=== PATIENT | male | born 1975 | race Caucasian/White ===

== ENCOUNTER 2021-01-12 05:06 | Observation (INO) | payer OTHER, SELFPAY ==
--- NOTE | ~2021-01-12 | US_ITS ---
EXAMINATION: US VENOUS ULTRASOUND WITH DOPPLER LOWER EXTREMITY, BILATERAL CLINICAL INFORMATION: Bilateral leg swelling. Positive d-dimer. Skin changes with thickened patchy purple/red skin and weeping open wound in the anterior right lower leg. COMPARISON: None TECHNIQUE: Ultrasound of the deep veins is performed from the hip to the calf with compression sonography and color and pulse Doppler assessment. Spectral analysis with color-flow imaging is performed. FINDINGS: RIGHT: There is normal venous compression and respiratory variation and augmented flow. The visualized common femoral vein, femoral vein, profunda femoral vein, popliteal vein, and the trifurcation region shows no evidence of deep venous thrombosis. There is no significant popliteal fossa cyst. The posterior tibial veins are patent. The peroneal veins are not visualized. LEFT: There is normal venous compression and respiratory variation and augmented flow. The visualized common femoral vein, femoral vein, profunda femoral vein, popliteal vein, and the trifurcation region shows no evidence of deep venous thrombosis. There is no significant popliteal fossa cyst. The posterior tibial and peroneal veins are only partially visualized with visualized segments appearing patent. US/US venous duplex LE BI IMPRESSION: No DVT demonstrated in the bilateral lower extremity down to the popliteal trifurcation. Calf veins were only incompletely seen. If the patient's symptoms persist, followup ultrasound in 5 days 7 days might be of value to exclude proximal propagation from a non-visualized calf vein.
--- NOTE | ~2021-01-12 | US_ITS ---
EXAMINATION: US VENOUS ULTRASOUND WITH DOPPLER LOWER EXTREMITY, RIGHT CLINICAL INFORMATION: Right leg swelling COMPARISON: None TECHNIQUE: Ultrasound of the deep veins is performed from the hip to the calf with compression sonography and color and pulse Doppler assessment. Spectral analysis with color-flow imaging is performed. FINDINGS: There is normal venous compression and respiratory variation and augmented flow. The visualized common femoral vein, superficial femoral vein, profunda femoral vein, and popliteal vein are patent. The right calf veins are not well visualized due to overlying dressing. There is no popliteal fossa cyst. US/US venous duplex LE RT IMPRESSION: No DVT demonstrated in the right lower extremity. Calf veins not well visualized.
[2021-01-12 05:11] VITALS: BP 154/92; PULSE 85; RESP 16; TEMP 36.1; O2SAT 94; BMI 37.6
[2021-01-12 05:38] LABS: MANUAL DIFF FLAG NO
[2021-01-12 05:39] LABS: Basophils Percent Auto 0.6 % (0-2); Eosinophils Absolute Auto 0.3 X10*3/uL (0.0-0.4); Eosinophils Percent Auto 4.8 % (0-4); Hematocrit 45.8 % (42.0-52.0); Hemoglobin 15.4 g/dl (14.0-18.0); Imm Gran Abs Auto 0.01 X10*3/uL (0.00-0.03); Imm Gran Pct Auto 0.2 % (0.0-0.4); Lymphocytes Absolute Auto 1.1 X10*3/uL (1.2-4.9); Lymphocytes Percent Auto 18.2 % (20-40); Mean Corpuscular HGB Conc 33.6 g/dl (31.0-36.0); Mean Corpuscular Hemoglobin 31.2 pg (27.0-33.0); Mean Corpuscular Volume 92.9 fL (80.0-98.0); Mean Platelet Volume 9.6 fL (9.4-12.4); Monocytes Absolute Auto 0.6 X10*3/uL (0.1-1.2); Monocytes Percent Auto 9.4 % (2-11); Neutrophils Absolute Auto 4.2 x10*3/uL (2.0-8.3); Neutrophils Percent Auto 66.8 % (45-73); Platelet Count 222 X10*3/uL (160-400); Red Blood Count 4.93 X10*6/uL (4.60-5.80); Red Cell Distribution Width 12.4 % (11.0-16.0); White Blood Count 6.3 X10*3/uL (4.8-10.8)
[2021-01-12 05:46] LABS: D Dimer High Sensitivity 401 NG/ML
[2021-01-12 06:19] LABS: Alanine Aminotransferase 16 U/L (0-40); Albumin Level 3.7 g/dL (3.5-5.0); Alkaline Phosphatase 51 U/L (39-117); Anion Gap 13 (12-20); Aspartate Amino Transferase 16 U/L (5-37); Bilirubin Total 0.7 mg/dL (0.0-1.0); Blood Urea Nitrogen 16 mg/dL (9-16); Calcium 9.3 mg/dL (8.4-10.2); Carbon Dioxide 32 mmol/L (22-29); Chloride 99 mmol/L (96-108); Creatinine Clr Calc Pharmacy 123.4; Estimated Glomerular Filt Rate > 60; Glucose Random 159 mg/dL (60-115); Potassium 3.2 mmol/L (3.3-5.1); Sodium 141 mmol/L (135-145); Total Protein 6.8 g/dL (6.5-8.0)
--- NOTE | 2021-01-12 07:30 | ED_ITS ---
HPI - General Adult General Chief complaint: Extremity Injury, Lower Stated complaint: leg pain Time Seen by Provider: 01/12/21 07:22 Source: patient History of Present Illness HPI narrative: This is a 45 years old the male with history of alcohol abuse presented to ED with a chief complaint of right lower extremity redness /discoloration. Denies any fever chills Onset (ago): day(s) Location: right and lower extremity Radiation: non-radiation Severity: moderate Quality: burning Pain Consistency: constant Relieving factors: none Exacerbating factors: none Related Data Home Medications Medication Instructions Recorded Confirmed acetaminophen 325 mg tablet 650 mg PO Q6H PRN 01/12/21 01/12/21 amlodipine 5 mg tablet 1 tab PO DAILY 01/12/21 01/12/21 budesonide-formoterol HFA 160 2 puff INHALATION BID 01/12/21 01/12/21 mcg-4.5 mcg/actuation aerosol inhaler (Symbicort) chlorthalidone 25 mg tablet 1 tab PO DAILY 01/12/21 01/12/21 clindamycin 1 %-benzoyl peroxide 5 1 appl TOPICAL DAILY 01/12/21 01/12/21 % topical gel clobetasol 0.05 % topical cream 1 appl TOPICAL DAILY 01/12/21 01/12/21 clotrimazole-betamethasone 1 1 appl TOPICAL DAILY 01/12/21 01/12/21 %-0.05 % topical cream lisinopril 40 mg tablet 1 tab PO DAILY 01/12/21 01/12/21 Allergies Allergy/AdvReac Type Severity Reaction Status Date / Time Penicillins [PENICILLINS] Allergy Unknown HIVES Verified 01/12/21 05:07 Review of Systems Constitutional: Constitutional: Reports no additional constitutional complaints ENT: Denies dizziness and Denies dry mouth Cardiovascular: Cardiovascular: Denies chest pain and Denies chest pain at rest Respiratory: Respiratory: Reports no additional respiratory complaints Neurologic: Denies dizziness PMFSH Past Medical History Medical History Asthma Hypertension Social History Social History Alcohol intake: never Smoked in Last 30 Days: No Use of substances other than those prescribed or required for medical reasons: No Advance Directives: No Advance Directives Information Provided: Yes Physical Exam Vital Signs: Vital Signs: Last Vital Signs Temp 97.0 F 01/12/21 05:11 Pulse 85 01/12/21 05:11 Resp 16 01/12/21 05:11 BP 154/92 H 01/12/21 05:11 Pulse Ox 94 01/12/21 05:11 BMI result Body Mass Index 37.6 Const: General: cooperative Nutritional Appearance: average body habitus Orientation/consciousness: patient oriented x3 HENMT: Head: Yes normal to inspection and Yes No palpable skull fracture present Mouth: Normal oral and palatal mucosa present Neck: Neck: Yes normal visual inspection and Yes full ROM Chest: Chest palpation & inspection: normal inspection of the chest Resp: Effort & Inspection: normal respiratory effort Auscultation: clear to auscultation bilaterally Cardio: Jugular venous distension: no JVD Rate: regular rate Rhythm: regular rhythm GI: Inspection: Yes normal to inspection Palpation (GI): Soft to palpation, not firm, nontender and no guarding Percussion: Yes normal to percussion Skin: General skin exam: no rashes or lesions noted, elasticity normal and turgor normal Neuro: General: patient oriented x3 Extrem: Other: examination of the right lower extremity shows redness discoloration erythema in the anterior aspect of the right leg Medical Decision Making MDM Narrative Medical decision making narrative: patient presented cellulitis draining in the right lower extremity we get the blood work blood culture IV antibiotic will do ultrasound of the right lower extremity Lab Data Result diagrams: 01/12/21 05:33 01/12/21 05:33 Labs: Lab Results 01/12/21 01/12/21 01/12/21 Range/Units 05:33 05:33 05:33 WBC 6.3 (4.8-10.8) X10*3/uL RBC 4.93 (4.60-5.80) X10*6/uL Hgb 15.4 (14.0-18.0) g/dl Hct 45.8 (42.0-52.0) % MCV 92.9 (80.0-98.0) fL MCH 31.2 (27.0-33.0) pg MCHC 33.6 (31.0-36.0) g/dl RDW 12.4 (11.0-16.0) % Plt Count 222 (160-400) X10*3/uL MPV 9.6 (9.4-12.4) fL Immature Gran % (Auto) 0.2 (0.0-0.4) % Neut % (Auto) 66.8 (45-73) % Lymph % (Auto) 18.2 L (20-40) % [place] % (Auto) 9.4 (2-11) % Eos % (Auto) 4.8 H (0-4) % Baso % (Auto) 0.6 (0-2) % Lymph # (Auto) 1.1 L (1.2-4.9) X10*3/uL [place] # (Auto) 0.6 (0.1-1.2) X10*3/uL Eos # (Auto) 0.3 (0.0-0.4) X10*3/uL Baso # (Auto) 0.0 (0.0-0.2) X10*3/uL Abs Immat Gran (auto) 0.01 (0.00-0.03) X10*3/uL Absolute Neuts (auto) 4.2 (2.0-8.3) x10*3/uL Absolute Nucleated RBC 0.000 (0.0-0.012) X10*3/uL Nucleated RBC % (auto) 0.0 (0.0-0.2) /100WBC ESR (0-15) MM/HR D-Dimer High Sensitivty 401 NG/ML Sodium 141 (135-145) mmol/L Potassium 3.2 L (3.3-5.1) mmol/L Chloride 99 (96-108) mmol/L Carbon Dioxide 32 H (22-29) mmol/L Anion Gap 13 (12-20) BUN 16 (9-16) mg/dL Creatinine 0.89 (0.5-1.4) mg/dL Estim Creat Clear Calc 123.4 Estimated GFR > 60 Random Glucose 159 H (60-115) mg/dL Lactic Acid (0.5-2.0) mmol/L Calcium 9.3 (8.4-10.2) mg/dL Total Bilirubin 0.7 (0.0-1.0) mg/dL AST 16 (5-37) U/L ALT 16 (0-40) U/L Alkaline Phosphatase 51 (39-117) U/L C-Reactive Protein 2.68 H (< or = 0.50) mg/dL Total Protein 6.8 (6.5-8.0) g/dL Albumin 3.7 (3.5-5.0) g/dL 01/12/21 01/12/21 Range/Units 05:33 08:07 WBC (4.8-10.8) X10*3/uL RBC (4.60-5.80) X10*6/uL Hgb (14.0-18.0) g/dl Hct (42.0-52.0) % MCV (80.0-98.0) fL MCH (27.0-33.0) pg MCHC (31.0-36.0) g/dl RDW (11.0-16.0) % Plt Count (160-400) X10*3/uL MPV (9.4-12.4) fL Immature Gran % (Auto) (0.0-0.4) % Neut % (Auto) (45-73) % Lymph % (Auto) (20-40) % [place] % (Auto) (2-11) % Eos % (Auto) (0-4) % Baso % (Auto) (0-2) % Lymph # (Auto) (1.2-4.9) X10*3/uL [place] # (Auto) (0.1-1.2) X10*3/uL Eos # (Auto) (0.0-0.4) X10*3/uL Baso # (Auto) (0.0-0.2) X10*3/uL Abs Immat Gran (auto) (0.00-0.03) X10*3/uL Absolute Neuts (auto) (2.0-8.3) x10*3/uL Absolute Nucleated RBC (0.0-0.012) X10*3/uL Nucleated RBC % (auto) (0.0-0.2) /100WBC ESR 30 H (0-15) MM/HR D-Dimer High Sensitivty NG/ML Sodium (135-145) mmol/L Potassium (3.3-5.1) mmol/L Chloride (96-108) mmol/L Carbon Dioxide (22-29) mmol/L Anion Gap (12-20) BUN (9-16) mg/dL Creatinine (0.5-1.4) mg/dL Estim Creat Clear Calc Estimated GFR Random Glucose (60-115) mg/dL Lactic Acid 0.7 (0.5-2.0) mmol/L Calcium (8.4-10.2) mg/dL Total Bilirubin (0.0-1.0) mg/dL AST (5-37) U/L ALT (0-40) U/L Alkaline Phosphatase (39-117) U/L C-Reactive Protein (< or = 0.50) mg/dL Total Protein (6.5-8.0) g/dL Albumin (3.5-5.0) g/dL Imaging Data us leg: Radiologist's impression: There is normal venous compression and respiratory variation and augmented flow. The visualized common femoral vein, femoral vein, profunda femoral vein, popliteal vein, and the trifurcation region shows no evidence of deep venous thrombosis. ? There is no significant popliteal fossa cyst. The posterior tibial veins are patent. The peroneal veins are not visualized. LEFT: There is normal venous compression and respiratory variation and augmented flow. The visualized common femoral vein, femoral vein, profunda femoral vein, popliteal vein, and the trifurcation region shows no evidence of deep venous thrombosis. ? There is no significant popliteal fossa cyst. The posterior tibial and peroneal veins are only partially visualized with visualized segments appearing patent. US/US venous duplex LE BI IMPRESSION: No DVT demonstrated in the bilateral lower extremity down to the popliteal trifurcation. Calf veins were only incompletely seen. ? If the patient's symptoms persist, followup ultrasound in 5 days 7 days might be of value to exclude proximal propagation from a non-visualized calf vein. Discharge Plan Discharge Clinical Impression: Cellulitis of leg, right Patient Disposition: Admitted As Inpatient
[2021-01-12] MEDS: vancomycin HCL 1,500 MG in 0.9 % Sodium Chloride 500 ML 333.33 MG IV (08:09)
--- NOTE | 2021-01-12 08:14 | PC.NURSE ---
pt asked this rn to contact mother. no answer x2
[2021-01-12 08:23] LABS: Lactic Acid 0.7 mmol/L (0.5-2.0)
[2021-01-12] MEDS: Potassium Chloride Packet 20 MEQ PACKET PO (11:06)
--- NOTE | 2021-01-12 11:09 | P.HPHOSP_ITS ---
History of Present Illness Date of Service: 01/12/21 Chief Complaint: right leg cellulitis 45-year-old male with past medical history of asthma, acne, hypertension, also allergic to cats and penicillin: patient came to the hospital because he has on and on/off leg cellulitis from : patient was being initially managed by PCP out patiently and then was told to go to [facility] in November where he had antibiotic therapy and was told to come back to podiatry clinic as per the patient his appointment got canceled, his leg becoming more painful and has superficial skin sloughing and mild clear drainage as per the patient. subsequently decided to come to the hospital. he denies any recent injury to the leg. He has chronic left venous stasis type changes on the other leg area. Denies any new complaint of chest pain or shortness of breath or abdominal pain or fever or chills or nausea or vomiting Denies any cough Denies any weakness or numbness. social history: Lives with his mother, unfortunately have cat in the house but he is allergic to it. He does binge drinking 8-10 beers 3 times a week says he does for pain in the lack . no smoking accept uses marijuana occasionally denies any recreational drug use ADL independent Review of Systems Review of Systems: as above. Yes all other systems are reviewed and are negative [facility] Medical History Asthma Hypertension Social History Alcohol intake: never Patient Tobacco Use Status: Tobacco use Unknown Tobacco use type: Cigarette Smoked in Last 30 Days: No Use of substances other than those prescribed or required for medical reasons: No Advance Directives: No Advance Directives Information Provided: Yes Meds Allergies Allergy/AdvReac Type Severity Reaction Status Date / Time Penicillins [PENICILLINS] Allergy Unknown HIVES Verified 01/12/21 05:07 Active Medications: Current Medications Vancomycin HCl 1,250 mg/ (Sodium Chloride) 250 mls @ 166.667 mls/hr IV Q12H [facility] Pharmacy Consult (Consult Rx Vancomycin Dosing) 1 each MISCELLANE DAILY PRN PRN Reason: Consult order Pharmacy Consult (Consult Rx Perform Med Rec) 1 each MISCELLANE ONCE PRN PRN Reason: Consult order Home Medications Medication Instructions Recorded Confirmed Last Taken Type acetaminophen 325 mg tablet 650 mg PO Q6H PRN 01/12/21 01/12/21 Unknown History amlodipine 5 mg tablet 1 tab PO DAILY 01/12/21 01/12/21 Unknown History budesonide-formoterol HFA 160 2 puff INHALATION BID 01/12/21 01/12/21 Unknown History mcg-4.5 mcg/actuation aerosol inhaler (Symbicort) chlorthalidone 25 mg tablet 1 tab PO DAILY 01/12/21 01/12/21 Unknown History clindamycin 1 %-benzoyl peroxide 5 1 appl TOPICAL DAILY 01/12/21 01/12/21 Unknown History % topical gel clobetasol 0.05 % topical cream 1 appl TOPICAL DAILY 01/12/21 01/12/21 Unknown History clotrimazole-betamethasone 1 1 appl TOPICAL DAILY 01/12/21 01/12/21 Unknown History %-0.05 % topical cream lisinopril 40 mg tablet 1 tab PO DAILY 01/12/21 01/12/21 Unknown History Physical Exam Vital Signs and Narrative: Vital Signs: Last Vital Signs Temp 97.0 F 01/12/21 05:11 Pulse 85 01/12/21 05:11 Resp 16 01/12/21 05:11 BP 154/92 H 01/12/21 05:11 Pulse Ox 94 01/12/21 05:11 BMI result Body Mass Index 37.6 Physical exam: Appearance: Alert.? Oriented X3.? not in distress.? Eyes: Pupils equal, round and reactive to light.? Sclera nonicteric.? has facial acne. ENT: Pharynx normal.? Moist mucous membranes. cvs: rrr, [id number] , no murmur res: clear to auscultation ,no rhonchii or wheezing abd: no rebound or guarding ,nt, bs present. ext : Right leg has chronic venostasis changes more than the left leg right leg specially in the lateral side has multiple skin ulcerations mild clear discharge, no flocculation, but warm area neuro: axo3 , nonfocal. Results Labs CBC and Chem 7: 01/12/21 05:33 01/13/21 04:43 Labs: Laboratory Results - last 24 hr 01/12/21 01/12/21 01/12/21 05:33 05:33 05:33 MCV 92.9 MCH 31.2 MCHC 33.6 RDW 12.4 Plt Count 222 MPV 9.6 Immature Gran % (Auto) 0.2 Neut % (Auto) 66.8 Lymph % (Auto) 18.2 L [place] % (Auto) 9.4 Eos % (Auto) 4.8 H Baso % (Auto) 0.6 Lymph # (Auto) 1.1 L [place] # (Auto) 0.6 Eos # (Auto) 0.3 Baso # (Auto) 0.0 Abs Immat Gran (auto) 0.01 Absolute Neuts (auto) 4.2 Absolute Nucleated RBC 0.000 Nucleated RBC % (auto) 0.0 D-Dimer High Sensitivty 401 Anion Gap 13 Estim Creat Clear Calc 123.4 Estimated GFR > 60 Random Glucose 159 H Lactic Acid Calcium 9.3 Total Bilirubin 0.7 AST 16 ALT 16 Alkaline Phosphatase 51 Total Protein 6.8 Albumin 3.7 01/12/21 08:07 MCV MCH MCHC RDW Plt Count MPV Immature Gran % (Auto) Neut % (Auto) Lymph % (Auto) [place] % (Auto) Eos % (Auto) Baso % (Auto) Lymph # (Auto) [place] # (Auto) Eos # (Auto) Baso # (Auto) Abs Immat Gran (auto) Absolute Neuts (auto) Absolute Nucleated RBC Nucleated RBC % (auto) D-Dimer High Sensitivty Anion Gap Estim Creat Clear Calc Estimated GFR Random Glucose Lactic Acid 0.7 Calcium Total Bilirubin AST ALT Alkaline Phosphatase Total Protein Albumin Imaging Radiologist's Impressions: Impressions Venous Duplex 01/12/21 09:00 IMPRESSION: No DVT demonstrated in the bilateral lower extremity down to the popliteal trifurcation. Calf veins were only incompletely seen. If the patient's symptoms persist, followup ultrasound in 5 days 7 days might be of value to exclude proximal propagation from a non-visualized calf vein. Assessment and Plan (1) Cellulitis of leg, right: Status: Acute 1. 45-year-old male with possible right leg cellulitis: Admit to observation labs and imaging reviewed personally and interpreted. CBC BMP seems fine, dvt study neg slightly limited -may repeat in 1 week if still symptomatic. ESR and CRP added, blood cultures sent patient was started on IV vancomycin, IV Dilaudid for pain management Vanco trough as per pharmacy. Id and wound care 2. Hypertension burk will continue home amlodipine and lisinopril. 3. Asthma: Stable- continue Symbicort, albuterol p.r.n. 4. alcohol abuse: CIWA scale, folic acid thiamine. last drink was 3-4 days back. 5. acne: He is aware to bring his home medication. 6. DVT prophylaxis: With subQ Lovenox above management discussed with the patient in detail length including use of antibiotics and side effects, code status: Patient understand above and in agreement with the above plan, time spent in assessment and plan could admission is 70 minute. Quality Stroke Does the patient have a stroke diagnosis?: No VTE Prior VTE?: No VTE Risk Level:: Medical - moderate - high VTE Device Contraindication: N/A - Device Ordered VTE Drug Contraindication: N/A - Med Ordered
[2021-01-12] MEDS: Lactated Ringers 1,000 ML 80 ML IVCONT (11:19)
[2021-01-12 12:13] LABS: C Reactive Protein 2.68 mg/dL (< or = 0.50)
[2021-01-12 12:46] LABS: Erythrocyte Sedimentation Rate 30 MM/HR (0-15)
[2021-01-12 14:50] LABS: COVID-19 Test Negative (Negative)
[2021-01-12 15:11] VITALS: BP 150/95; PULSE 75; RESP 18; TEMP 36.5; O2SAT 94
[2021-01-12] MEDS: 0.9 % Sodium Chloride Flush 3 ML SYRINGE IVFLUSH (15:18)
[2021-01-12] MEDS: HYDROmorphone HCl 0.5 MG/0.5 ML SYRINGE IVPUSH ×2 (15:20→19:39)
[2021-01-12 16:00] VITALS: BP 136/83; PULSE 71; RESP 16; TEMP 36.4; O2SAT 95
[2021-01-12] MEDS: vancomycin HCL 1,250 MG in 0.9 % Sodium Chloride 250 ML 166.67 MG IV (19:39)
--- NOTE | 2021-01-12 19:46 | PC.NURSE ---
pt a&o, no sob or chest pain, medicated per Mar. Will continue to monitor. no sign of distress at this time.
--- NOTE | 2021-01-12 21:35 | PC.NURSE ---
postive CMS and pedal pulses.
[2021-01-13] VITALS: BP 139/92; PULSE 68; RESP 16; TEMP 36.1; O2SAT 95
[2021-01-13] MEDS: HYDROmorphone HCl 0.5 MG/0.5 ML SYRINGE IVPUSH ×3 (00:03→18:40)
[2021-01-13] MEDS: Lactated Ringers 1,000 ML 80 ML IVCONT ×2 (03:22→18:15)
[2021-01-13 03:34] VITALS: BP 143/94; PULSE 81; RESP 16; TEMP 36.1; O2SAT 92
[2021-01-13 05:34] LABS: Anion Gap 9 (12-20); Blood Urea Nitrogen 14 mg/dL (9-16); Calcium 9.1 mg/dL (8.4-10.2); Carbon Dioxide 36 mmol/L (22-29); Chloride 99 mmol/L (96-108); Creatinine Clr Calc Pharmacy 127.7; Estimated Glomerular Filt Rate > 60; Glucose Random 98 mg/dL (60-115); Potassium 3.4 mmol/L (3.3-5.1); Sodium 141 mmol/L (135-145)
[2021-01-13 07:12] VITALS: BP 148/97; PULSE 81; RESP 18; TEMP 38.2; O2SAT 94
--- NOTE | 2021-01-13 07:32 | P.PNIM_ITS ---
Subjective Subjective Date of Service: 01/13/21 Interval History: leg cellulitis Review of Systems Still has leg pain improving, cellulitis area is also slowly improving Denies any new complaint of chest pain or shortness of breath or abdominal pain or fever or chills or nausea or vomiting Denies cough or weakness or numbness. Physical Exam Vital Signs: Vital Signs: Last Vital Signs Temp 100.7 F H 01/13/21 07:12 Pulse 81 01/13/21 07:12 Resp 18 01/13/21 07:12 BP 148/97 H 01/13/21 07:12 Pulse Ox 92 01/13/21 03:34 BMI result Body Mass Index 37.6 ?Appearance: Alert.? Oriented X3.? not in distress.? Eyes: Pupils equal, round and reactive to light.? Sclera nonicteric.? ?has facial acne. ENT: Pharynx normal.? Moist mucous membranes. cvs: rrr, [id number] , no murmur res: clear to auscultation ,no rhonchii or wheezing abd: no rebound or guarding ,nt, bs present. ext : ? Right leg has chronic? venostasis changes more than the left leg ?right leg specially in the lateral side has multiple skin ulcerations, less erythema ?mild clear discharge,? no flocculation,? but warm area neuro: axo3 , nonfocal. Objective Data Active Medications Albuterol Sulfate (Albuterol Sulfate 90 Mcg 8 Gm Inhaler) 1 puff INHALE RQ4H PRN PRN Reason: sob Amlodipine Besylate (Amlodipine Besylate 5 Mg Tablet) 5 mg PO DAILY [facility]; Protocol Betamethasone Dipropion Augmented (Betamethasone Dip Aug 0.05% Cr 15 Gm Tube) 1 appl TOPICAL DAILY [facility] Docusate Sodium (Docusate Sodium 100 Mg Capsule) 100 mg PO DAILY PRN PRN Reason: constipation Enoxaparin Sodium (Enoxaparin Sodium 40 Mg/0.4 Ml Syringe) 40 mg SUBCUT DAILY [facility] Fluticasone/Vilanterol (Fluticasone/Vilanterol 200/25 Blst.W.Dev) 1 puff INHALE RDAILY [facility] Folic Acid (Folic Acid 1 Mg Tablet) 1 mg PO DAILY [facility] Hydromorphone HCl (Hydromorphone Hcl 0.5 Mg/0.5 Ml Syringe) 0.5 mg IVPUSH Q4H PRN; Protocol PRN Reason: Pain, Mild (Pain Scale 1-3) Last Admin: 01/13/21 00:03 Dose: 0.5 mg Documented by: STEPHON Vancomycin HCl 1,250 mg/ (Sodium Chloride) 250 mls @ 166.667 mls/hr IV Q12H [facility] Last Infusion: 01/12/21 22:20 Dose: 166.67 mls/hr Documented by: STEPHON Lactated Ringer's (Lr) 1,000 mls @ 80 mls/hr IVCONT .[id number] [facility] Last Admin: 01/13/21 03:22 Dose: 80 mls/hr Documented by: STEPHON Lisinopril (Lisinopril 40 Mg Tablet) 40 mg PO DAILY [facility]; Protocol Nystatin/Triamcinolone Acetonide (Nystatin/Triamcinolone Cream 15 Gm Tube) 1 appl TOPICAL DAILY [facility] Pharmacy Consult (Consult Rx Vancomycin Dosing) 1 each MISCELLANE DAILY PRN PRN Reason: Consult order Pharmacy Consult (Consult Rx Perform Med Rec) 1 each MISCELLANE ONCE PRN PRN Reason: Consult order Sodium Chloride (0.9 % Sodium Chloride Flush 3 Ml Syringe) 3 ml IVFLUSH QSHIFT [facility] Last Admin: 01/13/21 00:08 Dose: Not Given Documented by: STEPHON Non-Admin Reason: IV Running Thiamine HCl (Thiamine Hcl 100 Mg Tablet) 100 mg PO DAILY [facility] Labs CBC & Chem 7: 01/12/21 05:33 01/13/21 04:43 Labs: Laboratory Results - last 24 hr 01/12/21 01/12/21 01/12/21 05:33 05:33 08:07 ESR 30 H Anion Gap Estim Creat Clear Calc Estimated GFR Random Glucose Lactic Acid 0.7 Calcium C-Reactive Protein 2.68 H COVID-19 ([facility]) COVID-19 Clin Com 01/12/21 01/13/21 14:21 04:43 ESR Anion Gap 9 L Estim Creat Clear Calc 127.7 Estimated GFR > 60 Random Glucose 98 D Lactic Acid Calcium 9.1 C-Reactive Protein COVID-19 (JESS) Negative COVID-19 Clin Com See Note Assessment and Plan (1) Cellulitis of leg, right: Status: Acute Assessment and Plan: ?1.? 45-year-old male with possible right leg cellulitis: ddimer 401, intial dvt study neg slightly limited?-please repeat venous dupplex before discharge. ?ESR 30 and CRP 2.68, blood cultures @24 hrs cellulitis area -little improvement ?patient was started on IV vancomycin, IV Dilaudid for pain management ?Vanco trough as per pharmacy. seen by ID and surgery-continue iv antibiotics , wound care. 2. ? Hypertension burk will continue home amlodipine and lisinopril. 3. ? Asthma:? Stable- continue Symbicort, albuterol p.r.n. 4. alcohol abuse:? CIWA scale, folic acid thiamine. ?last drink was 3-4 days back. 5.? acne:? He is aware to bring his home medication. 6. DVT prophylaxis:? With subQ? Lovenox Quality Stroke Does the patient have a stroke diagnosis?: No VTE Prior VTE?: No VTE Risk Level:: Medical - moderate - high VTE Device Contraindication: N/A - Device Ordered VTE Drug Contraindication: N/A - Med Ordered
[2021-01-13] MEDS: 0.9 % Sodium Chloride Flush 3 ML SYRINGE IVFLUSH (08:55)
[2021-01-13] MEDS: vancomycin HCL 1,250 MG in 0.9 % Sodium Chloride 250 ML 166.67 MG IV ×2 (08:55→19:54)
[2021-01-13] MEDS: Enoxaparin Sodium 40 MG/0.4 ML SYRINGE SUBCUT (08:56)
[2021-01-13] MEDS: Folic Acid 1 MG TABLET PO (08:56)
[2021-01-13] MEDS: Thiamine HCL 100 MG TABLET PO (08:56)
[2021-01-13] MEDS: amLODIPine Besylate 5 MG TABLET PO (08:56)
[2021-01-13] MEDS: lisinopriL 40 MG TABLET PO (08:56)
--- NOTE | 2021-01-13 09:27 | PC.NURSE ---
Skin/wound assessment completed. Patient has venous stasis ulcers on right lower extremity. Cleaned with wound cleanser, EPC cream applied on edges of wound then silver alginate applied to wound beds, covered with non-woven gauze and roll gauze. Cream applied to lower legs. Betamethasone applied to rash under right arm. No other skin issues noted at this time.
[2021-01-13] MEDS: Betamethasone Dip Aug 0.05% Cr 15 GM TUBE 1 APPL TOPICAL (10:32)
--- NOTE | 2021-01-13 10:32 | PM.CNGS ---
History of Present Illness Consult details Consult date: 01/13/21 Reason for consult: wound care ( and cellulitis right lower leg) Requesting physician: Matthew Chino Narrative: this is a 45-year-old male who gives a several month history of worsening right lower extremity swelling and pain. He developed ulcerations of the right lower leg probably sometime in the last couple of months though this is a little bit unclear. He was seen at [facility]. He does not know the name of the provider he saw and does not know the specialty but reports that he had an ultrasound of the right leg done. He was told that there were no blood clots. He does not know whether there was any other information included on the ultrasound study. He reports that he was supposed to have the left lower extremity evaluated by ultrasound as well. Treatment included the use of compression stockings. He reports that he had a lot of drainage from the wounds and that he felt like he was tearing his skin off when he removed the stockings. Because of worsening pain and swelling, he elected to come to the emergency department yesterday for further evaluation. He gives a history of a rash and says that it has been worse recently. He is unsure whether this may be related to increased sweating. He uses a steroid cream for the rash and had been applying it to the ulcers of the right lower leg as well though he does not feel that it has provided any significant benefit. He does not report fever, chills or bleeding. Review of Systems Constitutional: Constitutional: Reports no additional constitutional complaints and Denies headache(s) Eyes: Eyes: Reports no additional eye complaints ENT: Denies headache(s) and Denies hearing loss Cardiovascular: Cardiovascular: Denies chest pain, Denies irregular heart rhythm, Denies palpitations and Denies dyspnea on exertion Respiratory: Respiratory: Denies cough, Denies dyspnea on exertion and Denies wheezing Gastrointestinal: Gastrointestinal: Reports no additional gastrointestinal complaints Genitourinary: Genitourinary: Reports no additional male genitourinary complaints Musculoskeletal: Musculoskeletal: Reports no additional musculoskeletal complaints Integumentary/Breasts: Skin/Breast: Reports pruritus and Reports rash Neurologic: Denies headache(s), Denies memory loss and Reports convulsions Psychiatric: Psychiatric: Denies memory loss Endocrine: Endocrine: Denies palpitations Hematologic/Lymphatic: Hematologic/Lymphatic: Denies easy bleeding and Reports other ( No history of blood clots) Allergic/Immunologic: Allergic/Immunologic: Denies wheezing [facility] Past Medical History Medical History (Updated 01/13/21 @ 10:47 by Caryl Cai MD) Asthma Cerebral palsy Hypertension Surgical History Surgical History (Updated 01/13/21 @ 10:38 by Caryl Cai MD) H/O umbilical hernia repair Social History Social History (Updated 01/13/21 @ 10:39 by Caryl Cai MD) Alcohol intake: current Alcohol intake frequency: a few times a week Patient Tobacco Use Status: Tobacco use Unknown Tobacco use type: Cigarette Smoked in Last 30 Days: No Use of substances other than those prescribed or required for medical reasons: No Advance Directives: No Advance Directives Information Provided: Yes Meds Allergies Allergy/AdvReac Type Severity Reaction Status Date / Time Penicillins [PENICILLINS] Allergy Unknown HIVES Verified 01/12/21 05:07 Active Medications: Current Medications Albuterol Sulfate (Albuterol Sulfate 90 Mcg 8 Gm Inhaler) 1 puff INHALE RQ4H PRN PRN Reason: sob Amlodipine Besylate (Amlodipine Besylate 5 Mg Tablet) 5 mg PO DAILY [facility]; Protocol Last Admin: 01/13/21 08:56 Dose: 5 mg Documented by: Betamethasone Dipropion Augmented (Betamethasone Dip Aug 0.05% Cr 15 Gm Tube) 1 appl TOPICAL DAILY [facility] Docusate Sodium (Docusate Sodium 100 Mg Capsule) 100 mg PO DAILY PRN PRN Reason: constipation Enoxaparin Sodium (Enoxaparin Sodium 40 Mg/0.4 Ml Syringe) 40 mg SUBCUT DAILY [facility] Last Admin: 01/13/21 08:56 Dose: 40 mg Documented by: Fluticasone/Vilanterol (Fluticasone/Vilanterol 200/25 Blst.W.Dev) 1 puff INHALE RDAILY [facility] Last Admin: 01/13/21 09:31 Dose: Not Given Documented by: Folic Acid (Folic Acid 1 Mg Tablet) 1 mg PO DAILY [facility] Last Admin: 01/13/21 08:56 Dose: 1 mg Documented by: Hydromorphone HCl (Hydromorphone Hcl 0.5 Mg/0.5 Ml Syringe) 0.5 mg IVPUSH Q4H PRN; Protocol PRN Reason: Pain, Mild (Pain Scale 1-3) Last Admin: 01/13/21 09:14 Dose: 0.5 mg Documented by: Vancomycin HCl 1,250 mg/ (Sodium Chloride) 250 mls @ 166.667 mls/hr IV Q12H [facility] Last Admin: 01/13/21 08:55 Dose: 166.67 mls/hr Documented by: Lactated Ringer's (Lr) 1,000 mls @ 80 mls/hr IVCONT .[id number] [facility] Last Admin: 01/13/21 03:22 Dose: 80 mls/hr Documented by: Lisinopril (Lisinopril 40 Mg Tablet) 40 mg PO DAILY [facility]; Protocol Last Admin: 01/13/21 08:56 Dose: 40 mg Documented by: Nystatin/Triamcinolone Acetonide (Nystatin/Triamcinolone Cream 15 Gm Tube) 1 appl TOPICAL DAILY [facility] Pharmacy Consult (Consult Rx Vancomycin Dosing) 1 each MISCELLANE DAILY PRN PRN Reason: Consult order Pharmacy Consult (Consult Rx Perform Med Rec) 1 each MISCELLANE ONCE PRN PRN Reason: Consult order Sodium Chloride (0.9 % Sodium Chloride Flush 3 Ml Syringe) 3 ml IVFLUSH QSHIFT [facility] Last Admin: 01/13/21 08:55 Dose: 3 ml Documented by: Thiamine HCl (Thiamine Hcl 100 Mg Tablet) 100 mg PO DAILY [facility] Last Admin: 01/13/21 08:56 Dose: 100 mg Documented by: Home Medications Medication Instructions Recorded Confirmed Last Taken Type acetaminophen 325 mg tablet 650 mg PO Q6H PRN 01/12/21 01/12/21 Unknown History amlodipine 5 mg tablet 1 tab PO DAILY 01/12/21 01/12/21 Unknown History budesonide-formoterol HFA 160 2 puff INHALATION BID 01/12/21 01/12/21 Unknown History mcg-4.5 mcg/actuation aerosol inhaler (Symbicort) chlorthalidone 25 mg tablet 1 tab PO DAILY 01/12/21 01/12/21 Unknown History clindamycin 1 %-benzoyl peroxide 5 1 appl TOPICAL DAILY 01/12/21 01/12/21 Unknown History % topical gel clobetasol 0.05 % topical cream 1 appl TOPICAL DAILY 01/12/21 01/12/21 Unknown History clotrimazole-betamethasone 1 1 appl TOPICAL DAILY 01/12/21 01/12/21 Unknown History %-0.05 % topical cream lisinopril 40 mg tablet 1 tab PO DAILY 01/12/21 01/12/21 Unknown History Physical Exam Vital Signs: Vital Signs: Last Vital Signs Temp 100.7 F H 01/13/21 07:12 Pulse 81 01/13/21 07:12 Resp 18 01/13/21 07:12 BP 148/97 H 01/13/21 07:12 Pulse Ox 94 01/13/21 07:12 BMI result Body Mass Index 37.6 Const: General: cooperative, no acute distress and alert HENMT: Head: Yes atraumatic and Yes abrasion Eyes: General: appearance normal, both eyes and all related structures Neck: Neck: Yes trachea midline and Yes supple Resp: Effort & Inspection: normal respiratory effort Auscultation: clear to auscultation bilaterally Cardio: Rate: regular rate Rhythm: regular rhythm Peripheral pulses: posterior tibial pulses present on the left ( right not palpable possibly secondary to edema) 2+ and dorsalis pedis present bilateral 2+ GI: Other: round, soft, nontender, no palpable masses, no obvious organomegaly, well-healed umbilical scar Rectal Exam - Male: Yes deferred Skin: Other: warm, moist Extrem: Other: mild brawny edema right lower leg, hemosiderin deposition anterior aspect right lower leg and mild erythema consistent with celluliti, multiple small superficial areas of ulceration lateral, anterior and anteromedial right lower leg no significant edema left lower leg, very mild pigmentary change noted anterior aspect left lower leg consistent with hemosiderin deposition Results Labs Result diagrams: 01/12/21 05:33 01/13/21 04:43 Labs: Abnormal lab results 01/12/21 01/12/21 01/13/21 Range/Units 05:33 05:33 04:43 ESR 30 H (0-15) MM/HR Carbon Dioxide 36 H (22-29) mmol/L Anion Gap 9 L (12-20) C-Reactive Protein 2.68 H (< or = 0.50) mg/dL BMP 01/13/21 04:43 Sodium 141 Potassium 3.4 Chloride 99 Carbon Dioxide 36 H BUN 14 Creatinine 0.86 Calcium 9.1 All other labs normal. Imaging Additional studies: bilateral lower extremity venous Dopplers done yesterday show no evidence of DVT Assessment and Plan (1) Cellulitis of leg, right: Status: Acute chronic venous hypertension and ulceration right lower extremity with associated cellulitis. Continue vancomycin. (2) Chronic venous hypertension with ulcer: Status: Acute Chronic venous stasis right lower extremity with ulceration. Agree with recommendations for local cleansing, protection of mulugeta-ulcer skin with extra thick protective cream and application of silver alginate dressings. Recommend follow-up in [facility] Care [facility]. Procedures Date of Service Date of Service: 01/13/21
[2021-01-13 11:26] VITALS: BP 140/90; PULSE 78; RESP 18; TEMP 37.7; O2SAT 95
--- NOTE | 2021-01-13 13:40 | MHC.CM.PN ---
NURSE MANAGER MEDICAL DEVICE NOTE ELECTRONIC MEDICAL RECORD REVIEWED ALONG WITH CASE DISCUSSED ON MULTIPLE DISCIPLAINRY ROUNDS, Patient was admitted on observation status, case discussed further with hospitalist, patient was evaluated by surgical, and wound nurse, continues on i more day of iv bx and iv pain medication discharge plan-home with no services transportation family pcp follow up for post hospitla discharge observation paperwork given to him and blank health care proxy for him to review and start discussing , at thsi time he does not know whom he would have as his agent. met with patient lives ith his mother he moved to be with her f=after the of his father, he is employed lock technician he is active independent in all his adls and mobility with out any devices. he has no services in the home he recived his [employer] vacination june, and will going for his booster soon patient has had leg pain and oozing skin tears , he has been seen by physician and also in octobe was seen at [facility] and given topical cream s to apply and compression stockings, he reported that it started to srain and his socks ansd sweat panys woild be wet , seen by the wound nurse , patient also reported drinking (binges at time many beers durning this time about 3x weekly, patient is on ciwa scale monitoring , referr for care [facility] for community supports discharge plan anticipate home no services follow up with pcp f/u withcare team recomendations and resources
--- NOTE | 2021-01-13 15:08 | MHC.CLN ---
NUTRITION CONSULT CONSULT FOR IMPAIRED SKIN. PATIENT WITH RIGHT LOWER LEG VENOUS/STASIS ULCER. NOT PRESSURE RELATED. NO ADDITIONAL NUTRITION INTERVENTIONS.
--- NOTE | 2021-01-13 15:52 | MHC.RECOVRN ---
45 year old male presented to [facility] ED on 01/12 due to LEG PAIN, SWELLING DISCOLORATION ON AND OFF. PAIN WITH AMBULATING, FEELS TIGHT AND A BURNING SENSATION ON LOWER HALF OF LEG per fire extinguisher installer. Pt subsequently admitted for management of cellulitis. During admission, pt reported drinking alcohol 3x weekly which prompted a CARE Team consult. T/w met with pt in 369 to discuss alcohol use. Pt reports binge drinking on the weekends, approx 1/2 case beer, and drinking a few times during the week, approx 5-6 hard seltzers. Pt denies other substances. Pt reports drinking increased in 2011 after father's . Pt states It was bad for awhile and then I just stopped. Pt denies ATS admissions, denies hx withdrawal symptoms. Pt has utilized AA in the past and would like to reengage. Pt reports alcohol use fluctuates but at this time would like to decrease use. Pt educated regarding recovery supports and services, would like to be connected to the [facility] to discuss initiation of naltrexone. Pt has positive supports including mother and best friend who is active with AA. Pt is employed. Pt provided with resources, t/w will f/u tomorrow to address any questions. Pt has appt at the [facility] on 01/16 at 1:30PM for intake. Discussed with Jazmyn Souza APRN.
[2021-01-13 16:00] VITALS: BP 145/80; PULSE 74; RESP 18; TEMP 36.8; O2SAT 93
[2021-01-13 18:34] LABS: Vancomycin Trough 14.5 mcg/mL (10.0-20.0)
[2021-01-13 19:06] VITALS: BP 140/74; PULSE 80; RESP 18; TEMP 36.8; O2SAT 94
--- NOTE | 2021-01-13 21:32 | W.PM.IDCN ---
History of Present Illness Data of Consult Service Date: 01/13/21 Requesting physician: Matthew Chino Primary Care Provider: Unknown Physician HPI Reason for consult: right leg rash He presents with redness pain and swelling right leg He has new heat to area He has had [place] [facility] He has chronic venous stasis changes Review of Systems Review of Systems: Yes all other systems are reviewed and are negative PMFSH Past Medical History Medical History Asthma Cerebral palsy Hypertension Family History Family history: reviewed and not pertinent Surgical History Surgical History H/O umbilical hernia repair Social History Social History Alcohol intake: current Alcohol intake frequency: a few times a week Patient Tobacco Use Status: Tobacco use Unknown Tobacco use type: Cigarette service: No Current occupational status: employed Meds Allergies Allergy/AdvReac Type Severity Reaction Status Date / Time Penicillins [PENICILLINS] Allergy Unknown HIVES Verified 01/12/21 05:07 Active Medications: Current Medications Albuterol Sulfate (Albuterol Sulfate 90 Mcg 8 Gm Inhaler) 1 puff INHALE RQ4H PRN PRN Reason: sob Amlodipine Besylate (Amlodipine Besylate 5 Mg Tablet) 5 mg PO DAILY [facility]; Protocol Last Admin: 01/13/21 08:56 Dose: 5 mg Documented by: Betamethasone Dipropion Augmented (Betamethasone Dip Aug 0.05% Cr 15 Gm Tube) 1 appl TOPICAL DAILY [facility] Last Admin: 01/13/21 10:32 Dose: 1 appl Documented by: Docusate Sodium (Docusate Sodium 100 Mg Capsule) 100 mg PO DAILY PRN PRN Reason: constipation Enoxaparin Sodium (Enoxaparin Sodium 40 Mg/0.4 Ml Syringe) 40 mg SUBCUT DAILY [facility] Last Admin: 01/13/21 08:56 Dose: 40 mg Documented by: Fluticasone/Vilanterol (Fluticasone/Vilanterol 200/25 Blst.W.Dev) 1 puff INHALE RDAILY [facility] Last Admin: 01/13/21 09:31 Dose: Not Given Documented by: Folic Acid (Folic Acid 1 Mg Tablet) 1 mg PO DAILY [facility] Last Admin: 01/13/21 08:56 Dose: 1 mg Documented by: Hydromorphone HCl (Hydromorphone Hcl 0.5 Mg/0.5 Ml Syringe) 0.5 mg IVPUSH Q4H PRN; Protocol PRN Reason: Pain, Mild (Pain Scale 1-3) Last Admin: 01/13/21 18:40 Dose: 0.5 mg Documented by: Vancomycin HCl 1,250 mg/ (Sodium Chloride) 250 mls @ 166.667 mls/hr IV Q12H [facility] Last Admin: 01/13/21 19:54 Dose: 166.67 mls/hr Documented by: Lactated Ringer's (Lr) 1,000 mls @ 80 mls/hr IVCONT .[id number] [facility] Last Admin: 01/13/21 18:15 Dose: 80 mls/hr Documented by: Lisinopril (Lisinopril 40 Mg Tablet) 40 mg PO DAILY [facility]; Protocol Last Admin: 01/13/21 08:56 Dose: 40 mg Documented by: Nystatin/Triamcinolone Acetonide (Nystatin/Triamcinolone Cream 15 Gm Tube) 1 appl TOPICAL DAILY [facility] Last Admin: 01/13/21 14:27 Dose: Not Given Documented by: Pharmacy Consult (Consult Rx Vancomycin Dosing) 1 each MISCELLANE DAILY PRN PRN Reason: Consult order Pharmacy Consult (Consult Rx Perform Med Rec) 1 each MISCELLANE ONCE PRN PRN Reason: Consult order Sodium Chloride (0.9 % Sodium Chloride Flush 3 Ml Syringe) 3 ml IVFLUSH QSHIFT [facility] Last Admin: 01/13/21 16:45 Dose: Not Given Documented by: Thiamine HCl (Thiamine Hcl 100 Mg Tablet) 100 mg PO DAILY [facility] Last Admin: 01/13/21 08:56 Dose: 100 mg Documented by: Home Medications Medication Instructions Recorded Confirmed Last Taken Type acetaminophen 325 mg tablet 650 mg PO Q6H PRN 01/12/21 01/12/21 Unknown History amlodipine 5 mg tablet 1 tab PO DAILY 01/12/21 01/12/21 Unknown History budesonide-formoterol HFA 160 2 puff INHALATION BID 01/12/21 01/12/21 Unknown History mcg-4.5 mcg/actuation aerosol inhaler (Symbicort) chlorthalidone 25 mg tablet 1 tab PO DAILY 01/12/21 01/12/21 Unknown History clindamycin 1 %-benzoyl peroxide 5 1 appl TOPICAL DAILY 01/12/21 01/12/21 Unknown History % topical gel clobetasol 0.05 % topical cream 1 appl TOPICAL DAILY 01/12/21 01/12/21 Unknown History clotrimazole-betamethasone 1 1 appl TOPICAL DAILY 01/12/21 01/12/21 Unknown History %-0.05 % topical cream lisinopril 40 mg tablet 1 tab PO DAILY 01/12/21 01/12/21 Unknown History Physical Exam Vital Signs: Vital Signs: Last Vital Signs Temp 98.3 F 01/13/21 19:06 Pulse 80 01/13/21 19:06 Resp 18 01/13/21 19:06 BP 140/74 H 01/13/21 19:06 Pulse Ox 94 01/13/21 19:06 BMI result Body Mass Index 37.6 Const: General: cooperative Eyes: General: appearance normal, both eyes and all related structures Resp: Effort & Inspection: normal respiratory effort Cardio: Rate: regular rate Rhythm: regular rhythm GI: Palpation (GI): Soft to palpation and nontender : General: Yes no CVA tenderness Back/Spine/Pelvis: Back: no CVA tenderness Skin: Other: reddened right leg from knee down tinea pedis Results Labs CBC & Chem 7: 01/12/21 05:33 01/13/21 04:43 Labs: BMP 01/13/21 04:43 Sodium 141 Potassium 3.4 Chloride 99 Carbon Dioxide 36 H BUN 14 Creatinine 0.86 Calcium 9.1 Microbiology Microbiology Results: Microbiology 01/12/21 08:07 Blood - Venous Blood Culture - Preliminary No growth after 24 hours. 01/12/21 08:03 Blood - Venous Blood Culture - Preliminary No growth after 24 hours. Assessment and Plan (1) Cellulitis of leg, right: Status: Acute Cellulitis There is concern over staph or strep Tinea pedis likely cause Venous stasis changes May continue Vancomycin Change to po Doxycycline for a week and lamisil to feet
[2021-01-14] VITALS: BP 146/97; PULSE 73; RESP 18; TEMP 36.8; O2SAT 91
[2021-01-14 03:24] VITALS: BP 151/79; PULSE 75; RESP 18; TEMP 37; O2SAT 92
[2021-01-14 05:42] LABS: Hematocrit 42.9 % (42.0-52.0); Hemoglobin 14.2 g/dl (14.0-18.0); Mean Corpuscular HGB Conc 33.1 g/dl (31.0-36.0); Mean Corpuscular Hemoglobin 31.3 pg (27.0-33.0); Mean Corpuscular Volume 94.7 fL (80.0-98.0); Mean Platelet Volume 9.8 fL (9.4-12.4); Platelet Count 205 X10*3/uL (160-400); Red Blood Count 4.53 X10*6/uL (4.60-5.80); Red Cell Distribution Width 12.3 % (11.0-16.0); White Blood Count 5.9 X10*3/uL (4.8-10.8)
[2021-01-14 06:03] LABS: Anion Gap 12 (12-20); Blood Urea Nitrogen 12 mg/dL (9-16); Carbon Dioxide 33 mmol/L (22-29); Chloride 101 mmol/L (96-108); Creatinine Clr Calc Pharmacy 135.5; Estimated Glomerular Filt Rate > 60; Glucose Random 95 mg/dL (60-115); Potassium 3.7 mmol/L (3.3-5.1); Sodium 142 mmol/L (135-145)
[2021-01-14] MEDS: HYDROmorphone HCl 0.5 MG/0.5 ML SYRINGE IVPUSH ×2 (06:29→10:46)
[2021-01-14] MEDS: Lactated Ringers 1,000 ML 80 ML IVCONT (06:34)
[2021-01-14 07:41] VITALS: BP 173/87; PULSE 72; RESP 18; TEMP 38; O2SAT 95
--- NOTE | 2021-01-14 07:43 | P.PNGS_ITS ---
Subjective Subjective Date of Service: 01/14/21 Interval history: Reports less pain in the right lower extremity; no new complaints Physical Exam Vital Signs: Vital Signs: Last Vital Signs Temp 100.4 F 01/14/21 07:41 Pulse 72 01/14/21 07:41 Resp 18 01/14/21 07:41 BP 173/87 H 01/14/21 07:41 Pulse Ox 95 01/14/21 07:41 BMI result Body Mass Index 37.6 Const: General: comfortable and no acute distress Nutritional Appearance: well nourished Orientation/consciousness: patient oriented x3 Limitations: no limitations HENMT: Other: facial rash with scratch lea bilaterally Resp: Effort & Inspection: normal respiratory effort GI: Inspection: Yes normal to inspection Skin: Other: see ext below; warm, dry Neuro: General: patient oriented x3 Extrem: Other: Right leg dressing changed; chronic venous stasis changes in the lower right leg with multiple areas of skin ulceration. Some granulation tissue noted at the wound base. Some muco-purulent discharge noted on dressings. Largest ulceration is in the lateral posterior calf. Wounds were dressed with silver alginate, fluff gauze, Kerlix, and Alin bandage for co mpression. Patient tolerated the dressing change well. Objective Data Active Medications Albuterol Sulfate (Albuterol Sulfate 90 Mcg 8 Gm Inhaler) 1 puff INHALE RQ4H PRN PRN Reason: sob Amlodipine Besylate (Amlodipine Besylate 5 Mg Tablet) 5 mg PO DAILY [facility]; Protocol Last Admin: 01/13/21 08:56 Dose: 5 mg Documented by: MARISEL Betamethasone Dipropion Augmented (Betamethasone Dip Aug 0.05% Cr 15 Gm Tube) 1 appl TOPICAL DAILY [facility] Last Admin: 01/13/21 10:32 Dose: 1 appl Documented by: MARISEL Docusate Sodium (Docusate Sodium 100 Mg Capsule) 100 mg PO DAILY PRN PRN Reason: constipation Enoxaparin Sodium (Enoxaparin Sodium 40 Mg/0.4 Ml Syringe) 40 mg SUBCUT DAILY [facility] Last Admin: 01/13/21 08:56 Dose: 40 mg Documented by: MARISEL Fluticasone/Vilanterol (Fluticasone/Vilanterol 200/25 Blst.W.Dev) 1 puff INHALE RDAILY [facility] Last Admin: 01/13/21 09:31 Dose: Not Given Documented by: DANIEL Non-Admin Reason: Med Not Available Folic Acid (Folic Acid 1 Mg Tablet) 1 mg PO DAILY [facility] Last Admin: 01/13/21 08:56 Dose: 1 mg Documented by: MARISEL Hydromorphone HCl (Hydromorphone Hcl 0.5 Mg/0.5 Ml Syringe) 0.5 mg IVPUSH Q4H PRN; Protocol PRN Reason: Pain, Mild (Pain Scale 1-3) Last Admin: 01/14/21 06:29 Dose: 0.5 mg Documented by: STEPHON Vancomycin HCl 1,250 mg/ (Sodium Chloride) 250 mls @ 166.667 mls/hr IV Q12H [facility] Last Infusion: 01/13/21 22:41 Dose: 166.67 mls/hr Documented by: STEPHON Lactated Ringer's (Lr) 1,000 mls @ 80 mls/hr IVCONT .[id number] [facility] Last Admin: 01/14/21 06:34 Dose: 80 mls/hr Documented by: STEPHON Lisinopril (Lisinopril 40 Mg Tablet) 40 mg PO DAILY [facility]; Protocol Last Admin: 01/13/21 08:56 Dose: 40 mg Documented by: MARISEL Nystatin/Triamcinolone Acetonide (Nystatin/Triamcinolone Cream 15 Gm Tube) 1 appl TOPICAL DAILY [facility] Last Admin: 01/13/21 14:27 Dose: Not Given Documented by: MARISEL Non-Admin Reason: wound nurse provided treatment/wound change Pharmacy Consult (Consult Rx Vancomycin Dosing) 1 each MISCELLANE DAILY PRN PRN Reason: Consult order Pharmacy Consult (Consult Rx Perform Med Rec) 1 each MISCELLANE ONCE PRN PRN Reason: Consult order Sodium Chloride (0.9 % Sodium Chloride Flush 3 Ml Syringe) 3 ml IVFLUSH QSHIFT [facility] Last Admin: 01/14/21 01:02 Dose: Not Given Documented by: STEPHON Non-Admin Reason: IV Running Thiamine HCl (Thiamine Hcl 100 Mg Tablet) 100 mg PO DAILY [facility] Last Admin: 01/13/21 08:56 Dose: 100 mg Documented by: MARISEL Labs CBC & Chem 7: 01/14/21 05:19 01/14/21 05:19 Labs: Laboratory Results - last 24 hr 01/13/21 01/14/21 01/14/21 17:49 05:19 05:19 MCV 94.7 MCH 31.3 MCHC 33.1 RDW 12.3 Plt Count 205 MPV 9.8 Absolute Nucleated RBC 0.000 Nucleated RBC % (auto) 0.0 Anion Gap 12 Estim Creat Clear Calc 135.5 Estimated GFR > 60 Random Glucose 95 Calcium 9.0 Vancomycin Trough 14.5 Microbiology Microbiology Results: Microbiology 01/12/21 08:07 Blood Culture - Preliminary Blood - Venous No growth after 24 hours. 01/12/21 08:03 Blood Culture - Preliminary Blood - Venous No growth after 24 hours. Procedures Date of Service Date of Service: 01/14/21 Progress Note: A&P Assessment and plan (1) Chronic venous hypertension with ulcer: Status: Acute (2) Cellulitis of leg, right: Status: Acute Assessment and Plan: Patient presents with right lower extremity chronic venous stasis with ulcer ation. Findings are suggestive of venous insufficiency. Wounds were redressed with silver alginate followed by compressive dressings. Suggest continuing silver alginate dressings and compressive dressings with Alin bandage on a daily basis. Further workup would be required including venous Dopplers to include the superficial veins to examine for venous reflux. If previous reflux is identified patient should follow-up with vascular surgery for venous ablation. Patient should also follow-up with wound care clinic upon discharge. Fall Risk Details Current Medications: Current Medications Albuterol Sulfate (Albuterol Sulfate 90 Mcg 8 Gm Inhaler) 1 puff INHALE RQ4H PRN PRN Reason: sob Amlodipine Besylate (Amlodipine Besylate 5 Mg Tablet) 5 mg PO DAILY [facility]; Protocol Last Admin: 01/13/21 08:56 Dose: 5 mg Documented by: Betamethasone Dipropion Augmented (Betamethasone Dip Aug 0.05% Cr 15 Gm Tube) 1 appl TOPICAL DAILY [facility] Last Admin: 01/13/21 10:32 Dose: 1 appl Documented by: Docusate Sodium (Docusate Sodium 100 Mg Capsule) 100 mg PO DAILY PRN PRN Reason: constipation Enoxaparin Sodium (Enoxaparin Sodium 40 Mg/0.4 Ml Syringe) 40 mg SUBCUT DAILY [facility] Last Admin: 01/13/21 08:56 Dose: 40 mg Documented by: Fluticasone/Vilanterol (Fluticasone/Vilanterol 200/25 Blst.W.Dev) 1 puff INHALE RDAILY [facility] Last Admin: 01/13/21 09:31 Dose: Not Given Documented by: Folic Acid (Folic Acid 1 Mg Tablet) 1 mg PO DAILY [facility] Last Admin: 01/13/21 08:56 Dose: 1 mg Documented by: Hydromorphone HCl (Hydromorphone Hcl 0.5 Mg/0.5 Ml Syringe) 0.5 mg IVPUSH Q4H PRN; Protocol PRN Reason: Pain, Mild (Pain Scale 1-3) Last Admin: 01/14/21 06:29 Dose: 0.5 mg Documented by: Vancomycin HCl 1,250 mg/ (Sodium Chloride) 250 mls @ 166.667 mls/hr IV Q12H [facility] Last Infusion: 01/13/21 22:41 Dose: Infused Documented by: Lactated Ringer's (Lr) 1,000 mls @ 80 mls/hr IVCONT .[id number] [facility] Last Admin: 01/14/21 06:34 Dose: 80 mls/hr Documented by: Lisinopril (Lisinopril 40 Mg Tablet) 40 mg PO DAILY [facility]; Protocol Last Admin: 01/13/21 08:56 Dose: 40 mg Documented by: Nystatin/Triamcinolone Acetonide (Nystatin/Triamcinolone Cream 15 Gm Tube) 1 appl TOPICAL DAILY [facility] Last Admin: 01/13/21 14:27 Dose: Not Given Documented by: Pharmacy Consult (Consult Rx Vancomycin Dosing) 1 each MISCELLANE DAILY PRN PRN Reason: Consult order Pharmacy Consult (Consult Rx Perform Med Rec) 1 each MISCELLANE ONCE PRN PRN Reason: Consult order Sodium Chloride (0.9 % Sodium Chloride Flush 3 Ml Syringe) 3 ml IVFLUSH QSHIFT [facility] Last Admin: 01/14/21 01:02 Dose: Not Given Documented by: Thiamine HCl (Thiamine Hcl 100 Mg Tablet) 100 mg PO DAILY [facility] Last Admin: 01/13/21 08:56 Dose: 100 mg Documented by: Time Spent With Patient Time: Total time spent is greater than 50% in coordination of care (as documented) at patient's floor/unit and/or counseling patient: Time with patient: 15 - 24 minutes Quality Stroke Does the patient have a stroke diagnosis?: No VTE Prior VTE?: No VTE Risk Level:: Medical - moderate - high VTE Device Contraindication: N/A - Device Ordered VTE Drug Contraindication: N/A - Med Ordered
[2021-01-14] MEDS: Fluticasone/Vilanterol 200/25 BLST.W.DEV 1 PUFF INHALE (08:42)
[2021-01-14 08:44] VITALS: PULSE 77; O2SAT 96
--- NOTE | 2021-01-14 09:00 | P.DS_ITS ---
DS: Providers Provider Date of Service: 01/14/21 Date of admission: 01/12/21 11:13 Primary care physician: Unknown Physician Consults: 01/12/21 11:08 Consult to Infectious Diseases Routine Consulting Provider: Tania Rodriguez Reason for consultation: right leg cellulitis Has provider been notified: No 01/13/21 08:00 Consult to General Surgery Routine Consulting Provider: Caryl Cai Reason for consultation: leg wounds /cellulitis Has provider been notified: No 01/13/21 13:56 Consult to Care Team Routine Comment: Reason for consultation: on admission reported binge drinking many beers 3x week, DS: Diagnosis Discharge Diagnosis (1) Chronic venous hypertension with ulcer: (2) Cellulitis of leg, right: Status: Acute DS: Summary Hospital Course Hospital Course: Chief Complaint: right leg cellulitis ? 45-year-old male with past medical history of asthma,? acne, hypertension,? also allergic to cats and? penicillin: ?patient came to the hospital because he has on and on/off leg cellulitis from :? patient? was being initially managed by PCP out patiently and then was told to go to [facility] in November where he had antibiotic therapy and was told to come back to podiatry clinic as per the patient his appointment got canceled, his leg? becoming more painful and has superficial skin sloughing and mild clear drainage as per the patient.? subsequently decided to come to the hospital. ? he denies any recent injury? to the leg. ? He has chronic? left venous stasis type changes on the other leg area. ? Denies any new complaint of chest pain or shortness of breath or abdominal pain or fever or chills or nausea or vomiting Denies any cough Denies any weakness or numbness. ?Hospital course: Patient presented with erythema of right leg superimposed on chronic venous stasis, had doppler that was non-diagnostic today, was treated with IV Vancomycin, cultures are negative, was seen by ID with recommendation for 7 days of Doxycyline. Was seen by surgery with recommendation to continuing silver alginate dressings and compressive dressings with Alin bandage on a daily basis.? Further workup would be required including venous Dopplers to include the superficial veins to examine for venous reflux.? If previous reflux is identified patient should follow-up with vascular surgery for venous ablation.? Patient should also follow-up with wound care clinic upon discharge. He will follow up with Vascular surgery on outpatient basis and wound care clinic. 2. ? Hypertension--continue prior 3. ? Asthma:? Stable- continue Symbicort, albuterol p.r.n. 4. alcohol abuse:? Was on CIWA without any obvious withdrawing, Cessation discussed 5.? ACNE:? continue prior meds Suggest Time Spent with Patient Time attestation: Total time spent providing and/or coordinating discharge services: Discharge coordination time: Greater than 30 minutes Quality: Stroke Does the patient have a stroke diagnosis?: No Physical Exam Verdana 4l Vital Signs: Verdana 4d Verdana 4d Vital Signs: Verdana 4d Verdana 4Bd Last Vital Signs Verdana 4d [employer] General Manager New 4d [employer] General Manager New 4d Temp 100.4 F 01/14/21 07:41 Funeral Home General Manager New 4d Pulse 72 01/14/21 07:41 Funeral Home General Manager New 4d Resp 18 01/14/21 07:41 BP 173/87 H 01/14/21 07:41 Pulse Ox 95 01/14/21 07:41 BMI result Body Mass Index 37.6 DS: Data Data Completed and Pending Labs on day of discharge: Laboratory Results - last 24 hr 01/13/21 01/14/21 01/14/21 17:49 05:19 05:19 WBC 5.9 RBC 4.53 L Hgb 14.2 Hct 42.9 MCV 94.7 MCH 31.3 MCHC 33.1 RDW 12.3 Plt Count 205 MPV 9.8 Absolute Nucleated RBC 0.000 Nucleated RBC % (auto) 0.0 Sodium 142 Potassium 3.7 Chloride 101 Carbon Dioxide 33 H Anion Gap 12 BUN 12 Creatinine 0.81 Estim Creat Clear Calc 135.5 Estimated GFR > 60 Random Glucose 95 Calcium 9.0 Vancomycin Trough 14.5 Preliminary micro results at discharge 01/12/21 08:07 Blood Culture - Preliminary Blood - Venous No growth after 24 hours. 01/12/21 08:03 Blood Culture - Preliminary Blood - Venous No growth after 24 hours. Discharge Plan Discharge Anticipated Discharge Date/Time: 01/14/21 08:57 Patient Disposition: Home, Self-Care Discharge Diagnosis: Cellulitis of the leg Referrals: [facility] [Other] - 3-5 Days (WOUND CLINIC TO CALL YOU WITH APPOINTMENT AND WILL ALSO CHECK BASE WITH DR SÁNCHEZ) DR PASCUAL TAYLOR [Other] - 1 Week (PLEASE CQLL FOR POST HOSPITAL DISCHARGE) Tania Rodriguez MD [Physician] - 3-5 Days (YOU HAVE MET WITH THE RECOVERY NURSE AND YOU HAVE A APPOINTMENT HERE AT THE [facility] FOR DR CONRAD THIS WEDNESDAY AT AT 1;30PM ADDRESS HERE AT THE [place] [id number], THEY WILL PRESCRIBE YOU MEDICATION) Kuldip Sánchez MD [Physician] - 3-5 Days (PLEASE CALL FOR APPOINEMENT DR SÁNCHEZ [phone]) Physician,Unknown J [Primary Care Provider] - 1 Week Discharge Medications: New doxycycline hyclate 100 mg tablet 100 mg PO BID 7 Days Qty: 14 0RF Continued acetaminophen 325 mg Tablet 650 mg PO Q6H PRN (Reason: Pain) 0RF clobetasol 0.05 % cream 1 appl topical DAILY 0RF Rx Instructions: apply to the arm chlorthalidone 25 mg tablet 1 tab PO DAILY 0RF amlodipine 5 mg tablet 1 tab PO DAILY 0RF clindamycin-benzoyl peroxide 1-5 % gel 1 appl topical DAILY 0RF Rx Instructions: apply to the face clotrimazole-betamethasone 1-0.05 % cream 1 appl topical DAILY 0RF Rx Instructions: apply to right leg lisinopril 40 mg tablet 1 tab PO DAILY 0RF budesonide-formoterol [Symbicort] 160-4.5 mcg/actuation HFA aerosol inhaler 2 puff inhalation BID 0RF No Action albuterol sulfate 90 mcg/actuation HFA aerosol inhaler 0 mcg inhalation 0RF Discharge Orders: Discharge Order (Routine); Ordered 01/14/21 Ordered By: David Cramer Diet: advance to usual diet Activity on Discharge: As tolerated Stand Alone Forms: Patient Portal Discharge page Activity Restrictions/Additional Instructions: Cleanse right leg venous ulcers with wound cleanser or normal saline, apply barrier cream on edges of ulcers then cut pieces of silver alginate and apply to wound beds cover with non woven gauze and roll gauze. Change daily. Care Plan Goals: healing of leg wound Health Concerns: chronic venous stasis and ulcers Plan of Treatment: Take Doxycyline as recommended, follow up with dr. Sánchez and Wound clinic Assessment: As above Discharge Date/Time: 01/14/21 16:36
[2021-01-14] MEDS: Thiamine HCL 100 MG TABLET PO (09:37)
[2021-01-14] MEDS: lisinopriL 40 MG TABLET PO (09:37)
[2021-01-14] MEDS: amLODIPine Besylate 5 MG TABLET PO (09:37)
[2021-01-14] MEDS: Folic Acid 1 MG TABLET PO (09:37)
[2021-01-14] MEDS: Enoxaparin Sodium 40 MG/0.4 ML SYRINGE SUBCUT (09:39)
[2021-01-14] MEDS: vancomycin HCL 1,250 MG in 0.9 % Sodium Chloride 250 ML 166.67 MG IV (09:39)
[2021-01-14] MEDS: Docusate Sodium 100 MG CAPSULE PO (10:48)
[2021-01-14] MEDS: Nystatin/Triamcinolone Cream 15 GM TUBE 1 APPL TOPICAL (10:48)
[2021-01-14] MEDS: Betamethasone Dip Aug 0.05% Cr 15 GM TUBE 1 APPL TOPICAL (10:48)
--- NOTE | 2021-01-14 10:55 | MHC.RECOVRN ---
Met with pt to f/u regarding resources provided yesterday. Pt denies questions at this time. Pt and CM aware of appt at the [facility] on 01/16 at 1:30PM.
[2021-01-14 11:19] VITALS: BP 153/99; PULSE 75; RESP 18; TEMP 38; O2SAT 94
--- NOTE | 2021-01-14 14:17 | W.MHC.F2F ---
Service Date Service Date: 01/14/21 Reasons for Services Reason for halfway: wound care and teach disease management Homebound: Leaving the home is medically contraindicated at this time without the asist of a device and/or another person due th the listed conditions above and below. Homebound supporting statement: Homebound due pain in the legs, cellulitis, limiting ambulation and therefore needs the assistance of another person Certification: Based on the above findings, I certify that this patient is confined to the home and needs intermittent halfway care, physical therapy and/or speech therapy, or continues to need occupational therapy. The patient is under my care, and I have initiated the establishment of the plan of care. The patient will be followed by a physician who will periodically review the plan of care.
--- NOTE | 2021-01-14 15:07 | MHC.CM.PN ---
NURSE AIRPLANE CHARTER CLERK NOTE
--- NOTE | 2021-01-14 15:36 | MHC.CM.PN ---
NURSE FORMING MACHINE TENDER NOTE ELECTRONIC MEDICAL RECORD REVIEWED ALONG WITH CASE DISCUSSED ON MULTIPLE DISCIPLINARY ROUNDS, INITIALLY DISCHARGE ORDERS FOR [facility] FOR NRUSING FOR 1-2 VISIT S FOR WOUND CARE ASSESSMENT AND DRESSING CHANGES TO PATIENT AND MOTHER. UNABLE TO SECURE VNA BARRIER PCP DR PASCUAL NASCIMENTOCY NOT ACCEPTING [facility] PER ASHLEY RAMIREZA , [facility] HAVE NO AVAILABILITY UNTIL NEXT WEEK [facility] DID NOT RESPOND MADE A FEW OTHER CALLS AND NO NSG AVAILABILITY. SPOKE WITH STAFF NURSE , WOUND CARE NURSE AND PATIENT , HE REPORTEDLY FEEL MORE RECEPTIVE TO LEARNING HIS DRESSING CARE AND WOUND ASSESSMENT . HIS MOTHER IS COMING INTO THE HOSITLA TO TRANSPORT HIM HOME, RINA DASH WOUND NURSE WILL MEET WITH THEM AND PROVIDE EDUCATION ON WOUND ASSESSMENT AND DRESISING CHANGES AND GIVE HIM SOME EXTRA SUPPLIE. UNTIL HE CAN GET SOME, DISCHARGE PLAN PATIENT AND MOTHER TO MEET WITH RINA HUERTA WOUND NURSE TO LEAR WOUND ASSESSMENT AND DRESSING CHANGES BEFORE HE LEAVES [address] PASCUAL TAYLOR PATIENT INSTRECTED TO CALL FOR APPOINTMENT TO BE SEEN FOR POST HOSP[facility] DFOLLOW UP 3, [facility] FOR THIS WEDNESDAY AT 1;30 FOR MEDICATION FOR [facility] FOLLOW UP REFERRAL CALLED TO THEM THEY WILL CALL PATIENT WITH APPOINTMENT DR SÁNCHEZ VASCULAR PATIENT INSTRUCTED TO [facility] FOR APPOINTMENT TRANSPORTATION FAMILY
== END 2021-01-14 16:36 | disposition home or self-care (01) ==
LOC: HO.ED 11:01 → HO.EDOVER 11:14 → HO.S3 20:14
PROVIDERS: Admitting Provider Internal Medicine; Emergency Provider Emergency Medicine; Visit Provider Internal Medicine
DX: L03.115 Cellulitis of right lower limb (principal); I87.311 Chronic venous hypertension (idiopathic) with ulcer of right lower extremity; L97.909 Non-pressure chronic ulcer of unspecified part of unspecified lower leg with unspecified severity; G80.9 Cerebral palsy, unspecified; I10 Essential (primary) hypertension; J45.909 Unspecified asthma, uncomplicated; R56.9 Unspecified convulsions; F10.20 Alcohol dependence, uncomplicated; Z20.822 Contact with and (suspected) exposure to COVID-19; Z88.0 Allergy status to penicillin; Z79.899 Other long term (current) drug therapy
CPT/HCPCS: 36415; 80048; 80053; 80202; 83605; 85025; 85027; 85379; 85652; 86140; 87040; 87635; 93970; 93971; 96365; 96366; 99218; 99285; J1170; J1650; J3370

== ENCOUNTER 2021-01-17 13:51 | Outpatient (RCR) | payer OTHER, SELFPAY | END 2021-03-24 15:34 | disposition home or self-care (01) | LOC: HO.WCC 13:51 | PROVIDERS: PCP Internal Medicine; Visit Provider Physician Assistant | DX: Z09 Encounter for follow-up examination after completed treatment for conditions other than malignant neoplasm (principal); I87.2 Venous insufficiency (chronic) (peripheral); G80.9 Cerebral palsy, unspecified; J45.909 Unspecified asthma, uncomplicated; F17.200 Nicotine dependence, unspecified, uncomplicated; Z87.2 Personal history of diseases of the skin and subcutaneous tissue | CPT/HCPCS: 11042; 29581; 97597; 99212 ==

== ENCOUNTER → 2021-01-28 11:10 | Outpatient (BNVA) | payer OTHER, SELFPAY | PROVIDERS: PCP Internal Medicine; Visit Provider Surgery Vascular Surgery ==

== ENCOUNTER 2021-02-19 12:56 | Outpatient (REF) | payer OTHER, SELFPAY ==
--- NOTE | ~2021-02-19 | US_ITS ---
EXAMINATION: US LOWER EXTREMITY VENOUS (REFLUX EXAM), BILATERAL CLINICAL INDICATION: Bilateral lower extremity varicose veins. COMPARISON: Venous Doppler ultrasound on 01/14/2021. TECHNIQUE: Color flow triplex imaging and compression Doppler was performed to evaluate both the deep and the superficial systems bilaterally. To evaluate the superficial system, the examination was performed in the upright position. Color-flow Doppler ultrasound and compression ultrasound were utilized. In addition, maneuvers were utilized to demonstrate reflux. FINDINGS: SUPERFICIAL ULTRASOUND WITH DOPPLER OF RIGHT LOWER EXTREMITY: GREAT SAPHENOUS VEIN: Saphenofemoral junction: 1.0 cm Max diameter: 1.0 cm Min diameter: 0.3 cm Reflux: There is reflux within the right great saphenous vein at the proximal thigh up to 1.2 seconds. There is also reflux above the knee and at the knee measuring greater than 3.4 seconds. DUPLICATED MEDIAL GREAT SAPHENOUS VEIN: Max Diameter: None Imaged Reflux: NA DUPLICATED LATERAL GREAT SAPHENOUS VEIN: Diameter: None Imaged Reflux: NA SMALL SAPHENOUS VEIN: Proximal Calf: 0.2 cm Distal Calf: 0.3 cm Reflux: No evidence of reflux. VEIN OF GIACOMINI: None Imaged. PERFORATORS: Location: None Imaged Reflux: NA VARICOSITIES: Location: Proximal thigh, mid thigh, proximal calf, measuring between 4 and 7 mm. Reflux: All imaged varicosities demonstrate reflux greater than 0.7 seconds. Reflux within the mid thighs up to 3.4 seconds. DEEP VENOUS ULTRASOUND OF THE RIGHT LOWER EXTREMITY: Common Femoral Vein: Compressible, normal respiratory variation and augmented flow. Femoral Vein: Compressible, normal color flow and augmentation. Popliteal Vein: Compressible, normal augmentation. Deep Reflux: There is no evidence of reflux in the deep system in either the common femoral vein or the popliteal vein. Traylor's Cyst: There is no evidence of a Traylor's cyst. SUPERFICIAL ULTRASOUND WITH DOPPLER OF LEFT LOWER EXTREMITY: GREAT SAPHENOUS VEIN: Saphenofemoral junction: 1.4 cm Max diameter: 1.4 cm Min diameter: 0.1 cm Reflux: There is segmental reflux up to 0.5 seconds at the mid calf. DUPLICATED MEDIAL GREAT SAPHENOUS VEIN: Max Diameter: None Imaged Reflux: NA DUPLICATED LATERAL GREAT SAPHENOUS VEIN: Diameter: 0.5 cm at the junction Reflux: None SMALL SAPHENOUS VEIN: Proximal Calf: 0.4 cm Distal Calf: 0.3 cm Reflux: No evidence of reflux. VEIN OF GIACOMINI: None Imaged. PERFORATORS: Location: Proximal calf and mid calf measuring 1 and 2 mm. Reflux: None VARICOSITIES: Location: Proximal thigh and mid thigh each measuring 3 mm. Reflux: There is greater than 2.8 seconds of reflux involving the mid thigh varicosity. DEEP VENOUS ULTRASOUND OF THE LEFT LOWER EXTREMITY: Common Femoral Vein: Compressible, normal respiratory variation and augmented flow. Femoral Vein: Compressible, normal color flow and augmentation. Popliteal Vein: Compressible, normal augmentation. Deep Reflux: There is no evidence of reflux in the deep system in either the common femoral vein or the popliteal vein. Traylor's Cyst: There is no evidence of a Traylor's cyst. ADDITIONAL: Prominent bilateral inguinal lymph nodes are identified. US/US venous duplex LE BI IMPRESSION: 1. Right great saphenous venous insufficiency at the proximal thigh and at the knee. 2. Segmental left great saphenous venous insufficiency at the proximal calf. 3. No evidence of small saphenous venous insufficiency involving either leg. 4. Bilateral refluxing varicosities. 5. No evidence of DVT or deep venous insufficiency.
== END 2021-02-19 12:57 | disposition home or self-care (01) ==
LOC: HO.US 12:56
PROVIDERS: PCP Internal Medicine; Visit Provider Surgery Vascular Surgery
DX: I83.11 Varicose veins of right lower extremity with inflammation (principal)
CPT/HCPCS: 93970

== ENCOUNTER → 2021-02-27 14:39 | Outpatient (BNVA) | payer OTHER, SELFPAY | PROVIDERS: PCP Internal Medicine; Visit Provider Surgery Vascular Surgery ==

== ENCOUNTER → 2021-03-14 08:20 | Outpatient (BNVA) | payer OTHER, SELFPAY | PROVIDERS: PCP Internal Medicine; Visit Provider Surgery Vascular Surgery | DX: I83.11 Varicose veins of right lower extremity with inflammation (principal) | CPT/HCPCS: 36482 ==

== ENCOUNTER → 2021-03-27 14:49 | Outpatient (BNVA) | payer OTHER, SELFPAY | PROVIDERS: PCP Internal Medicine; Visit Provider Surgery Vascular Surgery ==

== ENCOUNTER 2021-07-20 16:09 | Emergency (ER) | payer OTHER, SELFPAY ==
--- NOTE | ~2021-07-20 | US_ITS ---
EXAMINATION: US VENOUS ULTRASOUND WITH DOPPLER LOWER EXTREMITY, RIGHT CLINICAL INFORMATION: Blood clot COMPARISON: Prior study January 2021 TECHNIQUE: Ultrasound of the deep veins is performed from the hip to the calf with compression sonography and color and pulse Doppler assessment. Spectral analysis with color-flow imaging is performed. FINDINGS: Exam is limited due to patient's significant leg edema. There is normal venous compression and respiratory variation and augmented flow. The visualized common femoral vein, superficial femoral vein, profunda femoral vein, popliteal vein, and the trifurcation region shows no evidence of deep venous thrombosis. There is no significant popliteal fossa cyst. If the patient's symptoms persist, followup ultrasound in 5 days 7 days might be of value to exclude proximal propagation from a non-visualized calf vein. US/US venous duplex LE RT IMPRESSION: Exam limited by leg edema. No DVT demonstrated in the right lower extremity.
[2021-07-20 16:26] VITALS: BP 123/79; PULSE 77; RESP 18; TEMP 37.4; O2SAT 93; BMI 39.6
--- NOTE | 2021-07-20 18:17 | ED.EXTPRO ---
HPI - Extremity Problem General Chief complaint: Extremity Injury, Lower Stated complaint: ? R Leg Blood Clot Time Seen by Provider: 07/20/21 17:38 Source: patient and family Mode of arrival: ambulatory Limitations: no limitations History of Present Illness HPI Narrative: recent R leg hematoma s/p fall s/p debridement at [facility] on fall was Wednesday completed zpak and on cefpodoxime for pneumonia sent by [facility] for red leg has hx of same in past related to venous stasis dermatitis that resolves with compression, wound itself looks good, no fevers or chills, sent for DVT US MD Complaint: other (red leg) Onset (ago): day(s) (1) Pain Consistency: intermittent Location: right and lower extremity Quality: dull Radiation: none Relieving factors: nothing Exacerbating factors: nothing Associated symptoms: denies other symptoms Context: other (see above recent trauma) Related Data Home Medications Medication Instructions Recorded Confirmed acetaminophen 325 mg tablet 650 mg PO Q6H PRN Pain 01/12/21 01/12/21 amlodipine 5 mg tablet 1 tab PO DAILY 01/12/21 01/12/21 budesonide-formoterol HFA 160 2 puff inhalation BID 01/12/21 01/12/21 mcg-4.5 mcg/actuation aerosol inhaler (Symbicort) chlorthalidone 25 mg tablet 1 tab PO DAILY 01/12/21 01/12/21 clindamycin 1 %-benzoyl peroxide 5 1 appl topical DAILY 01/12/21 01/12/21 % topical gel clobetasol 0.05 % topical cream 1 appl topical DAILY 01/12/21 01/12/21 clotrimazole-betamethasone 1 1 appl topical DAILY 01/12/21 01/12/21 %-0.05 % topical cream lisinopril 40 mg tablet 1 tab PO DAILY 01/12/21 01/12/21 albuterol sulfate 90 mcg/actuation 0 mcg inhalation 01/28/21 aerosol inhaler Previous Rx's Medication Instructions Recorded doxycycline hyclate 100 mg tablet 100 mg PO BID 7 days #14 tabs 01/14/21 doxycycline hyclate 100 mg capsule 100 mg PO BID 7 days #14 caps 07/20/21 Allergies Allergy/AdvReac Type Severity Reaction Status Date / Time Penicillins [PENICILLINS] Allergy Unknown HIVES Verified 03/27/21 15:12 Review of Systems Review of Systems: Constitutional : No Fever, No Chills ENT/Mouth : No sore throat, No Rhinorrhea Eyes: No Eye Pain, No Swelling, No Redness Cardiovascular : No Chest Pain, No SOB Respiratory : No Cough, No Sputum Gastrointestinal : No Nausea, No Vomiting, No Diarrhea, No abdominal Pain Genitourinary : No Dysuria, No Hematuria Musculoskeletal : No joint pain, No Myalgias, No Joint Swelling Skin : No Skin Lesions, positive skin rash Neuro : No Weakness, No Numbness, No Headache Psych : No Anxiety, No Depression Heme/Lymph: No Bruising, No Bleeding,No Lymphadenopathy Endocrine : No Polyuria, No Polydipsia All other systems reviewed and are negative [facility] Past Medical History Attestation statement: The following information was validated with the patient. Medical History Asthma Cerebral palsy Chronic venous hypertension with ulcer Hypertension Surgical History H/O umbilical hernia repair Social History Social History Alcohol intake: current Alcohol intake frequency: a few times a week Patient Tobacco Use Status: Tobacco use Unknown Tobacco use type: Cigarette Advance Directives: No Advance Directives Information Provided: No service: No Current occupational status: employed Physical Exam Vital Signs: Vital Signs: Last Vital Signs Temp 99.3 F 07/20/21 16:26 Pulse 77 07/20/21 16:26 Resp 18 07/20/21 16:26 BP 123/79 07/20/21 16:26 Pulse Ox 93 07/20/21 16:26 O2 Del Method 07/20/21 16:26 BMI result Body Mass Index 39.6 Appearance: Alert. Oriented X3. No acute distress. Eyes: Pupils equal, round and reactive to light. ENT: Pharynx normal. Neck: Normal inspection. Neck supple. CVS: Normal heart rate and rhythm. Pulses normal. Respiratory: No respiratory distress. Breath sounds normal. Abdomen: Soft and nontender. Skin: Skin warm and dry. Normal skin color. Normal skin turgor. Extremities: R leg bruised - R knee mild swelling incision on medial side is c/d/i no purulence no surrounding erythema, distal R leg shiny erythematous skin no pitting edema bounding distal pulses, compartments are soft and compressible no sig warmth very minimal Neuro: Oriented X 3. No motor deficit. No sensory deficit. Course Course Course Narrative: US negative suspect more venous stasis but given wound will add on doxy already on cefpodoxime MDM - Extremity (Nontraumatic) MDM Narrative Medical decision making narrative: 46 yo male hx of venous stasis dermatitis, ETOH, cellulitis fell Wednesday resulting R knee soft tissue injury and hematoma needing evacaution at [facility] [place] wound itself looks great he is on cefpodoxime for pneumonia - he has no fevers or chills, right sanchez area is mildly red and shiny hx of same in past with venous stasis dermatitis - will get US to r/o DVT Discharge Plan Discharge Clinical Impression: Cellulitis of leg, right, Acute venous stasis dermatitis Patient Disposition: Home, Self-Care Instructions: Cellulitis (ED), Venous Insufficiency (DC) Additional Instructions: return to ED for any worsening symptoms or concerns wound check in 24 hours with your doctor keep soccer sock on leg for compression, do your exercises, continue all medications TECHNIQUE: Ultrasound of the deep veins is performed from the hip to the calf with compression sonography and color and pulse Doppler assessment. Spectral analysis with color-flow imaging is performed. FINDINGS: Exam is limited due to patient's significant leg edema. There is normal venous compression and respiratory variation and augmented flow. The visualized common femoral vein, superficial femoral vein, profunda femoral vein, popliteal vein, and the trifurcation region shows no evidence of deep venous thrombosis. ? There is no significant popliteal fossa cyst. If the patient's symptoms persist, followup ultrasound in 5 days 7 days might be of value to exclude proximal propagation from a non-visualized calf vein. US/US venous duplex LE RT IMPRESSION: Exam limited by leg edema. No DVT demonstrated in the right lower extremity. Prescriptions: New doxycycline hyclate 100 mg capsule 100 mg PO BID 7 Days Qty: 14 0RF No Action acetaminophen 325 mg Tablet 650 mg PO Q6H PRN (Reason: Pain) clobetasol 0.05 % cream 1 appl topical DAILY Rx Instructions: apply to the arm chlorthalidone 25 mg tablet 1 tab PO DAILY amlodipine 5 mg tablet 1 tab PO DAILY clindamycin-benzoyl peroxide 1-5 % gel 1 appl topical DAILY Rx Instructions: apply to the face clotrimazole-betamethasone 1-0.05 % cream 1 appl topical DAILY Rx Instructions: apply to right leg lisinopril 40 mg tablet 1 tab PO DAILY budesonide-formoterol [Symbicort] 160-4.5 mcg/actuation HFA aerosol inhaler 2 puff inhalation BID doxycycline hyclate 100 mg tablet 100 mg PO BID 7 Days Qty: 14 0RF albuterol sulfate 90 mcg/actuation HFA aerosol inhaler 0 mcg inhalation
== END 2021-07-20 19:04 | disposition home or self-care (01) ==
PROVIDERS: Emergency Provider Emergency Medicine; PCP Internal Medicine
DX: L03.115 Cellulitis of right lower limb (principal); I87.2 Venous insufficiency (chronic) (peripheral); M79.604 Pain in right leg
CPT/HCPCS: 93971; 99283; 99284

== ENCOUNTER 2022-03-10 16:27 | Inpatient (IN) | payer OTHER, SELFPAY ==
[2022-03-10] VITALS (9 sets, daily range): BP systolic 192–195; BP diastolic 105–129; PULSE 84–92; RESP 19–28; TEMP 36.6; O2SAT 78–99; BMI 43.0
--- NOTE | ~2022-03-10 | XR_ITS ---
EXAMINATION: XR CHEST CLINICAL INFORMATION: Shortness of breath COMPARISON: 03/26/2018 TECHNIQUE: Frontal view of the chest was obtained. FINDINGS: The heart is enlarged, larger than in 2019. There is upper zone redistribution, new when compared to prior. There is mild interstitial prominence. No significant pleural effusions are seen. No consolidations or lung masses. XR/XR chest 1V IMPRESSION: Cardiomegaly with upper zone redistribution with mild CHF.
--- NOTE | ~2022-03-10 | XR_ITS ---
EXAMINATION: XR CHEST CLINICAL INFORMATION: Reason for Exam hypoxia COMPARISON: Chest radiograph 03/10/2022 TECHNIQUE: One view of the chest FINDINGS: New bandlike left basilar opacity. No pneumothorax or pleural effusion. Normal cardiomediastinal silhouette. XR/XR chest 1V IMPRESSION: * New bandlike left basilar airspace opacity morphologically favoring atelectasis, although developing infection or aspiration would be difficult to exclude.
--- NOTE | 2022-03-10 16:43 | ED_ITS ---
HPI - General Adult General Chief complaint: Dyspnea Stated complaint: Asthma difficulty breathing Time Seen by Provider: 03/10/22 16:55 Related Data Home Medications Medication Instructions Recorded Confirmed amlodipine 5 mg tablet 1 tab PO BEDTIME 01/12/21 03/10/22 budesonide-formoterol HFA 160 2 puff inhalation BID 01/12/21 03/10/22 mcg-4.5 mcg/actuation aerosol inhaler (Symbicort) lisinopril 40 mg tablet 1 tab PO BEDTIME 01/12/21 03/10/22 albuterol sulfate 90 mcg/actuation 2 inh inhalation Q4H PRN Shortness 01/28/21 03/10/22 aerosol inhaler Of Breath ferrous sulfate 325 mg (65 mg 1 tab PO DAILY 03/10/22 03/10/22 iron) tablet (FeroSul) Previous Rx's Medication Instructions Recorded furosemide 40 mg tablet 40 mg PO DAILY #30 tabs 03/16/22 prednisone 20 mg tablet 40 mg PO DAILY #10 tabs 03/16/22 Allergies Allergy/AdvReac Type Severity Reaction Status Date / Time Penicillins [PENICILLINS] Allergy Unknown HIVES Verified 03/27/21 15:12 [facility] Past Medical History Medical History Asthma Cerebral palsy Chronic venous hypertension with ulcer Hypertension Surgical History H/O umbilical hernia repair Social History Social History Household Members: Family Housing: House Do you presently have visiting nurse or other home services: No Alcohol intake: never Patient Tobacco Use Status: Former Tobacco user Tobacco use type: Cigarette service: No Current occupational status: employed Physical Exam ED Vital Signs: Vital Signs - 24 hr 03/10/22 16:36 03/10/22 16:40 Temperature 98 F Pulse Rate 84 Respiratory Rate 28 H Blood Pressure 192/129 H Pulse Oximetry 78 L 93 Oxygen Delivery Method Room Air Nasal Cannula Oxygen Flow Rate 4 BMI result Body Mass Index 43.0 Course Course Course Narrative: RME: 47 yold male presents to the ED for SOB and cough for couple of days. patient has pmh of asthma and HTN. room air 78 %. lower extremities postiive for chronic venous stasis legs that are swollen with pitting edema. Lungs thight. Charge nurse Siri made aware. patient brought to [facility] ED immediatley. patient placed on oxygen. Medications Administered Discontinued Medications Generic Name Dose Route Start Last Admin Trade Name Freq PRN Reason Stop Dose Admin Albuterol Sulfate 7.5 mg 03/10/22 17:20 03/10/22 17:34 Albuterol Sulfate (0.083%) 2.5 Mg/3 Ml Vial.Neb INHALE 03/10/22 17:21 7.5 mg ONCE ONE Administration Albuterol/Ipratropium 3 ml 03/10/22 16:52 03/10/22 17:23 Albuterol/Iprat 2.5/0.5mg 3 Ml Ampul.Neb INHALE 03/10/22 16:53 3 ml ONCE ONE Administration Albuterol/Ipratropium 3 ml 03/10/22 17:20 03/10/22 17:34 Albuterol/Iprat 2.5/0.5mg 3 Ml Ampul.Neb INHALE 03/10/22 17:21 3 ml ONCE ONE Administration Albuterol/Ipratropium 3 ml 03/11/22 08:00 03/16/22 11:28 Albuterol/Iprat 2.5/0.5mg 3 Ml Ampul.Neb INHALE 3 ml RQ4H WHILE AWAKE [facility] Administration Amlodipine Besylate 5 mg 03/10/22 22:00 03/10/22 22:49 Amlodipine Besylate 5 Mg Tablet PO 03/10/22 22:01 5 mg ONCE ONE Administration Protocol Amlodipine Besylate 5 mg 03/11/22 21:00 03/15/22 20:03 Amlodipine Besylate 5 Mg Tablet PO 5 mg BEDTIME [facility] Administration Protocol Doxycycline Monohydrate 100 mg 03/11/22 18:00 03/16/22 04:14 Doxycycline Monohydrate 100 Mg Capsule PO 100 mg Q12H [facility] Administration Enoxaparin Sodium 40 mg 03/10/22 22:00 03/15/22 20:03 Enoxaparin Sodium 40 Mg/0.4 Ml Syringe SUBCUT 40 mg Q24H [facility] Administration Furosemide 40 mg 03/10/22 18:15 03/10/22 18:20 Furosemide 40 Mg/4 Ml Vial IVPUSH 03/10/22 18:16 40 mg ONCE ONE Administration Protocol Furosemide 40 mg 03/11/22 09:00 03/11/22 08:32 Furosemide 40 Mg/4 Ml Vial IVPUSH 40 mg DAILY [facility] Administration Protocol Furosemide 40 mg 03/11/22 18:00 03/11/22 17:26 Furosemide 40 Mg/4 Ml Vial IVPUSH 40 mg BID@0900,1800 [facility] Administration Protocol Furosemide 40 mg 03/13/22 09:00 03/16/22 08:17 Furosemide 40 Mg Tablet PO 40 mg DAILY [facility] Administration Protocol Magnesium Sulfate 2 gm in 50 mls @ 150 mls/hr 03/10/22 17:20 03/10/22 19:45 Magnesium Sulfate/H2o IV 03/10/22 17:39 Infused ONCE ONE Infusion Lisinopril 40 mg 03/10/22 22:00 03/10/22 22:50 Lisinopril 40 Mg Tablet PO 03/10/22 22:01 40 mg ONCE ONE Administration Protocol Lisinopril 40 mg 03/11/22 21:00 03/15/22 20:03 Lisinopril 40 Mg Tablet PO 40 mg BEDTIME [facility] Administration Protocol Melatonin 6 mg 03/10/22 21:06 03/11/22 19:28 Melatonin 3 Mg Tablet PO 6 mg BEDTIME PRN Administration Insomnia Methylprednisolone Sodium Succinate 125 mg 03/10/22 17:20 03/10/22 17:58 Methylprednisolone Sod Succ 125 Mg/2 Ml Vial IVPUSH 03/10/22 17:21 125 mg ONCE ONE Administration Nitroglycerin 1 inch 03/10/22 18:15 03/10/22 18:28 Nitroglycerin 2 % Oint 1 Gm Packet TRANSDERMA 03/10/22 18:16 1 inch ONCE ONE Administration Prednisone 40 mg 03/11/22 11:25 03/16/22 08:17 Prednisone 20 Mg Tablet PO 40 mg DAILY [facility] Administration Sodium Chloride 3 ml 03/11/22 00:00 03/16/22 08:17 0.9 % Sodium Chloride Flush 3 Ml Syringe IVFLUSH 3 ml QSHIFT [facility] Administration Medical Decision Making Lab Data 03/15/22 06:59 03/15/22 06:59 Labs: Lab Results 03/10/22 03/10/22 03/10/22 Range/Units 19:05 19:05 19:05 WBC 6.7 (4.8-10.8) X10*3/uL RBC 5.41 (4.60-5.80) X10*6/uL Hgb 16.0 (14.0-18.0) g/dl Hct 52.2 H D (42.0-52.0) % MCV 96.5 (80.0-98.0) fL MCH 29.6 (27.0-33.0) pg MCHC 30.7 L (31.0-36.0) g/dl RDW 14.3 (11.0-16.0) % Plt Count 156 L (160-400) X10*3/uL MPV 9.9 (9.4-12.4) fL Immature Gran % (Auto) 0.7 H (0.0-0.4) % Neut % (Auto) 92.1 H (45-73) % Lymph % (Auto) 5.5 L (20-40) % [place] % (Auto) 1.3 L (2-11) % Eos % (Auto) 0.1 (0-4) % Baso % (Auto) 0.3 (0-2) % Lymph # (Auto) 0.4 L (1.2-4.9) X10*3/uL [place] # (Auto) 0.1 (0.1-1.2) X10*3/uL Eos # (Auto) 0.0 (0.0-0.4) X10*3/uL Baso # (Auto) 0.0 (0.0-0.2) X10*3/uL Abs Immat Gran (auto) 0.05 H (0.00-0.03) X10*3/uL Absolute Neuts (auto) 6.2 (2.0-8.3) x10*3/uL Absolute Nucleated RBC 0.000 (0.0-0.012) X10*3/uL Nucleated RBC % (auto) 0.0 (0.0-0.2) /100WBC Smear Tech's Comments VERIFIED PT 11.7 (10.0-13.1) SEC INR 1.0 (0.9-1.1) APTT 36.1 (26.0-36.4) SEC Sodium 144 (135-145) mmol/L Potassium 4.2 (3.3-5.1) mmol/L Chloride 94 L (96-108) mmol/L Carbon Dioxide 39 H (22-29) mmol/L Anion Gap 15 (12-20) BUN 14 (9-16) mg/dL Creatinine 0.99 (0.5-1.4) mg/dL Estim Creat Clear Calc 116.8 Estimated GFR > 60 Random Glucose 134 H (60-115) mg/dL Calcium 9.0 (8.4-10.2) mg/dL Total Bilirubin 1.2 H (0.0-1.0) mg/dL AST 38 H (5-37) U/L ALT 57 H (0-40) U/L Alkaline Phosphatase 72 (39-117) U/L Troponin I High Sens (<3.5-35.0) ng/L B-Natriuretic Peptide (<100) pg/mL Total Protein 6.9 (6.5-8.0) g/dL Albumin 3.9 (3.5-5.0) g/dL Influenza Type A (PCR) (Negative) Influenza Type B (PCR) (Negative) RSV RNA Qual (PCR) (Negative) SARS-CoV-2 RNA (RT-PCR) (Negative) 03/10/22 03/10/22 03/10/22 Range/Units 19:05 19:05 19:05 WBC (4.8-10.8) X10*3/uL RBC (4.60-5.80) X10*6/uL Hgb (14.0-18.0) g/dl Hct (42.0-52.0) % MCV (80.0-98.0) fL MCH (27.0-33.0) pg MCHC (31.0-36.0) g/dl RDW (11.0-16.0) % Plt Count (160-400) X10*3/uL MPV (9.4-12.4) fL Immature Gran % (Auto) (0.0-0.4) % Neut % (Auto) (45-73) % Lymph % (Auto) (20-40) % [place] % (Auto) (2-11) % Eos % (Auto) (0-4) % Baso % (Auto) (0-2) % Lymph # (Auto) (1.2-4.9) X10*3/uL [place] # (Auto) (0.1-1.2) X10*3/uL Eos # (Auto) (0.0-0.4) X10*3/uL Baso # (Auto) (0.0-0.2) X10*3/uL Abs Immat Gran (auto) (0.00-0.03) X10*3/uL Absolute Neuts (auto) (2.0-8.3) x10*3/uL Absolute Nucleated RBC (0.0-0.012) X10*3/uL Nucleated RBC % (auto) (0.0-0.2) /100WBC Smear Tech's Comments PT (10.0-13.1) SEC INR (0.9-1.1) APTT (26.0-36.4) SEC Sodium (135-145) mmol/L Potassium (3.3-5.1) mmol/L Chloride (96-108) mmol/L Carbon Dioxide (22-29) mmol/L Anion Gap (12-20) BUN (9-16) mg/dL Creatinine (0.5-1.4) mg/dL Estim Creat Clear Calc Estimated GFR Random Glucose (60-115) mg/dL Calcium (8.4-10.2) mg/dL Total Bilirubin (0.0-1.0) mg/dL AST (5-37) U/L ALT (0-40) U/L Alkaline Phosphatase (39-117) U/L Troponin I High Sens 35.0 (<3.5-35.0) ng/L B-Natriuretic Peptide 340 H (<100) pg/mL Total Protein (6.5-8.0) g/dL Albumin (3.5-5.0) g/dL Influenza Type A (PCR) NEGATIVE (Negative) Influenza Type B (PCR) NEGATIVE (Negative) RSV RNA Qual (PCR) NEGATIVE (Negative) SARS-CoV-2 RNA (RT-PCR) NEGATIVE (Negative) Discharge Plan Discharge Clinical Impression: CHF (congestive heart failure) Patient Disposition: Admitted As Inpatient Interventions: Admission Worksheet (ED) Last Done: 03/11/22 01:06 Discharge Date/Time: 03/11/22 00:30
--- NOTE | 2022-03-10 17:08 | PC.NURSE ---
O2Sat at 84% on 5L, increased to 90% on 7L; Dr Dobbins aware
--- OUTSIDE RECORDS SUMMARY | 2022-03-10 17:15 | XMS_ITS | Continuity of Care Document ---
:1975 Author Organization [employer] Address [address] [place] [address] Drive [address] [place] [id number]- Care Team Providers Name Role Phone Volodymyr CASAS MD, Justin Bishop Primary Care Physician [place]counter [facility] [place] Date(s[place] 09/24/21 - 10/01/[address] [place] [id number] Attending Physician: Adrián MARTINEZ, Chicho Mustafa Allergies, Adverse Reactions, Alerts Substance Reaction Severity Status penicillin Mild Active Immunizations Given and Recorded Vaccine Date Status Refusal Reason SARS-CoV-2 (COVID-19) Ad26 vaccine 06/14/20 Given Medications acetaminophen 325 mg oral tablet 650 mg, By Mouth, Every 4 hours, PRN, Refills 0, Maintenance, Pain , Mild, 07/16/21 11:11:00 EDT, Partial fill upon patient request if the prescription is for a schedule II opioid drug. Start Date: 07/16/21 Status: OrderedAlbuterol (Eqv-ProAir HFA) 90 mcg/inh inhalation aerosol INHALE 2 PUFFS BY MOUTH EVERY 4 HOURS NEEDED FOR COUGH OR WHEEZING Start Date: 07/16/21 Status: OrderedamLODIPine 5 mg oral tablet 1 tablet = 5 mg, By Mouth, Daily, # 30 tablet, 0 Refills, Maintenance, 07/15/21 1:42:00 EDT, Tablet,Partial fill upon patient request if the prescription is for a schedule II opioid drug. Start Date: 07/15/21 Status: Ordereddocusate sodium 100 mg oral capsule 100 mg, 1, capsule, By Mouth, 2 times a day, # 60 capsule, Refills 0, Tot. Refills 0, Maintenance, 07/16/21 11:10:00 EDT, Route to Pharmacy Electronically, [facility], Partial fill upon patient request if the prescription is for a schedu... Start Date: 07/16/21 Status: Orderedlisinopril 40 mg oral tablet 1 tablet = 40 mg, By Mouth, Daily, # 90 tablet, 0 Refills, Maintenance, 07/15/21 1:42:00 EDT, Tablet, Partial fill upon patient request if the prescription is for a schedule II opioid drug. Start Date: 07/15/21 Status: Orderedsenna 187 mg oral tablet 1 tablet = 8.6 mg, By Mouth, Daily, 0 Refills, Maintenance, 07/16/21 11:13:00 EDT, Tablet, Partial fill upon patient request if the prescription is for a schedule II opioid drug. Start Date: 07/16/21 Status: OrderedSymbicort 160mcg/4.5mcg Inhaler 2, puffs, Inhalation, 2 times a day, Refills 0, Maintenance, 07/15/21 1:42:00 EDT, Aerosol Start Date: 07/15/21 Status: OrderedV-C Forte Multiple Vitamins with Minerals oral capsule 1 capsule, By Mouth, Daily, # 90 capsule, 0 Refills, Maintenance, 09/03/21 15:47:00 EDT, Capsule, [id number], Partial fill upon patient request if the prescription is for a schedule IIopioid drug., 1 capsule By Mouth Daily, 170, cm,... Start Date: 09/03/21 Status: Ordered Problem List Condition Effective Dates Status Health Status Informant EtOH dependence(Confirmed) Active Nocturnal hypoxia(Confirmed) Active Open leg wound(Confirmed) Active Severe obesity(Confirmed) Active Vital Signs Most recent to oldest [Reference Range]: 1 Height 170 cm (09/24/21 1:06 PM) Pulse Rate [55-90 bpm] 83 bpm (09/24/21 1:06 PM) Blood Pressure [90-138/55-84 mm Hg] 141/87 mm Hg *H* (09/24/21 1:06 PM) Temperature [96.8-100.4 DegF] 98.2 DegF (09/24/21 1:06 PM) Blood pressure sites Arm, right (09/24/21 1:06 PM) Temperature Route Temporal (09/24/21 1:06 PM)
--- OUTSIDE RECORDS SUMMARY | 2022-03-10 17:15 | XMS_ITS | Continuity of Care Document ---
:1975 Author Organization [address] [place] [address]- Care Team Providers Name Role Phone Justin Helm III, MD Primary Care Physician Encounter [facility] [place] [facility] [place] [id number] Date(s): 11/27/21 - 12/27/[address] [place] [address]- Attending Physician: Risa Cabello Admitting Physician: Risa Cabello Referring Physician: AdmtrRisa Allergies, Adverse Reactions, Alerts Substance Reaction Severity [...] 07/16/21 11:10:00 EDT, Route to Pharmacy Electronically, [facility], Partial fill upon patient request [...] 0 Refills, Maintenance, 09/03/21 15:47:00 EDT, Capsule, [id number], Partial fill upon patient request if the prescription is for a schedule IIopioid drug., 1 capsule By Mouth Daily, 170, cm,... Start Date: 09/03/21 Status: Ordered Problem List Condition Confirmation Course Effective Dates Status Health Stat Informant EtOH dependence Confirmed Active Nocturnal hypoxia Confirmed Active Open leg wound Confirmed Active Severe obesity Confirmed Active Patient Care team information Care Team PersonnelName: Kymberly Fu RN Position: S RN Member Role: Primary Care Nurse Name: Justin Helm III, MD Position: S Ambulatory (view) Member Role: PCP Address: Address: [address] [place] [id number] Name: Yanick Yang RN Position: S RN Member Role: Primary Care Nurse Name: Alice Hanna RN Position: S RN Member Role: Primary Care Nurse Name: Roberta Rodarte RN Position: S RN Member Role: Primary Care Nurse Care Team Related PersonsName: MEGAN MONTENEGRO Address: [address] [address]
--- OUTSIDE RECORDS SUMMARY | 2022-03-10 17:15 | XMS_ITS | Continuity of Care Document ---
:1975 Author Organization [facility] Address [address] [place] [address]- Care Team Providers Name Role Phone Not on Staff, PCP Primary Care Physician Unavailable Encounter [facility] Date(s): 07/14/21 - 07/17/[address] [address]- Discharge Disposition: A-D/C Home Attending Physician: Chicho Sampson MD Admitting Physician: Chicho Sampson MD Referring Physician: Not on Staff, Referring MD Allergies, Adverse Reactions, Alerts Substance Reaction Severity [...] II opioid drug. Start Date: 07/15/21 Status: OrderedamLODIPine 5 mg oral tablet 5 mg, Tablet, By Mouth, 07/17/21 9:00:00 EDT Start Date: 07/17/21 Stop Date: 07/17/21 Status: CompletedAzithromycin 3 Day Dose Pack 500 mg oral tablet 1 tablet = 500 mg, By Mouth, Daily, # 3 tablet, 0 Refills, Acute 07/20/21 13:58:00 EDT, 07/17/21 13:57:00 EDT, Tablet, [facility], Partial fill upon patient request if the prescription isfor a schedule II opioid drug., 170, cm, 07/15/21... Start Date: 07/17/21 Stop Date: 07/20/21 Status: Orderedcefpodoxime 200 mg oral tablet 1 tablet = 200 mg, By Mouth, Every 12 hours, for 5 days, # 10 tablet, 0 Refills, Acute 07/22/21 13:58:00 EDT, 07/17/21 13:58:00 EDT, Tablet, [facility], Partial fill upon patient request if the prescription is for a schedule II opioid dr... Start Date: 07/17/21 Stop Date: 07/22/21 Status: Ordereddocusate sodium 100 mg oral capsule 100 mg, 1, capsule, By Mouth, 2 times a day, # 60 capsule, Refills 0, Tot. Refills 0, Maintenance, 07/16/21 11:10:00 EDT, Route to Pharmacy Electronically, [facility], Partial fill upon patient request if the prescription is for a schedu... Start Date: 07/16/21 Status: Orderedlisinopril 40 mg oral tablet 1 tablet = 40 mg, By Mouth, Daily, # 90 tablet, 0 Refills, Maintenance, 07/15/21 1:42:00 EDT, Tablet, Partial fill upon patient request if the prescription is for a schedule II opioid drug. Start Date: 07/15/21 Status: OrderedoxyCODONE 5 mg oral tablet 5 mg, 1, tablet, By Mouth, Every 6 hours, PRN, Pain unrelieved by tylenol, # 10 tablet, Refills 0, Tot. Refills 0, Acute 07/19/21 11:12:00 EDT, Pain , Severe, 07/16/21 11:10:00 EDT, Route to Pharmacy Electronically, [facility], Partial f... Start Date: 07/16/21 Stop Date: 07/19/21 Status: OrderedoxyCODONE 5 mg oral tablet 5 mg, Tablet, By Mouth, Every 6 hours, PRN for Pain , Severe, Routine, 07/15/21 2:55:00 EDT Start Date: 07/15/21 Stop Date: 07/18/21 Status: Discontinuedsenna 187 mg oral tablet 1 tablet = 8.6 mg, By Mouth, Daily, 0 Refills, Maintenance, 07/16/21 11:13:00 EDT, Tablet, Partial fill upon patient request if the prescription is for a schedule II opioid drug. Start Date: 07/16/21 Status: OrderedSymbicort 160mcg/4.5mcg Inhaler 2, puffs, Inhalation, 2 times a day, Refills 0, Maintenance, 07/15/21 1:42:00 EDT, Aerosol Start Date: 07/15/21 Status: Ordered Problem List Condition Effective Dates Status Health Status Informant EtOH dependence(Confirmed) Active Nocturnal hypoxia(Confirmed) Active Severe obesity(Confirmed) Active Results Radiology Reports Exam Date Time Procedure Performing Provider Status 07/16/21 2:07 PM Chest Portable Josiane Vivas; Auth (Verified ) Notes:(Chest Portable) Reason For Exam: Shortness of BreathRESULT: Chest Portable Chest Portable Reason: Shortness of Breath; Clinical Question(s): Pneumonia COMPARISON: 07/14/2021. FINDINGS: LINES AND TUBES: None. LUNGS AND PLEURA: Worsening diffuse airspace opacity throughout the majority of the mid to lower left lung field. No pleural effusion. No pneumothorax. HEART, MEDIASTINUM AND MARU: Heart is normal in size. Normal upper mediastinal and hilar contour. BONES AND SOFT TISSUES: No acute abnormality. IMPRESSION: Worsening multifocal left-sided airspace opacities. An Melvin message has been communicated via the Ancestry system on 07/16/2021 3:30 PM, Message ID [id number]. WSN: [id number] Ordering Physician: Dilcia Rosa Dictated By: Mack Drew MD Dictated Date/Time: 07/16/21 3:30 pm Reviewed By: Mack Drew MD Signed By: Mack Drew MD Signed Date/Time: 07/16/21 3:30 pm Transcribed By: YASH Transcribed Date/Time: 07/16/21 3:28 pm Exam Date Time Procedure Performing Provider Status 07/14/21 5:43 PM Chest Portable Georgina Britt (Vermushtaq d) Notes:(Chest Portable) Reason For Exam: Shortness of BreathRESULT: Chest Portable AP upright portable chest dated July 14, 2021 at 1734 hours. No prior studies are available. HISTORY: Shortness of breath. FINDINGS: The cardiac silhouette is within normal limits for size. Hilar and mediastinal structures are unremarkable. No airspace infiltrate or pleural effusion is identified. There is a convex right thoracic scoliosis. IMPRESSION: No evidence of acute pulmonary disease. Examination 98966. Thank you for allowing me to participate in the care of this patient. WSN: [id number] Ordering Physician: Dilcia Rosa Dictated By: Dedrick Avalos MD Dictated Date/Time: 07/14/21 6:25 pm Reviewed By: Dedrick Avalos MD Signed By: Dedrick Avalos MD Signed Date/Time: 07/14/21 6:25 pm Transcribed By: YASH Transcribed Date/Time: 07/14/21 6:25 pm Exam Date Time Procedure Performing Provider Status 07/14/21 1:55 PM Shoulder Min 2 Views Left Gus Fernando (Verified) Notes:(Shoulder Min 2 Views Left) Reason For Exam: with Pain;TraumaRESULT: Shoulder Min 2 Views Left Shoulder Left, 3 views Reason: Trauma; with Pain; Clinical Question(s): Fracture COMPARISON: None. FINDINGS: No fracture or dislocation. No arthritic change of the glenohumeral joint. Normal AC joint and portions of the clavicle included on the exam. No calcification of the rotator cuff. IMPRESSION: No acute abnormality. I have personally reviewed the images and I agree with this report. WSN: [id number] Ordering Physician: Júnior Valdez Dictated By: Jonas Mcclellan DO Dictated Date/Time: 07/14/21 2:39 pm Reviewed By: aBkari Anderson MD Signed By: Bakari Anderson MD Signed Date/Time: 07/14/21 2:44 pm Transcribed By: YASH Transcribed Date/Time: 07/14/21 2:20 pm Vital Signs Most recent to oldest 1 2 3 [Reference Range]: Height 170 cm (07/15/21 1:25 AM) Weight 119.5 kg (07/15/21 1:25 AM) Oxygen Saturation [94-100 %] 99 % 93 % 100 % (07/17/21 3:00 PM) *L* (07/17/21 6:17 AM ) (07/17/21 11:00 AM) Pulse Rate [55-90 bpm] 83 bpm 90 bpm 76 bpm (07/17/21 3:00 PM) (07/17/21 11:00 AM) (07/17/21 6:17 AM) Body Mass Index [18.5-24.99] 41.35 *>HHI* (07/15/21 1:25 AM) Blood Pressure [90-138/55-84 131/83 mm Hg 130/77 mm Hg 134 /81 mm Hg mm Hg] (07/17/21 3:00 PM) (07/17/21 11:00 AM) (07/17/21 9:07 AM) Respiratory Rate [16-30 21 br/min 26 br/min 20 br/mi n br/min] (07/17/21 3:00 PM) (07/17/21 2:42 PM) (07/17/21 11:00 AM) Temperature [96.8-100.4 98.7 DegF 98.9 DegF 99.6 Deg F DegF] (07/17/21 3:00 PM) (07/17/21 11:00 AM) (07/17/21 6:17 AM) Liters per Minute 1.5 L/min 1.5 L/min 2 L/min (07/17/21 3:00 PM) (07/17/21 11:00 AM) (07/16/21 10:31 PM) Mode of Delivery (Oxygen) Other: herrera Other: herrera BiPAP (07/17/21 3:00 PM) (07/17/21 11:00 AM) (07/17/21 6:17 AM) Blood pressure sites Arm, left Arm, left Arm, left (07/17/21 3:00 PM) (07/17/21 11:00 AM) (07/17/21 6:17 AM) Temperature Route Oral Oral Axillary (07/17/21 3:00 PM) (07/17/21 11:00 AM) (07/17/21 6:17 AM) Dry Weight 119.5 kg 119.5 kg (07/15/21 1:25 AM) (07/14/21 1:30 PM) Weight Obtained Via Bed scale (07/15/21 1:25 AM) Dry Weight Obtained Via Bed scale Patient/family stated (07/15/21 1:25 AM) (07/14/21 1:30 PM)
--- OUTSIDE RECORDS SUMMARY | 2022-03-10 17:15 | XMS_ITS | Continuity of Care Document ---
:1975 Author Organization [facility] Address [address] [place] [id number]- Care Team Providers Name Role Phone Justin Helm III, MD Primary Care Physician [place] [facility] [place] - 08/16/[address] [address]- Attending Physician: Not on Staff, Attending MD Admitting Physician: Not on Staff, Admitting MD Referring Physician: Not on Staff, Referring [...] 07/16/21 11:10:00 EDT, Route to Pharmacy Electronically, [facility], Partial fill upon patient request [...]
--- OUTSIDE RECORDS SUMMARY | 2022-03-10 17:15 | XMS_ITS | Continuity of Care Document ---
:1975 Author Organization [facility] Address Unavailable , Care Team Providers Name Role Phone Justin Helm III, MD Primary Care Physician [place] [facility] [place] 09[place]/21 [facility] Attending Physician: Renetta Rogers MD Referring Physician: Not on Staff, Referring [...] 07/16/21 11:10:00 EDT, Route to Pharmacy Electronically, [facility], Partial fill upon patient [...] 0 Refills, Maintenance, 09/03/21 15:47:00 EDT, Capsule, [id number], Partial fill upon patient request if the prescription is for a schedule IIopioid drug., 1 capsule By Mouth Daily, 170, cm,... Start Date: 09/03/21 Status: Ordered Problem List Condition Effective Dates Status Health Status Informant EtOH dependence(Confirmed) Active Nocturnal hypoxia(Confirmed) Active Open leg wound(Confirmed) Active Severe obesity(Confirmed) Active Vital Signs Most recent to oldest [Reference Range]: 1 Height 170 cm (09/03/21 3:24 PM) Pulse Rate [55-90 bpm] 78 bpm (09/03/21 3:24 PM) Blood Pressure [90-138/55-84 mm Hg] 161/99 mm Hg *H* (09/03/21 3:24 PM) Temperature [96.8-100.4 DegF] 97.6 DegF (09/03/21 3:24 PM) Blood pressure sites Arm, left (09/03/21 3:24 PM) Temperature Route Temporal (09/03/21 3:24 PM)
--- OUTSIDE RECORDS SUMMARY | 2022-03-10 17:16 | XMS_ITS | Continuity of Care Document ---
:1975 Author Organization [facility] Address [address] [place] [phone]- Care Team Providers Name Role Phone Volodymyr CASAS MD, Justin Bishop Primary Care Physician En[place] [facility] [place]s): 08/08/21 - 09/13/[address] [address] Attending Physician: Jurgen Davila MD Admitting Physician: Jurgen Davila MD Referring Physician: Shahbaz Hawk Allergies, Adverse Reactions, Alerts Substance Reaction Severity [...] 07/16/21 11:10:00 EDT, Route to Pharmacy Electronically, [facility], Partial fill upon patient [...] 0 Refills, Maintenance, 09/03/21 15:47:00 EDT, Capsule, [id number], Partial fill upon patient request if the prescription is for a schedule IIopioid drug., 1 capsule By Mouth Daily, 170, cm,... Start Date: 09/03/21 Status: Ordered Problem List Condition Effective Dates Status Health Status Informant EtOH dependence(Confirmed) Active Nocturnal hypoxia(Confirmed) Active Open leg wound(Confirmed) Active Severe obesity(Confirmed) Active
--- OUTSIDE RECORDS SUMMARY | 2022-03-10 17:16 | XMS_ITS | Continuity of Care Document ---
:1975 Author Organization [facility] Address [address] [place] [address] Drive [address] [place] [address]- Care Team Providers Name Role Phone Volodymyr CASAS MD, Justin Bishop Primary Care Physician En[place] [facility] [place] Date(s): 10/23/21 - 10/30/[address] [place] [id number] Attending Physician: Chicho Sampson MD Referring Physician: Justin Helm III, MD Allergies, Adverse Reactions, Alerts Substance Reaction [...] 07/16/21 11:10:00 EDT, Route to Pharmacy Electronically, [facility], Partial fill upon patient [...] 0 Refills, Maintenance, 09/03/21 15:47:00 EDT, Capsule, [id number], Partial fill upon patient request if the prescription is for a schedule IIopioid drug., 1 capsule By Mouth Daily, 170, cm,... Start Date: 09/03/21 Status: Ordered Problem List Condition Effective Dates Status Health Status Informant EtOH dependence(Confirmed) Active Nocturnal hypoxia(Confirmed) Active Open leg wound(Confirmed) Active Severe obesity(Confirmed) Active Vital Signs Most recent to oldest [Reference Range]: 1 Height 170 cm (10/23/21 11:07 AM) Pulse Rate [55-90 bpm] 90 bpm (10/23/21 11:07 AM) Blood Pressure [90-138/55-84 mm Hg] 159/94 mm Hg *H* (10/23/21 11:07 AM) Respiratory Rate [16-30 br/min] 18 br/min (10/23/21 11:07 AM) Temperature [96.8-100.4 DegF] 98.4 DegF (10/23/21 11:07 AM) Blood pressure sites Arm, left (10/23/21 11:07 AM) Temperature Route Temporal (10/23/21 11:07 AM) Care Team PersonnelName: Volodymyr CASAS MD, Justin Bishop Address: [address] [place] [address] [place] [id number]
--- OUTSIDE RECORDS SUMMARY | 2022-03-10 17:16 | XMS_ITS | Continuity of Care Document ---
:1975 Author Organization [facility] Address Unavailable , Care Team Providers Name Role Phone Justin Helm III, MD Primary Care Physician [place] [facility] [place]13[place]21 - 08/20/21 [facility] Attending Physician: Arash Sepulveda MD Allergies, Adverse Reactions, Alerts Substance Reaction [...] 07/16/21 11:10:00 EDT, Route to Pharmacy Electronically, [facility], Partial fill upon patient request [...] oldest [Reference Range]: 1 Height 170 cm (08/13/21 1:10 PM) Pulse Rate [55-90 bpm] 83 bpm (08/13/21 1:10 PM) Blood Pressure [90-138/55-84 mm Hg] 152/98 mm Hg *H* (08/13/21 1:10 PM) Temperature [96.8-100.4 DegF] 96.9 DegF (08/13/21 1:10 PM) Blood pressure sites Arm, right (08/13/21 1:10 PM) Temperature Route Temporal (08/13/21 1:10 PM)
--- OUTSIDE RECORDS SUMMARY | 2022-03-10 17:16 | XMS_ITS | Continuity of Care Document ---
:1975 Author Organization [facility] Address [address] [place] [address] Drive [address] [place] [phone]- Care Team Providers Name Role Phone Volodymyr CASAS MD, Justin Bishop Primary Care Physician Encounter [facility] [place] 09/05/21 - 10/05/[address] [place] [id number] Allergies, Adverse Reactions, Alerts Substance Reaction Severity [...] 07/16/21 11:10:00 EDT, Route to Pharmacy Electronically, [facility], Partial fill upon patient [...] 0 Refills, Maintenance, 09/03/21 15:47:00 EDT, Capsule, [id number], Partial fill upon patient request if the prescription is for a schedule IIopioid drug., 1 capsule By Mouth Daily, 170, cm,... Start Date: 09/03/21 Status: Ordered Problem List Condition Effective Dates Status Health Status Informant EtOH dependence(Confirmed) Active Nocturnal hypoxia(Confirmed) Active Open leg wound(Confirmed) Active Severe obesity(Confirmed) Active Care Team PersonnelName: Volodymyr CASAS MD, Justin Bishop Address: [address] [place] [address]
--- OUTSIDE RECORDS SUMMARY | 2022-03-10 17:16 | XMS_ITS | Continuity of Care Document ---
:1975 Author Organization [facility] Address [address] [place] [address] Drive [address] [place] [address]- Care Team Providers Name Role Phone Justin Helm III, MD Primary Care Physician [place] [facility] [place] 11/27/21 - 12/04/[address] [place] [address]- Attending Physician: Renetta Rogers MD Allergies, Adverse Reactions, Alerts Substance Reaction [...] 07/16/21 11:10:00 EDT, Route to Pharmacy Electronically, [facility], Partial fill upon patient request if [...] 0 Refills, Maintenance, 09/03/21 15:47:00 EDT, Capsule, [id number], Partial fill upon patient request if the prescription is for a schedule IIopioid drug., 1 capsule By Mouth Daily, 170, cm,... Start Date: 09/03/21 Status: Ordered Problem List Condition Confirmation Course Effective Dates Status Health Stat us Informant EtOH dependence Confirmed Active Nocturnal hypoxia Confirmed Active Open leg wound Confirmed Active Severe obesity Confirmed Active Vital Signs Most recent to oldest [Reference Range]: 1 Height 170 cm (11/27/21 2:34 PM) Pulse Rate [55-90 bpm] 96 bpm *H* (11/27/21 2:34 PM) Blood Pressure [90-138/55-84 mm Hg] 165/73 mm Hg *H* (11/27/21 2:34 PM) Temperature [96.8-100.4 DegF] 97.9 DegF (11/27/21 2:34 PM) Blood pressure sites Arm, left (11/27/21 2:34 PM) Temperature Route Temporal (11/27/21 2:34 PM) Patient Care team information PersonnelName: Volodymyr CASAS MD, Justin Bishop Address: Address: [address] [place] [id number]
--- OUTSIDE RECORDS SUMMARY | 2022-03-10 17:16 | XMS_ITS | Continuity of Care Document ---
:1975 Author Organization [facility] Address [address] [place] [phone]- Care Team Providers Name Role Phone Justin Helm III, MD Primary Care Physician Encounter 07/18/21 - 09/01/21 [facility] [address] [place] [phone]- Discharge Disposition: [facility] Allergies, Adverse Reactions, Alerts Substance Reaction Severity [...] 07/16/21 11:10:00 EDT, Route to Pharmacy Electronically, [facility], Partial fill upon patient [...]
--- NOTE | 2022-03-10 17:21 | ED_ITS ---
HPI - SOB/Dyspnea General Chief Complaint: Dyspnea Stated Complaint: Asthma difficulty breathing Time Seen by Provider: 03/10/22 16:55 History of Present Illness HPI Narrative: Patient is a 47-year-old male with a history of asthma. Never been intubated in the past. Never had to be hospitalized. Presents today with having 1 week history of coughing congestion upper respiratory symptoms wheezing. Patient was seen at urgent care. Given steroid with moderate relief. When the steroid ran out the symptoms seems to have worsened. Patient denies any history of congestive heart failure. Positive history of hypertension. No chest pain. Patient is vaccinated for COVID x1. He had COVID infection last year. Patient have not had the flu vaccine. Positive long history of smoking quit about a year ago. No chest pain no diaphoresis. Positive leg swelling but that is chronic. Related Data Home Medications Medication Instructions Recorded Confirmed acetaminophen 325 mg tablet 650 mg PO Q6H PRN Pain 01/12/21 01/12/21 amlodipine 5 mg tablet 1 tab PO DAILY 01/12/21 01/12/21 budesonide-formoterol HFA 160 2 puff inhalation BID 01/12/21 01/12/21 mcg-4.5 mcg/actuation aerosol inhaler (Symbicort) chlorthalidone 25 mg tablet 1 tab PO DAILY 01/12/21 01/12/21 clindamycin 1 %-benzoyl peroxide 5 1 appl topical DAILY 01/12/21 01/12/21 % topical gel clobetasol 0.05 % topical cream 1 appl topical DAILY 01/12/21 01/12/21 clotrimazole-betamethasone 1 1 appl topical DAILY 01/12/21 01/12/21 %-0.05 % topical cream lisinopril 40 mg tablet 1 tab PO DAILY 01/12/21 01/12/21 albuterol sulfate 90 mcg/actuation 0 mcg inhalation 01/28/21 aerosol inhaler Previous Rx's Medication Instructions Recorded doxycycline hyclate 100 mg tablet 100 mg PO BID 7 days #14 tabs 01/14/21 doxycycline hyclate 100 mg capsule 100 mg PO BID 7 days #14 caps 07/20/21 Allergies Allergy/AdvReac Type Severity Reaction Status Date / Time Penicillins [PENICILLINS] Allergy Unknown HIVES Verified 03/27/21 15:12 Review of Systems Review of Systems: Positive coughing congestion upper respiratory symptoms positive generalized malaise Yes all other systems are reviewed and are negative [facility] Past Medical History Attestation statement: The following information was validated with the patient. Medical History Asthma Cerebral palsy Chronic venous hypertension with ulcer Hypertension Surgical History H/O umbilical hernia repair Social History Social History Alcohol intake: current Alcohol intake frequency: a few times a week Patient Tobacco Use Status: Tobacco use Unknown Tobacco use type: Cigarette Advance Directives: No Advance Directives Information Provided: Yes service: No Current occupational status: employed Physical Exam Vital Signs: Vital Signs: Last Vital Signs Temp 98 F 03/10/22 16:36 Pulse 91 03/10/22 17:36 Resp 20 03/10/22 17:36 BP 195/105 H 03/10/22 18:26 Pulse Ox 99 03/10/22 18:26 O2 Del Method 03/10/22 18:26 O2 Flow Rate 5 03/10/22 18:26 BMI result Body Mass Index 43.0 Appearance: Alert. Oriented X3. No acute distress. Eyes: Pupils equal, round and reactive to light. ENT: Pharynx normal. Neck: Normal inspection. Neck supple. No lymph nodes noted. No crepitus CVS: Normal heart rate and rhythm. Pulses normal. Normal S1 and S2 Respiratory: Diminished breath sounds bilaterally minimal expiratory wheezing noted. Abdomen: Soft and nontender. No rigidity. No distention. good BS x4 Skin: Skin warm and dry. Normal skin color. Normal skin turgor. Extremities: 2+ pitting edema. Neurovascular intact to all extremities. No Lacerations. No Rash Neuro: Oriented X 3. No motor deficit. No sensory deficit. Moving all extermities. No slurred speech Medications Administered Generic Name Dose Route Start Last Admin Trade Name Freq PRN Reason Stop Dose Admin Enoxaparin Sodium 40 mg 03/10/22 22:00 03/10/22 21:25 Enoxaparin Sodium 40 Mg/0.4 Ml Syringe SUBCUT 40 mg Q24H SHITAL Administration Discontinued Medications Generic Name Dose Route Start Last Admin Trade Name Freq PRN Reason Stop Dose Admin Albuterol Sulfate 7.5 mg 03/10/22 17:20 03/10/22 17:34 Albuterol Sulfate (0.083%) 2.5 Mg/3 Ml Vial.Neb INHALE 03/10/22 17:21 7.5 mg ONCE ONE Administration Albuterol/Ipratropium 3 ml 03/10/22 16:52 03/10/22 17:23 Albuterol/Iprat 2.5/0.5mg 3 Ml Ampul.Neb INHALE 03/10/22 16:53 3 ml ONCE ONE Administration Albuterol/Ipratropium 3 ml 03/10/22 17:20 03/10/22 17:34 Albuterol/Iprat 2.5/0.5mg 3 Ml Ampul.Neb INHALE 03/10/22 17:21 3 ml ONCE ONE Administration Furosemide 40 mg 03/10/22 18:15 03/10/22 18:20 Furosemide 40 Mg/4 Ml Vial IVPUSH 03/10/22 18:16 40 mg ONCE ONE Administration Protocol Magnesium Sulfate 2 gm in 50 mls @ 150 mls/hr 03/10/22 17:20 03/10/22 19:45 Magnesium Sulfate/H2o IV 03/10/22 17:39 Infused ONCE ONE Infusion Methylprednisolone Sodium Succinate 125 mg 03/10/22 17:20 03/10/22 17:58 Methylprednisolone Sod Succ 125 Mg/2 Ml Vial IVPUSH 03/10/22 17:21 125 mg ONCE ONE Administration Nitroglycerin 1 inch 03/10/22 18:15 03/10/22 18:28 Nitroglycerin 2 % Oint 1 Gm Packet TRANSDERMA 03/10/22 18:16 1 inch ONCE ONE Administration Medical Decision Making Medical Decision Making [facility] Narrative: Patient presented with increasing shortness of breath wheezing decreased O2 saturation bilateral leg swelling. Patient has chest x-ray was ordered. It showed mild CHF. Likely causing the hypoxia and the shortness of breath. Patient's blood pressure extremely elevated at 180/110. Started on nitro. Started on Lasix. Symptoms seems to have improved. Initially patient was given some steroids for possible asthma as well. Patient's hemoglobin is 16 there is no evidence for anemia. Patient's COVID RSV influenza test was negative. My interpretation of patient's EKG showed a sinus pattern heart rate is 90 [place] QRS QT within normal limits there is no acute ST segment elevation. Patient's BNP was elevated at approximately 400. Chest x-ray consistent with CHF. Likely the cause of patient's symptoms. Along with the extremely elevated blood pressure. Patient symptom improved with time. Discussed with hospitalist team Differential Diagnosis Differential Diagnoses: The differential diagnosis associated with the presentation includes Congestive heart failure, pneumonia, infection,asthma Admission/Observation Consideration of admission/observation: Escalation of care including admission/observation considered Consult Healthcare Provider Management of the patient was discussed with: Hospitalist Lab Data MDM Lab Attestation statement: I reviewed the patient's lab results. 03/10/22 19:05 03/10/22 19:05 Labs: Lab Results 03/10/22 03/10/22 03/10/22 Range/Units 19:05 19:05 19:05 WBC 6.7 (4.8-10.8) X10*3/uL RBC 5.41 (4.60-5.80) X10*6/uL Hgb 16.0 (14.0-18.0) g/dl Hct 52.2 H D (42.0-52.0) % MCV 96.5 (80.0-98.0) fL MCH 29.6 (27.0-33.0) pg MCHC 30.7 L (31.0-36.0) g/dl RDW 14.3 (11.0-16.0) % Plt Count 156 L (160-400) X10*3/uL MPV 9.9 (9.4-12.4) fL Immature Gran % (Auto) 0.7 H (0.0-0.4) % Neut % (Auto) 92.1 H (45-73) % Lymph % (Auto) 5.5 L (20-40) % [place] % (Auto) 1.3 L (2-11) % Eos % (Auto) 0.1 (0-4) % Baso % (Auto) 0.3 (0-2) % Lymph # (Auto) 0.4 L (1.2-4.9) X10*3/uL [place] # (Auto) 0.1 (0.1-1.2) X10*3/uL Eos # (Auto) 0.0 (0.0-0.4) X10*3/uL Baso # (Auto) 0.0 (0.0-0.2) X10*3/uL Abs Immat Gran (auto) 0.05 H (0.00-0.03) X10*3/uL Absolute Neuts (auto) 6.2 (2.0-8.3) x10*3/uL Absolute Nucleated RBC 0.000 (0.0-0.012) X10*3/uL Nucleated RBC % (auto) 0.0 (0.0-0.2) /100WBC Smear Tech's Comments VERIFIED PT 11.7 (10.0-13.1) SEC INR 1.0 (0.9-1.1) APTT 36.1 (26.0-36.4) SEC Sodium 144 (135-145) mmol/L Potassium 4.2 (3.3-5.1) mmol/L Chloride 94 L (96-108) mmol/L Carbon Dioxide 39 H (22-29) mmol/L Anion Gap 15 (12-20) BUN 14 (9-16) mg/dL Creatinine 0.99 (0.5-1.4) mg/dL Estim Creat Clear Calc 116.8 Estimated GFR > 60 Random Glucose 134 H (60-115) mg/dL Calcium 9.0 (8.4-10.2) mg/dL Total Bilirubin 1.2 H (0.0-1.0) mg/dL AST 38 H (5-37) U/L ALT 57 H (0-40) U/L Alkaline Phosphatase 72 (39-117) U/L Troponin I High Sens (<3.5-35.0) ng/L B-Natriuretic Peptide (<100) pg/mL Total Protein 6.9 (6.5-8.0) g/dL Albumin 3.9 (3.5-5.0) g/dL Influenza Type A (PCR) (Negative) Influenza Type B (PCR) (Negative) RSV RNA Qual (PCR) (Negative) SARS-CoV-2 RNA (RT-PCR) (Negative) 03/10/22 03/10/22 03/10/22 Range/Units 19:05 19:05 19:05 WBC (4.8-10.8) X10*3/uL RBC (4.60-5.80) X10*6/uL Hgb (14.0-18.0) g/dl Hct (42.0-52.0) % MCV (80.0-98.0) fL MCH (27.0-33.0) pg MCHC (31.0-36.0) g/dl RDW (11.0-16.0) % Plt Count (160-400) X10*3/uL MPV (9.4-12.4) fL Immature Gran % (Auto) (0.0-0.4) % Neut % (Auto) (45-73) % Lymph % (Auto) (20-40) % [place] % (Auto) (2-11) % Eos % (Auto) (0-4) % Baso % (Auto) (0-2) % Lymph # (Auto) (1.2-4.9) X10*3/uL [place] # (Auto) (0.1-1.2) X10*3/uL Eos # (Auto) (0.0-0.4) X10*3/uL Baso # (Auto) (0.0-0.2) X10*3/uL Abs Immat Gran (auto) (0.00-0.03) X10*3/uL Absolute Neuts (auto) (2.0-8.3) x10*3/uL Absolute Nucleated RBC (0.0-0.012) X10*3/uL Nucleated RBC % (auto) (0.0-0.2) /100WBC Smear Tech's Comments PT (10.0-13.1) SEC INR (0.9-1.1) APTT (26.0-36.4) SEC Sodium (135-145) mmol/L Potassium (3.3-5.1) mmol/L Chloride (96-108) mmol/L Carbon Dioxide (22-29) mmol/L Anion Gap (12-20) BUN (9-16) mg/dL Creatinine (0.5-1.4) mg/dL Estim Creat Clear Calc Estimated GFR Random Glucose (60-115) mg/dL Calcium (8.4-10.2) mg/dL Total Bilirubin (0.0-1.0) mg/dL AST (5-37) U/L ALT (0-40) U/L Alkaline Phosphatase (39-117) U/L Troponin I High Sens 35.0 (<3.5-35.0) ng/L B-Natriuretic Peptide 340 H (<100) pg/mL Total Protein (6.5-8.0) g/dL Albumin (3.5-5.0) g/dL Influenza Type A (PCR) NEGATIVE (Negative) Influenza Type B (PCR) NEGATIVE (Negative) RSV RNA Qual (PCR) NEGATIVE (Negative) SARS-CoV-2 RNA (RT-PCR) NEGATIVE (Negative) Independent Interpretation I performed an independent interpretation of an: EKG and Plain X-Ray Radiology Impression Discussion of test interpretation with radiology: I have reviewed the radiologist's reading. Independent Historian family External Record Review External record reviewed: Inpatient record Chronic Conditions Patient?s care impacted by: Hypertension Critical Care Time Critical Care Time Critical Care Time: Yes Total Critical Care Time: 40 Attestation: I have personally provided 40 minutes of critical care time exclusive of time spent on separately billable procedures. Time includes review of lab data, radiology results, discussion with consultants, and monitoring for potential de compensation. Interventions were performed as documented above Discharge Plan Discharge Clinical Impression: CHF (congestive heart failure) Patient Disposition: Admitted As Inpatient
[2022-03-10] MEDS: Albuterol/Iprat 2.5/0.5MG 3 ML AMPUL.NEB INHALE ×2 (17:23→17:34)
[2022-03-10] MEDS: Albuterol Sulfate (0.083%) 2.5 MG/3 ML VIAL.NEB 7.5 MG INHALE (17:34)
[2022-03-10] MEDS: methylPREDNISolone Sod Succ 125 MG/2 ML VIAL IVPUSH (17:58)
[2022-03-10] MEDS: Furosemide 40 MG/4 ML VIAL IVPUSH (18:20)
[2022-03-10] MEDS: Nitroglycerin 2 % Oint 1 GM Packet 1 INCH TRANSDERMA (18:28)
[2022-03-10] MEDS: Magnesium Sulfate/H2O 2 GM/50 ML PIGGYBACK IV (19:00)
[2022-03-10 19:18] LABS: Basophils Percent Auto 0.3 % (0-2); Eosinophils Percent Auto 0.1 % (0-4); Hematocrit 52.2 % (42.0-52.0); Imm Gran Abs Auto 0.05 X10*3/uL (0.00-0.03); Imm Gran Pct Auto 0.7 % (0.0-0.4); Lymphocytes Absolute Auto 0.4 X10*3/uL (1.2-4.9); Lymphocytes Percent Auto 5.5 % (20-40); MANUAL DIFF FLAG SCAN; Mean Corpuscular HGB Conc 30.7 g/dl (31.0-36.0); Mean Corpuscular Hemoglobin 29.6 pg (27.0-33.0); Mean Corpuscular Volume 96.5 fL (80.0-98.0); Mean Platelet Volume 9.9 fL (9.4-12.4); Monocytes Absolute Auto 0.1 X10*3/uL (0.1-1.2); Monocytes Percent Auto 1.3 % (2-11); Neutrophils Absolute Auto 6.2 x10*3/uL (2.0-8.3); Neutrophils Percent Auto 92.1 % (45-73); Platelet Count 156 X10*3/uL (160-400); Red Blood Count 5.41 X10*6/uL (4.60-5.80); Red Cell Distribution Width 14.3 % (11.0-16.0); SCAN SMEAR FLAG 1; White Blood Count 6.7 X10*3/uL (4.8-10.8)
[2022-03-10 19:24] LABS: Prothrombin Time 11.7 SEC (10.0-13.1)
[2022-03-10 19:27] LABS: Partial Thromboplastin Time 36.1 SEC (26.0-36.4)
[2022-03-10 19:36] LABS: SLIDE REVIEW VERIFIED
[2022-03-10 19:45] LABS: Alanine Aminotransferase 57 U/L (0-40); Albumin Level 3.9 g/dL (3.5-5.0); Alkaline Phosphatase 72 U/L (39-117); Anion Gap 15 (12-20); Aspartate Amino Transferase 38 U/L (5-37); Bilirubin Total 1.2 mg/dL (0.0-1.0); Blood Urea Nitrogen 14 mg/dL (9-16); Carbon Dioxide 39 mmol/L (22-29); Chloride 94 mmol/L (96-108); Creatinine Clr Calc Pharmacy 116.8; Estimated Glomerular Filt Rate > 60; Glucose Random 134 mg/dL (60-115); Potassium 4.2 mmol/L (3.3-5.1); Sodium 144 mmol/L (135-145); Total Protein 6.9 g/dL (6.5-8.0)
[2022-03-10 19:49] LABS: B Type Natriuretic Peptide 340 pg/mL (<100)
[2022-03-10 19:55] LABS: Influenza A PCR NEGATIVE (Negative); Influenza B PCR NEGATIVE (Negative); Resp Syncy Virus RNA Qual PCR NEGATIVE (Negative); SARS COV2 PCR INHOUSE NEGATIVE (Negative)
--- NOTE | 2022-03-10 20:57 | ECG_ITS ---
Test Reason : CP Blood Pressure : / mmHG Vent. Rate : 091 BPM Atrial Rate : 091 BPM P-R Int : 170 ms QRS Dur : 096 ms QT Int : 362 ms P-R-T Axes : 066 024 063 degrees QTc Int : 445 ms Normal sinus rhythm Normal ECG When compared with ECG of 26-MAR-2018 21:32, Borderline criteria for Inferior infarct are no longer Present Referred By: Steven Ziegler Electronically Signed By:Kishan Aguilera
--- NOTE | 2022-03-10 21:08 | P.HPHOSP_ITS ---
History of Present Illness Date of Service: 03/10/22 Chief Complaint: Dyspnea This is a 47-year-old male with pertinent history of essential hypertension, asthma, chronic venous stasis, cerebral palsy who presents to the emergency department for evaluation of dyspnea. Patient states he has had trouble but bleeding for the past 5-7 days, worse with exertion. Endorses orthopnea and PND. Patient complaints of chronic lower extremity swelling bilaterally. Has had associated cough and wheezing. No history of heart failure and states he is compliant with his medications for essential hypertension. Patient denies fever, chills, chest discomfort, palpitations, abdominal pain, changes in urinary or bowel habits. In the emergency department, patient was found to be hypoxemic requiring 5 L supplemental oxygen. Chest x-ray consistent with venous congestion and pulmonary edema. Review of Systems Constitutional: Constitutional: Reports no additional constitutional complaints Cardiovascular: Cardiovascular: Reports dyspnea on exertion, Reports orthopnea and Reports paroxysmal nocturnal dyspnea Respiratory: Respiratory: Reports cough and Reports dyspnea on exertion Genitourinary: Genitourinary: Reports no additional male genitourinary co mplaints [facility] Medical History Asthma Cerebral palsy Chronic venous hypertension with ulcer Hypertension Surgical History H/O umbilical hernia repair Social History Alcohol intake: current Alcohol intake frequency: a few times a week Patient Tobacco Use Status: Tobacco use Unknown Tobacco use type: Cigarette Advance Directives: No Advance Directives Information Provided: Yes service: No Current occupational status: employed Meds Allergies Allergy/AdvReac Type Severity Reaction Status Date / Time Penicillins [PENICILLINS] Allergy Unknown HIVES Verified 03/27/21 15:12 Active Medications: Current Medications Acetaminophen (Acetaminophen 325 Mg Tablet) 650 mg PO Q6H PRN PRN Reason: Pain, Mild (Pain Scale 1-3) Albuterol/Ipratropium (Albuterol/Iprat 2.5/0.5mg 3 Ml Ampul.Neb) 3 ml INHALE RQ4H WHILE AWAKE SHITAL Enoxaparin Sodium (Enoxaparin Sodium 40 Mg/0.4 Ml Syringe) 40 mg SUBCUT Q24H SHITAL Furosemide (Furosemide 40 Mg/4 Ml Vial) 40 mg IVPUSH DAILY SHITAL; Protocol Melatonin (Melatonin 3 Mg Tablet) 6 mg PO BEDTIME PRN PRN Reason: Insomnia Ondansetron HCl (Ondansetron Hcl 4 Mg/2 Ml Vial) 4 mg IVPUSH Q8H PRN PRN Reason: Nausea and Vomiting Pharmacy Consult (Consult Rx Perform Med Rec) 1 each MISCELLANE ONCE PRN PRN Reason: Consult order Sodium Chloride (0.9 % Sodium Chloride Flush 3 Ml Syringe) 3 ml IVFLUSH QSHIFT REPLACED BY [facility] Home Medications Medication Instructions Recorded Confirmed Last Taken Type acetaminophen 325 mg tablet 650 mg PO Q6H PRN Pain 01/12/21 01/12/21 Unknown History amlodipine 5 mg tablet 1 tab PO DAILY 01/12/21 01/12/21 Unknown History budesonide-formoterol HFA 160 2 puff inhalation BID 01/12/21 01/12/21 Unknown History mcg-4.5 mcg/actuation aerosol inhaler (Symbicort) chlorthalidone 25 mg tablet 1 tab PO DAILY 01/12/21 01/12/21 Unknown History clindamycin 1 %-benzoyl peroxide 5 1 appl topical DAILY 01/12/21 01/12/21 Unknown History % topical gel clobetasol 0.05 % topical cream 1 appl topical DAILY 01/12/21 01/12/21 Unknown History clotrimazole-betamethasone 1 1 appl topical DAILY 01/12/21 01/12/21 Unknown History %-0.05 % topical cream lisinopril 40 mg tablet 1 tab PO DAILY 01/12/21 01/12/21 Unknown History albuterol sulfate 90 mcg/actuation 0 mcg inhalation 01/28/21 Unknown History aerosol inhaler Physical Exam Vital Signs and Narrative: Vital Signs: Last Vital Signs Temp 98 F 03/10/22 16:36 Pulse 91 03/10/22 17:36 Resp 20 03/10/22 17:36 BP 195/105 H 03/10/22 18:26 Pulse Ox 99 03/10/22 18:26 O2 Del Method 03/10/22 18:26 O2 Flow Rate 5 03/10/22 18:26 BMI result Body Mass Index 43.0 Middle-aged male lying in bed on 5 L supplemental oxygen Neck supple Regular rate and rhythm, S1-S2 heard Bilateral upper lobe crackles with expiratory wheeze Abdomen soft nontender, no guarding, no rigidity Patient is awake, alert and oriented to self, place, time and person ; no focal motor deficit Psych: Normal mood Bilateral lower extremity venous stasis with +2 pedal edema Results Labs 03/10/22 19:05 03/10/22 19:05 Labs: Laboratory Results - last 24 hr 03/10/22 03/10/22 03/10/22 19:05 19:05 19:05 MCV 96.5 MCH 29.6 MCHC 30.7 L RDW 14.3 Plt Count 156 L MPV 9.9 Immature Gran % (Auto) 0.7 H Neut % (Auto) 92.1 H Lymph % (Auto) 5.5 L [place] % (Auto) 1.3 L Eos % (Auto) 0.1 Baso % (Auto) 0.3 Lymph # (Auto) 0.4 L [place] # (Auto) 0.1 Eos # (Auto) 0.0 Baso # (Auto) 0.0 Abs Immat Gran (auto) 0.05 H Absolute Neuts (auto) 6.2 Absolute Nucleated RBC 0.000 Nucleated RBC % (auto) 0.0 Smear Tech's Comments VERIFIED PT 11.7 INR 1.0 APTT 36.1 Anion Gap 15 Estim Creat Clear Calc 116.8 Estimated GFR > 60 Random Glucose 134 H Calcium 9.0 Total Bilirubin 1.2 H AST 38 H ALT 57 H Alkaline Phosphatase 72 Troponin I High Sens B-Natriuretic Peptide Total Protein 6.9 Albumin 3.9 Influenza Type A (PCR) Influenza Type B (PCR) RSV RNA Qual (PCR) SARS-CoV-2 RNA (RT-PCR) 03/10/22 03/10/22 03/10/22 19:05 19:05 19:05 MCV MCH MCHC RDW Plt Count MPV Immature Gran % (Auto) Neut % (Auto) Lymph % (Auto) [place] % (Auto) Eos % (Auto) Baso % (Auto) Lymph # (Auto) [place] # (Auto) Eos # (Auto) Baso # (Auto) Abs Immat Gran (auto) Absolute Neuts (auto) Absolute Nucleated RBC Nucleated RBC % (auto) Smear Tech's Comments PT INR APTT Anion Gap Estim Creat Clear Calc Estimated GFR Random Glucose Calcium Total Bilirubin AST ALT Alkaline Phosphatase Troponin I High Sens 35.0 B-Natriuretic Peptide 340 H Total Protein Albumin Influenza Type A (PCR) NEGATIVE Influenza Type B (PCR) NEGATIVE RSV RNA Qual (PCR) NEGATIVE SARS-CoV-2 RNA (RT-PCR) NEGATIVE Imaging Radiologist's Impressions: Impressions Chest X-Ray 03/10/22 17:35 IMPRESSION: Cardiomegaly with upper zone redistribution with mild CHF. Assessment and Plan (1) CHF (congestive heart failure): Status: Acute Plan This is a 47-year-old male with pertinent history of essential hypertension, asthma, chronic venous stasis, cerebral palsy who presents to the emergency department for evaluation of dyspnea. #. Acute hypoxemic respiratory failure secondary to: #. Acute congestive heart failure, unspecified ejection fraction -will admit patient and initiate IV Lasix. Strict I's and O's. Low-salt diet. Obtaining transthoracic echocardiogram. Consulted Cardiology, appreciate assistance -monitor oxygen saturation and wean as tolerated. Maintain oxygen saturation greater than 88-90% #. Hypertensive emergency: Nitro patch administered in the ER. Resume home p.o. antihypertensives #. Bilateral lower extremity chronic wounds with venous stasis: Consulting Wound Care #. Obesity: Will benefit from outpatient sleep study for possible MAGDALENA. Counseled regarding diet and exercise. #. Asthma: Continue home inhaler Med rec pending DVT prophylaxis: Lovenox 40 mg daily Low-salt diet Full code Admit as inpatient and will require two night minimum hospital stay for supplemental oxygen and optimization of volume status Time Spent With Patient Time: Total time managing care of this patient today ____ minutes. Quality Stroke Does the patient have a stroke diagnosis?: No VTE Prior VTE?: No VTE Risk Level:: Medical - moderate - high VTE Device Contraindication: Treatment Not Indicated VTE Drug Contraindication: N/A - Med Ordered
[2022-03-10] MEDS: Enoxaparin Sodium 40 MG/0.4 ML SYRINGE SUBCUT (21:25)
--- NOTE | 2022-03-10 21:43 | MHC.CM.PN ---
CM met with admitted patient with bed assignment pending. Pt trying to rest with CPAP on. Pt nods to CM okay to speak with mother, Katerine José ([phone]). Pt lives with mother. No DME/services. No HCP proxy. Will review when patient is able to talk. Only received 1 Covid vaccination. HX Asthma and C.P. Employed [employer]. Independent. D/C plan: Home without services. Mother to transport home. CM will follow for any discharge needs.
--- NOTE | 2022-03-10 22:11 | PHA.MEDREC ---
Pharmacy Consult ? Medication Reconciliation Pharmacy has completed the medication reconciliation. Spoke with patient in the ED.
--- NOTE | 2022-03-10 22:33 | PC.NURSE ---
pt desat to 88% on 4L CPAP; increased to 5L increased to 91%; called respiratory respiratory to see pt
[2022-03-10] MEDS: amLODIPine Besylate 5 MG TABLET PO (22:49)
[2022-03-10] MEDS: lisinopriL 40 MG TABLET PO (22:50)
--- NOTE | 2022-03-10 23:20 | PC.NURSE ---
Called to give report at [facility]; JAVIER Feliciano to call back.
[2022-03-10 23:29] LABS: ABG HCO3 45 mmol/L (22-26); ABG pCO2 79 mmHg (32-45); ABG pH 7.36 (7.35-7.45); ABG pO2 82 mmHg (83-108)
--- NOTE | 2022-03-10 23:35 | PC.NURSE ---
Dr Martinez notified of critical results for ABG: PCO2 79 and Bicarb 45, and PH 7.35.
[2022-03-11] VITALS (13 sets, daily range): BP systolic 119–160; BP diastolic 66–92; PULSE 68–102; RESP 12–20; TEMP 36.7–37.2; O2SAT 92–95; BMI 43.0
--- NOTE | 2022-03-11 | ECG_ITS ---
Test Reason : chf Blood Pressure : / mmHG Vent. Rate : 091 BPM Atrial Rate : 091 BPM P-R Int : 158 ms QRS Dur : 098 ms QT Int : 368 ms P-R-T Axes : 062 040 062 degrees QTc Int : 452 ms Normal sinus rhythm Normal ECG When compared with ECG of 10-MAR-2022 20:57, No significant change was found Referred By: Steven Ziegler Electronically Signed By:Kishan Aguilera
--- NOTE | 2022-03-11 00:12 | HO.WOUNDCONS ---
History of Present Illness Data of Consult Service Date: 03/12/22 Requesting physician: David Cramer Primary Care Provider: Justin Helm III, MD [facility] Reason for consult: right lower extremitywounds the patient is a 47-year-old male who is known to us in the Wound Care Service and was a patient at the [facility]. He has known venous hypertension with ulcerations in the past. He is status post venous ablation. He comes into the hospital with some CHF and is doing better from treatment however at the time it was noted that he had leaking in wounds on the right lower extremity. He says he is not sure how long left been present. He does not wear compression consistently he does work as a [employer] worker Review of Systems Review of Systems: Yes all other systems are reviewed and are negative [facility] Medical History Asthma Cerebral palsy Chronic venous hypertension with ulcer Hypertension Surgical History H/O umbilical hernia repair Social History Household Members: Family Housing: House Do you presently have visiting nurse or other home services: No Alcohol intake: never Patient Tobacco Use Status: Former Tobacco user Tobacco use type: Cigarette service: No Current occupational status: employed Meds Allergies Allergy/AdvReac Type Severity Reaction Status Date / Time Penicillins [PENICILLINS] Allergy Unknown HIVES Verified 03/27/21 15:12 Active Medications: Current Medications Acetaminophen (Acetaminophen 325 Mg Tablet) 650 mg PO Q6H PRN PRN Reason: Pain, Mild (Pain Scale 1-3) Albuterol/Ipratropium (Albuterol/Iprat 2.5/0.5mg 3 Ml Ampul.Neb) 3 ml INHALE RQ4H WHILE AWAKE [facility] Last Admin: 03/11/22 19:59 Dose: 3 ml Amlodipine Besylate (Amlodipine Besylate 5 Mg Tablet) 5 mg PO BEDTIME [facility]; Protocol Last Admin: 03/11/22 19:28 Dose: 5 mg Doxycycline Monohydrate (Doxycycline Monohydrate 100 Mg Capsule) 100 mg PO Q12H [facility] Last Admin: 03/11/22 17:26 Dose: 100 mg Enoxaparin Sodium (Enoxaparin Sodium 40 Mg/0.4 Ml Syringe) 40 mg SUBCUT Q24H [facility] Last Admin: 03/11/22 22:04 Dose: Not Given Lisinopril (Lisinopril 40 Mg Tablet) 40 mg PO BEDTIME [facility]; Protocol Last Admin: 03/11/22 19:27 Dose: 40 mg Melatonin (Melatonin 3 Mg Tablet) 6 mg PO BEDTIME PRN PRN Reason: Insomnia Last Admin: 03/11/22 19:28 Dose: 6 mg Ondansetron HCl (Ondansetron Hcl 4 Mg/2 Ml Vial) 4 mg IVPUSH Q8H PRN PRN Reason: Nausea and Vomiting Pharmacy Consult (Consult Rx Perform Med Rec) 1 each MISCELLANE ONCE PRN PRN Reason: Consult order Prednisone (Prednisone 20 Mg Tablet) 40 mg PO DAILY [facility] Last Admin: 03/11/22 12:24 Dose: 40 mg Sodium Chloride (0.9 % Sodium Chloride Flush 3 Ml Syringe) 3 ml IVFLUSH QSHIFT [facility] Last Admin: 03/11/22 17:26 Dose: 3 ml Home Medications Medication Instructions Recorded Confirmed Last Taken Type amlodipine 5 mg tablet 1 tab PO BEDTIME 01/12/21 03/10/22 03/09/22 History budesonide-formoterol HFA 160 2 puff inhalation BID 01/12/21 03/10/22 03/10/22 History mcg-4.5 mcg/actuation aerosol inhaler (Symbicort) lisinopril 40 mg tablet 1 tab PO BEDTIME 01/12/21 03/10/22 03/09/22 History albuterol sulfate 90 mcg/actuation 2 inh inhalation Q4H PRN Shortness 01/28/21 03/10/22 Unknown History aerosol inhaler Of Breath chlorthalidone 25 mg tablet 1 tab PO DAILY 03/10/22 03/10/22 03/10/22 History ferrous sulfate 325 mg (65 mg 1 tab PO DAILY 03/10/22 03/10/22 03/10/22 History iron) tablet (FeroSul) Physical Exam Vital Signs and Narrative: Vital Signs: Last Vital Signs Temp 98.9 F 03/11/22 23:20 Pulse 68 03/11/22 23:20 Resp 20 03/11/22 23:20 BP 145/84 H 03/11/22 23:20 Pulse Ox 94 02/01/23 23:20 O2 Del Method 03/11/22 23:20 O2 Flow Rate 30 03/11/22 23:20 BMI result Body Mass Index 43.0 Skin: Other: right as well as left lower legs are edematous and swollen with changes consistent of chronic venous stasis disease. The right leg on the lateral aspect has lobes of some skin breakdown and there is lobe of the losing the fluid present here as well as staining on his bed. There is no evidence of any cellulitis. He has a strong palpable dorsalis pedis pulse on right. Is no Results Labs 03/11/22 06:43 03/11/22 06:43 Labs: Laboratory Results - last 24 hr 03/11/22 03/11/22 03/11/22 06:43 06:43 09:53 MCV 97.7 MCH 29.5 MCHC 30.2 L RDW 14.1 Plt Count 186 MPV 10.1 Immature Gran % (Auto) 0.4 Neut % (Auto) 83.4 H Lymph % (Auto) 8.1 L [place] % (Auto) 7.9 Eos % (Auto) 0.0 Baso % (Auto) 0.2 Lymph # (Auto) 0.5 L [place] # (Auto) 0.5 Eos # (Auto) 0.0 Baso # (Auto) 0.0 Abs Immat Gran (auto) 0.02 Absolute Neuts (auto) 4.8 Absolute Nucleated RBC 0.000 Nucleated RBC % (auto) 0.0 VBG pH 7.50 H VBG pCO2 58 VBG pO2 74 VBG HCO3 45 H VBG O2 Saturation 94.0 VBG Base Excess 18.7 Anion Gap 14 Estim Creat Clear Calc 125.7 Estimated GFR > 60 Random Glucose 181 H Calcium 9.1 Assessment and Plan (1) Varicose veins of right lower extremity with inflammation: Status: Acute Plan The patient is a 47-year-old male with known venous hypertension status post ablation with now open wound on the right lower extremity. Plan is to carry out dressing changes with alginate and Alin wrapping. When he is discharged he can be referred to the [facility] Care [facility] and we can see him there and carry out Ria boot dressings if his wounds are still open. He should be wearing baseline compression most likely bilaterally on a daily basis Time Spent With Patient Time: Total time managing care of this patient today ____ minutes.
[2022-03-11 01:52] LABS: ABG Refer to POC result
--- NOTE | 2022-03-11 07:00 | CA_ITS ---
Transthoracic Echocardiogram Patient (Last, First, Middle): Arnaud José T Gender: Male Date of : 1975 Age: 47 Procedure Date: 03/11/2022 Procedure Type: Transthoracic Echocardiogram Location: [facility] Height: 170.18 cm Weight: 124.29 kg BSA: 2.31 m2 Heart Rate: bpm BP: 160 / 78 mmHg Cigar Head Perforator: Referring MD: Sergio Martinez MD Symptoms: CHF Study Quality: Good ECG Rhythm: Sinus Conclusions: - Normal left ventricular cavity size. The left ventricular systolic function is hyperdynamic. The visually estimated ejection fraction is >70%. - Left ventricular wall thickness is moderately to severely increased. - Normal right ventricular cavity size and systolic function. - The left atrium is mildly dilated. - There is mild dilatation of the sinuses of Valsalva measuring 3.90 cm. Ascending aorta is mild to moderately dilated at 4.3 cm. Findings Left Ventricle Normal left ventricular cavity size. The left ventricular systolic function is hyperdynamic. The visually estimated ejection fraction is >70%. There is no evidence of regional wall motion abnormalities. There is dynamic mid left ventricular obstruction. Abnormal diastolic function is noted. Elevated filling pressures. Left ventricular wall thickness is moderately to severely increased. Right Ventricle Normal right ventricular cavity size and systolic function. Atria The left atrium is mildly dilated. The right atrium was not well visualized. Aortic Valve The aortic valve structure and function is likely normal. There is no aortic valve regurgitation. Elevated gradient across the aortic valve due to hyperdynamic function. Mitral Valve The mitral valve appears normal. There is no mitral valve regurgitation. There is no mitral valve stenosis. Pulmonic Valve The pulmonic valve is likely normal. Tricuspid Valve Normal tricuspid valve structure. There is no tricuspid valve regurgitation. Normal right atrial pressure. There is no evidence of pulmonary hypertension. Great Vessels The pulmonary artery was not well visualized. There is mild dilatation of the sinuses of Valsalva measuring 3.90 cm. Ascending aorta is mild to moderately dilated at 4.3 cm. Venous The inferior vena cava is normal in size and collapses greater than 50% with inspiration. Pericardium/Pleural There is no evidence of pericardial effusion. Measurements 2D Linear Measurements IVSd: 1.60 0.6-0.9/0.6-1.0 cm LVIDd: 4.53 3.9-5.3/4.2-5.9 cm LVIDd Index: 1.96 2.4-3.2/2.2-3.1 cm/m2 LVIDs: 2.79 2.0-3.6 cm LVPWd: 1.53 0.7-1.1 cm Ao Root: 3.90 2.1-3.5 cm LA Diam: 3.80 2.7-3.8/3.0-4.0 cm LAIDs Index: 1.65 1.5-2.3 cm/m2 LV Mass: 370.76 67-162/88-224 g LV Mass Index: 160.50 43-95/49-115 g/m2 LVOT Diam: 2.40 3.0+(-)1.3 cm Mitral Valve MV Pk E: 0.98 MV PK A: 1.36 MV Decel Time: 136.00 E/A: 0.70 E'Lateral: 11.70 E'Medial: 6.96 E/E' Med: 14.10 E/E' Lat: 8.40 PHT: 40.00 MVA PHT: 5.50 Decel [place]: 7.18 Aortic Valve AoV Pk Abad: 2.23 AoV Mn Abad: 1.57 AoV VTI: 0.42 AoV Pk Grad: 20.00 Aov Mn Grad: 11.00 BETTY Cont.VTI: 3.32 LVOT LVOT Pk Abad: 1.60 LVOT Mn Abad: 1.17 LVOT VTI: 0.31 LVOT Pk Grad: 10.00 LVOT Mn Grad: 6.00 LVOT Diam: 2.40 LVOT Area: 4.52 Diastolic Function MV Pk E: 0.98 MV Pk A: 1.36 E/A: 0.70 E'Medial: 6.96 E/E' Med: 14.10 E' Laterial: 11.70 E/E' Lat: 8.40 Right Ventricle TAPSE (mm): 30.00 TVS' Abad: 15.00 Tricuspid Valve TR Pk Abad: 1.80 TR Pk Grad: 13.00 RA Press: 3.00 RVSP: 16.00 Great Vessels Aorta Ao Root-2D: 3.90 2.0-3.7 cm Sinus of Valsalva: 3.90 2.0-3.5 cm Ao Asc: 4.30 2.1-3.4 cm Pulmonary Valve PV Pk Abad: 1.62 Peak PV Grad: 10.00 Updated in Other Vendor System with Status of Final Kishan Aguilera MD electronically signed on 03/11/2022 4:31:54 PM with status of Final
[2022-03-11 07:06] LABS: MANUAL DIFF FLAG NO
[2022-03-11 07:21] LABS: Basophils Percent Auto 0.2 % (0-2); Hemoglobin 15.1 g/dl (14.0-18.0); Imm Gran Abs Auto 0.02 X10*3/uL (0.00-0.03); Imm Gran Pct Auto 0.4 % (0.0-0.4); Lymphocytes Absolute Auto 0.5 X10*3/uL (1.2-4.9); Lymphocytes Percent Auto 8.1 % (20-40); Mean Corpuscular HGB Conc 30.2 g/dl (31.0-36.0); Mean Corpuscular Hemoglobin 29.5 pg (27.0-33.0); Mean Corpuscular Volume 97.7 fL (80.0-98.0); Mean Platelet Volume 10.1 fL (9.4-12.4); Monocytes Absolute Auto 0.5 X10*3/uL (0.1-1.2); Monocytes Percent Auto 7.9 % (2-11); Neutrophils Absolute Auto 4.8 x10*3/uL (2.0-8.3); Neutrophils Percent Auto 83.4 % (45-73); Platelet Count 186 X10*3/uL (160-400); Red Blood Count 5.12 X10*6/uL (4.60-5.80); Red Cell Distribution Width 14.1 % (11.0-16.0); White Blood Count 5.7 X10*3/uL (4.8-10.8)
[2022-03-11 07:57] LABS: Anion Gap 14 (12-20); Blood Urea Nitrogen 17 mg/dL (9-16); Calcium 9.1 mg/dL (8.4-10.2); Carbon Dioxide 37 mmol/L (22-29); Chloride 96 mmol/L (96-108); Creatinine Clr Calc Pharmacy 125.7; Estimated Glomerular Filt Rate > 60; Glucose Random 181 mg/dL (60-115); Potassium 4.2 mmol/L (3.3-5.1); Sodium 143 mmol/L (135-145)
[2022-03-11] MEDS: Furosemide 40 MG/4 ML VIAL IVPUSH ×2 (08:32→17:26)
[2022-03-11] MEDS: 0.9 % Sodium Chloride Flush 3 ML SYRINGE IVFLUSH ×2 (08:33→17:26)
[2022-03-11] MEDS: Albuterol/Iprat 2.5/0.5MG 3 ML AMPUL.NEB INHALE ×4 (09:00→19:59)
[2022-03-11 10:09] LABS: VBG Base Excess 18.7 mmol/L; VBG HCO3 45 mmol/L (22-26); VBG pCO2 58 mmHg; VBG pO2 74 mmHg
[2022-03-11 10:09] LABS: Venous Blood Gas Refer to POC result
[2022-03-11] MEDS: predniSONE 20 MG TABLET 40 MG PO (12:24)
--- NOTE | 2022-03-11 13:57 | HO.PM.IMPN ---
Subjective Subjective Date of Service: 03/11/22 Interval History: cc: sob interval history:improving Physical Exam Vital Signs: Vital Signs: Last Vital Signs Temp 98.1 F 03/11/22 11:08 Pulse 93 03/11/22 13:20 Resp 18 03/11/22 13:20 BP 146/66 H 03/11/22 11:08 Pulse Ox 93 03/11/22 11:08 O2 Del Method 03/11/22 11:08 O2 Flow Rate 4 03/11/22 11:08 BMI result Body Mass Index 43.0 General: AO X 3, no acute distress Resp: wheezes bilateral, no accessory muscles used CVS: S1,S2,RRR GI: soft, non tender, non distended Neuro: motor grossly intact, alert Psych: appropriate affect, appropriate insight Objective Data Active Medications Acetaminophen (Acetaminophen 325 Mg Tablet) 650 mg PO Q6H PRN PRN Reason: Pain, Mild (Pain Scale 1-3) Albuterol/Ipratropium (Albuterol/Iprat 2.5/0.5mg 3 Ml Ampul.Neb) 3 ml INHALE RQ4H WHILE AWAKE [facility] Last Admin: 03/11/22 13:19 Dose: 3 ml Documented By: ARTIE Amlodipine Besylate (Amlodipine Besylate 5 Mg Tablet) 5 mg PO BEDTIME [facility]; Protocol Doxycycline Monohydrate (Doxycycline Monohydrate 100 Mg Capsule) 100 mg PO Q12H [facility] Enoxaparin Sodium (Enoxaparin Sodium 40 Mg/0.4 Ml Syringe) 40 mg SUBCUT Q24H [facility] Last Admin: 03/10/22 21:25 Dose: 40 mg Documented By: TONY Furosemide (Furosemide 40 Mg/4 Ml Vial) 40 mg IVPUSH BID@0900,1800 [facility]; Protocol Lisinopril (Lisinopril 40 Mg Tablet) 40 mg PO BEDTIME [facility]; Protocol Melatonin (Melatonin 3 Mg Tablet) 6 mg PO BEDTIME PRN PRN Reason: Insomnia Ondansetron HCl (Ondansetron Hcl 4 Mg/2 Ml Vial) 4 mg IVPUSH Q8H PRN PRN Reason: Nausea and Vomiting Pharmacy Consult (Consult Rx Perform Med Rec) 1 each MISCELLANE ONCE PRN PRN Reason: Consult order Prednisone (Prednisone 20 Mg Tablet) 40 mg PO DAILY [facility] Last Admin: 03/11/22 12:24 Dose: 40 mg Documented By: TESSY Sodium Chloride (0.9 % Sodium Chloride Flush 3 Ml Syringe) 3 ml IVFLUSH QSKSFT [facility] Last Admin: 03/11/22 08:33 Dose: 3 ml Documented By: TESSY Labs 03/11/22 06:43 03/11/22 06:43 Labs: Laboratory Results - last 24 hr 03/10/22 03/10/22 03/10/22 19:05 19:05 19:05 MCV 96.5 MCH 29.6 MCHC 30.7 L RDW 14.3 Plt Count 156 L MPV 9.9 Immature Gran % (Auto) 0.7 H Neut % (Auto) 92.1 H Lymph % (Auto) 5.5 L [place] % (Auto) 1.3 L Eos % (Auto) 0.1 Baso % (Auto) 0.3 Lymph # (Auto) 0.4 L [place] # (Auto) 0.1 Eos # (Auto) 0.0 Baso # (Auto) 0.0 Abs Immat Gran (auto) 0.05 H Absolute Neuts (auto) 6.2 Absolute Nucleated RBC 0.000 Nucleated RBC % (auto) 0.0 Smear Tech's Comments VERIFIED PT 11.7 INR 1.0 APTT 36.1 O2 Saturation ABG pH at Pt Temp ABG pCO2 at Pt Temp ABG pO2 at Pt Temp ABG HCO3 ABG Base Excess (Actual) VBG pH VBG pCO2 VBG pO2 VBG HCO3 VBG O2 Saturation VBG Base Excess Anion Gap 15 Estim Creat Clear Calc 116.8 Estimated GFR > 60 Random Glucose 134 H Calcium 9.0 Total Bilirubin 1.2 H AST 38 H ALT 57 H Alkaline Phosphatase 72 Troponin I High Sens B-Natriuretic Peptide Total Protein 6.9 Albumin 3.9 Influenza Type A (PCR) Influenza Type B (PCR) RSV RNA Qual (PCR) SARS-CoV-2 RNA (RT-PCR) 03/10/22 03/10/22 03/10/22 19:05 19:05 19:05 MCV MCH MCHC RDW Plt Count MPV Immature Gran % (Auto) Neut % (Auto) Lymph % (Auto) [place] % (Auto) Eos % (Auto) Baso % (Auto) Lymph # (Auto) [place] # (Auto) Eos # (Auto) Baso # (Auto) Abs Immat Gran (auto) Absolute Neuts (auto) Absolute Nucleated RBC Nucleated RBC % (auto) Smear Tech's Comments PT INR APTT O2 Saturation ABG pH at Pt Temp ABG pCO2 at Pt Temp ABG pO2 at Pt Temp ABG HCO3 ABG Base Excess (Actual) VBG pH VBG pCO2 VBG pO2 VBG HCO3 VBG O2 Saturation VBG Base Excess Anion Gap Estim Creat Clear Calc Estimated GFR Random Glucose Calcium Total Bilirubin AST ALT Alkaline Phosphatase Troponin I High Sens 35.0 B-Natriuretic Peptide 340 H Total Protein Albumin Influenza Type A (PCR) NEGATIVE Influenza Type B (PCR) NEGATIVE RSV RNA Qual (PCR) NEGATIVE SARS-CoV-2 RNA (RT-PCR) NEGATIVE 03/10/22 03/11/22 03/11/22 23:19 06:43 06:43 MCV 97.7 MCH 29.5 MCHC 30.2 L RDW 14.1 Plt Count 186 MPV 10.1 Immature Gran % (Auto) 0.4 Neut % (Auto) 83.4 H Lymph % (Auto) 8.1 L [place] % (Auto) 7.9 Eos % (Auto) 0.0 Baso % (Auto) 0.2 Lymph # (Auto) 0.5 L [place] # (Auto) 0.5 Eos # (Auto) 0.0 Baso # (Auto) 0.0 Abs Immat Gran (auto) 0.02 Absolute Neuts (auto) 4.8 Absolute Nucleated RBC 0.000 Nucleated RBC % (auto) 0.0 Smear Tech's Comments PT INR APTT O2 Saturation 96.0 ABG pH at Pt Temp 7.36 ABG pCO2 at Pt Temp 79 H* ABG pO2 at Pt Temp 82 L ABG HCO3 45 H ABG Base Excess (Actual) 15.0 VBG pH VBG pCO2 VBG pO2 VBG HCO3 VBG O2 Saturation VBG Base Excess Anion Gap 14 Estim Creat Clear Calc 125.7 Estimated GFR > 60 Random Glucose 181 H Calcium 9.1 Total Bilirubin AST ALT Alkaline Phosphatase Troponin I High Sens B-Natriuretic Peptide Total Protein Albumin Influenza Type A (PCR) Influenza Type B (PCR) RSV RNA Qual (PCR) SARS-CoV-2 RNA (RT-PCR) 03/11/22 09:53 MCV MCH MCHC RDW Plt Count MPV Immature Gran % (Auto) Neut % (Auto) Lymph % (Auto) [place] % (Auto) Eos % (Auto) Baso % (Auto) Lymph # (Auto) [place] # (Auto) Eos # (Auto) Baso # (Auto) Abs Immat Gran (auto) Absolute Neuts (auto) Absolute Nucleated RBC Nucleated RBC % (auto) Smear Tech's Comments PT INR APTT O2 Saturation ABG pH at Pt Temp ABG pCO2 at Pt Temp ABG pO2 at Pt Temp ABG HCO3 ABG Base Excess (Actual) VBG pH 7.50 H VBG pCO2 58 VBG pO2 74 VBG HCO3 45 H VBG O2 Saturation 94.0 VBG Base Excess 18.7 Anion Gap Estim Creat Clear Calc Estimated GFR Random Glucose Calcium Total Bilirubin AST ALT Alkaline Phosphatase Troponin I High Sens B-Natriuretic Peptide Total Protein Albumin Influenza Type A (PCR) Influenza Type B (PCR) RSV RNA Qual (PCR) SARS-CoV-2 RNA (RT-PCR) Assessment and Plan (1) CHF (congestive heart failure): Status: Acute Plan 47-year-old male with pertinent history of essential hypertension, asthma, chronic venous stasis, cerebral palsy who presented to the emergency department for evaluation of dyspnea. Acute hypoxemic respiratory failure secondary to Acute congestive heart failure, unspecified ejection fraction and copd/moderate persistent asthma with acute decompensation iv lasix, echo, steroids, nebs HTN amlodipine, lisinopril morbid obesity with lymphedema weight loss, wound care DVT prophylaxis:? Lovenox 40 mg daily Full code reason for continued hospitalization:iv lasix Time Spent With Patient Time: Total time managing care of this patient today ____ minutes. Quality Stroke Does the patient have a stroke diagnosis?: No VTE Prior VTE?: No VTE Risk Level:: Medical - moderate - high VTE Device Contraindication: Treatment Not Indicated VTE Drug Contraindication: N/A - Med Ordered
--- NOTE | 2022-03-11 14:18 | P.CONCA_ITS ---
History of Present Illness History of Present Illness Date of Service: 03/11/22 Requesting physician: Steven Ziegler Chief complaint: CHF, HTN Narrative: 47-year-old gentleman who has background history of hypertension and asthma. He was previously taking lisinopril, amlodipine and chlorthalidone. He has not seen his primary care physician for the last 6 months and has not had any blood pressure checked. Recently while removing her feet E used a chemical and developed severe dyspnea after that and almost passed out. He is saying this happened the last week or so. He is presenting to us with significant shortness of breath which he thought was due to asthma exacerbation. He was noticed to have significantly elevated blood pressures on admission and evidence of congestive heart failure on the chest x-ray. He has been started on his home medications and has been on IV Lasix. He is saying he is feeling better. He does not smoke cigarettes but drinks alcohol. He is saying on the weekends he drinks beer and vodka up to 3 drinks. No recreational drug abuse otherwise. Overall feeling better with diuretics and asthma treatment. [facility] Past Medical History Medical History Asthma Cerebral palsy Chronic venous hypertension with ulcer Hypertension Surgical History Surgical History H/O umbilical hernia repair Social History Social History Household Members: Family Housing: House Do you presently have visiting nurse or other home services: No Alcohol intake: never Patient Tobacco Use Status: Former Tobacco user Tobacco use type: Cigarette service: No Current occupational status: employed Meds Allergies Allergy/AdvReac Type Severity Reaction Status Date / Time Penicillins [PENICILLINS] Allergy Unknown HIVES Verified 03/27/21 15:12 Active Medications: Current Medications Acetaminophen (Acetaminophen 325 Mg Tablet) 650 mg PO Q6H PRN PRN Reason: Pain, Mild (Pain Scale 1-3) Albuterol/Ipratropium (Albuterol/Iprat 2.5/0.5mg 3 Ml Ampul.Neb) 3 ml INHALE RQ4H WHILE AWAKE [facility] Last Admin: 03/11/22 13:19 Dose: 3 ml Amlodipine Besylate (Amlodipine Besylate 5 Mg Tablet) 5 mg PO BEDTIME [facility]; Protocol Doxycycline Monohydrate (Doxycycline Monohydrate 100 Mg Capsule) 100 mg PO Q12H [facility] Enoxaparin Sodium (Enoxaparin Sodium 40 Mg/0.4 Ml Syringe) 40 mg SUBCUT Q24H [facility] Last Admin: 03/10/22 21:25 Dose: 40 mg Furosemide (Furosemide 40 Mg/4 Ml Vial) 40 mg IVPUSH BID@0900,1800 [facility]; Protocol Lisinopril (Lisinopril 40 Mg Tablet) 40 mg PO BEDTIME [facility]; Protocol Melatonin (Melatonin 3 Mg Tablet) 6 mg PO BEDTIME PRN PRN Reason: Insomnia Ondansetron HCl (Ondansetron Hcl 4 Mg/2 Ml Vial) 4 mg IVPUSH Q8H PRN PRN Reason: Nausea and Vomiting Pharmacy Consult (Consult Rx Perform Med Rec) 1 each MISCELLANE ONCE PRN PRN Reason: Consult order Prednisone (Prednisone 20 Mg Tablet) 40 mg PO DAILY [facility] Last Admin: 03/11/22 12:24 Dose: 40 mg Sodium Chloride (0.9 % Sodium Chloride Flush 3 Ml Syringe) 3 ml IVFLUSH QSHIFT [facility] Last Admin: 03/11/22 08:33 Dose: 3 ml Home Medications Medication Instructions Recorded Confirmed Last Taken Type amlodipine 5 mg tablet 1 tab PO BEDTIME 01/12/21 03/10/22 03/09/22 History budesonide-formoterol HFA 160 2 puff inhalation BID 01/12/21 03/10/22 03/10/22 History mcg-4.5 mcg/actuation aerosol inhaler (Symbicort) lisinopril 40 mg tablet 1 tab PO BEDTIME 01/12/21 03/10/22 03/09/22 History albuterol sulfate 90 mcg/actuation 2 inh inhalation Q4H PRN Shortness 01/28/21 03/10/22 Unknown History aerosol inhaler Of Breath chlorthalidone 25 mg tablet 1 tab PO DAILY 03/10/22 03/10/22 03/10/22 History ferrous sulfate 325 mg (65 mg 1 tab PO DAILY 03/10/22 03/10/22 03/10/22 History iron) tablet (FeroSul) Physical Exam Vital Signs: Vital Signs: Last Vital Signs Temp 98.1 F 03/11/22 11:08 Pulse 93 03/11/22 13:20 Resp 18 03/11/22 13:20 BP 146/66 H 03/11/22 11:08 Pulse Ox 93 03/11/22 11:08 O2 Del Method 03/11/22 11:08 O2 Flow Rate 4 03/11/22 11:08 BMI result Body Mass Index 43.0 GENERAL APPEARANCE: in no acute distress, pleasant. NECK: no carotid bruit, positive jugular venous distention. SKIN: Patches of psoriasis. HEART: no murmurs, regular rate and rhythm. LUNGS: Mild next during wheezes bilaterally. ABDOMEN: soft, nontender. EXTREMITIES: Mild edema. PERIPHERAL PULSES: equal. NEUROLOGIC: No gross deficits, AAO X 3 Objective Labs and Meds 03/11/22 06:43 03/11/22 06:43 Lab results: Laboratory Results - last 24 hr 03/10/22 03/10/22 03/10/22 19:05 19:05 19:05 WBC 6.7 RBC 5.41 Hgb 16.0 Hct 52.2 H D MCV 96.5 MCH 29.6 MCHC 30.7 L RDW 14.3 Plt Count 156 L MPV 9.9 Immature Gran % (Auto) 0.7 H Neut % (Auto) 92.1 H Lymph % (Auto) 5.5 L Jefferson % (Auto) 1.3 L Eos % (Auto) 0.1 Baso % (Auto) 0.3 Lymph # (Auto) 0.4 L Jefferson # (Auto) 0.1 Eos # (Auto) 0.0 Baso # (Auto) 0.0 Abs Immat Gran (auto) 0.05 H Absolute Neuts (auto) 6.2 Absolute Nucleated RBC 0.000 Nucleated RBC % (auto) 0.0 Smear Tech's Comments VERIFIED PT 11.7 INR 1.0 APTT 36.1 O2 Saturation ABG pH at Pt Temp ABG pCO2 at Pt Temp ABG pO2 at Pt Temp ABG HCO3 ABG Base Excess (Actual) VBG pH VBG pCO2 VBG pO2 VBG HCO3 VBG O2 Saturation VBG Base Excess Sodium 144 Potassium 4.2 Chloride 94 L Carbon Dioxide 39 H Anion Gap 15 BUN 14 Creatinine 0.99 Estim Creat Clear Calc 116.8 Estimated GFR > 60 Random Glucose 134 H Calcium 9.0 Total Bilirubin 1.2 H AST 38 H ALT 57 H Alkaline Phosphatase 72 Troponin I High Sens B-Natriuretic Peptide Total Protein 6.9 Albumin 3.9 Influenza Type A (PCR) Influenza Type B (PCR) RSV RNA Qual (PCR) SARS-CoV-2 RNA (RT-PCR) 03/10/22 03/10/22 03/10/22 19:05 19:05 19:05 WBC RBC Hgb Hct MCV MCH MCHC RDW Plt Count MPV Immature Gran % (Auto) Neut % (Auto) Lymph % (Auto) Jefferson % (Auto) Eos % (Auto) Baso % (Auto) Lymph # (Auto) Jefferson # (Auto) Eos # (Auto) Baso # (Auto) Abs Immat Gran (auto) Absolute Neuts (auto) Absolute Nucleated RBC Nucleated RBC % (auto) Smear Tech's Comments PT INR APTT O2 Saturation ABG pH at Pt Temp ABG pCO2 at Pt Temp ABG pO2 at Pt Temp ABG HCO3 ABG Base Excess (Actual) VBG pH VBG pCO2 VBG pO2 VBG HCO3 VBG O2 Saturation VBG Base Excess Sodium Potassium Chloride Carbon Dioxide Anion Gap BUN Creatinine Estim Creat Clear Calc Estimated GFR Random Glucose Calcium Total Bilirubin AST ALT Alkaline Phosphatase Troponin I High Sens 35.0 B-Natriuretic Peptide 340 H Total Protein Albumin Influenza Type A (PCR) NEGATIVE Influenza Type B (PCR) NEGATIVE RSV RNA Qual (PCR) NEGATIVE SARS-CoV-2 RNA (RT-PCR) NEGATIVE 03/10/22 03/11/22 03/11/22 23:19 06:43 06:43 WBC 5.7 RBC 5.12 Hgb 15.1 Hct 50.0 MCV 97.7 MCH 29.5 MCHC 30.2 L RDW 14.1 Plt Count 186 MPV 10.1 Immature Gran % (Auto) 0.4 Neut % (Auto) 83.4 H Lymph % (Auto) 8.1 L Jefferson % (Auto) 7.9 Eos % (Auto) 0.0 Baso % (Auto) 0.2 Lymph # (Auto) 0.5 L Jefferson # (Auto) 0.5 Eos # (Auto) 0.0 Baso # (Auto) 0.0 Abs Immat Gran (auto) 0.02 Absolute Neuts (auto) 4.8 Absolute Nucleated RBC 0.000 Nucleated RBC % (auto) 0.0 Smear Tech's Comments PT INR APTT O2 Saturation 96.0 ABG pH at Pt Temp 7.36 ABG pCO2 at Pt Temp 79 H* ABG pO2 at Pt Temp 82 L ABG HCO3 45 H ABG Base Excess (Actual) 15.0 VBG pH VBG pCO2 VBG pO2 VBG HCO3 VBG O2 Saturation VBG Base Excess Sodium 143 Potassium 4.2 Chloride 96 Carbon Dioxide 37 H Anion Gap 14 BUN 17 H Creatinine 0.92 Estim Creat Clear Calc 125.7 Estimated GFR > 60 Random Glucose 181 H Calcium 9.1 Total Bilirubin AST ALT Alkaline Phosphatase Troponin I High Sens B-Natriuretic Peptide Total Protein Albumin Influenza Type A (PCR) Influenza Type B (PCR) RSV RNA Qual (PCR) SARS-CoV-2 RNA (RT-PCR) 03/11/22 09:53 WBC RBC Hgb Hct MCV MCH MCHC RDW Plt Count MPV Immature Gran % (Auto) Neut % (Auto) Lymph % (Auto) Jefferson % (Auto) Eos % (Auto) Baso % (Auto) Lymph # (Auto) Jefferson # (Auto) Eos # (Auto) Baso # (Auto) Abs Immat Gran (auto) Absolute Neuts (auto) Absolute Nucleated RBC Nucleated RBC % (auto) Smear Tech's Comments PT INR APTT O2 Saturation ABG pH at Pt Temp ABG pCO2 at Pt Temp ABG pO2 at Pt Temp ABG HCO3 ABG Base Excess (Actual) VBG pH 7.50 H VBG pCO2 58 VBG pO2 74 VBG HCO3 45 H VBG O2 Saturation 94.0 VBG Base Excess 18.7 Sodium Potassium Chloride Carbon Dioxide Anion Gap BUN Creatinine Estim Creat Clear Calc Estimated GFR Random Glucose Calcium Total Bilirubin AST ALT Alkaline Phosphatase Troponin I High Sens B-Natriuretic Peptide Total Protein Albumin Influenza Type A (PCR) Influenza Type B (PCR) RSV RNA Qual (PCR) SARS-CoV-2 RNA (RT-PCR) Imaging Radiologist's impression: Impressions Chest X-Ray 03/10/22 17:35 IMPRESSION: Cardiomegaly with upper zone redistribution with mild CHF. Assessment and Plan (1) CHF (congestive heart failure): Status: Acute (2) Essential hypertension: Status: Acute Plan [age] gentleman presenting with shortness of breath and wheezing in the setting of elevated blood pressure. He has known history of asthma and there was some concern for asthma exacerbation. He has been on steroids and improving. He also was started on IV diuretics because he had evidence of congestive heart failure on the chest x-ray. Clinically he is improving. He has mild wheezes and has JVD on examination. Agree with IV diuretics currently. He is on lisinopril, amlodipine and previously was on chlorthalidone. As he is getting furosemide I would hold chlorthalidone as it may cause electrolyte imbalance. Titrate amlodipine to 10 mg tomorrow if blood pressure is still elevated. Agree with 40 mg IV b.i.d. Lasix. Lisinopril 40 mg daily which is okay right now. I think he developed congestive heart failure due to elevated blood pressures. I have advised him to stop drinking alcohol. We will review the echocardiogram and give further recommendations if there is any obvious concerns. Thank you for allowing me to participate in the care of your patient. Please feel free to contact me if you have any questions. Time Spent With Patient Time: Total time managing care of this patient today ____ minutes. Procedures Date of Service Date of Service: 03/11/22
[2022-03-11] MEDS: Doxycycline Monohydrate 100 MG CAPSULE PO (17:26)
[2022-03-11] MEDS: lisinopriL 40 MG TABLET PO (19:27)
[2022-03-11] MEDS: amLODIPine Besylate 5 MG TABLET PO (19:28)
[2022-03-11] MEDS: Melatonin 3 MG TABLET 6 MG PO (19:28)
[2022-03-12] VITALS (10 sets, daily range): BP systolic 130–166; BP diastolic 65–91; PULSE 59–95; RESP 16–20; TEMP 36.1–36.7; O2SAT 90–96
[2022-03-12] MEDS: 0.9 % Sodium Chloride Flush 3 ML SYRINGE IVFLUSH ×3 (01:08→17:12)
[2022-03-12] MEDS: Doxycycline Monohydrate 100 MG CAPSULE PO ×2 (05:44→17:12)
[2022-03-12] MEDS: Albuterol/Iprat 2.5/0.5MG 3 ML AMPUL.NEB INHALE ×4 (07:40→18:53)
[2022-03-12 07:42] LABS: Hematocrit 49.4 % (42.0-52.0); Mean Corpuscular HGB Conc 30.4 g/dl (31.0-36.0); Mean Corpuscular Hemoglobin 29.2 pg (27.0-33.0); Mean Corpuscular Volume 96.3 fL (80.0-98.0); Mean Platelet Volume 9.7 fL (9.4-12.4); Platelet Count 195 X10*3/uL (160-400); Red Blood Count 5.13 X10*6/uL (4.60-5.80); Red Cell Distribution Width 14.6 % (11.0-16.0)
[2022-03-12 08:06] LABS: Anion Gap 13 (12-20); Blood Urea Nitrogen 25 mg/dL (9-16); Calcium 8.9 mg/dL (8.4-10.2); Carbon Dioxide 38 mmol/L (22-29); Chloride 95 mmol/L (96-108); Creatinine Clr Calc Pharmacy 109.1; Estimated Glomerular Filt Rate > 60; Glucose Fasting 119 mg/dL (60-99); Potassium 3.7 mmol/L (3.3-5.1); Sodium 142 mmol/L (135-145)
[2022-03-12] MEDS: predniSONE 20 MG TABLET 40 MG PO (09:39)
--- NOTE | 2022-03-12 10:43 | P.PNIM_ITS ---
Subjective Subjective Date of Service: 03/12/22 Interval History: cc: sob interval history:improving Physical Exam Vital Signs: Vital Signs: Last Vital Signs Temp 97.8 F 03/12/22 07:32 Pulse 59 03/12/22 07:41 Resp 18 03/12/22 07:41 BP 165/91 H 03/12/22 07:32 Pulse Ox 95 03/12/22 07:32 O2 Del Method 03/12/22 07:32 O2 Flow Rate 30 03/12/22 04:00 BMI result Body Mass Index 43.0 GENERAL APPEARANCE: in no acute distress, pleasant. NECK: no carotid bruit, positive jugular venous distention. SKIN: Patches of psoriasis. HEART: no murmurs, regular rate and rhythm. LUNGS: Mild next during wheezes bilaterally. ABDOMEN: soft, nontender. EXTREMITIES: Mild edema. PERIPHERAL PULSES: equal. NEUROLOGIC: No gross deficits, AAO X 3 Objective Data Active Medications Acetaminophen (Acetaminophen 325 Mg Tablet) 650 mg PO Q6H PRN PRN Reason: Pain, Mild (Pain Scale 1-3) Albuterol/Ipratropium (Albuterol/Iprat 2.5/0.5mg 3 Ml Ampul.Neb) 3 ml INHALE RQ4H WHILE AWAKE [facility] Last Admin: 03/12/22 07:40 Dose: 3 ml Documented By: DARIO Amlodipine Besylate (Amlodipine Besylate 5 Mg Tablet) 5 mg PO BEDTIME [facility]; Protocol Last Admin: 03/11/22 19:28 Dose: 5 mg Documented By: ROSALBA Doxycycline Monohydrate (Doxycycline Monohydrate 100 Mg Capsule) 100 mg PO Q12H [facility] Last Admin: 03/12/22 05:44 Dose: 100 mg Documented By: ELISE Enoxaparin Sodium (Enoxaparin Sodium 40 Mg/0.4 Ml Syringe) 40 mg SUBCUT Q24H [facility] Last Admin: 03/11/22 22:04 Dose: Not Given Documented By: ROSALBA Non-Admin Reason: Patient Asleep Lisinopril (Lisinopril 40 Mg Tablet) 40 mg PO BEDTIME [facility]; Protocol Last Admin: 03/11/22 19:27 Dose: 40 mg Documented By: ROSALBA Melatonin (Melatonin 3 Mg Tablet) 6 mg PO BEDTIME PRN PRN Reason: Insomnia Last Admin: 03/11/22 19:28 Dose: 6 mg Documented By: ROSALBA Ondansetron HCl (Ondansetron Hcl 4 Mg/2 Ml Vial) 4 mg IVPUSH Q8H PRN PRN Reason: Nausea and Vomiting Pharmacy Consult (Consult Rx Perform Med Rec) 1 each MISCELLANE ONCE PRN PRN Reason: Consult order Prednisone (Prednisone 20 Mg Tablet) 40 mg PO DAILY [facility] Last Admin: 03/12/22 09:39 Dose: 40 mg Documented By: TRINY Sodium Chloride (0.9 % Sodium Chloride Flush 3 Ml Syringe) 3 ml IVFLUSH QSHIFT [facility] Last Admin: 03/12/22 09:39 Dose: 3 ml Documented By: TRINY Labs 03/12/22 07:10 03/12/22 07:10 Labs: Laboratory Results - last 24 hr 03/12/22 03/12/22 07:10 07:10 MCV 96.3 MCH 29.2 MCHC 30.4 L RDW 14.6 Plt Count 195 MPV 9.7 Absolute Nucleated RBC 0.000 Nucleated RBC % (auto) 0.0 Anion Gap 13 Estim Creat Clear Calc 109.1 Estimated GFR > 60 Fasting Glucose 119 H Calcium 8.9 Magnesium 2.0 Assessment and Plan (1) CHF (congestive heart failure): Status: Acute Plan 47-year-old male with pertinent history of essential hypertension, asthma, chronic venous stasis, cerebral palsy who presented to the emergency department for evaluation of dyspnea. Acute hypoxemic respiratory failure secondary to Acute congestive heart failure, unspecified ejection fraction and copd/moderate persistent asthma with acute decompensation echo hyperdynamic with ivc collapse will hold lasix continue steroids, nebs wean o2 as tolerated HTN amlodipine, lisinopril morbid obesity with lymphedema weight loss, wound care DVT prophylaxis:? Lovenox 40 mg daily Full code reason for continued hospitalization:hypoxia Time Spent With Patient Time: Total time managing care of this patient today ____ minutes. Quality Stroke Does the patient have a stroke diagnosis?: No VTE Prior VTE?: No VTE Risk Level:: Medical - moderate - high VTE Device Contraindication: Treatment Not Indicated VTE Drug Contraindication: N/A - Med Ordered
--- NOTE | 2022-03-12 13:52 | P.CDIC_ITS ---
CDI Concurrent Query Documentation Clarification: PHYSICIAN'S DOCUMENTATION REQUEST Date of Query: 03/12/22 1354 Patient Name: Arnaud José Admit Date: 03/10/22 Dear Doctor, A review of the medical record indicates additional documentation may be needed. Please review below and update the documentation accordingly. Clinical Indicators: A diagnosis of CHF was documented in provider progress notes but lacks specificity. Is there further clarification/specificity that correlates with the findings below: Risk Factors/Clinical Indicators/Treatments Per echo on 03/11: The visually estimated ejection fraction is >70%. Per provider progress note on 03/12: Acute hypoxemic respiratory failure secondary to Acute congestive heart failure, unspecified ejection fraction. Labs: BNP on 03/10 - 341 Per provider H&P: Bilateral lower extremity venous stasis with +2 pedal edema and lungs with bilateral upper lobe crackles with expiratory wheeze Please provide further specificity regarding the most likely type and acuity of CHF you are evaluating, treating, or monitoring. Examples include: Type: * Systolic * Diastolic * Combined Systolic/Diastolic * Other ? please specify * Unable to determine Acuity: * Acute * Chronic * Acute on chronic * Unable to determine Use of terms such as suspected, likely, concern for, or probable (associated with a specific diagnosis that is being evaluated, monitored, or treated as if it exists) are acceptable and can be coded in the inpatient setting, when documented at the time of discharge. Thank you, Sharonda Castle MS, RN, CCRN Extension: [phone] Please use your independent medical judgment in providing your response. THIS QUERY IS PART OF THE PERMANENT MEDICAL RECORD Provider Response: Acute-Chronic Diastolic CHF
--- NOTE | 2022-03-12 13:52 | PM.PNCARD ---
Subjective Subjective Date of Service: 03/12/22 Interval history: Seen and examined at bedside. He is feeling better. He is still on supplemental oxygen though. Physical Exam Vital Signs: Last Vital Signs Temp 97.0 F 03/12/22 11:06 Pulse 76 03/12/22 11:09 Resp 18 03/12/22 11:09 BP 130/65 03/12/22 11:06 Pulse Ox 91 L 03/12/22 11:06 O2 Del Method 03/12/22 11:06 O2 Flow Rate 4 03/12/22 11:06 BMI result Body Mass Index 43.0 GENERAL APPEARANCE: in no acute distress, pleasant. NECK: no carotid bruit, no significant JVD. SKIN: Patches of psoriasis. HEART: no murmurs, regular rate and rhythm. LUNGS: Mild next during wheezes bilaterally. ABDOMEN: soft, nontender. EXTREMITIES: Mild edema. PERIPHERAL PULSES: equal. NEUROLOGIC: No gross deficits, AAO X 3 Objective Labs and Meds 03/12/22 07:10 03/12/22 07:10 Lab results: Laboratory Results - last 24 hr 03/12/22 03/12/22 07:10 07:10 WBC 8.0 RBC 5.13 Hgb 15.0 Hct 49.4 MCV 96.3 MCH 29.2 MCHC 30.4 L RDW 14.6 Plt Count 195 MPV 9.7 Absolute Nucleated RBC 0.000 Nucleated RBC % (auto) 0.0 Sodium 142 Potassium 3.7 Chloride 95 L Carbon Dioxide 38 H Anion Gap 13 BUN 25 H Creatinine 1.06 Estim Creat Clear Calc 109.1 Estimated GFR > 60 Fasting Glucose 119 H Calcium 8.9 Magnesium 2.0 Progress Note: A&P Assessment and plan (1) Essential hypertension: Status: Acute (2) CHF (congestive heart failure): Status: Acute Plan 47-year-old gentleman presenting the acute congestive heart failure and elevated blood pressures. He also has underlying lung disease and drinks alcohol/vodka on weekends. Echocardiography has shown severely increased left ventricle wall thickness which I believe is due to uncontrolled blood pressure in the past. Clinically he does not look significantly volume overloaded anymore. He can be changed to 40 mg of Lasix daily. I will not resume chlorthalidone because of risk of electrolyte imbalance specially with his background of alcohol use. He is on amlodipine 5 mg daily and lisinopril 40 mg daily currently. His blood pressure is improving. I think we introduce carvedilol 3.125 mg twice a day as a next medication. He does not look significantly volume overloaded and his lung exam is fairly normal but he still is oxygen dependent. Is not explained by congestive heart failure currently. I think we should repeat imaging to understand this better. Thank you for allowing me to participate in the care of your patient. Please feel free to contact me if you have any questions. Time Spent With Patient Time: Total time managing care of this patient today ____ minutes. Progress Note: Quality Stroke Does the patient have a stroke diagnosis?: No Procedures Date of Service Date of Service: 03/12/22
--- NOTE | 2022-03-12 14:25 | P.CDIC_ITS ---
CDI Concurrent Query Documentation Clarification: PHYSICIAN'S DOCUMENTATION REQUEST Date of Query: 03/12/22 1426 Patient Name: Arnaud José Admit Date: 03/10/22 Dear Doctor, A review of the medical record indicates additional documentation may be needed. Please review below and update the documentation accordingly. Clinical Indicators: A diagnosis of acute hypoxic respiratory failure was documented in provider progress notes but is there an additional diagnosis that correlates with the findings below: Risk Factors/Clinical Indicators/Treatments Per provider progress notes: Acute hypoxemic respiratory failure secondary to Acute congestive heart failure, unspecified ejection fraction and copd/moderate persistent asthma with acute decompensation iv lasix, echo, steroids, nebs Labs: Blood gas on 03/10 pH - 7.36 pCO2 - 79 pO2 - 82 HCO3 - 45 Patient requiring alternating CPAP & BIPAP Clarify which of the following accurately represents the patient's respiratory status: * Acute hypoxic and hypercapnic respiratory failure * Other (please specify) * Unable to determine Use of terms such as suspected, likely, concern for, or probable (associated with a specific diagnosis that is being evaluated, monitored, or treated as if it exists) are acceptable and can be coded in the inpatient setting, when documented at the time of discharge. Thank you, Sharonda Castle MS, RN, CCRN Extension: [phone] Please use your independent medical judgment in providing your response. THIS QUERY IS PART OF THE PERMANENT MEDICAL RECORD Provider Response: Other Other Diagnosis: acute hypoxic and hypercapneic respiratory failure
[2022-03-12] MEDS: Enoxaparin Sodium 40 MG/0.4 ML SYRINGE SUBCUT (20:14)
[2022-03-12] MEDS: amLODIPine Besylate 5 MG TABLET PO (20:15)
[2022-03-12] MEDS: lisinopriL 40 MG TABLET PO (20:15)
[2022-03-13] VITALS (12 sets, daily range): BP systolic 136–171; BP diastolic 75–92; PULSE 68–99; RESP 16–20; TEMP 36.1–36.7; O2SAT 92–97
[2022-03-13] MEDS: 0.9 % Sodium Chloride Flush 3 ML SYRINGE IVFLUSH ×4 (00:44→20:48)
[2022-03-13] MEDS: Doxycycline Monohydrate 100 MG CAPSULE PO ×2 (05:32→17:14)
[2022-03-13 07:31] LABS: Hematocrit 50.4 % (42.0-52.0); Hemoglobin 15.3 g/dl (14.0-18.0); Mean Corpuscular HGB Conc 30.4 g/dl (31.0-36.0); Mean Corpuscular Hemoglobin 29.1 pg (27.0-33.0); Mean Corpuscular Volume 95.8 fL (80.0-98.0); Mean Platelet Volume 9.8 fL (9.4-12.4); Platelet Count 195 X10*3/uL (160-400); Red Blood Count 5.26 X10*6/uL (4.60-5.80); Red Cell Distribution Width 14.4 % (11.0-16.0); White Blood Count 8.2 X10*3/uL (4.8-10.8)
[2022-03-13] MEDS: Albuterol/Iprat 2.5/0.5MG 3 ML AMPUL.NEB INHALE ×4 (07:41→19:06)
[2022-03-13 07:44] LABS: D Dimer High Sensitivity 229 NG/ML
[2022-03-13 07:50] LABS: Anion Gap 13 (12-20); Blood Urea Nitrogen 29 mg/dL (9-16); Calcium 9.1 mg/dL (8.4-10.2); Carbon Dioxide 35 mmol/L (22-29); Chloride 99 mmol/L (96-108); Creatinine Clr Calc Pharmacy 116.8; Estimated Glomerular Filt Rate > 60; Glucose Fasting 94 mg/dL (60-99); Potassium 3.9 mmol/L (3.3-5.1); Sodium 143 mmol/L (135-145)
[2022-03-13] MEDS: predniSONE 20 MG TABLET 40 MG PO (08:07)
[2022-03-13] MEDS: Furosemide 40 MG TABLET PO (08:08)
--- NOTE | 2022-03-13 10:40 | PM.PNCARD ---
Subjective Subjective Date of Service: 03/13/22 Interval history: Seen examined at bedside. Feeling good. Physical Exam Vital Signs: Last Vital Signs Temp 97.5 F 03/13/22 07:37 Pulse 86 03/13/22 07:42 Resp 18 03/13/22 07:42 BP 137/79 03/13/22 07:37 Pulse Ox 95 03/13/22 07:37 O2 Del Method 03/13/22 07:37 O2 Flow Rate 4 03/13/22 07:37 BMI result Body Mass Index 43.0 GENERAL APPEARANCE: in no acute distress, pleasant. NECK: no carotid bruit, no significant JVD. SKIN: Patches of psoriasis. HEART: no murmurs, regular rate and rhythm. LUNGS: Mild next during wheezes bilaterally. ABDOMEN: soft, nontender. EXTREMITIES: Mild edema. PERIPHERAL PULSES: equal. NEUROLOGIC: No gross deficits, AAO X 3 Objective Labs and Meds 03/13/22 07:03 03/13/22 07:03 Lab results: Laboratory Results - last 24 hr 03/13/22 03/13/22 03/13/22 07:03 07:03 07:03 WBC 8.2 RBC 5.26 Hgb 15.3 Hct 50.4 MCV 95.8 MCH 29.1 MCHC 30.4 L RDW 14.4 Plt Count 195 MPV 9.8 Absolute Nucleated RBC 0.000 Nucleated RBC % (auto) 0.0 D-Dimer High Sensitivty 229 Sodium 143 Potassium 3.9 Chloride 99 Carbon Dioxide 35 H Anion Gap 13 BUN 29 H Creatinine 0.99 Estim Creat Clear Calc 116.8 Estimated GFR > 60 Fasting Glucose 94 Calcium 9.1 Imaging Radiologist's impression: Impressions Chest X-Ray 03/12/22 14:11 IMPRESSION: * New bandlike left basilar airspace opacity morphologically favoring atelectasis, although developing infection or aspiration would be difficult to exclude. Progress Note: A&P Assessment and plan (1) Essential hypertension: Status: Acute (2) CHF (congestive heart failure): Status: Acute Plan 47-year-old gentleman presenting the acute congestive heart failure and elevated blood pressures. He also has underlying lung disease and drinks alcohol/vodka on weekends. Echocardiography has shown severely increased left ventricle wall thickness which I believe is due to uncontrolled blood pressure in the past. Clinically he does not look significantly volume overloaded anymore. He has been changed to 40 mg of Lasix daily. I will not resume chlorthalidone because of risk of electrolyte imbalance specially with his background of alcohol use. Blood pressure control is good. Continue same medications for now with exception of chlorthalidone. Wean off oxygen to see if he still requires oxygen. His x-ray has shown some atelectasis but nothing obvious is seen otherwise to explain hypoxia. Incentive spirometry while he is awake. We are signing off for now. He can follow up with us in the office. Thank you for allowing me to participate in the care of your patient. Please feel free to contact me if you have any questions. Time Spent With Patient Time: Total time managing care of this patient today ____ minutes. Progress Note: Quality Stroke Does the patient have a stroke diagnosis?: No Procedures Date of Service Date of Service: 03/13/22
--- NOTE | 2022-03-13 10:46 | MHC.CM.PN ---
Per ROUNDS discussion, Patient is satting at 82% on 4L O2 and is not yet medically cleared for dc; home with new O2 is the goal and CM will continue to follow.
--- NOTE | 2022-03-13 12:22 | HO.PM.IMPN ---
Subjective Subjective Date of Service: 03/13/22 Interval History: cc: sob interval history:improving Physical Exam Vital Signs: Vital Signs: Last Vital Signs Temp 97.6 F 03/13/22 11:27 Pulse 71 03/13/22 11:27 Resp 20 03/13/22 11:27 BP 140/83 H 03/13/22 11:27 Pulse Ox 95 03/13/22 11:27 O2 Del Method 03/13/22 11:27 O2 Flow Rate 4 03/13/22 11:27 BMI result Body Mass Index 43.0 GENERAL APPEARANCE: in no acute distress, pleasant. NECK: no carotid bruit, no significant JVD. SKIN: Patches of psoriasis. HEART: no murmurs, regular rate and rhythm. LUNGS: Mild next during wheezes bilaterally. ABDOMEN: soft, nontender. EXTREMITIES: Mild edema. PERIPHERAL PULSES: equal. NEUROLOGIC: No gross deficits, AAO X 3 Objective Data Active Medications Acetaminophen (Acetaminophen 325 Mg Tablet) 650 mg PO Q6H PRN PRN Reason: Pain, Mild (Pain Scale 1-3) Albuterol/Ipratropium (Albuterol/Iprat 2.5/0.5mg 3 Ml Ampul.Neb) 3 ml INHALE RQ4H WHILE AWAKE [facility] Last Admin: 03/13/22 11:23 Dose: 3 ml Documented By: MILKA Amlodipine Besylate (Amlodipine Besylate 5 Mg Tablet) 5 mg PO BEDTIME [facility]; Protocol Last Admin: 03/12/22 20:15 Dose: 5 mg Documented By: SAMEERA Doxycycline Monohydrate (Doxycycline Monohydrate 100 Mg Capsule) 100 mg PO Q12H [facility] Last Admin: 03/13/22 05:32 Dose: 100 mg Documented By: SAMEERA Enoxaparin Sodium (Enoxaparin Sodium 40 Mg/0.4 Ml Syringe) 40 mg SUBCUT Q24H [facility] Last Admin: 03/12/22 20:14 Dose: 40 mg Documented By: SAMEERA Furosemide (Furosemide 40 Mg Tablet) 40 mg PO DAILY [facility]; Protocol Last Admin: 03/13/22 08:08 Dose: 40 mg Documented By: NEDA Lisinopril (Lisinopril 40 Mg Tablet) 40 mg PO BEDTIME [facility]; Protocol Last Admin: 03/12/22 20:15 Dose: 40 mg Documented By: HO.DOBROB Melatonin (Melatonin 3 Mg Tablet) 6 mg PO BEDTIME PRN PRN Reason: Insomnia Last Admin: 03/11/22 19:28 Dose: 6 mg Documented By: ROSALBA Ondansetron HCl (Ondansetron Hcl 4 Mg/2 Ml Vial) 4 mg IVPUSH Q8H PRN PRN Reason: Nausea and Vomiting Pharmacy Consult (Consult Rx Perform Med Rec) 1 each MISCELLANE ONCE PRN PRN Reason: Consult order Prednisone (Prednisone 20 Mg Tablet) 40 mg PO DAILY [facility] Last Admin: 03/13/22 08:07 Dose: 40 mg Documented By: NEDA Sodium Chloride (0.9 % Sodium Chloride Flush 3 Ml Syringe) 3 ml IVFLUSH QSHIFT [facility] Last Admin: 03/13/22 08:08 Dose: 3 ml Documented By: NEDA Labs 03/13/22 07:03 03/13/22 07:03 Labs: Laboratory Results - last 24 hr 03/13/22 03/13/22 03/13/22 07:03 07:03 07:03 MCV 95.8 MCH 29.1 MCHC 30.4 L RDW 14.4 Plt Count 195 MPV 9.8 Absolute Nucleated RBC 0.000 Nucleated RBC % (auto) 0.0 D-Dimer High Sensitivty 229 Anion Gap 13 Estim Creat Clear Calc 116.8 Estimated GFR > 60 Fasting Glucose 94 Calcium 9.1 Assessment and Plan (1) CHF (congestive heart failure): Status: Acute Plan 47-year-old male with pertinent history of essential hypertension, asthma, chronic venous stasis, cerebral palsy who presented to the emergency department for evaluation of dyspnea. Acute hypoxemic and hypercapneic respiratory failure secondary to Acute congestive heart failure, unspecified ejection fraction and copd/moderate persistent asthma with acute decompensation echo hyperdynamic with ivc collapse back on po lasix continue steroids, nebs wean o2 as tolerated overnight pulse ox HTN amlodipine, lisinopril morbid obesity with lymphedema weight loss, wound care DVT prophylaxis:? Lovenox 40 mg daily Full code reason for continued hospitalization:hypoxia Time Spent With Patient Time: Total time managing care of this patient today ____ minutes. Quality Stroke Does the patient have a stroke diagnosis?: No VTE Prior VTE?: No VTE Risk Level:: Medical - moderate - high VTE Device Contraindication: Treatment Not Indicated VTE Drug Contraindication: N/A - Med Ordered
[2022-03-13] MEDS: Enoxaparin Sodium 40 MG/0.4 ML SYRINGE SUBCUT (20:48)
[2022-03-13] MEDS: lisinopriL 40 MG TABLET PO (20:48)
[2022-03-13] MEDS: amLODIPine Besylate 5 MG TABLET PO (20:48)
[2022-03-14] VITALS (12 sets, daily range): BP systolic 135–166; BP diastolic 70–86; PULSE 62–95; RESP 14–20; TEMP 36.3–36.9; O2SAT 91–98
[2022-03-14 04:38] LABS: ABG Base Excess 9.7 mmol/L; ABG HCO3 38 mmol/L (22-26); ABG pCO2 67 mmHg (32-45); ABG pH 7.36 (7.35-7.45); ABG pO2 75 mmHg (83-108)
[2022-03-14 04:40] LABS: ABG Refer to POC result
[2022-03-14] MEDS: Doxycycline Monohydrate 100 MG CAPSULE PO ×2 (06:45→18:02)
[2022-03-14 07:19] LABS: Hematocrit 51.4 % (42.0-52.0); Hemoglobin 15.5 g/dl (14.0-18.0); Mean Corpuscular HGB Conc 30.2 g/dl (31.0-36.0); Mean Corpuscular Hemoglobin 29.2 pg (27.0-33.0); Mean Corpuscular Volume 96.8 fL (80.0-98.0); Platelet Count 165 X10*3/uL (160-400); Red Blood Count 5.31 X10*6/uL (4.60-5.80); Red Cell Distribution Width 14.2 % (11.0-16.0); White Blood Count 7.4 X10*3/uL (4.8-10.8)
[2022-03-14] MEDS: Albuterol/Iprat 2.5/0.5MG 3 ML AMPUL.NEB INHALE ×4 (07:43→19:10)
[2022-03-14 07:51] LABS: Anion Gap 15 (12-20); Blood Urea Nitrogen 28 mg/dL (9-16); Calcium 8.9 mg/dL (8.4-10.2); Carbon Dioxide 33 mmol/L (22-29); Chloride 101 mmol/L (96-108); Estimated Glomerular Filt Rate > 60; Glucose Fasting 79 mg/dL (60-99); Sodium 145 mmol/L (135-145)
[2022-03-14] MEDS: 0.9 % Sodium Chloride Flush 3 ML SYRINGE IVFLUSH ×2 (08:13→18:02)
[2022-03-14] MEDS: predniSONE 20 MG TABLET 40 MG PO (08:13)
[2022-03-14] MEDS: Furosemide 40 MG TABLET PO (08:13)
--- NOTE | 2022-03-14 10:46 | P.PNIM_ITS ---
Subjective Subjective Date of Service: 03/14/22 Interval History: cc: sob interval history:improving Physical Exam Vital Signs: Vital Signs: Last Vital Signs Temp 97.3 F 03/14/22 07:21 Pulse 62 03/14/22 07:48 Resp 18 03/14/22 07:48 BP 142/81 H 03/14/22 07:21 Pulse Ox 93 03/14/22 07:21 O2 Del Method 03/14/22 07:21 O2 Flow Rate 2 03/14/22 07:21 BMI result Body Mass Index 43.0 GENERAL APPEARANCE: in no acute distress, pleasant. NECK: no carotid bruit, no significant JVD. SKIN: Patches of psoriasis. HEART: no murmurs, regular rate and rhythm. LUNGS: Mild next during wheezes bilaterally. ABDOMEN: soft, nontender. EXTREMITIES: Mild edema. PERIPHERAL PULSES: equal. NEUROLOGIC: No gross deficits, AAO X 3 Objective Data Active Medications Acetaminophen (Acetaminophen 325 Mg Tablet) 650 mg PO Q6H PRN PRN Reason: Pain, Mild (Pain Scale 1-3) Albuterol/Ipratropium (Albuterol/Iprat 2.5/0.5mg 3 Ml Ampul.Neb) 3 ml INHALE RQ4H WHILE AWAKE [facility] Last Admin: 03/14/22 07:43 Dose: 3 ml Documented By: DANIEL Amlodipine Besylate (Amlodipine Besylate 5 Mg Tablet) 5 mg PO BEDTIME [facility]; Protocol Last Admin: 03/13/22 20:48 Dose: 5 mg Documented By: BOZENA Doxycycline Monohydrate (Doxycycline Monohydrate 100 Mg Capsule) 100 mg PO Q12H [facility] Last Admin: 03/14/22 06:45 Dose: 100 mg Documented By: BOZENA Enoxaparin Sodium (Enoxaparin Sodium 40 Mg/0.4 Ml Syringe) 40 mg SUBCUT Q24H [facility] Last Admin: 03/13/22 20:48 Dose: 40 mg Documented By: BOZENA Furosemide (Furosemide 40 Mg Tablet) 40 mg PO DAILY [facility]; Protocol Last Admin: 03/14/22 08:13 Dose: 40 mg Documented By: TRINY Lisinopril (Lisinopril 40 Mg Tablet) 40 mg PO BEDTIME [facility]; Protocol Last Admin: 03/13/22 20:48 Dose: 40 mg Documented By: BOZENA Melatonin (Melatonin 3 Mg Tablet) 6 mg PO BEDTIME PRN PRN Reason: Insomnia Last Admin: 03/11/22 19:28 Dose: 6 mg Documented By: ROSALBA Ondansetron HCl (Ondansetron Hcl 4 Mg/2 Ml Vial) 4 mg IVPUSH Q8H PRN PRN Reason: Nausea and Vomiting Pharmacy Consult (Consult Rx Perform Med Rec) 1 each MISCELLANE ONCE PRN PRN Reason: Consult order Prednisone (Prednisone 20 Mg Tablet) 40 mg PO DAILY [facility] Last Admin: 03/14/22 08:13 Dose: 40 mg Documented By: TRINY Sodium Chloride (0.9 % Sodium Chloride Flush 3 Ml Syringe) 3 ml IVFLUSH QSHIFT [facility] Last Admin: 03/14/22 08:13 Dose: 3 ml Documented By: TRINY Labs 03/14/22 06:35 03/14/22 06:35 Labs: Laboratory Results - last 24 hr 03/14/22 03/14/22 03/14/22 04:30 06:35 06:35 MCV 96.8 MCH 29.2 MCHC 30.2 L RDW 14.2 Plt Count 165 MPV 10.0 Absolute Nucleated RBC 0.000 Nucleated RBC % (auto) 0.0 O2 Saturation 92.0 ABG pH at Pt Temp 7.36 ABG pCO2 at Pt Temp 67 H* ABG pO2 at Pt Temp 75 L ABG HCO3 38 H ABG Base Excess (Actual) 9.7 Anion Gap 15 Estim Creat Clear Calc 127.0 Estimated GFR > 60 Fasting Glucose 79 Calcium 8.9 Assessment and Plan (1) CHF (congestive heart failure): Status: Acute Plan 47-year-old male with pertinent history of essential hypertension, asthma, chronic venous stasis, cerebral palsy who presented to the emergency department for evaluation of dyspnea. Acute hypoxemic and hypercapneic respiratory failure secondary to Acute congestive heart failure, unspecified ejection fraction and copd/moderate persistent asthma with acute decompensation echo hyperdynamic with ivc collapse back on po lasix continue steroids, nebs wean o2 as tolerated - improving overnight pulse ox 03/13-05/31 completed HTN amlodipine, lisinopril morbid obesity with lymphedema weight loss, wound care DVT prophylaxis:? Lovenox 40 mg daily Full code reason for continued hospitalization:hypoxia Time Spent With Patient Time: Total time managing care of this patient today ____ minutes. Quality Stroke Does the patient have a stroke diagnosis?: No VTE Prior VTE?: No VTE Risk Level:: Medical - moderate - high VTE Device Contraindication: Treatment Not Indicated VTE Drug Contraindication: N/A - Med Ordered
[2022-03-14] MEDS: amLODIPine Besylate 5 MG TABLET PO (20:19)
[2022-03-14] MEDS: Enoxaparin Sodium 40 MG/0.4 ML SYRINGE SUBCUT (20:19)
[2022-03-14] MEDS: lisinopriL 40 MG TABLET PO (20:19)
[2022-03-15] VITALS (11 sets, daily range): BP systolic 137–172; BP diastolic 76–88; PULSE 64–83; RESP 14–20; TEMP 36.1–36.8; O2SAT 93–98
[2022-03-15] MEDS: 0.9 % Sodium Chloride Flush 3 ML SYRINGE IVFLUSH ×4 (00:54→20:04)
[2022-03-15] MEDS: Doxycycline Monohydrate 100 MG CAPSULE PO ×2 (05:40→17:40)
[2022-03-15] MEDS: Albuterol/Iprat 2.5/0.5MG 3 ML AMPUL.NEB INHALE ×4 (07:34→19:47)
[2022-03-15 07:43] LABS: Hematocrit 52.9 % (42.0-52.0); Hemoglobin 16.1 g/dl (14.0-18.0); Mean Corpuscular HGB Conc 30.4 g/dl (31.0-36.0); Mean Corpuscular Hemoglobin 29.3 pg (27.0-33.0); Mean Corpuscular Volume 96.4 fL (80.0-98.0); Platelet Count 186 X10*3/uL (160-400); Red Blood Count 5.49 X10*6/uL (4.60-5.80); Red Cell Distribution Width 14.2 % (11.0-16.0); White Blood Count 8.2 X10*3/uL (4.8-10.8)
[2022-03-15] MEDS: predniSONE 20 MG TABLET 40 MG PO (08:04)
[2022-03-15] MEDS: Furosemide 40 MG TABLET PO (08:04)
[2022-03-15 08:37] LABS: Anion Gap 14 (12-20); Blood Urea Nitrogen 25 mg/dL (9-16); Calcium 9.3 mg/dL (8.4-10.2); Carbon Dioxide 34 mmol/L (22-29); Chloride 100 mmol/L (96-108); Estimated Glomerular Filt Rate > 60; Glucose Fasting 90 mg/dL (60-99); Potassium 3.9 mmol/L (3.3-5.1); Sodium 144 mmol/L (135-145)
--- NOTE | 2022-03-15 10:05 | HO.PM.IMPN ---
Subjective Subjective Date of Service: 03/15/22 Interval History: cc: sob interval history:improving Physical Exam Vital Signs: Vital Signs: Last Vital Signs Temp 98.2 F 03/15/22 07:52 Pulse 75 03/15/22 07:52 Resp 17 03/15/22 07:52 BP 145/76 H 03/15/22 07:52 Pulse Ox 95 03/15/22 07:52 O2 Del Method 03/15/22 07:52 O2 Flow Rate 30 03/15/22 02:53 BMI result Body Mass Index 43.0 GENERAL APPEARANCE: in no acute distress, pleasant. NECK: no carotid bruit, no significant JVD. SKIN: Patches of psoriasis. HEART: no murmurs, regular rate and rhythm. LUNGS: Mild next during wheezes bilaterally. ABDOMEN: soft, nontender. EXTREMITIES: Mild edema. PERIPHERAL PULSES: equal. NEUROLOGIC: No gross deficits, AAO X 3 Objective Data Active Medications Acetaminophen (Acetaminophen 325 Mg Tablet) 650 mg PO Q6H PRN PRN Reason: Pain, Mild (Pain Scale 1-3) Albuterol/Ipratropium (Albuterol/Iprat 2.5/0.5mg 3 Ml Ampul.Neb) 3 ml INHALE RQ4H WHILE AWAKE [facility] Last Admin: 03/15/22 07:34 Dose: 3 ml Documented By: DANIEL Amlodipine Besylate (Amlodipine Besylate 5 Mg Tablet) 5 mg PO BEDTIME [facility]; Protocol Last Admin: 03/14/22 20:19 Dose: 5 mg Documented By: LU Doxycycline Monohydrate (Doxycycline Monohydrate 100 Mg Capsule) 100 mg PO Q12H [facility] Last Admin: 03/15/22 05:40 Dose: 100 mg Documented By: LU Enoxaparin Sodium (Enoxaparin Sodium 40 Mg/0.4 Ml Syringe) 40 mg SUBCUT Q24H [facility] Last Admin: 03/14/22 20:19 Dose: 40 mg Documented By: LU Furosemide (Furosemide 40 Mg Tablet) 40 mg PO DAILY [facility]; Protocol Last Admin: 03/15/22 08:04 Dose: 40 mg Documented By: RICHIE Lisinopril (Lisinopril 40 Mg Tablet) 40 mg PO BEDTIME [facility]; Protocol Last Admin: 03/14/22 20:19 Dose: 40 mg Documented By: LU Melatonin (Melatonin 3 Mg Tablet) 6 mg PO BEDTIME PRN PRN Reason: Insomnia Last Admin: 03/11/22 19:28 Dose: 6 mg Documented By: ROSALBA Ondansetron HCl (Ondansetron Hcl 4 Mg/2 Ml Vial) 4 mg IVPUSH Q8H PRN PRN Reason: Nausea and Vomiting Pharmacy Consult (Consult Rx Perform Med Rec) 1 each MISCELLANE ONCE PRN PRN Reason: Consult order Prednisone (Prednisone 20 Mg Tablet) 40 mg PO DAILY [facility] Last Admin: 03/15/22 08:04 Dose: 40 mg Documented By: RICHIE Sodium Chloride (0.9 % Sodium Chloride Flush 3 Ml Syringe) 3 ml IVFLUSH QSHIFT [facility] Last Admin: 03/15/22 08:04 Dose: 3 ml Documented By: RICHIE Labs 03/15/22 06:59 03/15/22 06:59 Labs: Laboratory Results - last 24 hr 03/15/22 03/15/22 06:59 06:59 MCV 96.4 MCH 29.3 MCHC 30.4 L RDW 14.2 Plt Count 186 MPV 10.0 Absolute Nucleated RBC 0.000 Nucleated RBC % (auto) 0.0 Anion Gap 14 Estim Creat Clear Calc 118.0 Estimated GFR > 60 Fasting Glucose 90 Calcium 9.3 Assessment and Plan (1) CHF (congestive heart failure): Status: Acute Plan 47-year-old male with pertinent history of essential hypertension, asthma, chronic venous stasis, cerebral palsy who presented to the emergency department for evaluation of dyspnea. Acute hypoxemic and hypercapneic respiratory failure secondary to Acute congestive heart failure, unspecified ejection fraction and copd/moderate persistent asthma with acute decompensation echo hyperdynamic with ivc collapse back on po lasix continue steroids, nebs wean o2 as tolerated - improving overnight pulse ox 03/13-05/31 completed We have discussed the need for Astral noninvasive ventilation with patient Arnaud Gonzalezwho suffers from chronic respiratory failure due to COPD. Due to this severe and life-threatening disease state the Astral noninvasive ventilation therapy is being prescribed today over bipap to reduce the CO2 retention as well as?avoid hospital readmisisons and longer hospital stays HTN amlodipine, lisinopril morbid obesity with lymphedema weight loss, wound care DVT prophylaxis:? Lovenox 40 mg daily Full code reason for continued hospitalization:hypoxia Time Spent With Patient Time: Total time managing care of this patient today ____ minutes. Quality Stroke Does the patient have a stroke diagnosis?: No VTE Prior VTE?: No VTE Risk Level:: Medical - moderate - high VTE Device Contraindication: Treatment Not Indicated VTE Drug Contraindication: N/A - Med Ordered
[2022-03-15] MEDS: Enoxaparin Sodium 40 MG/0.4 ML SYRINGE SUBCUT (20:03)
[2022-03-15] MEDS: lisinopriL 40 MG TABLET PO (20:03)
[2022-03-15] MEDS: amLODIPine Besylate 5 MG TABLET PO (20:03)
[2022-03-16 04:00] VITALS: BP 150/99; PULSE 64; RESP 20; TEMP 36.8; O2SAT 99
[2022-03-16] MEDS: Doxycycline Monohydrate 100 MG CAPSULE PO (04:14)
[2022-03-16 07:30] VITALS: BP 148/82; PULSE 96; RESP 20; TEMP 36.7; O2SAT 100
[2022-03-16] MEDS: Albuterol/Iprat 2.5/0.5MG 3 ML AMPUL.NEB INHALE ×2 (07:53→11:28)
[2022-03-16 07:54] VITALS: PULSE 75; RESP 18; O2SAT 94
[2022-03-16] MEDS: Furosemide 40 MG TABLET PO (08:17)
[2022-03-16] MEDS: 0.9 % Sodium Chloride Flush 3 ML SYRINGE IVFLUSH (08:17)
[2022-03-16] MEDS: predniSONE 20 MG TABLET 40 MG PO (08:17)
--- NOTE | 2022-03-16 08:44 | MHC.RECOVSUP ---
pt evaluated for home oxygen. Patient room air sats at rest were 94% hr 77. pt ambulated 50 feet and Sats went to 89% and HR 86. Patient sat down in chair after walk and sats up to 94% within 30 seconds and good recovery time. Pt does not qualify for home oxygen but he does qualify for non-invasive ventilation and will receive an Astral by [facility] when pt is discharged. Paperwork all faxed to [facility] and Dr. Ziegler is aware.
--- NOTE | 2022-03-16 08:49 | PC.RT ---
pt evaluated for home oxygen. Pt sats on room air at rest were 94% hr 77. pt ambulated over 50 feet and sats down to 89% hr 86. Pt sat down in chair after wlak and sats up to 94% within 30 seconds and pt recovered very quickly. Pt does not qualify for home oxygen. Pt does qualify for Non invasive Ventilation and sandra receive an Astral by [facility] when patient is discharged today.
--- NOTE | 2022-03-16 09:20 | P.DS_ITS ---
DS: Providers Provider Date of Service: 03/16/22 Date of admission: 03/10/22 21:06 Primary care physician: Justin Helm III, MD Consults: 03/10/22 21:46 Consult to Wound Care Routine Consulting Provider: [facility] Wound Care Management Reason for consultation: bilateral lower extremity venous stasis 03/10/22 22:05 Consult to Cardiology Routine Consulting Provider: Kishan Aguilera Reason for consultation: CHF Has provider been notified: Yes DS: Diagnosis Discharge Diagnosis (1) CHF (congestive heart failure): Status: Acute DS: Summary Hospital Course Hospital Course: from initial hpi: Chief Complaint: Dyspnea This is a 47-year-old male with pertinent history of essential hypertension, asthma, chronic venous stasis, cerebral palsy who presents to the emergency department for evaluation of dyspnea.? Patient states he has had trouble but bleeding for the past 5-7 days, worse with exertion.? Endorses orthopnea and PND.? Patient complaints of chronic lower extremity swelling bilaterally.? Has had associated cough and wheezing.? No history of heart failure and states he is compliant with his medications for essential hypertension.? Patient denies fever, chills, chest discomfort, palpitations, abdominal pain, changes in urinary or bowel habits. In the emergency department, patient was found to be hypoxemic requiring 5 L supplemental oxygen.? Chest x-ray consistent with venous congestion and pulmonary edema. hospital course: Patient was admitted for acute hypoxic and hypercapnic respiratory failure secondary to acute congestive heart failure with preserved ejection fraction and COPD/moderate persistent asthma with acute decompensation. Patient was diuresed with IV Lasix and then transitioned to p.o. furosemide, is chlorthalidone was held. Echo showed hyperdynamic ventricle with IVC collapse. He was treated with steroids and nebulizers. Id able to be weaned off oxygen. We have discussed the need for Astral noninvasive ventilation with patient Arnaud José who suffers from chronic respiratory failure due to COPD. Due to this severe and life-threatening disease state the Astral noninvasive ventilation therapy is being prescribed today over bipap to reduce the CO2 retention as well as avoid hospital readmisisons and longer hospital stays. For hypertension he was continue amlodipine and lisinopril. For morbid obesity with lymphedema weight loss recommended. Patient is feeling better will be discharged home on 5 more days of prednisone. Time Spent with Patient Time attestation: Total time managing care of this patient today ____ minutes. Discharge coordination time: Greater than 30 minutes Quality: Safe Use of Opioids Does Pt have an Active Cancer Diagnosis on the Problem List?: No Quality: Stroke Does the patient have a stroke diagnosis?: No Physical Exam Vital Signs: Vital Signs: Last Vital Signs Temp 98.1 F 03/16/22 07:30 Pulse 75 03/16/22 07:54 Resp 18 03/16/22 07:54 BP 148/82 H 03/16/22 07:30 Pulse Ox 100 03/16/22 07:30 O2 Del Method 03/16/22 07:30 O2 Flow Rate 30 03/16/22 04:00 BMI result Body Mass Index 43.0 General: AO X 3, no acute distress Resp: CTA bilateral, no accessory muscles used CVS: S1,S2,RRR GI: soft, non tender, non distended Neuro: motor grossly intact, alert Psych: appropriate affect, appropriate insight Discharge Plan Discharge Anticipated Discharge Date/Time: 03/16/22 09:18 Patient Disposition: Home, Self-Care Discharge Diagnosis: chf, copd Referrals: Justin Helm III, MD [Primary Care Provider] - 1 Week Discharge Medications: New furosemide 40 mg Tablet 40 mg PO DAILY Qty: 30 0RF Protocol: Hold for SBP< HOLD for SBP < : 90 prednisone 20 mg Tablet 40 mg PO DAILY Qty: 10 0RF Continued amlodipine 5 mg tablet 1 tab PO BEDTIME lisinopril 40 mg tablet 1 tab PO BEDTIME budesonide-formoterol [Symbicort] 160-4.5 mcg/actuation HFA aerosol inhaler 2 puff inhalation BID ferrous sulfate [FeroSul] 325 mg (65 mg iron) tablet 1 tab PO DAILY albuterol sulfate 90 mcg/actuation HFA aerosol inhaler 2 inh inhalation Q4H PRN (Reason: Shortness Of Breath) Discontinued chlorthalidone 25 mg tablet 1 tab PO DAILY Discharge Orders: Discharge Order (Routine); Ordered 03/16/22 Ordered By: Steven Ziegler Diet: Advance to usual diet Activity on Discharge: As tolerated Stand Alone Forms: Patient Portal Discharge page Care Plan Goals: recovery Health Concerns: copd Plan of Treatment: preednisone, change chlorthalidone to lasix, avaps at night Assessment: see above
--- NOTE | 2022-03-16 09:27 | MHC.CM.PN ---
Patient has been medically cleared for dc to home today, self care.
[2022-03-16 11:29] VITALS: PULSE 76; RESP 18; O2SAT 95
== END 2022-03-16 12:02 | disposition home or self-care (01) | DRG 194 ==
LOC: HO.ED 21:13 → HO.EDOVER 21:17 → HO.IMC 22:44
PROVIDERS: Physician Assistant; Admitting Provider Student in an Organized Health Care Education/Training Program; Emergency Provider Emergency Medicine Emergency Medical Services; PCP Internal Medicine; Visit Provider Internal Medicine
DX: I11.0 Hypertensive heart disease with heart failure (principal); J96.21 Acute and chronic respiratory failure with hypoxia; J44.1 Chronic obstructive pulmonary disease with (acute) exacerbation; J45.41 Moderate persistent asthma with (acute) exacerbation; L97.519 Non-pressure chronic ulcer of other part of right foot with unspecified severity; I87.331 Chronic venous hypertension (idiopathic) with ulcer and inflammation of right lower extremity; G80.9 Cerebral palsy, unspecified; I16.1 Hypertensive emergency; Z68.41 Body mass index [BMI] 40.0-44.9, adult; E66.01 Morbid (severe) obesity due to excess calories; G47.33 Obstructive sleep apnea (adult) (pediatric); J96.22 Acute and chronic respiratory failure with hypercapnia; I50.33 Acute on chronic diastolic (congestive) heart failure; I87.322 Chronic venous hypertension (idiopathic) with inflammation of left lower extremity; I89.0 Lymphedema, not elsewhere classified; Z20.822 Contact with and (suspected) exposure to COVID-19; Z86.16 Personal history of COVID-19; Z28.311 Partially vaccinated for COVID-19; Z87.891 Personal history of nicotine dependence; Z88.0 Allergy status to penicillin; Z79.899 Other long term (current) drug therapy
CPT/HCPCS: 0241U; 36415; 36600; 71045; 80048; 80053; 82803; 83735; 83880; 84484; 85025; 85027; 85379; 85610; 85730; 93005; 93306; 94640; 94660; 99285; J1650; J1940; J2930; J3475

== ENCOUNTER 2022-03-23 14:45 | Inpatient (IN) | payer OTHER, SELFPAY ==
[2022-03-23] VITALS (12 sets, daily range): BP systolic 123–158; BP diastolic 71–90; PULSE 85–109; RESP 20–36; TEMP 36.1; O2SAT 88–98; BMI 41.1; BMI 40.4
--- NOTE | ~2022-03-23 | XR_ITS ---
EXAMINATION: XR CHEST CLINICAL INFORMATION: Hypoxia COMPARISON: Previous chest x-ray 03/12/2022 TECHNIQUE: Frontal view of the chest was obtained. FINDINGS: The cardiac and mediastinal contours are stable. There are increased central hilar bronchovascular markings and increasing bilateral perihilar airspace disease. Differential would include pulmonary edema and pneumonia. There is no pleural effusion or pneumothorax. Visualized bony structures are unremarkable. XR/XR chest 1V IMPRESSION: Increased central hilar bronchovascular markings and agree hilar airspace disease. Differential would include pulmonary edema and pneumonia. Clinical correlation recommended.
--- NOTE | ~2022-03-23 | CT_ITS ---
EXAMINATION: CT CHEST WITHOUT CONTRAST CLINICAL INFORMATION: Respiratory failure COMPARISON: No prior chest CT. Radiograph from today. TECHNIQUE: Multidetector volumetric CT imaging of the chest was done. Axial MIP volume rendering provided. Sagittal and coronal reformatted images were obtained. This CT examination was performed using dose optimization techniques as appropriate, variously including the following: *Automated exposure control *Adjustment of mA and/or kV according to patient size (this includes techniques or standardized protocols for targeted exams where dose is matched to indication/reason for exam; i.e. extremities or head) *Use of iterative reconstruction technique DLP: 450 mGy-cm FINDINGS: STEELER: Prominent markings in the lungs. LUNGS: The central airways are patent. Groundglass nodular opacities are seen throughout both lungs. Cystic change noted in the lingula with mild adjacent consolidation. No pneumothorax. MEDIASTINUM: Normal heart size. No pericardial effusion. No mediastinal lymphadenopathy. CORONARY ARTERY CALCIFICATION: None visualized on this study. PLEURA: There is no pleural effusion. No pleural mass or thickening. AXILLA: No lymphadenopathy. UPPER ABDOMEN: Partially visualized simple cyst at the upper pole of the right kidney. No specific follow-up recommended.. OSSEOUS STRUCTURES: Unremarkable. CT/CT chest wo IV con IMPRESSION: 1. Groundglass nodular opacities are seen throughout both lungs. This is nonspecific. This could be infectious or inflammatory. 2. Cystic change in the lingula with mild adjacent consolidation. Fleischner guidelines were followed.
--- NOTE | 2022-03-23 14:49 | ED.SOB ---
HPI - SOB/Dyspnea General Chief Complaint: Dyspnea <TAMARA Mata - Last Filed: 03/23/22 14:55> Stated Complaint: low o2 diff breathing <TAMARA Mata - Last Filed: 03/23/22 14:55> Time Seen by Provider: 03/23/22 14:52 <TAMARA Mata - Last Filed: 03/23/22 14:55> Related Data Home Medications: Home Medications Medication Instructions Recorded Confirmed amlodipine 5 mg tablet 1 tab PO BEDTIME 01/12/21 03/23/22 budesonide-formoterol HFA 160 2 puff inhalation BID 01/12/21 03/23/22 mcg-4.5 mcg/actuation aerosol inhaler (Symbicort) lisinopril 40 mg tablet 1 tab PO BEDTIME 01/12/21 03/23/22 albuterol sulfate 90 mcg/actuation 2 inh inhalation Q4H PRN Shortness 01/28/21 03/23/22 aerosol inhaler Of Breath Previous Rx's Medication Instructions Recorded furosemide 40 mg tablet 40 mg PO DAILY #30 tabs 03/16/22 <TAMARA Mata - Last Filed: 03/23/22 14:55> Allergies/Adverse Reactions: Allergies Allergy/AdvReac Type Severity Reaction Status Date / Time Penicillins [PENICILLINS] Allergy Unknown HIVES Verified 03/27/21 15:12 <TAMARA Mata - Last Filed: 03/23/22 14:55> [facility] Past Medical History Medical History: Medical History Asthma Cerebral palsy Chronic venous hypertension with ulcer Hypertension <TAMARA Mata - Last Filed: 03/23/22 14:55> Surgical History: Surgical History H/O umbilical hernia repair <TAMARA Mata - Last Filed: 03/23/22 14:55> Social History Social History: Social History Household Members: Family Housing: House Do you presently have visiting nurse or other home services: No Alcohol intake: never Patient Tobacco Use Status: Former Tobacco user Tobacco use type: Cigarette Advance Directives: No Advance Directives Information Provided: No service: No Current occupational status: employed <TAMARA Mata - Last Filed: 03/23/22 14:55> Physical Exam Vital Signs: Vital Signs: Last Vital Signs Temp 97.0 F 03/23/22 15:00 Pulse 100 03/23/22 18:00 Resp 30 H 03/23/22 18:00 BP 142/90 H 03/23/22 18:00 Pulse Ox 88 L 03/23/22 18:00 O2 Del Method 03/23/22 18:00 O2 Flow Rate 40 03/23/22 17:15 FiO2 40 03/23/22 17:00 Oxygen Flow Rate 15 03/23/22 15:00 BMI result Body Mass Index 41.1 <TAMARA Mata - Last Filed: 03/23/22 14:55> Vital Signs: Last Vital Signs Temp 97.0 F 03/23/22 15:00 Pulse 100 03/23/22 18:00 Resp 30 H 03/23/22 18:00 BP 142/90 H 03/23/22 18:00 Pulse Ox 88 L 03/23/22 18:00 O2 Del Method 03/23/22 18:00 O2 Flow Rate 40 03/23/22 17:15 FiO2 40 03/23/22 17:00 Oxygen Flow Rate 15 03/23/22 15:00 BMI result Body Mass Index 41.1 <Kaila Li MD - Last Filed: 03/23/22 20:31> Course Course Course Narrative: RME - 47 yo male with history of CHF and recent admission here 03/10-03/16 for acute CHF exacerbation presents to the ER c/o worsening DILIP, VIRAMONTES for the last few days. Checked home pulse ox and was in the 40-50s today. SpO2 in triage, awake and alert speaking in complete sentences. Placed on 100% NRB mask and brought immediately back to treatment room. <TAMARA Mata - Last Filed: 03/23/22 14:55> Medications Administered Generic Name Dose Route Start Last Admin Trade Name Freq PRN Reason Stop Dose Admin Heparin Sodium (Porcine) 5,000 unit 03/23/22 19:00 03/23/22 19:27 Heparin Sodium,Porcine 5,000 Unit/Ml Vial SUBCUT 5,000 unit Q8H [facility] Administration Discontinued Medications Generic Name Dose Route Start Last Admin Trade Name Freq PRN Reason Stop Dose Admin Albuterol Sulfate 10 mg 03/23/22 14:57 03/23/22 15:11 Albuterol Sulfate (0.083%) 2.5 Mg/3 Ml Vial.Neb INHALE 03/23/22 14:58 10 mg ONCE ONE Administration Magnesium Sulfate 2 gm in 50 mls @ 25 mls/hr 03/23/22 14:57 03/23/22 15:30 Magnesium Sulfate/H2o IV 03/23/22 16:56 Infused ONCE ONE Infusion Levofloxacin 750 mg in 150 mls @ 100 mls/hr 03/23/22 18:17 03/23/22 19:27 Levaquin IV 03/23/22 19:46 100 mls/hr ONCE ONE Administration Methylprednisolone Sodium Succinate 125 mg 03/23/22 14:57 03/23/22 15:11 Methylprednisolone Sod Succ 125 Mg/2 Ml Vial IVPUSH 03/23/22 14:58 125 mg ONCE ONE Administration <TAMARA Mata - Last Filed: 03/23/22 14:55> Medications Administered Generic Name Dose Route Start Last Admin Trade Name Freq PRN Reason Stop Dose Admin Heparin Sodium (Porcine) 5,000 unit 03/23/22 19:00 03/23/22 19:27 Heparin Sodium,Porcine 5,000 Unit/Ml Vial SUBCUT 5,000 unit Q8H [facility] Administration Discontinued Medications Generic Name Dose Route Start Last Admin Trade Name Freq PRN Reason Stop Dose Admin Albuterol Sulfate 10 mg 03/23/22 14:57 03/23/22 15:11 Albuterol Sulfate (0.083%) 2.5 Mg/3 Ml Vial.Neb INHALE 03/23/22 14:58 10 mg ONCE ONE Administration Magnesium Sulfate 2 gm in 50 mls @ 25 mls/hr 03/23/22 14:57 03/23/22 15:30 Magnesium Sulfate/H2o IV 03/23/22 16:56 Infused ONCE ONE Infusion Levofloxacin 750 mg in 150 mls @ 100 mls/hr 03/23/22 18:17 03/23/22 19:27 Levaquin IV 03/23/22 19:46 100 mls/hr ONCE ONE Administration Methylprednisolone Sodium Succinate 125 mg 03/23/22 14:57 03/23/22 15:11 Methylprednisolone Sod Succ 125 Mg/2 Ml Vial IVPUSH 03/23/22 14:58 125 mg ONCE ONE Administration <Kaila Li MD - Last Filed: 03/23/22 20:31> Medical Decision Making Medical Decision Making [facility] Narrative: -patient was kept on a non-rebreather until we switched him to a CPAP. -patient's oxygen saturation has been between the mid 80s up to the low 90s. At some point, patient became obtunded, difficult to arouse. But shortly after, patient was able to wake up. We were very close to intubating the patient. -patient became eventually more responsive while on CPAP, eventually we were able to wean patient off of CPAP, now on an OxyMask at 10 L. Patient feeling much better, alert and oriented x3. -D-dimer is negative -Dr. rCane accepted the patient <Kaila Li MD - Last Filed: 03/23/22 20:31> Differential Diagnosis Differential Diagnoses: The differential diagnosis associated with the presentation includes (Asthma, chronic lung disease, CHF) <Kaila Li MD - Last Filed: 03/23/22 20:31> Admission/Observation Consideration of admission/observation: Escalation of care including admission/observation considered <Kaila Li MD - Last Filed: 03/23/22 20:31> Consult Healthcare Provider Management of the patient was discussed with: Interactive Media Marketing Specialist <Kaila Li MD - Last Filed: 03/23/22 20:31> Lab Data [facility] Lab Attestation statement: I reviewed the patient's lab results. <Kaila Li MD - Last Filed: 03/23/22 20:31> Result Diagrams: 03/23/22 15:03 03/23/22 15:03 <TAMARA Mata - Last Filed: 03/23/22 14:55> Labs: Lab Results 03/23/22 03/23/22 03/23/22 Range/Units 15:03 15:03 15:03 WBC 7.0 (4.8-10.8) X10*3/uL RBC 6.02 H (4.60-5.80) X10*6/uL Hgb 17.5 (14.0-18.0) g/dl Hct 56.5 H (42.0-52.0) % MCV 93.9 (80.0-98.0) fL MCH 29.1 (27.0-33.0) pg MCHC 31.0 (31.0-36.0) g/dl RDW 14.4 (11.0-16.0) % Plt Count 167 (160-400) X10*3/uL MPV 10.5 (9.4-12.4) fL Immature Gran % (Auto) 0.1 (0.0-0.4) % Neut % (Auto) 73.2 H (45-73) % Lymph % (Auto) 16.3 L (20-40) % Nye % (Auto) 9.4 (2-11) % Eos % (Auto) 0.7 (0-4) % Baso % (Auto) 0.3 (0-2) % Lymph # (Auto) 1.2 (1.2-4.9) X10*3/uL Nye # (Auto) 0.7 (0.1-1.2) X10*3/uL Eos # (Auto) 0.1 (0.0-0.4) X10*3/uL Baso # (Auto) 0.0 (0.0-0.2) X10*3/uL Abs Immat Gran (auto) 0.01 (0.00-0.03) X10*3/uL Absolute Neuts (auto) 5.2 (2.0-8.3) x10*3/uL Absolute Nucleated RBC 0.000 (0.0-0.012) X10*3/uL Nucleated RBC % (auto) 0.0 (0.0-0.2) /100WBC D-Dimer High Sensitivty NG/ML VBG pH (7.32-7.43) VBG pCO2 mmHg VBG pO2 mmHg VBG HCO3 (22-26) mmol/L VBG O2 Saturation % VBG Base Excess mmol/L Sodium 142 (135-145) mmol/L Potassium 3.6 (3.3-5.1) mmol/L Chloride 97 (96-108) mmol/L Carbon Dioxide 34 H (22-29) mmol/L Anion Gap 15 (12-20) BUN 19 H (9-16) mg/dL Creatinine 1.10 (0.5-1.4) mg/dL Estim Creat Clear Calc 102.4 Estimated GFR > 60 Random Glucose 122 H (60-115) mg/dL Lactic Acid 1.4 (0.5-2.0) mmol/L Calcium 9.0 (8.4-10.2) mg/dL Magnesium 1.7 (1.6-2.6) mg/dL Total Bilirubin 1.0 (0.0-1.0) mg/dL Direct Bilirubin 0.4 (0.0-0.5) mg/dL AST 31 (5-37) U/L ALT 31 (0-40) U/L Alkaline Phosphatase 53 (39-117) U/L Troponin I High Sens (<3.5-35.0) ng/L B-Natriuretic Peptide (<100) pg/mL Total Protein 6.6 (6.5-8.0) g/dL Albumin 3.8 (3.5-5.0) g/dL Procalcitonin 0.11 ng/mL COVID-19 ([facility]) (Negative) COVID-19 Clin Com 03/23/22 03/23/22 03/23/22 Range/Units 15:03 15:03 15:31 WBC (4.8-10.8) X10*3/uL RBC (4.60-5.80) X10*6/uL Hgb (14.0-18.0) g/dl Hct (42.0-52.0) % MCV (80.0-98.0) fL MCH (27.0-33.0) pg MCHC (31.0-36.0) g/dl RDW (11.0-16.0) % Plt Count (160-400) X10*3/uL MPV (9.4-12.4) fL Immature Gran % (Auto) (0.0-0.4) % Neut % (Auto) (45-73) % Lymph % (Auto) (20-40) % Nye % (Auto) (2-11) % Eos % (Auto) (0-4) % Baso % (Auto) (0-2) % Lymph # (Auto) (1.2-4.9) X10*3/uL Nye # (Auto) (0.1-1.2) X10*3/uL Eos # (Auto) (0.0-0.4) X10*3/uL Baso # (Auto) (0.0-0.2) X10*3/uL Abs Immat Gran (auto) (0.00-0.03) X10*3/uL Absolute Neuts (auto) (2.0-8.3) x10*3/uL Absolute Nucleated RBC (0.0-0.012) X10*3/uL Nucleated RBC % (auto) (0.0-0.2) /100WBC D-Dimer High Sensitivty NG/ML VBG pH (7.32-7.43) VBG pCO2 mmHg VBG pO2 mmHg VBG HCO3 (22-26) mmol/L VBG O2 Saturation % VBG Base Excess mmol/L Sodium (135-145) mmol/L Potassium (3.3-5.1) mmol/L Chloride (96-108) mmol/L Carbon Dioxide (22-29) mmol/L Anion Gap (12-20) BUN (9-16) mg/dL Creatinine (0.5-1.4) mg/dL Estim Creat Clear Calc Estimated GFR Random Glucose (60-115) mg/dL Lactic Acid (0.5-2.0) mmol/L Calcium (8.4-10.2) mg/dL Magnesium (1.6-2.6) mg/dL Total Bilirubin (0.0-1.0) mg/dL Direct Bilirubin (0.0-0.5) mg/dL AST (5-37) U/L ALT (0-40) U/L Alkaline Phosphatase (39-117) U/L Troponin I High Sens 33.1 (<3.5-35.0) ng/L B-Natriuretic Peptide 53 (<100) pg/mL Total Protein (6.5-8.0) g/dL Albumin (3.5-5.0) g/dL Procalcitonin ng/mL COVID-19 ([facility]) Negative (Negative) COVID-19 Clin Com See Note 03/23/22 03/23/22 Range/Units 17:24 17:27 WBC (4.8-10.8) X10*3/uL RBC (4.60-5.80) X10*6/uL Hgb (14.0-18.0) g/dl Hct (42.0-52.0) % MCV (80.0-98.0) fL MCH (27.0-33.0) pg MCHC (31.0-36.0) g/dl RDW (11.0-16.0) % Plt Count (160-400) X10*3/uL MPV (9.4-12.4) fL Immature Gran % (Auto) (0.0-0.4) % Neut % (Auto) (45-73) % Lymph % (Auto) (20-40) % Nye % (Auto) (2-11) % Eos % (Auto) (0-4) % Baso % (Auto) (0-2) % Lymph # (Auto) (1.2-4.9) X10*3/uL Nye # (Auto) (0.1-1.2) X10*3/uL Eos # (Auto) (0.0-0.4) X10*3/uL Baso # (Auto) (0.0-0.2) X10*3/uL Abs Immat Gran (auto) (0.00-0.03) X10*3/uL Absolute Neuts (auto) (2.0-8.3) x10*3/uL Absolute Nucleated RBC (0.0-0.012) X10*3/uL Nucleated RBC % (auto) (0.0-0.2) /100WBC D-Dimer High Sensitivty < 150 NG/ML VBG pH 7.28 L (7.32-7.43) VBG pCO2 99 mmHg VBG pO2 86 mmHg VBG HCO3 47 H (22-26) mmol/L VBG O2 Saturation 95.0 % VBG Base Excess 13.9 mmol/L Sodium (135-145) mmol/L Potassium (3.3-5.1) mmol/L Chloride (96-108) mmol/L Carbon Dioxide (22-29) mmol/L Anion Gap (12-20) BUN (9-16) mg/dL Creatinine (0.5-1.4) mg/dL Estim Creat Clear Calc Estimated GFR Random Glucose (60-115) mg/dL Lactic Acid (0.5-2.0) mmol/L Calcium (8.4-10.2) mg/dL Magnesium (1.6-2.6) mg/dL Total Bilirubin (0.0-1.0) mg/dL Direct Bilirubin (0.0-0.5) mg/dL AST (5-37) U/L ALT (0-40) U/L Alkaline Phosphatase (39-117) U/L Troponin I High Sens (<3.5-35.0) ng/L B-Natriuretic Peptide (<100) pg/mL Total Protein (6.5-8.0) g/dL Albumin (3.5-5.0) g/dL Procalcitonin ng/mL COVID-19 ([facility]) (Negative) COVID-19 Clin Com <TAMARA Mata - Last Filed: 03/23/22 14:55> Lab Results 03/23/22 03/23/22 03/23/22 Range/Units 15:03 15:03 15:03 WBC 7.0 (4.8-10.8) X10*3/uL RBC 6.02 H (4.60-5.80) X10*6/uL Hgb 17.5 (14.0-18.0) g/dl Hct 56.5 H (42.0-52.0) % MCV 93.9 (80.0-98.0) fL MCH 29.1 (27.0-33.0) pg MCHC 31.0 (31.0-36.0) g/dl RDW 14.4 (11.0-16.0) % Plt Count 167 (160-400) X10*3/uL MPV 10.5 (9.4-12.4) fL Immature Gran % (Auto) 0.1 (0.0-0.4) % Neut % (Auto) 73.2 H (45-73) % Lymph % (Auto) 16.3 L (20-40) % Nye % (Auto) 9.4 (2-11) % Eos % (Auto) 0.7 (0-4) % Baso % (Auto) 0.3 (0-2) % Lymph # (Auto) 1.2 (1.2-4.9) X10*3/uL Nye # (Auto) 0.7 (0.1-1.2) X10*3/uL Eos # (Auto) 0.1 (0.0-0.4) X10*3/uL Baso # (Auto) 0.0 (0.0-0.2) X10*3/uL Abs Immat Gran (auto) 0.01 (0.00-0.03) X10*3/uL Absolute Neuts (auto) 5.2 (2.0-8.3) x10*3/uL Absolute Nucleated RBC 0.000 (0.0-0.012) X10*3/uL Nucleated RBC % (auto) 0.0 (0.0-0.2) /100WBC D-Dimer High Sensitivty NG/ML VBG pH (7.32-7.43) VBG pCO2 mmHg VBG pO2 mmHg VBG HCO3 (22-26) mmol/L VBG O2 Saturation % VBG Base Excess mmol/L Sodium 142 (135-145) mmol/L Potassium 3.6 (3.3-5.1) mmol/L Chloride 97 (96-108) mmol/L Carbon Dioxide 34 H (22-29) mmol/L Anion Gap 15 (12-20) BUN 19 H (9-16) mg/dL Creatinine 1.10 (0.5-1.4) mg/dL Estim Creat Clear Calc 102.4 Estimated GFR > 60 Random Glucose 122 H (60-115) mg/dL Lactic Acid 1.4 (0.5-2.0) mmol/L Calcium 9.0 (8.4-10.2) mg/dL Magnesium 1.7 (1.6-2.6) mg/dL Total Bilirubin 1.0 (0.0-1.0) mg/dL Direct Bilirubin 0.4 (0.0-0.5) mg/dL AST 31 (5-37) U/L ALT 31 (0-40) U/L Alkaline Phosphatase 53 (39-117) U/L Troponin I High Sens (<3.5-35.0) ng/L B-Natriuretic Peptide (<100) pg/mL Total Protein 6.6 (6.5-8.0) g/dL Albumin 3.8 (3.5-5.0) g/dL Procalcitonin 0.11 ng/mL COVID-19 ([facility]) (Negative) COVID-19 Clin Com 03/23/22 03/23/22 03/23/22 Range/Units 15:03 15:03 15:31 WBC (4.8-10.8) X10*3/uL RBC (4.60-5.80) X10*6/uL Hgb (14.0-18.0) g/dl Hct (42.0-52.0) % MCV (80.0-98.0) fL MCH (27.0-33.0) pg MCHC (31.0-36.0) g/dl RDW (11.0-16.0) % Plt Count (160-400) X10*3/uL MPV (9.4-12.4) fL Immature Gran % (Auto) (0.0-0.4) % Neut % (Auto) (45-73) % Lymph % (Auto) (20-40) % Nye % (Auto) (2-11) % Eos % (Auto) (0-4) % Baso % (Auto) (0-2) % Lymph # (Auto) (1.2-4.9) X10*3/uL Nye # (Auto) (0.1-1.2) X10*3/uL Eos # (Auto) (0.0-0.4) X10*3/uL Baso # (Auto) (0.0-0.2) X10*3/uL Abs Immat Gran (auto) (0.00-0.03) X10*3/uL Absolute Neuts (auto) (2.0-8.3) x10*3/uL Absolute Nucleated RBC (0.0-0.012) X10*3/uL Nucleated RBC % (auto) (0.0-0.2) /100WBC D-Dimer High Sensitivty NG/ML VBG pH (7.32-7.43) VBG pCO2 mmHg VBG pO2 mmHg VBG HCO3 (22-26) mmol/L VBG O2 Saturation % VBG Base Excess mmol/L Sodium (135-145) mmol/L Potassium (3.3-5.1) mmol/L Chloride (96-108) mmol/L Carbon Dioxide (22-29) mmol/L Anion Gap (12-20) BUN (9-16) mg/dL Creatinine (0.5-1.4) mg/dL Estim Creat Clear Calc Estimated GFR Random Glucose (60-115) mg/dL Lactic Acid (0.5-2.0) mmol/L Calcium (8.4-10.2) mg/dL Magnesium (1.6-2.6) mg/dL Total Bilirubin (0.0-1.0) mg/dL Direct Bilirubin (0.0-0.5) mg/dL AST (5-37) U/L ALT (0-40) U/L Alkaline Phosphatase (39-117) U/L Troponin I High Sens 33.1 (<3.5-35.0) ng/L B-Natriuretic Peptide 53 (<100) pg/mL Total Protein (6.5-8.0) g/dL Albumin (3.5-5.0) g/dL Procalcitonin ng/mL COVID-19 ([facility]) Negative (Negative) COVID-19 Clin Com See Note 03/23/22 03/23/22 Range/Units 17:24 17:27 WBC (4.8-10.8) X10*3/uL RBC (4.60-5.80) X10*6/uL Hgb (14.0-18.0) g/dl Hct (42.0-52.0) % MCV (80.0-98.0) fL MCH (27.0-33.0) pg MCHC (31.0-36.0) g/dl RDW (11.0-16.0) % Plt Count (160-400) X10*3/uL MPV (9.4-12.4) fL Immature Gran % (Auto) (0.0-0.4) % Neut % (Auto) (45-73) % Lymph % (Auto) (20-40) % Nye % (Auto) (2-11) % Eos % (Auto) (0-4) % Baso % (Auto) (0-2) % Lymph # (Auto) (1.2-4.9) X10*3/uL Nye # (Auto) (0.1-1.2) X10*3/uL Eos # (Auto) (0.0-0.4) X10*3/uL Baso # (Auto) (0.0-0.2) X10*3/uL Abs Immat Gran (auto) (0.00-0.03) X10*3/uL Absolute Neuts (auto) (2.0-8.3) x10*3/uL Absolute Nucleated RBC (0.0-0.012) X10*3/uL Nucleated RBC % (auto) (0.0-0.2) /100WBC D-Dimer High Sensitivty < 150 NG/ML VBG pH 7.28 L (7.32-7.43) VBG pCO2 99 mmHg VBG pO2 86 mmHg VBG HCO3 47 H (22-26) mmol/L VBG O2 Saturation 95.0 % VBG Base Excess 13.9 mmol/L Sodium (135-145) mmol/L Potassium (3.3-5.1) mmol/L Chloride (96-108) mmol/L Carbon Dioxide (22-29) mmol/L Anion Gap (12-20) BUN (9-16) mg/dL Creatinine (0.5-1.4) mg/dL Estim Creat Clear Calc Estimated GFR Random Glucose (60-115) mg/dL Lactic Acid (0.5-2.0) mmol/L Calcium (8.4-10.2) mg/dL Magnesium (1.6-2.6) mg/dL Total Bilirubin (0.0-1.0) mg/dL Direct Bilirubin (0.0-0.5) mg/dL AST (5-37) U/L ALT (0-40) U/L Alkaline Phosphatase (39-117) U/L Troponin I High Sens (<3.5-35.0) ng/L B-Natriuretic Peptide (<100) pg/mL Total Protein (6.5-8.0) g/dL Albumin (3.5-5.0) g/dL Procalcitonin ng/mL COVID-19 ([facility]) (Negative) COVID-19 Clin Com <Kaila Li MD - Last Filed: 03/23/22 20:31> Independent Interpretation I performed an independent interpretation of an: EKG (My EKG interpretation: Sinus tachycardia, heart rate 101, assisting with depression or elevation, no T-wave inversion, QTC 466) and Plain X-Ray (My interpretation of chest x-ray, likely pulmonary edema, worsening appearance of chest x-ray compared to previous visit) <Kaila Li MD - Last Filed: 03/23/22 20:31> Radiology Impression Discussion of test interpretation with radiology: I have reviewed the radiologist's reading. <Kaila Li MD - Last Filed: 03/23/22 20:31> Radiologist Impression: FINDINGS: The cardiac and mediastinal contours are stable. There are increased central hilar bronchovascular markings and increasing bilateral perihilar airspace disease. Differential would include pulmonary edema and pneumonia. There is no pleural effusion or pneumothorax. Visualized bony structures are unremarkable. XR/XR chest 1V IMPRESSION: Increased central hilar bronchovascular markings and agree hilar airspace disease. Differential would include pulmonary edema and pneumonia. Clinical correlation recommended. <Kaila Li MD - Last Filed: 03/23/22 20:31> Critical Care Time Critical Care Time Critical Care Time: Yes <Kaila Li MD - Last Filed: 03/23/22 20:31> Total Critical Care Time: 75 <Kaila Li MD - Last Filed: 03/23/22 20:31> Attestation: I have personally provided critical care time. Time includes review of lab data, radiology results, discussion with consultants, and monitoring for potential decompensation. Intervention performed as documented. <Kaila Li MD - Last Filed: 03/23/22 20:31> Discharge Plan Discharge Clinical Impression: Respiratory failure <TAMARA Mata - Last Filed: 03/23/22 14:55> Patient Disposition: Admitted As Inpatient <TAMARA Mata - Last Filed: 03/23/22 14:55> Prescriptions: No Action amlodipine 5 mg tablet 1 tab PO BEDTIME lisinopril 40 mg tablet 1 tab PO BEDTIME budesonide-formoterol [Symbicort] 160-4.5 mcg/actuation HFA aerosol inhaler 2 puff inhalation BID furosemide 40 mg Tablet 40 mg PO DAILY Qty: 30 0RF Protocol: Hold for SBP< HOLD for SBP < : 90 albuterol sulfate 90 mcg/actuation HFA aerosol inhaler 2 inh inhalation Q4H PRN (Reason: Shortness Of Breath) <TAMARA Mata - Last Filed: 03/23/22 14:55>
--- NOTE | 2022-03-23 14:56 | ECG_ITS ---
Test Reason : HYPOXIA Blood Pressure : / mmHG Vent. Rate : 101 BPM Atrial Rate : 101 BPM P-R Int : 154 ms QRS Dur : 098 ms QT Int : 360 ms P-R-T Axes : 068 017 075 degrees QTc Int : 466 ms Sinus tachycardia Possible Left atrial enlargement Possible Inferior infarct , age undetermined Abnormal ECG When compared with ECG of 11-MAR-2022 11:49, Borderline criteria for Inferior infarct are now Present Referred By: Zoe Jeffries Electronically Signed By:Kishan Aguilera
[2022-03-23] MEDS: Magnesium Sulfate/H2O 2 GM/50 ML PIGGYBACK IV (15:11)
[2022-03-23] MEDS: Albuterol Sulfate (0.083%) 2.5 MG/3 ML VIAL.NEB 10 MG INHALE (15:11)
[2022-03-23] MEDS: methylPREDNISolone Sod Succ 125 MG/2 ML VIAL IVPUSH (15:11)
[2022-03-23 15:14] LABS: MANUAL DIFF FLAG NO
--- NOTE | 2022-03-23 15:14 | ED_ITS ---
HPI - SOB/Dyspnea General Chief Complaint: Dyspnea Stated Complaint: low o2 diff breathing Time Seen by Provider: 03/23/22 14:52 Source: patient and family (Patient's mother) Mode of arrival: ambulatory Limitations: no limitations History of Present Illness HPI Narrative: Patient comes to the emergency room complaining of severe shortness of breath. Patient was discharged from the hospital on March 16, patient states that 1 day after discharge, he started having shortness of breath and gradually got much worse. Patient states that he has noticed that his oxygen was in the 70s at some point, but decided to hold off and was hoping that his oxygen would get better. Today, he checked his oxygen again, oxygen saturation in the 50s, decided to come to the emergency room. In triage, it was confirmed that his oxygen was significantly low, in the 50s/60s. Patient was started on a non- rebreather. Patient denies fever or chills. Patient denies history of CHF. However, based on him the hospitalist notes and cardiology notes, he was diagnosed with CHF earlier this month, secondary to left ventricle hypertrophy from chronic hypertension. Related Data Home Medications Medication Instructions Recorded Confirmed amlodipine 5 mg tablet 1 tab PO BEDTIME 01/12/21 03/23/22 budesonide-formoterol HFA 160 2 puff inhalation BID 01/12/21 03/23/22 mcg-4.5 mcg/actuation aerosol inhaler (Symbicort) lisinopril 40 mg tablet 1 tab PO BEDTIME 01/12/21 03/23/22 albuterol sulfate 90 mcg/actuation 2 inh inhalation Q4H PRN Shortness 01/28/21 03/23/22 aerosol inhaler Of Breath Previous Rx's Medication Instructions Recorded furosemide 40 mg tablet 40 mg PO DAILY #30 tabs 03/16/22 Allergies Allergy/AdvReac Type Severity Reaction Status Date / Time Penicillins [PENICILLINS] Allergy Unknown HIVES Verified 03/27/21 15:12 Review of Systems Review of Systems: Constitutional : No Weight loss, No Fever, No Chills, No Night Sweats, No Fatigue, No Malaise ENT/Mouth : No Hearing loss, No Ear Pain, No Nasal Congestion, No Sinus Pain, No Hoarseness, No sore throat, No Rhinorrhea, No Swallowing Difficulty Eyes: No Eye Pain, No Swelling, No Redness, No Foreign Body, No Discharge, No Vision Changes Cardiovascular : Chest pain, complaining of constant shortness of breath with or without exertion Respiratory : Complaining of wheezing and shortness of breath Gastrointestinal : No Nausea, No Vomiting, No Diarrhea, No Constipation, No abdominal Pain, No Hematochezia, No Melena Genitourinary : no irregular bleeding, No Dysuria, No Urinary Frequency, No Hematuria, No Urinary Incontinence, No Urgency, No Flank Pain, No Urinary Flow Changes, No Hesitancy Musculoskeletal : No joint pain, No Myalgias, No Joint Swelling Skin : No Skin Lesions, No rash Neuro : No Weakness, No Numbness, No Paresthesias, No Loss of Consciousness, No Dizziness, No Headache Psych : No Anxiety/Panic, No Depression, No SI/HI/AH/VH, No Social Issues, Heme/Lymph: No Bruising, No Bleeding,No Lymphadenopathy Endocrine : No Polyuria, No Polydipsia, No Temperature Intolerance PMFSH Past Medical History Medical History Asthma Cerebral palsy Chronic venous hypertension with ulcer Hypertension Surgical History H/O umbilical hernia repair Social History Social History Household Members: Family Housing: House Do you presently have visiting nurse or other home services: No Alcohol intake: never Patient Tobacco Use Status: Former Tobacco user Tobacco use type: Cigarette Advance Directives: No Advance Directives Information Provided: No service: No Current occupational status: employed Physical Exam Vital Signs: Vital Signs: Last Vital Signs Temp 97.0 F 03/23/22 15:00 Pulse 96 03/23/22 20:15 Resp 33 H 03/23/22 21:31 BP 142/90 H 03/23/22 18:00 Pulse Ox 88 L 03/23/22 18:00 O2 Del Method 03/23/22 18:00 O2 Flow Rate 40 03/23/22 17:15 FiO2 40 03/23/22 17:00 Oxygen Flow Rate 15 03/23/22 15:00 BMI result Body Mass Index 41.1 Const: Other: Appearance: Alert. Oriented X3. In respiratory distress Eyes: Pupils equal, round and reactive to light. ENT: Pharynx normal. Neck: Normal inspection. Neck supple. No lymph nodes noted. No crepitus CVS: Normal heart rate and rhythm. Pulses normal. Normal S1 and S2 Respiratory: Poor air movement, mild bilateral crackles, no wheezing Abdomen: Soft and nontender. No rigidity. No distention. Skin: Skin warm and dry. Normal skin color. Normal skin turgor. Extremities: No lower extremity edema. No Lacerations. No Rash Neuro: Oriented X 3. No motor deficit. No sensory deficit. Moving all extremities. No slurred speech. CN 2 through 12 grossly intact Psych: calm, cooperative, normal affect Course Course Course Narrative: -patient is in moderate respiratory distress, still able to speak in full sentences. -patient's oxygen significantly low on room air, down to the high 50s/low 60s, improved to 96% on a non-rebreather. -patient is on a BiPAP, patient has history of COPD/asthma/CHF. -patient receiving Lasix, IV Solu-Medrol, nebulization treatments, magnesium -of patient's labs and imaging pending Medications Administered Generic Name Dose Route Start Last Admin Trade Name Freq PRN Reason Stop Dose Admin Albuterol/Ipratropium 3 ml 03/23/22 20:00 03/23/22 20:12 Albuterol/Iprat 2.5/0.5mg 3 Ml Ampul.Neb INHALE 3 ml RQ4H WHILE AWAKE SHITAL Administration Heparin Sodium (Porcine) 5,000 unit 03/23/22 19:00 03/23/22 19:27 Heparin Sodium,Porcine 5,000 Unit/Ml Vial SUBCUT 5,000 unit Q8H SHITAL Administration Discontinued Medications Generic Name Dose Route Start Last Admin Trade Name Freq PRN Reason Stop Dose Admin Albuterol Sulfate 10 mg 03/23/22 14:57 03/23/22 15:11 Albuterol Sulfate (0.083%) 2.5 Mg/3 Ml Vial.Neb INHALE 03/23/22 14:58 10 mg ONCE ONE Administration Magnesium Sulfate 2 gm in 50 mls @ 25 mls/hr 03/23/22 14:57 03/23/22 15:30 Magnesium Sulfate/H2o IV 03/23/22 16:56 Infused ONCE ONE Infusion Vancomycin HCl 1,500 mg/ 500 mls @ 333.333 mls/hr 03/23/22 18:17 03/23/22 21:03 Sodium Chloride IV 03/23/22 19:46 333.33 mls/hr ONCE ONE Administration Levofloxacin 750 mg in 150 mls @ 100 mls/hr 03/23/22 18:17 03/23/22 21:06 Levaquin IV 03/23/22 19:46 Infused ONCE ONE Infusion Methylprednisolone Sodium Succinate 125 mg 03/23/22 14:57 03/23/22 15:11 Methylprednisolone Sod Succ 125 Mg/2 Ml Vial IVPUSH 03/23/22 14:58 125 mg ONCE ONE Administration Medical Decision Making Medical Decision Making MDM Narrative: -patient's D-dimer and venous blood gas is pending. -17:18, patient's oxygen saturation dropping to the mid 80s on CPAP. Patient is obtunded, unarousable. Lab Data 03/23/22 15:03 03/23/22 15:03 Labs: Lab Results 03/23/22 03/23/22 03/23/22 Range/Units 15:03 15:03 15:03 WBC 7.0 (4.8-10.8) X10*3/uL RBC 6.02 H (4.60-5.80) X10*6/uL Hgb 17.5 (14.0-18.0) g/dl Hct 56.5 H (42.0-52.0) % MCV 93.9 (80.0-98.0) fL MCH 29.1 (27.0-33.0) pg MCHC 31.0 (31.0-36.0) g/dl RDW 14.4 (11.0-16.0) % Plt Count 167 (160-400) X10*3/uL MPV 10.5 (9.4-12.4) fL Immature Gran % (Auto) 0.1 (0.0-0.4) % Neut % (Auto) 73.2 H (45-73) % Lymph % (Auto) 16.3 L (20-40) % [place] % (Auto) 9.4 (2-11) % Eos % (Auto) 0.7 (0-4) % Baso % (Auto) 0.3 (0-2) % Lymph # (Auto) 1.2 (1.2-4.9) X10*3/uL [place] # (Auto) 0.7 (0.1-1.2) X10*3/uL Eos # (Auto) 0.1 (0.0-0.4) X10*3/uL Baso # (Auto) 0.0 (0.0-0.2) X10*3/uL Abs Immat Gran (auto) 0.01 (0.00-0.03) X10*3/uL Absolute Neuts (auto) 5.2 (2.0-8.3) x10*3/uL Absolute Nucleated RBC 0.000 (0.0-0.012) X10*3/uL Nucleated RBC % (auto) 0.0 (0.0-0.2) /100WBC D-Dimer High Sensitivty NG/ML VBG pH (7.32-7.43) VBG pCO2 mmHg VBG pO2 mmHg VBG HCO3 (22-26) mmol/L VBG O2 Saturation % VBG Base Excess mmol/L Sodium 142 (135-145) mmol/L Potassium 3.6 (3.3-5.1) mmol/L Chloride 97 (96-108) mmol/L Carbon Dioxide 34 H (22-29) mmol/L Anion Gap 15 (12-20) BUN 19 H (9-16) mg/dL Creatinine 1.10 (0.5-1.4) mg/dL Estim Creat Clear Calc 102.4 Estimated GFR > 60 Random Glucose 122 H (60-115) mg/dL Lactic Acid 1.4 (0.5-2.0) mmol/L Calcium 9.0 (8.4-10.2) mg/dL Magnesium 1.7 (1.6-2.6) mg/dL Total Bilirubin 1.0 (0.0-1.0) mg/dL Direct Bilirubin 0.4 (0.0-0.5) mg/dL AST 31 (5-37) U/L ALT 31 (0-40) U/L Alkaline Phosphatase 53 (39-117) U/L Troponin I High Sens (<3.5-35.0) ng/L B-Natriuretic Peptide (<100) pg/mL Total Protein 6.6 (6.5-8.0) g/dL Albumin 3.8 (3.5-5.0) g/dL Procalcitonin 0.11 ng/mL COVID-19 ([facility]) (Negative) COVID-19 Clin Com 03/23/22 03/23/22 03/23/22 Range/Units 15:03 15:03 15:31 WBC (4.8-10.8) X10*3/uL RBC (4.60-5.80) X10*6/uL Hgb (14.0-18.0) g/dl Hct (42.0-52.0) % MCV (80.0-98.0) fL MCH (27.0-33.0) pg MCHC (31.0-36.0) g/dl RDW (11.0-16.0) % Plt Count (160-400) X10*3/uL MPV (9.4-12.4) fL Immature Gran % (Auto) (0.0-0.4) % Neut % (Auto) (45-73) % Lymph % (Auto) (20-40) % [place] % (Auto) (2-11) % Eos % (Auto) (0-4) % Baso % (Auto) (0-2) % Lymph # (Auto) (1.2-4.9) X10*3/uL [place] # (Auto) (0.1-1.2) X10*3/uL Eos # (Auto) (0.0-0.4) X10*3/uL Baso # (Auto) (0.0-0.2) X10*3/uL Abs Immat Gran (auto) (0.00-0.03) X10*3/uL Absolute Neuts (auto) (2.0-8.3) x10*3/uL Absolute Nucleated RBC (0.0-0.012) X10*3/uL Nucleated RBC % (auto) (0.0-0.2) /100WBC D-Dimer High Sensitivty NG/ML VBG pH (7.32-7.43) VBG pCO2 mmHg VBG pO2 mmHg VBG HCO3 (22-26) mmol/L VBG O2 Saturation % VBG Base Excess mmol/L Sodium (135-145) mmol/L Potassium (3.3-5.1) mmol/L Chloride (96-108) mmol/L Carbon Dioxide (22-29) mmol/L Anion Gap (12-20) BUN (9-16) mg/dL Creatinine (0.5-1.4) mg/dL Estim Creat Clear Calc Estimated GFR Random Glucose (60-115) mg/dL Lactic Acid (0.5-2.0) mmol/L Calcium (8.4-10.2) mg/dL Magnesium (1.6-2.6) mg/dL Total Bilirubin (0.0-1.0) mg/dL Direct Bilirubin (0.0-0.5) mg/dL AST (5-37) U/L ALT (0-40) U/L Alkaline Phosphatase (39-117) U/L Troponin I High Sens 33.1 (<3.5-35.0) ng/L B-Natriuretic Peptide 53 (<100) pg/mL Total Protein (6.5-8.0) g/dL Albumin (3.5-5.0) g/dL Procalcitonin ng/mL COVID-19 ([facility]) Negative (Negative) COVID-19 Clin Com See Note 03/23/22 03/23/22 Range/Units 17:24 17:27 WBC (4.8-10.8) X10*3/uL RBC (4.60-5.80) X10*6/uL Hgb (14.0-18.0) g/dl Hct (42.0-52.0) % MCV (80.0-98.0) fL MCH (27.0-33.0) pg MCHC (31.0-36.0) g/dl RDW (11.0-16.0) % Plt Count (160-400) X10*3/uL MPV (9.4-12.4) fL Immature Gran % (Auto) (0.0-0.4) % Neut % (Auto) (45-73) % Lymph % (Auto) (20-40) % [place] % (Auto) (2-11) % Eos % (Auto) (0-4) % Baso % (Auto) (0-2) % Lymph # (Auto) (1.2-4.9) X10*3/uL [place] # (Auto) (0.1-1.2) X10*3/uL Eos # (Auto) (0.0-0.4) X10*3/uL Baso # (Auto) (0.0-0.2) X10*3/uL Abs Immat Gran (auto) (0.00-0.03) X10*3/uL Absolute Neuts (auto) (2.0-8.3) x10*3/uL Absolute Nucleated RBC (0.0-0.012) X10*3/uL Nucleated RBC % (auto) (0.0-0.2) /100WBC D-Dimer High Sensitivty < 150 NG/ML VBG pH 7.28 L (7.32-7.43) VBG pCO2 99 mmHg VBG pO2 86 mmHg VBG HCO3 47 H (22-26) mmol/L VBG O2 Saturation 95.0 % VBG Base Excess 13.9 mmol/L Sodium (135-145) mmol/L Potassium (3.3-5.1) mmol/L Chloride (96-108) mmol/L Carbon Dioxide (22-29) mmol/L Anion Gap (12-20) BUN (9-16) mg/dL Creatinine (0.5-1.4) mg/dL Estim Creat Clear Calc Estimated GFR Random Glucose (60-115) mg/dL Lactic Acid (0.5-2.0) mmol/L Calcium (8.4-10.2) mg/dL Magnesium (1.6-2.6) mg/dL Total Bilirubin (0.0-1.0) mg/dL Direct Bilirubin (0.0-0.5) mg/dL AST (5-37) U/L ALT (0-40) U/L Alkaline Phosphatase (39-117) U/L Troponin I High Sens (<3.5-35.0) ng/L B-Natriuretic Peptide (<100) pg/mL Total Protein (6.5-8.0) g/dL Albumin (3.5-5.0) g/dL Procalcitonin ng/mL COVID-19 ([facility]) (Negative) COVID-19 Clin Com Discharge Plan Discharge Clinical Impression: Respiratory failure Patient Disposition: Admitted As Inpatient Interventions: Admission Worksheet (ED) Last Done: 03/23/22 22:44 Discharge Date/Time: 03/23/22 22:32
--- NOTE | 2022-03-23 15:14 | PC.NURSE ---
pt on bipap at this time. 01/14 30%
[2022-03-23 15:16] LABS: Basophils Percent Auto 0.3 % (0-2); Eosinophils Absolute Auto 0.1 X10*3/uL (0.0-0.4); Eosinophils Percent Auto 0.7 % (0-4); Hemoglobin 17.5 g/dl (14.0-18.0); Imm Gran Abs Auto 0.01 X10*3/uL (0.00-0.03); Imm Gran Pct Auto 0.1 % (0.0-0.4); Lymphocytes Absolute Auto 1.2 X10*3/uL (1.2-4.9); Lymphocytes Percent Auto 16.3 % (20-40); Mean Corpuscular Hemoglobin 29.1 pg (27.0-33.0); Mean Corpuscular Volume 93.9 fL (80.0-98.0); Mean Platelet Volume 10.5 fL (9.4-12.4); Monocytes Absolute Auto 0.7 X10*3/uL (0.1-1.2); Monocytes Percent Auto 9.4 % (2-11); Neutrophils Absolute Auto 5.2 x10*3/uL (2.0-8.3); Neutrophils Percent Auto 73.2 % (45-73); Platelet Count 167 X10*3/uL (160-400); Red Blood Count 6.02 X10*6/uL (4.60-5.80); Red Cell Distribution Width 14.4 % (11.0-16.0)
[2022-03-23 15:20] LABS: Hematocrit 56.5 % (42.0-52.0)
[2022-03-23 15:26] LABS: Lactic Acid 1.4 mmol/L (0.5-2.0)
[2022-03-23 15:35] LABS: B Type Natriuretic Peptide 53 pg/mL (<100)
[2022-03-23 15:37] LABS: Alanine Aminotransferase 31 U/L (0-40); Albumin Level 3.8 g/dL (3.5-5.0); Alkaline Phosphatase 53 U/L (39-117); Anion Gap 15 (12-20); Aspartate Amino Transferase 31 U/L (5-37); Bilirubin Direct 0.4 mg/dL (0.0-0.5); Blood Urea Nitrogen 19 mg/dL (9-16); Carbon Dioxide 34 mmol/L (22-29); Chloride 97 mmol/L (96-108); Creatinine Clr Calc Pharmacy 102.4; Estimated Glomerular Filt Rate > 60; Glucose Random 122 mg/dL (60-115); Magnesium 1.7 mg/dL (1.6-2.6); Potassium 3.6 mmol/L (3.3-5.1); Sodium 142 mmol/L (135-145); Total Protein 6.6 g/dL (6.5-8.0); Troponin-I High Sensitivity 33.1 ng/L (<3.5-35.0)
[2022-03-23 15:51] LABS: Procalcitonin 0.11 ng/mL
[2022-03-23 16:02] LABS: COVID-19 Test Negative (Negative); IDNOW Serial# 16C4AD1C
--- NOTE | 2022-03-23 16:03 | PHA.MEDREC ---
Pharmacy Consult ? Medication Reconciliation Pharmacy has completed the medication reconciliation. spoke with pt and family member in room
--- NOTE | 2022-03-23 16:13 | PC.NURSE ---
15/7 40% for bipap settings
--- NOTE | 2022-03-23 17:27 | PC.NURSE ---
18g r forearm placed. labs obtained. pt woke up to painful stimuli and was asking and answering questions appropriately. plan for echo at bedside and continue to monitor for more advanced airway.
[2022-03-23 17:35] LABS: VBG Base Excess 13.9 mmol/L; VBG HCO3 47 mmol/L (22-26); VBG pCO2 99 mmHg; VBG pH 7.28 (7.32-7.43); VBG pO2 86 mmHg
[2022-03-23 17:39] LABS: Venous Blood Gas Refer to POC result
[2022-03-23 17:49] LABS: D Dimer High Sensitivity < 150 NG/ML
--- NOTE | 2022-03-23 18:14 | PM.CCHP ---
History of Present Illness Date of Service: 03/23/22 Attending physician on admission: Beverly Crane Chief Complaint: increasing shortness of breath 6 days post discharge 47-year-old morbidly obese male with severe bilateral chronic stasis dermatitis and stasis ulcers under the care of Wound Care who presents with acute on chronic hypercarbic and hypoxic respiratory failure and an oxygen saturation in the 50s and with profound alteration of mental status pretty much unarousable but was placed in the emergency room on BiPAP and when about to intubate him because of poor GCS score he all of a sudden woke up and despite the fact that he had asterixis started to make sense he was able to talk and clearly was able to follow commands and therefore safeguard his airway and we felt a little bit more time on the BiPAP and will repeat the blood gas his current pCO2 was 100 so if he approves and the acute respiratory acidosis improves then we will continue with noninvasive ventilation for now but clearly needs to be admitted bedside echo shows normal left ventricular and right ventricular size structure and function with no primary valve or pericardial disease being that he woke up and was appropriate repeat blood gas showing pCO2 now down to 84 from its peak of 100 we kept him on BiPAP and we will titrate up on our volume per breath to bring his pCO2 down to approximately 70 which is close to his chronic state of affairs and at that point possibly introduce in 0 food we will obtain CT scan and see if we could narrow down the etiology he claims that a lot of his exacerbation occurs 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 which which dramatically worsens his with his work of breathing Review of Systems Review of Systems: no reports of associated chest pain no productive cough no fever no chills Yes all other systems are reviewed and are negative [facility] Past Medical History Medical History Asthma Cerebral palsy Chronic venous hypertension with ulcer Hypertension Surgical History Surgical History H/O umbilical hernia repair Social History Social History Household Members: Family Housing: House Do you presently have visiting nurse or other home services: No Alcohol intake: never Patient Tobacco Use Status: Former Tobacco user Tobacco use type: Cigarette Smoked in Last 30 Days: No e-Cigarette/Vaping Use: Never Used Patient Interested in Nicotine Replacement: No Patient Given Instructions on How to Stop Smoking: No Second Hand Smoke Exposure: No Use of substances other than those prescribed or required for medical reasons: Yes Substance Use Type: Marijuana Substance Use Type Other:: 3-4 per week at bedtime pt has an edible to help with sleep Currently Displaying Signs/Symptoms of Drug Intoxication Withdrawal: No Any prior treatment program specific to substance use: No Have you been hit, kicked, punched, or otherwise hurt by someone within the past year? If so, by whom?: No Do you feel safe in your current relationship?: No Current Relationship Is there a partner from a previous relationship who is making you feel unsafe now?: No Are you made to feel afraid or neglected: No Advance Directives: No Advance Directives Information Provided: No Do you have thoughts of harming others: None Do you have a plan to hurt others: No Plan Recently lost weight without trying: No Eating poorly because of decreased appetite: No Nutrition Risks: No Nutritional Risk Poor oral hygiene: No service: No Current occupational status: employed Meds Allergies Allergy/AdvReac Type Severity Reaction Status Date / Time Penicillins [PENICILLINS] Allergy Unknown HIVES Verified 03/27/21 15:12 Active Medications: Current Medications Pharmacy Consult (Consult Rx Perform Med Rec) 1 each MISCELLANE ONCE PRN PRN Reason: Consult order Home Medications Medication Instructions Recorded Confirmed Last Taken Type amlodipine 5 mg tablet 1 tab PO BEDTIME 01/12/21 03/23/22 03/23/22 History budesonide-formoterol HFA 160 2 puff inhalation BID 01/12/21 03/23/22 03/10/22 History mcg-4.5 mcg/actuation aerosol inhaler (Symbicort) lisinopril 40 mg tablet 1 tab PO BEDTIME 01/12/21 03/23/22 03/22/22 History albuterol sulfate 90 mcg/actuation 2 inh inhalation Q4H PRN Shortness 01/28/21 03/23/22 Unknown History aerosol inhaler Of Breath Physical Exam Vital Signs: Vital Signs: Last Vital Signs Temp 97.0 F 03/23/22 15:00 Pulse 100 03/23/22 18:00 Resp 30 H 03/23/22 18:00 BP 142/90 H 03/23/22 18:00 Pulse Ox 88 L 03/23/22 18:00 O2 Del Method 03/23/22 18:00 O2 Flow Rate 40 03/23/22 17:15 FiO2 40 03/23/22 17:00 Oxygen Flow Rate 15 03/23/22 15:00 BMI result Body Mass Index 41.1 vital signs is stable he is now alert and oriented and nonfocal neurologically a bedside echo indicates normal LV function without primary valve or pericardial disease diminished bilateral breath sounds but clear cut diaphragmatic effort due to prolonged expiration and probable bronchospasm severe bilateral stasis dermatitis Results Labs 03/23/22 15:03 03/23/22 15:03 Labs: Laboratory Results - last 24 hr 03/23/22 03/23/22 03/23/22 15:03 15:03 15:03 MCV 93.9 MCH 29.1 MCHC 31.0 RDW 14.4 Plt Count 167 MPV 10.5 Immature Gran % (Auto) 0.1 Neut % (Auto) 73.2 H Lymph % (Auto) 16.3 L [place] % (Auto) 9.4 Eos % (Auto) 0.7 Baso % (Auto) 0.3 Lymph # (Auto) 1.2 [place] # (Auto) 0.7 Eos # (Auto) 0.1 Baso # (Auto) 0.0 Abs Immat Gran (auto) 0.01 Absolute Neuts (auto) 5.2 Absolute Nucleated RBC 0.000 Nucleated RBC % (auto) 0.0 D-Dimer High Sensitivty VBG pH VBG pCO2 VBG pO2 VBG HCO3 VBG O2 Saturation VBG Base Excess Anion Gap 15 Estim Creat Clear Calc 102.4 Estimated GFR > 60 Random Glucose 122 H Lactic Acid 1.4 Calcium 9.0 Magnesium 1.7 Total Bilirubin 1.0 Direct Bilirubin 0.4 AST 31 ALT 31 Alkaline Phosphatase 53 Troponin I High Sens B-Natriuretic Peptide Total Protein 6.6 Albumin 3.8 Procalcitonin 0.11 COVID-19 ([facility]) COVID-19 Clin Com 03/23/22 03/23/22 03/23/22 15:03 15:03 15:31 MCV MCH MCHC RDW Plt Count MPV Immature Gran % (Auto) Neut % (Auto) Lymph % (Auto) [place] % (Auto) Eos % (Auto) Baso % (Auto) Lymph # (Auto) [place] # (Auto) Eos # (Auto) Baso # (Auto) Abs Immat Gran (auto) Absolute Neuts (auto) Absolute Nucleated RBC Nucleated RBC % (auto) D-Dimer High Sensitivty VBG pH VBG pCO2 VBG pO2 VBG HCO3 VBG O2 Saturation VBG Base Excess Anion Gap Estim Creat Clear Calc Estimated GFR Random Glucose Lactic Acid Calcium Magnesium Total Bilirubin Direct Bilirubin AST ALT Alkaline Phosphatase Troponin I High Sens 33.1 B-Natriuretic Peptide 53 Total Protein Albumin Procalcitonin COVID-19 ([facility]) Negative COVID-19 Clin Com See Note 03/23/22 03/23/22 17:24 17:27 MCV MCH MCHC RDW Plt Count MPV Immature Gran % (Auto) Neut % (Auto) Lymph % (Auto) [place] % (Auto) Eos % (Auto) Baso % (Auto) Lymph # (Auto) [place] # (Auto) Eos # (Auto) Baso # (Auto) Abs Immat Gran (auto) Absolute Neuts (auto) Absolute Nucleated RBC Nucleated RBC % (auto) D-Dimer High Sensitivty < 150 VBG pH 7.28 L VBG pCO2 99 VBG pO2 86 VBG HCO3 47 H VBG O2 Saturation 95.0 VBG Base Excess 13.9 Anion Gap Estim Creat Clear Calc Estimated GFR Random Glucose Lactic Acid Calcium Magnesium Total Bilirubin Direct Bilirubin AST ALT Alkaline Phosphatase Troponin I High Sens B-Natriuretic Peptide Total Protein Albumin Procalcitonin COVID-19 ([facility]) COVID-19 Clin Com Imaging Radiologist's Impressions: Impressions Chest X-Ray 03/23/22 16:09 IMPRESSION: Increased central hilar bronchovascular markings and agree hilar airspace disease. Differential would include pulmonary edema and pneumonia. Clinical correlation recommended. Assessment and Plan (1) Respiratory failure: Status: Acute (2) Acute on chronic respiratory failure with hypoxia and hypercapnia: Status: Acute (3) Essential hypertension: Status: Acute (4) CHF (congestive heart failure): Status: Acute (5) Diastolic CHF with preserved left ventricular function, NYHA class 2: Status: Acute (6) Cellulitis of leg, right: Status: Acute (7) Varicose veins of right lower extremity with inflammation: Status: Acute Plan for now will maintain on BiPAP and aggressive bronchodilator therapy including steroids and just empiric antibiotic coverage and will probably pursue a more extensive respiratory pathogen panel in the morning Time Spent With Patient Time: Total time managing care of this patient today 75___ minutes.
[2022-03-23] MEDS: levoFLOXacin/D5W 750 MG/150 ML PIGGYBACK 100 MG IV (19:27)
[2022-03-23] MEDS: Heparin Sodium,Porcine 5,000 UNIT/ML VIAL 5000 UNIT SUBCUT (19:27)
--- NOTE | 2022-03-23 19:38 | PC.NURSE ---
[phone] - Mother Cell phone
[2022-03-23] MEDS: Albuterol/Iprat 2.5/0.5MG 3 ML AMPUL.NEB INHALE (20:12)
[2022-03-23] MEDS: vancomycin HCL 1,500 MG in 0.9 % Sodium Chloride 500 ML 333.33 MG IV (21:03)
[2022-03-23 21:21] LABS: VBG Base Excess 11.9 mmol/L; VBG HCO3 44 mmol/L (22-26); VBG pCO2 90 mmHg; VBG pH 7.29 (7.32-7.43); VBG pO2 115 mmHg
[2022-03-23 21:23] LABS: Venous Blood Gas Refer to POC result
[2022-03-24] VITALS (34 sets, daily range): BP systolic 114–162; BP diastolic 53–91; PULSE 66–87; RESP 12–75; TEMP 36.8–37.2; O2SAT 89–95; BMI 40.4
[2022-03-24] MEDS: Heparin Sodium,Porcine 5,000 UNIT/ML VIAL 5000 UNIT SUBCUT ×3 (03:17→21:17)
[2022-03-24 05:05] LABS: VBG Base Excess 10.5 mmol/L; VBG HCO3 41 mmol/L (22-26); VBG pCO2 81 mmHg; VBG pH 7.31 (7.32-7.43); VBG pO2 74 mmHg
[2022-03-24 05:11] LABS: Venous Blood Gas Refer to POC result
[2022-03-24 05:48] LABS: Imm Gran Abs Auto 0.02 X10*3/uL (0.00-0.03); Imm Gran Pct Auto 0.6 % (0.0-0.4); MANUAL DIFF FLAG SCAN; Mean Corpuscular Volume 96.2 fL (80.0-98.0); Mean Platelet Volume 10.7 fL (9.4-12.4); Monocytes Absolute Auto 0.2 X10*3/uL (0.1-1.2); Monocytes Percent Auto 5.8 % (2-11); PLT CLUMP 1; SCAN SMEAR FLAG 1
[2022-03-24 05:50] LABS: Hematocrit 53.8 % (42.0-52.0); Lymphocytes Absolute Auto 0.6 X10*3/uL (1.2-4.9); Lymphocytes Percent Auto 15.2 % (20-40); Mean Corpuscular HGB Conc 29.7 g/dl (31.0-36.0); Mean Corpuscular Hemoglobin 28.6 pg (27.0-33.0); Neutrophils Absolute Auto 2.8 x10*3/uL (2.0-8.3); Neutrophils Percent Auto 78.4 % (45-73); Red Blood Count 5.59 X10*6/uL (4.60-5.80); Red Cell Distribution Width 14.1 % (11.0-16.0)
[2022-03-24 05:54] LABS: Platelet Count 132 X10*3/uL (160-400); White Blood Count 3.6 X10*3/uL (4.8-10.8)
[2022-03-24 06:06] LABS: Albumin Level 3.5 g/dL (3.5-5.0); Anion Gap 16 (12-20); Blood Urea Nitrogen 18 mg/dL (9-16); Calcium 8.8 mg/dL (8.4-10.2); Carbon Dioxide 31 mmol/L (22-29); Chloride 100 mmol/L (96-108); Creatinine Clr Calc Pharmacy 137.8; Estimated Glomerular Filt Rate > 60; Glucose Random 118 mg/dL (60-115); Phosphorus 4.9 mg/dL (2.7-4.5); Potassium 4.9 mmol/L (3.3-5.1); Sodium 142 mmol/L (135-145)
[2022-03-24 06:33] LABS: SLIDE REVIEW VERIFIED
[2022-03-24] MEDS: Albuterol/Iprat 2.5/0.5MG 3 ML AMPUL.NEB INHALE ×4 (08:20→20:10)
--- NOTE | 2022-03-24 08:42 | MHC.CM.PN ---
Addendum entered by Leonie Salazar 03/24/22 08:48: NA NOT CONTRACTED WITH [facility], WILL SEND REFERRAL TO CONTRACTED AGENCY. Original Note: CM SPOKE WITH MOTHER MEGAN VIA TELEPHONE. PT LIVES WITH MOTHER IN A [facility]. NO PRIOR SERVICES . USES A CPAP AT NIGHT, VENDOR IS [facility]. +HCP ON FILE NAMING MOTHER. +COVID VAX X1 PT IS EMPLOYED [employer]. PCP DR. PASCUAL TAYLOR AT [facility]. DP: MOTHER FEELS PT WILL BE OPEN TO [facility] IF REC. AT [place], REFERRAL SENT TO [facility] TO FOLLOW. MOTHER WILL TRANSPORT HOME ON DC. CM WILL CONTINUE TO FOLLOW.
[2022-03-24 11:53] LABS: Adenovirus PCR Not Detected (Not Detect.); Bordetella parapertussis PCR Not Detected (Not Detect.); Bordetella pertussis PCR Not Detected (Not Detect.); Chlamydia pneumoniae PCR Not Detected (Not Detect.); Coronavirus 229E PCR Not Detected (Not Detect.); Coronavirus HKU1 PCR Not Detected (Not Detect.); Coronavirus NL63 PCR Not Detected (Not Detect.); Coronavirus OC43 PCR Not Detected (Not Detect.); Human metapneumovirus PCR Detected (Not Detect.); Influenza A PCR Not Detected (Not Detect.); Influenza B PCR Not Detected (Not Detect.); Mycoplasma pneumoniae PCR Not Detected (Not Detect.); Parainfluenza 1 PCR Not Detected (Not Detect.); Rhino/Enterovirus PCR Not Detected (Not Detect.); SARS-CoV-2 PCR Not Detected (Not Detect.)
[2022-03-24 11:54] LABS: Parainfluenza 2 PCR Not Detected (Not Detect.); Parainfluenza 3 PCR Not Detected (Not Detect.); Parainfluenza 4 PCR Not Detected (Not Detect.); RSV PCR Not Detected (Not Detect.)
[2022-03-24 12:56] LABS: Venous Blood Gas Refer to POC result
[2022-03-24 12:56] LABS: VBG Base Excess 17.7 mmol/L; VBG HCO3 48 mmol/L (22-26); VBG pCO2 84 mmHg; VBG pH 7.36 (7.32-7.43); VBG pO2 112 mmHg
--- NOTE | 2022-03-24 13:01 | P.CDIC_ITS ---
CDI Concurrent Query Documentation Clarification: PHYSICIAN'S DOCUMENTATION REQUEST Date of Query: 03/24/22 1301 Patient Name: Arnaud José Admit Date: 03/23/22 Dear Doctor, A review of the medical record indicates additional documentation may be needed. Please review below and update the documentation accordingly. Clinical Indicators: Is there a diagnosis that correlates with the findings below: Risk Factors/Clinical Indicators/Treatments Per ED note on 03/23: Patient's oxygen saturation has been between the mid 80s up to the low 90s.? At some point, patient became obtunded, difficult to arouse. Per provider H&P on 03/23: presents with acute on chronic hypercarbic and hypoxic respiratory failure and an oxygen saturation in the 50s and with profound alteration of mental status pretty much unarousable but was placed in the emergency room on BiPAP and when about to intubate him because of poor GCS score Per RN shift assessments: Patient drowsy & arousable to light-deep pain and sternal rub only. Based on the above, could you clarify in the Progress Notes which, if any of the following, is the most likely etiology of the confusion/altered mental status? * Encephalopathy - indicate type such as metabolic, toxic, etc. * Other etiology (please specify) * Unable to determine Use of terms such as suspected, likely, concern for, or probable (associated with a specific diagnosis that is being evaluated, monitored, or treated as if it exists) are acceptable and can be coded in the inpatient setting, when documented at the time of discharge. Thank you, Sharonda Castle MS, RN, CCRN Extension: [phone] Please use your independent medical judgment in providing your response. THIS QUERY IS PART OF THE PERMANENT MEDICAL RECORD Provider Response: Metabolic Encephalopathy Other Diagnosis: Metabolic encephalopathy based primarily upon degree of hypercarbia contributed to by degree of hypoxia
--- NOTE | 2022-03-24 13:57 | PM.CCPN ---
Subjective Subjective Date of Service: 03/24/22 Interval History: 47-year-old moderately obese male presenting with acute on chronic hypercarbic and hypoxic respiratory failure just 6 days after being discharged from the hospital here where he was treated with bronchodilators including steroids which he was to taper over the week and had been diuresed based on his diastolic CHF but presented with an oxygen saturation on room air of 50% requiring immediate rescue BiPAP and initially was unresponsive and very close to intubation but the associated asterixis and just as we were about to intubate he began to wake up and his speech became was appropriate he had good cognitive function so the repeat blood gas showed a small improvement in his respiratory acidosis but enough to sustain him and he was able to protect his airway so we persisted with the BiPAP device and we were going to maintain this continuously overnight until E at further correction of his his pCO2 respiratory pathogen metapneumovirus is the cause of what we see on CT scan which are bilateral islands of ground-glass Critical Care Time (minutes): 45 Physical Exam Vital Signs: Vital Signs: Last Vital Signs Temp 98.3 F 03/24/22 08:00 Pulse 73 03/24/22 13:00 Resp 22 H 03/24/22 13:00 BP 141/82 H 03/24/22 13:00 Pulse Ox 91 L 03/24/22 13:00 O2 Del Method 03/24/22 13:00 O2 Flow Rate 40 03/23/22 17:15 FiO2 50 03/24/22 13:00 Oxygen Flow Rate 15 03/23/22 15:00 BMI result Body Mass Index 40.4 awake alert with good cognitive function nonfocal bedside ech o with good LV function good RV function also defined without inferior vena caval dilatation diminished bilateral breath sounds but much less diaphragmatic eff ort abdomen without organomegaly Objective Data Labs 03/24/22 05:01 03/24/22 05:01 Labs: Laboratory Results - last 24 hr 03/23/22 03/23/22 03/23/22 15:03 15:03 15:03 WBC 7.0 RBC 6.02 H Hgb 17.5 Hct 56.5 H MCV 93.9 MCH 29.1 MCHC 31.0 RDW 14.4 Plt Count 167 MPV 10.5 Immature Gran % (Auto) 0.1 Neut % (Auto) 73.2 H Lymph % (Auto) 16.3 L [place] % (Auto) 9.4 Eos % (Auto) 0.7 Baso % (Auto) 0.3 Lymph # (Auto) 1.2 [place] # (Auto) 0.7 Eos # (Auto) 0.1 Baso # (Auto) 0.0 Abs Immat Gran (auto) 0.01 Absolute Neuts (auto) 5.2 Absolute Nucleated RBC 0.000 Nucleated RBC % (auto) 0.0 Smear Tech's Comments D-Dimer High Sensitivty VBG pH VBG pCO2 VBG pO2 VBG HCO3 VBG O2 Saturation VBG Base Excess Sodium 142 Potassium 3.6 Chloride 97 Carbon Dioxide 34 H Anion Gap 15 BUN 19 H Creatinine 1.10 Estim Creat Clear Calc 102.4 Estimated GFR > 60 Random Glucose 122 H Lactic Acid 1.4 Calcium 9.0 Phosphorus Magnesium 1.7 Total Bilirubin 1.0 Direct Bilirubin 0.4 AST 31 ALT 31 Alkaline Phosphatase 53 Troponin I High Sens B-Natriuretic Peptide Total Protein 6.6 Albumin 3.8 Procalcitonin 0.11 Respiratory Panel [place] Adenovirus (Rapid PCR) B.pert (TEM-PCR) B.parapertussis DNA PCR C. pneumoniae DNA (PCR) Coronavirus OC43 (PCR) Coronavirus HKU1 (PCR) Coronavirus 229E (PCR) COVID-19 (JESS) COVID-19 Clin Com Coronavirus NL63 (PCR) Human Metapneumovir PCR Influenza A (RT-PCR) Influenza B (RT-PCR) M. pneumoniae (PCR) Parainfluenza 1 (PCR) Parainfluenza 2 (PCR) Parainfluenza 3 (PCR) Parainfluenza 4 (PCR) RSV (PCR) Entero/Rhino (PCR) SARS-CoV-2 RNA (RT-PCR) 03/23/22 03/23/22 03/23/22 15:03 15:03 15:31 WBC RBC Hgb Hct MCV MCH MCHC RDW Plt Count MPV Immature Gran % (Auto) Neut % (Auto) Lymph % (Auto) [place] % (Auto) Eos % (Auto) Baso % (Auto) Lymph # (Auto) [place] # (Auto) Eos # (Auto) Baso # (Auto) Abs Immat Gran (auto) Absolute Neuts (auto) Absolute Nucleated RBC Nucleated RBC % (auto) Smear Tech's Comments D-Dimer High Sensitivty VBG pH VBG pCO2 VBG pO2 VBG HCO3 VBG O2 Saturation VBG Base Excess Sodium Potassium Chloride Carbon Dioxide Anion Gap BUN Creatinine Estim Creat Clear Calc Estimated GFR Random Glucose Lactic Acid Calcium Phosphorus Magnesium Total Bilirubin Direct Bilirubin AST ALT Alkaline Phosphatase Troponin I High Sens 33.1 B-Natriuretic Peptide 53 Total Protein Albumin Procalcitonin Respiratory Panel [place] Adenovirus (Rapid PCR) B.pert (TEM-PCR) B.parapertussis DNA PCR C. pneumoniae DNA (PCR) Coronavirus OC43 (PCR) Coronavirus HKU1 (PCR) Coronavirus 229E (PCR) COVID-19 (JESS) Negative COVID-19 Clin Com See Note Coronavirus NL63 (PCR) Human Metapneumovir PCR Influenza A (RT-PCR) Influenza B (RT-PCR) M. pneumoniae (PCR) Parainfluenza 1 (PCR) Parainfluenza 2 (PCR) Parainfluenza 3 (PCR) Parainfluenza 4 (PCR) RSV (PCR) Entero/Rhino (PCR) SARS-CoV-2 RNA (RT-PCR) 03/23/22 03/23/22 03/23/22 17:24 17:27 21:15 WBC RBC Hgb Hct MCV MCH MCHC RDW Plt Count MPV Immature Gran % (Auto) Neut % (Auto) Lymph % (Auto) [place] % (Auto) Eos % (Auto) Baso % (Auto) Lymph # (Auto) [place] # (Auto) Eos # (Auto) Baso # (Auto) Abs Immat Gran (auto) Absolute Neuts (auto) Absolute Nucleated RBC Nucleated RBC % (auto) Smear Tech's Comments D-Dimer High Sensitivty < 150 VBG pH 7.28 L 7.29 L VBG pCO2 99 90 VBG pO2 86 115 VBG HCO3 47 H 44 H VBG O2 Saturation 95.0 99.0 VBG Base Excess 13.9 11.9 Sodium Potassium Chloride Carbon Dioxide Anion Gap BUN Creatinine Estim Creat Clear Calc Estimated GFR Random Glucose Lactic Acid Calcium Phosphorus Magnesium Total Bilirubin Direct Bilirubin AST ALT Alkaline Phosphatase Troponin I High Sens B-Natriuretic Peptide Total Protein Albumin Procalcitonin Respiratory Panel [place] Adenovirus (Rapid PCR) B.pert (TEM-PCR) B.parapertussis DNA PCR C. pneumoniae DNA (PCR) Coronavirus OC43 (PCR) Coronavirus HKU1 (PCR) Coronavirus 229E (PCR) COVID-19 (JESS) COVID-19 Clin Com Coronavirus NL63 (PCR) Human Metapneumovir PCR Influenza A (RT-PCR) Influenza B (RT-PCR) M. pneumoniae (PCR) Parainfluenza 1 (PCR) Parainfluenza 2 (PCR) Parainfluenza 3 (PCR) Parainfluenza 4 (PCR) RSV (PCR) Entero/Rhino (PCR) SARS-CoV-2 RNA (RT-PCR) 03/24/22 03/24/22 03/24/22 04:58 05:01 05:01 WBC 3.6 L RBC 5.59 Hgb 16.0 Hct 53.8 H MCV 96.2 MCH 28.6 MCHC 29.7 L RDW 14.1 Plt Count 132 L MPV 10.7 Immature Gran % (Auto) 0.6 H Neut % (Auto) 78.4 H Lymph % (Auto) 15.2 L [place] % (Auto) 5.8 Eos % (Auto) 0.0 Baso % (Auto) 0.0 Lymph # (Auto) 0.6 L [place] # (Auto) 0.2 Eos # (Auto) 0.0 Baso # (Auto) 0.0 Abs Immat Gran (auto) 0.02 Absolute Neuts (auto) 2.8 Absolute Nucleated RBC 0.000 Nucleated RBC % (auto) 0.0 Smear Tech's Comments VERIFIED D-Dimer High Sensitivty VBG pH 7.31 L VBG pCO2 81 VBG pO2 74 VBG HCO3 41 H VBG O2 Saturation 94.0 VBG Base Excess 10.5 Sodium 142 Potassium 4.9 D Chloride 100 Carbon Dioxide 31 H Anion Gap 16 BUN 18 H Creatinine 0.81 Estim Creat Clear Calc 137.8 Estimated GFR > 60 Random Glucose 118 H Lactic Acid Calcium 8.8 Phosphorus 4.9 H Magnesium 2.0 Total Bilirubin Direct Bilirubin AST ALT Alkaline Phosphatase Troponin I High Sens B-Natriuretic Peptide Total Protein Albumin 3.5 Procalcitonin Respiratory Panel [place] Adenovirus (Rapid PCR) B.pert (TEM-PCR) B.parapertussis DNA PCR C. pneumoniae DNA (PCR) Coronavirus OC43 (PCR) Coronavirus HKU1 (PCR) Coronavirus 229E (PCR) COVID-19 (JESS) COVID-19 Clin Com Coronavirus NL63 (PCR) Human Metapneumovir PCR Influenza A (RT-PCR) Influenza B (RT-PCR) M. pneumoniae (PCR) Parainfluenza 1 (PCR) Parainfluenza 2 (PCR) Parainfluenza 3 (PCR) Parainfluenza 4 (PCR) RSV (PCR) Entero/Rhino (PCR) SARS-CoV-2 RNA (RT-PCR) 03/24/22 03/24/22 10:21 12:48 WBC RBC Hgb Hct MCV MCH MCHC RDW Plt Count MPV Immature Gran % (Auto) Neut % (Auto) Lymph % (Auto) [place] % (Auto) Eos % (Auto) Baso % (Auto) Lymph # (Auto) [place] # (Auto) Eos # (Auto) Baso # (Auto) Abs Immat Gran (auto) Absolute Neuts (auto) Absolute Nucleated RBC Nucleated RBC % (auto) Smear Tech's Comments D-Dimer High Sensitivty VBG pH 7.36 VBG pCO2 84 VBG pO2 112 VBG HCO3 48 H VBG O2 Saturation 100.0 VBG Base Excess 17.7 Sodium Potassium Chloride Carbon Dioxide Anion Gap BUN Creatinine Estim Creat Clear Calc Estimated GFR Random Glucose Lactic Acid Calcium Phosphorus Magnesium Total Bilirubin Direct Bilirubin AST ALT Alkaline Phosphatase Troponin I High Sens B-Natriuretic Peptide Total Protein Albumin Procalcitonin Respiratory Panel [place] See Note Adenovirus (Rapid PCR) Not Detected B.pert (TEM-PCR) Not Detected B.parapertussis DNA PCR Not Detected C. pneumoniae DNA (PCR) Not Detected Coronavirus OC43 (PCR) Not Detected Coronavirus HKU1 (PCR) Not Detected Coronavirus 229E (PCR) Not Detected COVID-19 (JESS) COVID-19 Clin Com Coronavirus NL63 (PCR) Not Detected Human Metapneumovir PCR Detected A Influenza A (RT-PCR) Not Detected Influenza B (RT-PCR) Not Detected M. pneumoniae (PCR) Not Detected Parainfluenza 1 (PCR) Not Detected Parainfluenza 2 (PCR) Not Detected Parainfluenza 3 (PCR) Not Detected Parainfluenza 4 (PCR) Not Detected RSV (PCR) Not Detected Entero/Rhino (PCR) Not Detected SARS-CoV-2 RNA (RT-PCR) Not Detected Progress Note: A&P Assessment and plan (1) Diastolic CHF with preserved left ventricular function, NYHA class 2: Status: Acute (2) Acute on chronic respiratory failure with hypoxia and hypercapnia: Status: Acute (3) Respiratory failure: Status: Acute (4) Essential hypertension: Status: Acute (5) CHF (congestive heart failure): Status: Acute (6) Varicose veins of right lower extremity with inflammation: Status: Acute (7) Cellulitis of leg, right: Status: Acute Plan so the plan is to stop his antibiotics at this point and just to continue to treat him supportively once his pCO2 drops down into the 70s we can give him a break from his BiPAP mask and maybe start him on clear liquids Quality Stroke Does the patient have a stroke diagnosis?: No VTE Prior VTE?: No VTE Risk Level:: Medical - moderate - high VTE Device Contraindication: N/A - Device Ordered VTE Drug Contraindication: N/A - Med Ordered
--- NOTE | 2022-03-24 19:26 | PC.NURSE ---
Pt continues to be on BiPAP-AVAP settings, satting in the mid 90s, unable to downgrade to oxymask at this time. Resp panel collected per order, came back + for hMPV, aware, pt on Contact and droplet precautions per policy. Pt retaining urine, BS for >700cc, perez placement failedx3, aware, urology consulted. Pt aware of the plan. Mother at bedside, updated and all questions answered. Safety maintained throughout. Will continue to monitor.
--- NOTE | 2022-03-24 19:39 | PM.UROCN ---
History of Present Illness Consult details Consult date: 03/24/22 Narrative: 47 y/o h/o cerebral palsey in ICU for respiratory compromise on positive pressure mask. Urinary retention. Called due to multiple attempts to place perez. Cystoscopy required to place perez. 18 fr [place] tip catheter placed. Findings: Spasm at the external sphincter, prostate non-obstructive, bulbous urethral no stricture Review of Systems Review of Systems: 10 point ROS negative other than stated in [facility] Past Medical History Medical History Asthma Cerebral palsy Chronic venous hypertension with ulcer Hypertension Surgical History Surgical History H/O umbilical hernia repair Social History Social History Household Members: Family Housing: House Do you presently have visiting nurse or other home services: No Alcohol intake: never Patient Tobacco Use Status: Former Tobacco user Tobacco use type: Cigarette Smoked in Last 30 Days: No e-Cigarette/Vaping Use: Never Used Patient Interested in Nicotine Replacement: No Patient Given Instructions on How to Stop Smoking: No Second Hand Smoke Exposure: No Use of substances other than those prescribed or required for medical reasons: Yes Substance Use Type: Marijuana Substance Use Type Other:: 3-4 per week at bedtime pt has an edible to help with sleep Currently Displaying Signs/Symptoms of Drug Intoxication Withdrawal: No Any prior treatment program specific to substance use: No Have you been hit, kicked, punched, or otherwise hurt by someone within the past year? If so, by whom?: No Do you feel safe in your current relationship?: No Current Relationship Is there a partner from a previous relationship who is making you feel unsafe now?: No Are you made to feel afraid or neglected: No Advance Directives: No Advance Directives Information Provided: No Do you have thoughts of harming others: None Do you have a plan to hurt others: No Plan Recently lost weight without trying: No Eating poorly because of decreased appetite: No Nutrition Risks: No Nutritional Risk Poor oral hygiene: No service: No Current occupational status: employed Meds Allergies Allergy/AdvReac Type Severity Reaction Status Date / Time Penicillins [PENICILLINS] Allergy Unknown HIVES Verified 03/27/21 15:12 Active Medications: Current Medications Albuterol/Ipratropium (Albuterol/Iprat 2.5/0.5mg 3 Ml Ampul.Neb) 3 ml INHALE RQ4H WHILE AWAKE [facility] Last Admin: 03/24/22 15:26 Dose: 3 ml Heparin Sodium (Porcine) (Heparin Sodium,Porcine 5,000 Unit/Ml Vial) 5,000 unit SUBCUT Q8H [facility] Last Admin: 03/24/22 10:33 Dose: 5,000 unit Methylprednisolone Sodium Succinate (Methylprednisolone Sod Succ 125 Mg/2 Ml Vial) 60 mg IVPUSH Q6H [facility] Pharmacy Consult (Consult Rx Perform Med Rec) 1 each MISCELLANE ONCE PRN PRN Reason: Consult order Home Medications Medication Instructions Recorded Confirmed Last Taken Type amlodipine 5 mg tablet 1 tab PO BEDTIME 01/12/21 03/23/22 03/23/22 History budesonide-formoterol HFA 160 2 puff inhalation BID 01/12/21 03/23/22 03/10/22 History mcg-4.5 mcg/actuation aerosol inhaler (Symbicort) lisinopril 40 mg tablet 1 tab PO BEDTIME 01/12/21 03/23/22 03/22/22 History albuterol sulfate 90 mcg/actuation 2 inh inhalation Q4H PRN Shortness 01/28/21 03/23/22 Unknown History aerosol inhaler Of Breath Physical Exam Vital Signs: Vital Signs: Last Vital Signs Temp 98.7 F 03/24/22 16:06 Pulse 74 03/24/22 18:00 Resp 23 H 03/24/22 18:00 BP 127/75 03/24/22 18:00 Pulse Ox 93 03/24/22 18:00 O2 Del Method 03/24/22 18:00 O2 Flow Rate 40 03/23/22 17:15 FiO2 50 03/24/22 18:00 Oxygen Flow Rate 15 03/23/22 15:00 BMI result Body Mass Index 40.4 Const: Orientation/consciousness: patient oriented x3 HEENT: Head: Yes normocephalic and Yes atraumatic Eyes: Conjunctivae: conjunctivae normal Neck: Neck: Yes normal visual inspection Cardio: Rate: regular rate GI: Inspection: Yes normal to inspection : Penis: normal penis Scrotum: scrotum normal Neuro: General: patient oriented x3 Psych: Appearance: grossly normal Affect: normal affect Results Labs 03/24/22 05:01 03/24/22 05:01 Labs: Abnormal lab results 03/23/22 03/24/22 03/24/22 Range/Units 21:15 04:58 05:01 WBC 3.6 L (4.8-10.8) X10*3/uL Hct 53.8 H (42.0-52.0) % MCHC 29.7 L (31.0-36.0) g/dl Plt Count 132 L (160-400) X10*3/uL Immature Gran % (Auto) 0.6 H (0.0-0.4) % Neut % (Auto) 78.4 H (45-73) % Lymph % (Auto) 15.2 L (20-40) % Lymph # (Auto) 0.6 L (1.2-4.9) X10*3/uL VBG pH 7.29 L 7.31 L (7.32-7.43) VBG HCO3 44 H 41 H (22-26) mmol/L Carbon Dioxide (22-29) mmol/L BUN (9-16) mg/dL Random Glucose (60-115) mg/dL Phosphorus (2.7-4.5) mg/dL Human Metapneumovir PCR (Not Detect.) 03/24/22 03/24/22 03/24/22 Range/Units 05:01 10:21 12:48 WBC (4.8-10.8) X10*3/uL Hct (42.0-52.0) % MCHC (31.0-36.0) g/dl Plt Count (160-400) X10*3/uL Immature Gran % (Auto) (0.0-0.4) % Neut % (Auto) (45-73) % Lymph % (Auto) (20-40) % Lymph # (Auto) (1.2-4.9) X10*3/uL VBG pH (7.32-7.43) VBG HCO3 48 H (22-26) mmol/L Carbon Dioxide 31 H (22-29) mmol/L BUN 18 H (9-16) mg/dL Random Glucose 118 H (60-115) mg/dL Phosphorus 4.9 H (2.7-4.5) mg/dL Human Metapneumovir PCR Detected A (Not Detect.) Short CBC 03/24/22 Range/Units 05:01 WBC 3.6 L (4.8-10.8) X10*3/uL Hgb 16.0 (14.0-18.0) g/dl Hct 53.8 H (42.0-52.0) % Plt Count 132 L (160-400) X10*3/uL BMP 03/24/22 05:01 Sodium 142 Potassium 4.9 D Chloride 100 Carbon Dioxide 31 H BUN 18 H Creatinine 0.81 Calcium 8.8 Liver Function 03/24/22 Range/Units 05:01 Albumin 3.5 (3.5-5.0) g/dL Assessment and Plan (1) Respiratory failure: Status: Acute (2) Urinary retention: Status: Acute (3) Cerebral palsy: Status: Acute Plan Continue perez for diuresis and strict I's/O's Time Spent With Patient Time: Total time managing care of this patient today ____ minutes. Procedures Date of Service Date of Service: 03/24/22 Catheter Insertion (Urinary) Date of insertion: 03/24/22 Time of insertion: 19:38 Reason for placing: Acute urinary retention Bladder scan/ultrasound used before catheterization: Yes Estimated amount of urine (mLs): 750 Catheter type/location: 2-way Urethral Size ([place]ian): 18 Catheter balloon size (mL): 10 Catheter balloon amount: 10 Results: consulted Comment: Placement of catheter required cystoscopy guidance [id number]
[2022-03-24] MEDS: Lidocaine HCl 2 % Urojet 10 ML JEL.PF.APP TOPICAL ×2 (20:32)
[2022-03-24] MEDS: methylPREDNISolone Sod Succ 125 MG/2 ML VIAL 60 MG IVPUSH (21:17)
[2022-03-24 23:38] LABS: Appearance Urine Clear; Color Urine Dark Yellow; Glucose Urine UA Negative (Negative); Leukocyte Esterase Urine Small (1+) (Negative); Nitrite Urine Negative (Negative); Specific Gravity - Urine 1.025 (1.005-1.025); UMIC TRIGGER UACC YES; Urine Blood Moderate (2+) (Negative); Urine Ketones Negative (Negative); Urine Protein 100 (2+) mg/dL (Neg-Trace)
[2022-03-24 23:47] LABS: Bacteria Urine None Seen (None Seen); Hyaline Casts Urine 0-2 /LPF (0-2); RBC Urine >20 /HPF (0-2); Squamous Epithelial Cell Urine 0-2 /HPF (0-2); UACC Culture Trigger YES; WBC Urine 0-5 /HPF (0-5)
[2022-03-25] VITALS (33 sets, daily range): BP systolic 122–170; BP diastolic 76–99; PULSE 62–99; RESP 14–31; TEMP 36.9–37.3; O2SAT 89–96; BMI 40.5
[2022-03-25 00:40] LABS: Venous Blood Gas Refer to POC result
[2022-03-25 00:41] LABS: VBG Base Excess 18.3 mmol/L; VBG HCO3 48 mmol/L (22-26); VBG pCO2 75 mmHg; VBG pH 7.41 (7.32-7.43); VBG pO2 96 mmHg
[2022-03-25] MEDS: methylPREDNISolone Sod Succ 125 MG/2 ML VIAL 60 MG IVPUSH ×4 (03:27→20:25)
[2022-03-25] MEDS: Heparin Sodium,Porcine 5,000 UNIT/ML VIAL 5000 UNIT SUBCUT ×3 (03:27→18:27)
[2022-03-25 04:10] LABS: VBG Base Excess 15.5 mmol/L; VBG HCO3 44 mmol/L (22-26); VBG pCO2 69 mmHg; VBG pH 7.41 (7.32-7.43); VBG pO2 76 mmHg
[2022-03-25 04:25] LABS: MANUAL DIFF FLAG NO
[2022-03-25 04:30] LABS: Hematocrit 51.1 % (42.0-52.0); Hemoglobin 15.6 g/dl (14.0-18.0); Imm Gran Abs Auto 0.02 X10*3/uL (0.00-0.03); Imm Gran Pct Auto 0.3 % (0.0-0.4); Lymphocytes Absolute Auto 0.5 X10*3/uL (1.2-4.9); Lymphocytes Percent Auto 8.5 % (20-40); Mean Corpuscular HGB Conc 30.5 g/dl (31.0-36.0); Mean Corpuscular Hemoglobin 29.4 pg (27.0-33.0); Mean Corpuscular Volume 96.2 fL (80.0-98.0); Mean Platelet Volume 10.7 fL (9.4-12.4); Monocytes Absolute Auto 0.1 X10*3/uL (0.1-1.2); Monocytes Percent Auto 1.4 % (2-11); Neutrophils Absolute Auto 5.6 x10*3/uL (2.0-8.3); Neutrophils Percent Auto 89.8 % (45-73); Platelet Count 143 X10*3/uL (160-400); Red Blood Count 5.31 X10*6/uL (4.60-5.80); Red Cell Distribution Width 13.9 % (11.0-16.0); White Blood Count 6.2 X10*3/uL (4.8-10.8)
[2022-03-25 04:43] LABS: Albumin Level 3.4 g/dL (3.5-5.0); Anion Gap 15 (12-20); Blood Urea Nitrogen 23 mg/dL (9-16); Calcium 9.1 mg/dL (8.4-10.2); Carbon Dioxide 33 mmol/L (22-29); Chloride 100 mmol/L (96-108); Creatinine Clr Calc Pharmacy 129.9; Estimated Glomerular Filt Rate > 60; Glucose Random 116 mg/dL (60-115); Magnesium 1.9 mg/dL (1.6-2.6); Phosphorus 3.7 mg/dL (2.7-4.5); Sodium 143 mmol/L (135-145)
[2022-03-25 05:17] LABS: Venous Blood Gas Refer to POC result
--- NOTE | 2022-03-25 07:31 | PM.CCPN ---
Subjective Subjective Date of Service: 03/25/22 Interval History: 47-year-old morbidly obese male with severe underlying COPD and acute on chronic hypoxic and hypercarbic respiratory failure came in with altered mental status and pCO2 in excess of 100 and after many hours on BiPAP is pCO2 finally diminished to 69 where it is currently with a completely compensated pH today we were finally based on a pCO2 of 69, able to take him off the BiPAP in place him on a nasal high-flow so that he be able to eat and he is since tolerated done well with both breakfast and lunch in were hoping that the early in the afternoon to replace the BiPAP mechanism at least until dinnertime and then a course overnight it appears he had a metapneumovirus pneumonia with bilateral scattered grass [place] infiltrates Critical Care Time (minutes): 45 Physical Exam Vital Signs: Vital Signs: Last Vital Signs Temp 99 F 03/24/22 20:00 Pulse 65 03/25/22 06:00 Resp 23 H 03/25/22 06:00 BP 149/93 H 03/25/22 06:00 Pulse Ox 92 03/25/22 06:00 O2 Del Method 03/25/22 06:00 O2 Flow Rate 50 03/25/22 06:00 FiO2 50 03/25/22 01:00 Oxygen Flow Rate 15 03/23/22 15:00 BMI result Body Mass Index 40.5 tolerating well without significant tachypnea good bilateral carotid upstrokes no neck vein distension and bedside echo with normal LV function no significant wheezing or diaphragmatic effort belly is soft no organomegaly Objective Data Labs 03/25/22 03:59 03/25/22 03:59 Labs: Laboratory Results - last 24 hr 03/24/22 03/24/22 03/24/22 10:21 12:48 23:00 WBC RBC Hgb Hct MCV MCH MCHC RDW Plt Count MPV Immature Gran % (Auto) Neut % (Auto) Lymph % (Auto) [place] % (Auto) Eos % (Auto) Baso % (Auto) Lymph # (Auto) [place] # (Auto) Eos # (Auto) Baso # (Auto) Abs Immat Gran (auto) Absolute Neuts (auto) Absolute Nucleated RBC Nucleated RBC % (auto) VBG pH 7.36 VBG pCO2 84 VBG pO2 112 VBG HCO3 48 H VBG O2 Saturation 100.0 VBG Base Excess 17.7 Sodium Potassium Chloride Carbon Dioxide Anion Gap BUN Creatinine Estim Creat Clear Calc Estimated GFR Random Glucose Calcium Phosphorus Magnesium Albumin Urine Color Dark Yellow Urine Appearance Clear Urine pH 6.0 Ur Specific [place] 1.025 Urine Protein 100 (2+) H Urine Glucose (UA) Negative Urine Ketones Negative Urine Blood Moderate (2+) H Urine Nitrite Negative Ur Leukocyte Esterase Small (1+) H Urine RBC >20 H Urine WBC 0-5 Ur Squamous Epith Cells 0-2 Urine Bacteria None Seen Hyaline Casts 0-2 Respiratory Panel [place] See Note Adenovirus (Rapid PCR) Not Detected B.pert (TEM-PCR) Not Detected B.parapertussis DNA PCR Not Detected C. pneumoniae DNA (PCR) Not Detected Coronavirus OC43 (PCR) Not Detected Coronavirus HKU1 (PCR) Not Detected Coronavirus 229E (PCR) Not Detected Coronavirus NL63 (PCR) Not Detected Human Metapneumovir PCR Detected A Influenza A (RT-PCR) Not Detected Influenza B (RT-PCR) Not Detected M. pneumoniae (PCR) Not Detected Parainfluenza 1 (PCR) Not Detected Parainfluenza 2 (PCR) Not Detected Parainfluenza 3 (PCR) Not Detected Parainfluenza 4 (PCR) Not Detected RSV (PCR) Not Detected Entero/Rhino (PCR) Not Detected SARS-CoV-2 RNA (RT-PCR) Not Detected 03/25/22 03/25/22 03/25/22 00:35 03:59 03:59 WBC 6.2 RBC 5.31 Hgb 15.6 Hct 51.1 MCV 96.2 MCH 29.4 MCHC 30.5 L RDW 13.9 Plt Count 143 L MPV 10.7 Immature Gran % (Auto) 0.3 Neut % (Auto) 89.8 H Lymph % (Auto) 8.5 L [place] % (Auto) 1.4 L Eos % (Auto) 0.0 Baso % (Auto) 0.0 Lymph # (Auto) 0.5 L [place] # (Auto) 0.1 Eos # (Auto) 0.0 Baso # (Auto) 0.0 Abs Immat Gran (auto) 0.02 Absolute Neuts (auto) 5.6 Absolute Nucleated RBC 0.000 Nucleated RBC % (auto) 0.0 VBG pH 7.41 VBG pCO2 75 VBG pO2 96 VBG HCO3 48 H VBG O2 Saturation 100.0 VBG Base Excess 18.3 Sodium 143 Potassium 5.0 Chloride 100 Carbon Dioxide 33 H Anion Gap 15 BUN 23 H Creatinine 0.86 Estim Creat Clear Calc 129.9 Estimated GFR > 60 Random Glucose 116 H Calcium 9.1 Phosphorus 3.7 Magnesium 1.9 Albumin 3.4 L Urine Color Urine Appearance Urine pH Ur Specific [place] Urine Protein Urine Glucose (UA) Urine Ketones Urine Blood Urine Nitrite Ur Leukocyte Esterase Urine RBC Urine WBC Ur Squamous Epith Cells Urine Bacteria Hyaline Casts Respiratory Panel [place] Adenovirus (Rapid PCR) B.pert (TEM-PCR) B.parapertussis DNA PCR C. pneumoniae DNA (PCR) Coronavirus OC43 (PCR) Coronavirus HKU1 (PCR) Coronavirus 229E (PCR) Coronavirus NL63 (PCR) Human Metapneumovir PCR Influenza A (RT-PCR) Influenza B (RT-PCR) M. pneumoniae (PCR) Parainfluenza 1 (PCR) Parainfluenza 2 (PCR) Parainfluenza 3 (PCR) Parainfluenza 4 (PCR) RSV (PCR) Entero/Rhino (PCR) SARS-CoV-2 RNA (RT-PCR) 03/25/22 04:01 WBC RBC Hgb Hct MCV MCH MCHC RDW Plt Count MPV Immature Gran % (Auto) Neut % (Auto) Lymph % (Auto) [place] % (Auto) Eos % (Auto) Baso % (Auto) Lymph # (Auto) [place] # (Auto) Eos # (Auto) Baso # (Auto) Abs Immat Gran (auto) Absolute Neuts (auto) Absolute Nucleated RBC Nucleated RBC % (auto) VBG pH 7.41 VBG pCO2 69 VBG pO2 76 VBG HCO3 44 H VBG O2 Saturation 96.0 VBG Base Excess 15.5 Sodium Potassium Chloride Carbon Dioxide Anion Gap BUN Creatinine Estim Creat Clear Calc Estimated GFR Random Glucose Calcium Phosphorus Magnesium Albumin Urine Color Urine Appearance Urine pH Ur Specific [place] Urine Protein Urine Glucose (UA) Urine Ketones Urine Blood Urine Nitrite Ur Leukocyte Esterase Urine RBC Urine WBC Ur Squamous Epith Cells Urine Bacteria Hyaline Casts Respiratory Panel [place] Adenovirus (Rapid PCR) B.pert (TEM-PCR) B.parapertussis DNA PCR C. pneumoniae DNA (PCR) Coronavirus OC43 (PCR) Coronavirus HKU1 (PCR) Coronavirus 229E (PCR) Coronavirus NL63 (PCR) Human Metapneumovir PCR Influenza A (RT-PCR) Influenza B (RT-PCR) M. pneumoniae (PCR) Parainfluenza 1 (PCR) Parainfluenza 2 (PCR) Parainfluenza 3 (PCR) Parainfluenza 4 (PCR) RSV (PCR) Entero/Rhino (PCR) SARS-CoV-2 RNA (RT-PCR) Microbiology Microbiology Results: Microbiology 03/23/22 15:31 Blood - Venous Blood Culture - Preliminary No growth after 24 hours. 03/23/22 15:03 Blood - Venous Blood Culture - Preliminary No growth after 24 hours. Progress Note: A&P Assessment and plan (1) Diastolic CHF with preserved left ventricular function, NYHA class 2: Status: Acute (2) Acute on chronic respiratory failure with hypoxia and hypercapnia: Status: Acute (3) Respiratory failure: Status: Acute (4) Essential hypertension: Status: Acute (5) CHF (congestive heart failure): Status: Acute (6) Varicose veins of right lower extremity with inflammation: Status: Acute (7) Cellulitis of leg, right: Status: Acute Plan plan is after lunch to place him back on BiPAP and rest him until dinnertime and then 2-3 hours after dinner as long as it is well tolerated we will stop the BiPAP mechanism placed on nasal high-flow and obtain a repeat gas on Quality Stroke Does the patient have a stroke diagnosis?: No VTE Prior VTE?: No VTE Risk Level:: Medical - moderate - high VTE Device Contraindication: N/A - Device Ordered VTE Drug Contraindication: N/A - Med Ordered
[2022-03-25] MEDS: Albuterol/Iprat 2.5/0.5MG 3 ML AMPUL.NEB INHALE ×4 (07:47→20:39)
--- NOTE | 2022-03-25 19:05 | PC.NURSE ---
Shift eval 3p-7p - Patient tolerating BIPAP - see bipap assessment for settings. Patient off for dinner at 1854. Put on high flow by respiratory - 40l/40%. Vitals stable, eating well. MOther came to visit - plan of care discussed. Patient alert and oriented - no distress.
[2022-03-25] MEDS: Melatonin 3 MG TABLET PO (22:35)
[2022-03-25] MEDS: amLODIPine Besylate 5 MG TABLET PO (22:35)
[2022-03-26] VITALS (25 sets, daily range): BP systolic 138–183; BP diastolic 80–102; PULSE 57–95; RESP 16–32; TEMP 36.4–37.4; O2SAT 89–96; BMI 40.6
[2022-03-26] MEDS: Heparin Sodium,Porcine 5,000 UNIT/ML VIAL 5000 UNIT SUBCUT ×3 (03:12→19:43)
[2022-03-26] MEDS: methylPREDNISolone Sod Succ 125 MG/2 ML VIAL 60 MG IVPUSH ×2 (03:12→08:38)
[2022-03-26 05:17] LABS: VBG Base Excess 13.9 mmol/L; VBG HCO3 40 mmol/L (22-26); VBG pCO2 56 mmHg; VBG pH 7.46 (7.32-7.43); VBG pO2 97 mmHg
[2022-03-26 05:19] LABS: Venous Blood Gas Refer to POC result
[2022-03-26 05:20] LABS: Basophils Percent Auto 0.1 % (0-2); Hematocrit 48.9 % (42.0-52.0); Hemoglobin 15.2 g/dl (14.0-18.0); Imm Gran Abs Auto 0.04 X10*3/uL (0.00-0.03); Imm Gran Pct Auto 0.5 % (0.0-0.4); Lymphocytes Absolute Auto 0.5 X10*3/uL (1.2-4.9); Lymphocytes Percent Auto 6.6 % (20-40); MANUAL DIFF FLAG SCAN; Mean Corpuscular HGB Conc 31.1 g/dl (31.0-36.0); Mean Corpuscular Hemoglobin 28.7 pg (27.0-33.0); Mean Corpuscular Volume 92.4 fL (80.0-98.0); Mean Platelet Volume 10.5 fL (9.4-12.4); Monocytes Absolute Auto 0.2 X10*3/uL (0.1-1.2); Monocytes Percent Auto 2.7 % (2-11); Neutrophils Percent Auto 90.1 % (45-73); Platelet Count 152 X10*3/uL (160-400); Red Blood Count 5.29 X10*6/uL (4.60-5.80); Red Cell Distribution Width 13.6 % (11.0-16.0); SCAN SMEAR FLAG 1; White Blood Count 7.8 X10*3/uL (4.8-10.8)
[2022-03-26 05:40] LABS: Albumin Level 3.4 g/dL (3.5-5.0); Anion Gap 14 (12-20); Blood Urea Nitrogen 29 mg/dL (9-16); Calcium 9.2 mg/dL (8.4-10.2); Carbon Dioxide 31 mmol/L (22-29); Chloride 101 mmol/L (96-108); Creatinine Clr Calc Pharmacy 134.9; Estimated Glomerular Filt Rate > 60; Glucose Random 150 mg/dL (60-115); Magnesium 1.9 mg/dL (1.6-2.6); Potassium 4.4 mmol/L (3.3-5.1); Sodium 142 mmol/L (135-145)
[2022-03-26 05:42] LABS: SLIDE REVIEW VERIFIED
[2022-03-26] MEDS: Albuterol/Iprat 2.5/0.5MG 3 ML AMPUL.NEB INHALE ×4 (07:57→19:32)
[2022-03-26 09:56] LABS: ABG Base Excess 9.2 mmol/L; ABG HCO3 36 mmol/L (22-26); ABG pCO2 56 mmHg (32-45); ABG pH 7.41 (7.35-7.45); ABG pO2 70 mmHg (83-108)
[2022-03-26] MEDS: Enalaprilat Dihydrate 1.25 MG/ML VIAL 0.625 MG IVPUSH (10:23)
[2022-03-26] MEDS: carvediloL 3.125 MG TABLET PO ×2 (10:24→19:43)
[2022-03-26] MEDS: lisinopriL 10 MG TABLET PO (10:24)
--- NOTE | 2022-03-26 11:18 | PM.CCPN ---
Subjective Subjective Date of Service: 03/26/22 Interval History: 47-year-old male with significant underlying COPD presented just 1 week post discharge after aggressive diuresis for diastolic CHF with acute on chronic severe hypercarbic and hypoxic respiratory failure and significant alteration of mental status with pCO2 in excess of 100 but he remained on BiPAP on the AV a PS mode and took at least 48 hours but finally pCO2 began to decline and the patient woke up the ended better and better it looks like he has metapneumovirus LEs infection with diffuse I Radha's of ground-glass infiltrate and and he was on steroids and bronchodilators BiPAP support a little bit more aggressively and just with supportive therapy he is now tolerating all day high-flow nasal cannula at 40 liters/minute with greatly improved work of breathing and we have a central line in and his central pressures really had been pretty normal and I did another bedside echo and on bedside echo his LV function appears normal with no primary valve or pericardial disease and his inferior vena caval diameter is normal with normal inspiratory collapse 0 there are not think there is a volume mechanism at all and he is able to tolerate his diet and it today is the day that this is happening so at this point he could be on high-flow by day and depending on his work of breathing that might be able to be weaned I am going to switch him to oral prednisone for a very slow wean maybe 5 mg every 3rd day from this point forward and he will just be nocturnal BiPAP which is basically the device and the prescription that he has at home Critical Care Time (minutes): 45 Physical Exam Vital Signs: Vital Signs: Last Vital Signs Temp 97.6 F 03/26/22 01:00 Pulse 78 03/26/22 11:00 Resp 28 H 03/26/22 11:00 BP 170/95 H 03/26/22 11:00 Pulse Ox 92 03/26/22 11:00 O2 Del Method 03/26/22 11:00 O2 Flow Rate 40 03/26/22 11:00 FiO2 40 03/26/22 11:00 Oxygen Flow Rate 15 03/23/22 15:00 BMI result Body Mass Index 40.6 alert an oriented no distress speaks in full sentences and work of breathing he feels is much improved bedside echo with normal LV and RV function and normal IVC diameter chest with diminished bilateral breath sounds no adventitious sounds abdomen soft with no again a megaly Objective Data Labs 03/26/22 05:12 03/26/22 05:12 Labs: Laboratory Results - last 24 hr 03/26/22 03/26/22 03/26/22 05:09 05:12 05:12 WBC 7.8 RBC 5.29 Hgb 15.2 Hct 48.9 MCV 92.4 MCH 28.7 MCHC 31.1 RDW 13.6 Plt Count 152 L MPV 10.5 Immature Gran % (Auto) 0.5 H Neut % (Auto) 90.1 H Lymph % (Auto) 6.6 L [place] % (Auto) 2.7 Eos % (Auto) 0.0 Baso % (Auto) 0.1 Lymph # (Auto) 0.5 L [place] # (Auto) 0.2 Eos # (Auto) 0.0 Baso # (Auto) 0.0 Abs Immat Gran (auto) 0.04 H Absolute Neuts (auto) 7.0 Absolute Nucleated RBC 0.000 Nucleated RBC % (auto) 0.0 Smear Tech's Comments VERIFIED O2 Saturation ABG pH at Pt Temp ABG pCO2 at Pt Temp ABG pO2 at Pt Temp ABG HCO3 ABG Base Excess (Actual) VBG pH 7.46 H VBG pCO2 56 VBG pO2 97 VBG HCO3 40 H VBG O2 Saturation 98.0 VBG Base Excess 13.9 Sodium 142 Potassium 4.4 Chloride 101 Carbon Dioxide 31 H Anion Gap 14 BUN 29 H Creatinine 0.83 Estim Creat Clear Calc 134.9 Estimated GFR > 60 Random Glucose 150 H Calcium 9.2 Phosphorus 4.0 Magnesium 1.9 Albumin 3.4 L 03/26/22 09:48 WBC RBC Hgb Hct MCV MCH MCHC RDW Plt Count MPV Immature Gran % (Auto) Neut % (Auto) Lymph % (Auto) [place] % (Auto) Eos % (Auto) Baso % (Auto) Lymph # (Auto) [place] # (Auto) Eos # (Auto) Baso # (Auto) Abs Immat Gran (auto) Absolute Neuts (auto) Absolute Nucleated RBC Nucleated RBC % (auto) Smear Tech's Comments O2 Saturation 89.0 ABG pH at Pt Temp 7.41 ABG pCO2 at Pt Temp 56 H ABG pO2 at Pt Temp 70 L ABG HCO3 36 H ABG Base Excess (Actual) 9.2 VBG pH VBG pCO2 VBG pO2 VBG HCO3 VBG O2 Saturation VBG Base Excess Sodium Potassium Chloride Carbon Dioxide Anion Gap BUN Creatinine Estim Creat Clear Calc Estimated GFR Random Glucose Calcium Phosphorus Magnesium Albumin Microbiology Microbiology Results: Microbiology 03/24/22 23:00 Urine Catheterized - House Catheter Urine Culture - Final No growth. 03/23/22 15:31 Blood - Venous Blood Culture - Preliminary No growth after 48 hours. 03/23/22 15:03 Blood - Venous Blood Culture - Preliminary No growth after 48 hours. Progress Note: A&P Assessment and plan (1) Diastolic CHF with preserved left ventricular function, NYHA class 2: Status: Acute (2) Acute on chronic respiratory failure with hypoxia and hypercapnia: Status: Acute (3) Respiratory failure: Status: Acute (4) Essential hypertension: Status: Acute (5) CHF (congestive heart failure): Status: Acute (6) Varicose veins of right lower extremity with inflammation: Status: Acute (7) Cellulitis of leg, right: Status: Acute Plan so I plan to send him to intermediate care with the use of BiPAP at at night time nasal high-flow not ready today to wean the flow rate down he is back on his diet and his pressures at had been going up and just in case that is a an impediment at all to his in terms of his work of breathing we are titrating back on his oral medication at this point current pressure is 170 systolic and you can build on the medication raising that I started including the dose on the lisinopril and the dose on the car vagal all which I began today as a 3rd mechanism for his blood pressure control but he is not fluid overloaded Quality Stroke Does the patient have a stroke diagnosis?: No VTE Prior VTE?: No VTE Risk Level:: Medical - moderate - high VTE Device Contraindication: N/A - Device Ordered VTE Drug Contraindication: N/A - Med Ordered
--- NOTE | 2022-03-26 11:22 | MHC.CM.PN ---
Pt continues care in ICU: alternating on Bipap and High flow O2. Original d/c plan for a return to home w/[facility]. CM to follow for finalization of d/c plans.
[2022-03-26 11:33] LABS: ABG Refer to POC result
[2022-03-26] MEDS: amLODIPine Besylate 5 MG TABLET PO (19:43)
[2022-03-26] MEDS: Melatonin 3 MG TABLET PO (21:46)
[2022-03-27] VITALS (14 sets, daily range): BP systolic 120–167; BP diastolic 66–100; PULSE 57–88; RESP 14–92; TEMP 36.4–37.2; O2SAT 18–95
[2022-03-27] MEDS: Heparin Sodium,Porcine 5,000 UNIT/ML VIAL 5000 UNIT SUBCUT ×3 (03:27→21:36)
--- NOTE | 2022-03-27 05:07 | PC.NURSE ---
0500; patient asking to come off bipap and change director to high flow oxygen. Bipap removed by respiratory therapist and to high flow 35%/40liters. Will continue to monitor.
[2022-03-27] MEDS: Albuterol/Iprat 2.5/0.5MG 3 ML AMPUL.NEB INHALE ×4 (07:16→18:53)
--- NOTE | 2022-03-27 09:26 | PM.UROPN ---
Subjective Subjective Date of Service: 03/27/22 Interval history: 47 year old male with h/o cerebral palsy evaluated in the ICU for urinary retention, perez catheter placed. Recommend to start flomax 0.4 mg daily. Physical Exam Vital Signs: Vital Signs: Last Vital Signs Temp 97.7 F 03/27/22 08:00 Pulse 84 03/27/22 08:00 Resp 16 03/27/22 08:00 BP 142/66 H 03/27/22 08:00 Pulse Ox 93 03/27/22 08:00 O2 Del Method 03/27/22 08:00 O2 Flow Rate 40 03/27/22 08:00 FiO2 30 03/27/22 08:00 Oxygen Flow Rate 15 03/23/22 15:00 BMI result Body Mass Index 40.6 Const: Orientation/consciousness: patient oriented x3 HEENT: Head: Yes normocephalic and Yes atraumatic Eyes: Conjunctivae: conjunctivae normal Neck: Neck: Yes normal visual inspection Cardio: Rate: regular rate GI: Inspection: Yes normal to inspection : Other: perez in place Neuro: General: patient oriented x3 Psych: Appearance: grossly normal Affect: normal affect Urology Results Labs 03/26/22 05:12 03/26/22 05:12 Labs: Laboratory Results - last 24 hr 03/26/22 09:48 O2 Saturation 89.0 ABG pH at Pt Temp 7.41 ABG pCO2 at Pt Temp 56 H ABG pO2 at Pt Temp 70 L ABG HCO3 36 H ABG Base Excess (Actual) 9.2 Progress Note: A&P Assessment and plan (1) Cerebral palsy: Status: Acute (2) Urinary retention: Status: Acute Plan Start flomax 0.4 mg daily Voiding when strict I's and O's not required FU with me as an outpatient Time Spent With Patient Time: Total time managing care of this patient today ____ minutes. Progress Note: Quality Stroke Does the patient have a stroke diagnosis?: No
[2022-03-27] MEDS: predniSONE 20 MG TABLET 40 MG PO (10:50)
[2022-03-27] MEDS: carvediloL 3.125 MG TABLET PO ×2 (10:50→21:37)
[2022-03-27] MEDS: Tamsulosin HCL 0.4 MG CAPSULE PO (10:51)
--- NOTE | 2022-03-27 12:54 | MHC.CM.PN ---
EMR REVIEWED PER MD ROUNDS, PT NOT MEDICALLY CLEARED FOR DC (HIGH FLOW 02, BI PAP, RESPIRATORY MONITORING) CM WILL CONTINUE TO FOLLOW
--- NOTE | 2022-03-27 13:41 | HO.PM.IMPN ---
Subjective Subjective Date of Service: 03/27/22 Interval History: Offers no acute complaints, requesting nebulizer treatment for home, no chest pain, no shortness breath, no headache, no dizziness, no nausea, no vomiting, no abdominal pain, on 40% high-flow oxygen Review of Systems Review of Systems: Yes all other systems are reviewed and are negative Physical Exam Vital Signs: Vital Signs: Last Vital Signs Temp 97.6 F 03/27/22 11:29 Pulse 69 03/27/22 11:29 Resp 14 03/27/22 11:29 BP 120/72 03/27/22 11:29 Pulse Ox 94 03/27/22 11:29 O2 Del Method 03/27/22 11:29 O2 Flow Rate 40 03/27/22 11:29 FiO2 30 03/27/22 11:29 Oxygen Flow Rate 15 03/23/22 15:00 BMI result Body Mass Index 40.6 Const: Other: General: AO X 3, no acute distress Neck no JVD Resp:? Diminished breath sound bilaterally, expiratory wheeze, no accessory muscles used CVS: S1,S2,RRR GI: soft, non tender, non distended Neuro:? motor grossly intact, alert Extremities no edema Psych: appropriate affect, appropriate insight? Objective Data Active Medications Albuterol/Ipratropium (Albuterol/Iprat 2.5/0.5mg 3 Ml Ampul.Neb) 3 ml INHALE RQ4H WHILE AWAKE [facility] Last Admin: 03/27/22 10:40 Dose: 3 ml Documented By: DARIO Amlodipine Besylate (Amlodipine Besylate 5 Mg Tablet) 5 mg PO BEDTIME [facility]; Protocol Last Admin: 03/26/22 19:43 Dose: 5 mg Documented By: RICHIE Carvedilol (Carvedilol 3.125 Mg Tablet) 3.125 mg PO BID [facility]; Protocol Last Admin: 03/27/22 10:50 Dose: 3.125 mg Documented By: KATHERINE Heparin Sodium (Porcine) (Heparin Sodium,Porcine 5,000 Unit/Ml Vial) 5,000 unit SUBCUT Q8H [facility] Last Admin: 03/27/22 10:50 Dose: 5,000 unit Documented By: KATHERINE Melatonin (Melatonin 3 Mg Tablet) 3 mg PO BEDTIME PRN PRN Reason: Sleep Last Admin: 03/26/22 21:46 Dose: 3 mg Documented By: RICHIE Pharmacy Consult (Consult Rx Perform Med Rec) 1 each MISCELLANE ONCE PRN PRN Reason: Consult order Prednisone (Prednisone 20 Mg Tablet) 40 mg PO DAILY [facility] Last Admin: 03/27/22 10:50 Dose: 40 mg Documented By: KATHERINE Tamsulosin HCl (Tamsulosin Hcl 0.4 Mg Capsule) 0.4 mg PO DAILY [facility] Last Admin: 03/27/22 10:51 Dose: 0.4 mg Documented By: KATHERINE Labs 03/26/22 05:12 03/26/22 05:12 Microbiology Microbiology Results: Microbiology 03/24/22 23:00 Urine Culture - Final Urine Catheterized - House Catheter No growth. Assessment and Plan (1) Acute on chronic respiratory failure with hypoxia and hypercapnia: Status: Acute (2) Essential hypertension: Status: Acute Plan 47-year-old male with significant underlying COPD presented just 1 week post discharge after aggressive diuresis for diastolic CHF with acute on chronic severe hypercarbic and hypoxic respiratory failure presented with progressive shortness of breath , hypoxia and confusion. Acute hypoxemic and hypercapneic respiratory failure secondary to human metapneumovirus infection, no recurrent CHFpEF, bedside echo in ICU showed normal left ventricular function Continue high-flow oxygen during day and BiPAP at nighttime Continue prednisone 40 mg, with gradual weaning 5 mg every 3 days Continue nebs wean high-flow o2 as tolerated Acute metabolic encephalopathy due to hypercarbia resolved HTN On amlodipine 5mg, Coreg 3.125mg lisinopril and Lasix on hold BPH on Flomax morbid obesity with lymphedema weight loss, wound care DVT prophylaxis:? Heparin subcu 8 hours Time Spent With Patient Time: Total time managing care of this patient today ____ minutes. Quality Stroke Does the patient have a stroke diagnosis?: No VTE Prior VTE?: No VTE Risk Level:: Medical - moderate - high VTE Device Contraindication: N/A - Device Ordered VTE Drug Contraindication: N/A - Med Ordered
[2022-03-27] MEDS: amLODIPine Besylate 5 MG TABLET PO (21:37)
[2022-03-27] MEDS: Melatonin 3 MG TABLET PO (21:38)
[2022-03-28] VITALS (14 sets, daily range): BP systolic 132–159; BP diastolic 75–97; PULSE 52–97; RESP 15–20; TEMP 36.4–37; O2SAT 92–97
[2022-03-28] MEDS: Heparin Sodium,Porcine 5,000 UNIT/ML VIAL 5000 UNIT SUBCUT (05:03)
[2022-03-28] MEDS: Albuterol/Iprat 2.5/0.5MG 3 ML AMPUL.NEB INHALE ×4 (08:00→19:38)
[2022-03-28] MEDS: carvediloL 3.125 MG TABLET PO ×2 (09:15→20:11)
[2022-03-28] MEDS: predniSONE 20 MG TABLET 40 MG PO (09:15)
[2022-03-28] MEDS: Tamsulosin HCL 0.4 MG CAPSULE PO (09:15)
--- NOTE | 2022-03-28 10:57 | P.PNIM_ITS ---
Subjective Subjective Date of Service: 03/28/22 Interval History: eager to go home Physical Exam Vital Signs: Vital Signs: Last Vital Signs Temp 97.8 F 03/28/22 07:58 Pulse 79 03/28/22 08:03 Resp 18 03/28/22 08:48 BP 139/90 H 03/28/22 07:58 Pulse Ox 95 03/28/22 07:58 O2 Del Method 03/28/22 07:58 O2 Flow Rate 40 03/28/22 00:00 FiO2 35 03/28/22 07:58 Oxygen Flow Rate 15 03/23/22 15:00 BMI result Body Mass Index 40.6 Const: Other: General: AO X 3, no acute distress Neck no JVD Resp:? Diminished breath sound bilaterally, expiratory wheeze, no accessory muscles used CVS: S1,S2,RRR GI: soft, non tender, non distended Neuro:? motor grossly intact, alert Extremities no edema Psych: appropriate affect, appropriate insight? Objective Data Active Medications Albuterol/Ipratropium (Albuterol/Iprat 2.5/0.5mg 3 Ml Ampul.Neb) 3 ml INHALE RQ4H WHILE AWAKE [facility] Last Admin: 03/28/22 08:00 Dose: 3 ml Documented By: SETH Amlodipine Besylate (Amlodipine Besylate 5 Mg Tablet) 5 mg PO BEDTIME [facility]; Protocol Last Admin: 03/27/22 21:37 Dose: 5 mg Documented By: RICHIE Carvedilol (Carvedilol 3.125 Mg Tablet) 3.125 mg PO BID [facility]; Protocol Last Admin: 03/28/22 09:15 Dose: 3.125 mg Documented By: KRUNAL Heparin Sodium (Porcine) (Heparin Sodium,Porcine 5,000 Unit/Ml Vial) 5,000 unit SUBCUT Q8H [facility] Last Admin: 03/28/22 05:03 Dose: 5,000 unit Documented By: RICHIE Melatonin (Melatonin 3 Mg Tablet) 3 mg PO BEDTIME PRN PRN Reason: Sleep Last Admin: 03/27/22 21:38 Dose: 3 mg Documented By: RICHIE Pharmacy Consult (Consult Rx Perform Med Rec) 1 each MISCELLANE ONCE PRN PRN Reason: Consult order Prednisone (Prednisone 20 Mg Tablet) 40 mg PO DAILY [facility] Last Admin: 03/28/22 09:15 Dose: 40 mg Documented By: KRUNAL Tamsulosin HCl (Tamsulosin Hcl 0.4 Mg Capsule) 0.4 mg PO DAILY [facility] Last Admin: 03/28/22 09:15 Dose: 0.4 mg Documented By: KRUNAL Labs 03/26/22 05:12 03/26/22 05:12 Assessment and Plan (1) Acute on chronic respiratory failure with hypoxia and hypercapnia: Status: Acute (2) Essential hypertension: Status: Acute Plan 47-year-old male with significant underlying COPD presented just 1 week post discharge after aggressive diuresis for diastolic CHF with acute on chronic severe hypercarbic and hypoxic respiratory failure presented with progressive shortness of breath , hypoxia and confusion. Acute hypoxemic and hypercapneic respiratory failure secondary to human metapneumovirus infection, no recurrent CHFpEF, bedside echo in ICU showed normal left ventricular function Continue high-flow oxygen during day and BiPAP at nighttime Continue prednisone 40 mg, with gradual weaning 5 mg every 3 days Continue nebs wean high-flow o2 as tolerated still saturating about 91% on current settings Acute metabolic encephalopathy due to hypercarbia resolved HTN On amlodipine 5mg, Coreg 3.125mg lisinopril and Lasix on hold BPH on Flomax morbid obesity with lymphedema weight loss, wound care DVT prophylaxis:? lovenox full cdoe reason for continued hospitalization:hypoxia Time Spent With Patient Time: Total time managing care of this patient today ____ minutes. Quality Stroke Does the patient have a stroke diagnosis?: No VTE Prior VTE?: No VTE Risk Level:: Medical - moderate - high VTE Device Contraindication: N/A - Device Ordered VTE Drug Contraindication: N/A - Med Ordered
[2022-03-28] MEDS: Enoxaparin Sodium 40 MG/0.4 ML SYRINGE SUBCUT (12:38)
[2022-03-28] MEDS: amLODIPine Besylate 5 MG TABLET PO (20:11)
[2022-03-28] MEDS: Melatonin 3 MG TABLET PO (20:11)
[2022-03-29] VITALS (13 sets, daily range): BP systolic 136–158; BP diastolic 77–92; PULSE 57–81; RESP 17–20; TEMP 36.2–37.1; O2SAT 92–99
[2022-03-29 06:20] LABS: Hematocrit 49.6 % (42.0-52.0); Hemoglobin 15.6 g/dl (14.0-18.0); Mean Corpuscular HGB Conc 31.5 g/dl (31.0-36.0); Mean Corpuscular Hemoglobin 29.3 pg (27.0-33.0); Mean Corpuscular Volume 93.1 fL (80.0-98.0); Mean Platelet Volume 10.5 fL (9.4-12.4); Platelet Count 142 X10*3/uL (160-400); Red Blood Count 5.33 X10*6/uL (4.60-5.80); Red Cell Distribution Width 13.6 % (11.0-16.0); White Blood Count 6.8 X10*3/uL (4.8-10.8)
[2022-03-29 06:44] LABS: Anion Gap 13 (12-20); Blood Urea Nitrogen 24 mg/dL (9-16); Calcium 8.8 mg/dL (8.4-10.2); Carbon Dioxide 30 mmol/L (22-29); Chloride 105 mmol/L (96-108); Creatinine Clr Calc Pharmacy 145.4; Estimated Glomerular Filt Rate > 60; Glucose Fasting 84 mg/dL (60-99); Magnesium 2.1 mg/dL (1.6-2.6); Potassium 4.3 mmol/L (3.3-5.1); Sodium 144 mmol/L (135-145)
[2022-03-29] MEDS: Albuterol/Iprat 2.5/0.5MG 3 ML AMPUL.NEB INHALE ×4 (07:51→20:13)
--- NOTE | 2022-03-29 09:45 | HO.PM.IMPN ---
Subjective Subjective Date of Service: 03/29/22 Interval History: eager to go home Physical Exam Vital Signs: Vital Signs: Last Vital Signs Temp 97.1 F 03/29/22 03:32 Pulse 66 03/29/22 07:51 Resp 19 03/29/22 07:51 BP 139/92 H 03/29/22 07:19 Pulse Ox 96 03/29/22 07:19 O2 Del Method 03/29/22 03:32 O2 Flow Rate 6 03/29/22 07:19 FiO2 44 03/28/22 19:06 Oxygen Flow Rate 15 03/23/22 15:00 BMI result Body Mass Index 40.6 Const: Other: General: AO X 3, no acute distress Neck no JVD Resp:? Diminished breath sound bilaterally, expiratory wheeze, no accessory muscles used CVS: S1,S2,RRR GI: soft, non tender, non distended Neuro:? motor grossly intact, alert Extremities no edema Psych: appropriate affect, appropriate insight? Objective Data Active Medications Albuterol/Ipratropium (Albuterol/Iprat 2.5/0.5mg 3 Ml Ampul.Neb) 3 ml INHALE RQ4H WHILE AWAKE [facility] Last Admin: 03/29/22 07:51 Dose: 3 ml Documented By: SETH Amlodipine Besylate (Amlodipine Besylate 5 Mg Tablet) 5 mg PO BEDTIME [facility]; Protocol Last Admin: 03/28/22 20:11 Dose: 5 mg Documented By: RICHIE Carvedilol (Carvedilol 3.125 Mg Tablet) 3.125 mg PO BID [facility]; Protocol Last Admin: 03/28/22 20:11 Dose: 3.125 mg Documented By: RICHIE Enoxaparin Sodium (Enoxaparin Sodium 40 Mg/0.4 Ml Syringe) 40 mg SUBCUT Q24H [facility] Last Admin: 03/28/22 12:38 Dose: 40 mg Documented By: KRUNAL Melatonin (Melatonin 3 Mg Tablet) 3 mg PO BEDTIME PRN PRN Reason: Sleep Last Admin: 03/28/22 20:11 Dose: 3 mg Documented By: RICHIE Pharmacy Consult (Consult Rx Perform Med Rec) 1 each MISCELLANE ONCE PRN PRN Reason: Consult order Prednisone (Prednisone 20 Mg Tablet) 40 mg PO DAILY [facility] Last Admin: 03/28/22 09:15 Dose: 40 mg Documented By: KRUNAL Tamsulosin HCl (Tamsulosin Hcl 0.4 Mg Capsule) 0.4 mg PO DAILY [facility] Last Admin: 03/28/22 09:15 Dose: 0.4 mg Documented By: KRUNAL Labs 03/29/22 06:07 03/29/22 06:07 Labs: Laboratory Results - last 24 hr 03/29/22 03/29/22 06:07 06:07 MCV 93.1 MCH 29.3 MCHC 31.5 RDW 13.6 Plt Count 142 L MPV 10.5 Absolute Nucleated RBC 0.000 Nucleated RBC % (auto) 0.0 Anion Gap 13 Estim Creat Clear Calc 145.4 Estimated GFR > 60 Fasting Glucose 84 Calcium 8.8 Magnesium 2.1 Microbiology Microbiology Results: Microbiology 03/23/22 15:31 Blood Culture - Final Blood - Venous No growth after 5 days. 03/23/22 15:03 Blood Culture - Final Blood - Venous No growth after 5 days. Assessment and Plan (1) Acute on chronic respiratory failure with hypoxia and hypercapnia: Status: Acute (2) Essential hypertension: Status: Acute Plan 47-year-old male with significant underlying COPD presented just 1 week post discharge after aggressive diuresis for diastolic CHF with acute on chronic severe hypercarbic and hypoxic respiratory failure presented with progressive shortness of breath , hypoxia and confusion. Acute hypoxemic and hypercapneic respiratory failure secondary to human metapneumovirus infection, no recurrent CHFpEF, bedside echo in ICU showed normal left ventricular function BiPAP at nighttime Continue prednisone 40 mg, with gradual weaning 5 mg every 3 days Continue nebs weaned down to 6L Acute metabolic encephalopathy due to hypercarbia resolved HTN On amlodipine 5mg, Coreg 3.125mg lisinopril and Lasix on hold BPH on Flomax morbid obesity with lymphedema weight loss, wound care DVT prophylaxis:? lovenox full cdoe reason for continued hospitalization:hypoxia Time Spent With Patient Time: Total time managing care of this patient today ____ minutes. Quality Stroke Does the patient have a stroke diagnosis?: No VTE Prior VTE?: No VTE Risk Level:: Medical - moderate - high VTE Device Contraindication: N/A - Device Ordered VTE Drug Contraindication: N/A - Med Ordered
[2022-03-29] MEDS: predniSONE 20 MG TABLET 40 MG PO (10:03)
[2022-03-29] MEDS: Tamsulosin HCL 0.4 MG CAPSULE PO (10:03)
[2022-03-29] MEDS: carvediloL 3.125 MG TABLET PO ×2 (10:03→20:37)
[2022-03-29] MEDS: Enoxaparin Sodium 40 MG/0.4 ML SYRINGE SUBCUT (12:22)
--- NOTE | 2022-03-29 16:02 | PC.RT ---
patient seen this am . patient doing well on hfnc, weaned to herrera nasal cannula 5 lpm, tolerating well at this time. patient now oon in recliner.
[2022-03-29] MEDS: amLODIPine Besylate 5 MG TABLET PO (20:36)
[2022-03-29] MEDS: Melatonin 3 MG TABLET PO (20:37)
--- NOTE | 2022-03-29 23:37 | PC.RT ---
Pt placed on AVAPS for NOC support.
[2022-03-30 03:05] VITALS: PULSE 58; RESP 18; TEMP 36.7; O2SAT 97
[2022-03-30 04:38] VITALS: PULSE 69; RESP 18; O2SAT 98
[2022-03-30 07:16] VITALS: BP 175/79; PULSE 64; RESP 16; TEMP 36.5; O2SAT 95
[2022-03-30] MEDS: Tamsulosin HCL 0.4 MG CAPSULE PO (07:45)
[2022-03-30] MEDS: carvediloL 3.125 MG TABLET PO (07:45)
[2022-03-30] MEDS: predniSONE 20 MG TABLET 40 MG PO (07:45)
[2022-03-30] MEDS: Albuterol/Iprat 2.5/0.5MG 3 ML AMPUL.NEB INHALE (08:14)
[2022-03-30 08:15] VITALS: PULSE 64; RESP 16; O2SAT 90
[2022-03-30 10:04] VITALS: PULSE 89; PULSE 96; O2SAT 87; O2SAT 92
--- NOTE | 2022-03-30 10:12 | P.DS_ITS ---
DS: Providers Provider Date of Service: 03/30/22 Date of admission: 03/23/22 20:20 Primary care physician: Justin Helm III, MD Consults: 03/24/22 19:26 Consult to Urology Stat Consulting Provider: Emma Kennedy Reason for consultation: urine retention/unable to insert catheter Has provider been notified: Yes DS: Diagnosis Discharge Diagnosis (1) Acute on chronic respiratory failure with hypoxia and hypercapnia: Status: Acute (2) Essential hypertension: Status: Acute DS: Summary Hospital Course Hospital Course: from initial hpi: Chief Complaint:? increasing shortness of breath 6 days post discharge ?47-year-old morbidly obese male with severe bilateral chronic stasis dermatitis and stasis ulcers under the care of Wound Care who presents with acute on chronic hypercarbic and hypoxic respiratory failure and an oxygen saturation in the 50s and with profound alteration of mental status pretty much unarousable but was placed in the emergency room on BiPAP and when about to intubate him because of poor GCS score he all of a sudden woke up and despite the fact that he had asterixis started to make sense he was able to talk and clearly was able to follow commands and therefore safeguard his airway and we felt a little bit more time on the BiPAP and will repeat the blood gas his current pCO2 was 100 so if he approves and the acute respiratory acidosis improves then we will continue with noninvasive ventilation for now but clearly needs to be admitted ?bedside echo shows normal left ventricular and right ventricular size structure and function with no primary valve or pericardial disease ?being that he woke up and was appropriate repeat blood gas showing pCO2 now down to 84 from its peak of 100 we kept him on BiPAP and we will titrate up on our volume per breath to bring his pCO2 down to approximately 70 which is close to his chronic state of affairs and at that point possibly introduce in 0 food ?we will obtain CT scan and see if we could narrow down the etiology ?he claims that a lot of his exacerbation 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 He was given BiPAP at night. He was given steroids which will be continue with prednisone 20 mg daily for another 5 days. His given nebulized treatments and slowly weaned off oxygen at rest and will require 3L on ambulation. patient had acute metabolic encephalopathy due to hypercarbia which resolved. For his chronic diastolic CHF, echo done during hospitalization did not show evidence of fluid overload. For hypertension use continue on amlodipine, lisinopril and Lasix were held, he was started on carvedilol. For BPH, this was complicated by urinary retention and required House placement, who started on Flomax. From morbid obesity with lymphedema weight loss is encouraged. Patient is feeling better will be discharged home. Time Spent with Patient Time attestation: Total time managing care of this patient today ____ minutes. Discharge coordination time: Greater than 30 minutes Quality: Safe Use of Opioids Does Pt have an Active Cancer Diagnosis on the Problem List?: No Quality: Stroke Does the patient have a stroke diagnosis?: No Physical Exam Vital Signs: Vital Signs: Last Vital Signs Temp 97.7 F 03/30/22 07:16 Pulse 64 03/30/22 08:15 Resp 16 03/30/22 08:15 BP 175/79 H 03/30/22 07:16 Pulse Ox 95 03/30/22 07:16 O2 Del Method 03/30/22 07:16 O2 Flow Rate 2 03/30/22 07:16 FiO2 44 03/28/22 19:06 Oxygen Flow Rate 15 03/23/22 15:00 BMI result Body Mass Index 40.6 Const: Other: General: AO X 3, no acute distress Neck no JVD Resp:? Diminished breath sound bilaterally, expiratory wheeze, no accessory mus cles used CVS: S1,S2,RRR GI: soft, non tender, non distended Neuro:? motor grossly intact, alert Extremities no edema Psych: appropriate affect, appropriate insight? DS: Data Data Completed and Pending Completed studies during hospitalization [Text1]: Procedures Assistance with Respiratory Ventilation, Less than 24 Consecutive Hours, Continuous Positive Airway Pressure (03/10/22) Discharge Plan Discharge Anticipated Discharge Date/Time: 03/30/22 10:09 Patient Disposition: Home Health Service Discharge Diagnosis: human metapneumovirus Referrals: Justin Helm III, MD [Primary Care Provider] - 1 Week Discharge Medications: New prednisone 20 mg Tablet 20 mg PO DAILY Qty: 5 0RF carvedilol 3.125 mg Tablet 3.125 mg PO BID Qty: 60 0RF Protocol: Hold for SBP/HR < HOLD for SBP < : 90 HOLD for HR < : 60 tamsulosin 0.4 mg Capsule 0.4 mg PO DAILY Qty: 30 0RF Continued amlodipine 5 mg tablet 1 tab PO BEDTIME budesonide-formoterol [Symbicort] 160-4.5 mcg/actuation HFA aerosol inhaler 2 puff inhalation BID furosemide 40 mg Tablet 40 mg PO DAILY Qty: 30 0RF Protocol: Hold for SBP< HOLD for SBP < : 90 albuterol sulfate 90 mcg/actuation HFA aerosol inhaler 2 inh inhalation Q4H PRN (Reason: Shortness Of Breath) Discontinued lisinopril 40 mg tablet 1 tab PO BEDTIME Discharge Orders: Discharge Order (Routine); Ordered 03/30/22 Ordered By: Steven Ziegler Diet: Advance to usual diet Activity on Discharge: As tolerated Stand Alone Forms: Patient Portal Discharge page Care Plan Goals: recovery Health Concerns: hypoxia, urinary retention Plan of Treatment: meds as above Assessment: see above
[2022-03-30 11:14] VITALS: BP 149/86; PULSE 69; RESP 16; TEMP 37.2; O2SAT 92
--- NOTE | 2022-03-30 12:03 | MHC.CM.PN ---
pt dcd today with [facility]
--- NOTE | 2022-03-30 13:34 | W.MHC.F2F ---
Service Date Service Date: 03/30/22 Encounter Date of encounter: 03/30/22 Reasons for Services Signs and symptoms assessed: weakness Reason for intermediate: medication management, medication treatment and teach disease management Homebound: Leaving the home is medically contraindicated at this time without the asist of a device and/or another person due th the listed conditions above and below. Reason homebound: unsteady gait / fall risk Certification: Based on the above findings, I certify that this patient is confined to the home and needs intermittent intermediate care, physical therapy and/or speech therapy, or continues to need occupational therapy. The patient is under my care, and I have initiated the establishment of the plan of care. The patient will be followed by a physician who will periodically review the plan of care. Time Spent With Patient Time: Total time managing care of this patient today ____ minutes.
--- NOTE | 2022-03-30 14:36 | PC.NURSE ---
Pt's perez removed at 0915, completed voiding trial at 1300, 200ml voided, 33ml residual with bladder scan.
[2022-03-31 06:48] LABS: Angiotensin Converting Enzyme 6.3 U/L (9-67)
== END 2022-03-30 14:00 | disposition home health service (06) | DRG 140 ==
LOC: HO.ED 20:31 → HO.EDOVER 20:48 → HO.ICU 21:09 → HO.IMC 03-26 13:08
PROVIDERS: Nurse Practitioner Family; Physician Assistant; Admitting Provider Internal Medicine Cardiovascular Disease; Emergency Provider Emergency Medicine; PCP Internal Medicine; Visit Provider Internal Medicine
DX: J44.0 Chronic obstructive pulmonary disease with (acute) lower respiratory infection (principal); J96.21 Acute and chronic respiratory failure with hypoxia; J12.3 Human metapneumovirus pneumonia; I50.32 Chronic diastolic (congestive) heart failure; I11.0 Hypertensive heart disease with heart failure; G80.9 Cerebral palsy, unspecified; J44.1 Chronic obstructive pulmonary disease with (acute) exacerbation; E66.01 Morbid (severe) obesity due to excess calories; Z68.41 Body mass index [BMI] 40.0-44.9, adult; N40.1 Benign prostatic hyperplasia with lower urinary tract symptoms; R33.8 Other retention of urine; I87.323 Chronic venous hypertension (idiopathic) with inflammation of bilateral lower extremity; L03.115 Cellulitis of right lower limb; J96.22 Acute and chronic respiratory failure with hypercapnia; Z20.822 Contact with and (suspected) exposure to COVID-19; Z87.891 Personal history of nicotine dependence; Z88.0 Allergy status to penicillin; Z79.899 Other long term (current) drug therapy
CPT/HCPCS: 36415; 36600; 71045; 71250; 80048; 80076; 81001; 82040; 82164; 82803; 83605; 83735; 83880; 84100; 84145; 84484; 85025; 85027; 85379; 87040; 87086; 87633; 87635; 93005; 94640; 94660; 99285; C1758; J1643; J1650; J1956; J2930; J3371; J3475

== ENCOUNTER 2022-10-01 13:32 | Emergency (ER) | payer OTHER, SELFPAY ==
--- NOTE | ~2022-10-01 | US_ITS ---
EXAMINATION: US VENOUS ULTRASOUND WITH DOPPLER LOWER EXTREMITY, RIGHT CLINICAL INFORMATION: Edema. COMPARISON: Venous Doppler right lower extremity 01/14/2021. Venous Doppler ultrasound exam bilateral lower extremity 02/19/2021. TECHNIQUE: Ultrasound of the deep veins is performed from the hip to the calf with compression sonography and color and pulse Doppler assessment. Spectral analysis with color-flow imaging is performed. FINDINGS: There is normal venous compression and respiratory variation and augmented flow. The visualized common femoral vein, superficial femoral vein, profunda femoral vein, popliteal vein, and the trifurcation region shows no evidence of deep venous thrombosis. Normal vascular flow seen in the posterior tibial vein. The peroneal vein in the calf is not well visualized. There is no significant popliteal fossa cyst. If the patient's symptoms persist, followup ultrasound in 5 days 7 days might be of value to exclude proximal propagation from a non-visualized calf vein. US/US venous duplex LE RT IMPRESSION: No DVT demonstrated in the right lower extremity.
--- NOTE | ~2022-10-01 | XR_ITS ---
EXAMINATION: XR ANKLE, RIGHT CLINICAL INFORMATION: Osteoquestion COMPARISON: None available. TECHNIQUE: AP, lateral, and mortise views of the right ankle. FINDINGS: D tibial and fibular bony cortex is maintained normal. There is a small irregularity and ulceration seen along the lateral distal lower leg where marker has been placed with skin indentation. There is no gas or air-fluid levels seen to suspect any infarction at this time. There is calcification seen in posterior lower leg soft tissues slightly posterior to the Achilles tendon, likely old injury or myositis ossificans. The ankle mortise and subtalar joints are normal. XR/XR ankle RT 2V IMPRESSION: Small skin defect at the level of ulceration in the lower lateral right leg. No underlying periosteal bony abnormality seen.
[2022-10-01 13:37] VITALS: BP 163/84; PULSE 91; RESP 19; TEMP 36.6; O2SAT 95; BMI 40.7
--- NOTE | 2022-10-01 13:39 | ED_ITS ---
HPI - General Adult General Chief complaint: Wound/Laceration Stated complaint: r foot rash pain diff walking Time Seen by Provider: 10/01/22 16:43 Source: patient Mode of arrival: ambulatory Limitations: no limitations History of Present Illness HPI narrative: Patient presents with right lower extremity edema, redness, swelling and pain. Patient denies a history of diabetes. Does have a history of chronic right lower extremity edema. Reports having history of cerebral palsy with chronic difficulty with plantar flexion. He has noted over the past 3 weeks, however, that he has had increasing redness, swelling and now pain. Denies any fevers or chills. Pain is worse with palpation and movement. The pain does not radiate. Describes the pain as a burning sensation. Patient had previous wound care to the lower extremity which did significantly improve his symptoms but he did very well and was discharged from their services. Patient presents for evaluation and possible referral to wound care. Related Data Home Medications Medication Instructions Recorded Confirmed amlodipine 5 mg tablet 1 tab PO BEDTIME 01/12/21 03/23/22 budesonide-formoterol HFA 160 2 puff inhalation BID 01/12/21 03/23/22 mcg-4.5 mcg/actuation aerosol inhaler (Symbicort) albuterol sulfate 90 mcg/actuation 2 inh inhalation Q4H PRN Shortness 01/28/21 03/23/22 aerosol inhaler Of Breath Previous Rx's Medication Instructions Recorded furosemide 40 mg tablet 40 mg PO DAILY #30 tabs 03/16/22 carvedilol 3.125 mg tablet 3.125 mg PO BID #60 tabs 03/30/22 prednisone 20 mg tablet 20 mg PO DAILY #5 tabs 03/30/22 tamsulosin 0.4 mg capsule 0.4 mg PO DAILY #30 caps 03/30/22 doxycycline monohydrate 100 mg 100 mg PO BID #20 tabs 10/01/22 tablet gabapentin 300 mg capsule 300 mg PO TID #30 caps 10/01/22 silver sulfadiazine 1 % topical 1 appl topical BID #85 grams 10/01/22 cream (Silvadene) Allergies Allergy/AdvReac Type Severity Reaction Status Date / Time Penicillins [PENICILLINS] Allergy Unknown HIVES Verified 10/01/22 13:37 Review of Systems Review of Systems: CONSTITUTIONAL: Denies weight loss, fever and chills. HEENT: Denies changes in vision and hearing. RESPIRATORY: Denies SOB and cough. CV: Denies palpitations no CP. GI: Denies abdominal pain, nausea, vomiting and diarrhea. : Denies dysuria and urinary frequency. MSK: Denies myalgia and joint pain. SKIN: Positive for rash right lower extremity NEUROLOGICAL: Denies headache and syncope. PSYCHIATRIC: Denies recent changes in mood. Denies anxiety and depression. All other ROS are negative unless in HPI PMFSH Past Medical History Medical History Asthma Cerebral palsy Chronic venous hypertension with ulcer Hypertension Surgical History H/O umbilical hernia repair Social History Social History Household Members: Family Housing: House Do you presently have visiting nurse or other home services: No Alcohol intake: current Alcohol intake frequency: 0-2 drinks per day Alcohol type: hard liquor Patient Tobacco Use Status: Former Tobacco user Tobacco use type: Cigarette Smoked in Last 30 Days: No e-Cigarette/Vaping Use: Never Used Second Hand Smoke Exposure: No Use of substances other than those prescribed or required for medical reasons: No Substance Use Type: Marijuana Advance Directives: No Advance Directives Information Provided: Yes service: No Current occupational status: employed Physical Exam ED Vital Signs: Vital Signs - 24 hr 10/01/22 13:37 10/01/22 16:28 10/01/22 18:37 Temperature 98 F Pulse Rate 91 93 83 Respiratory Rate 19 18 20 Blood Pressure 163/84 H 181/117 H 178/115 H Pulse Oximetry 95 97 97 Oxygen Delivery Method Room Air Room Air Room Air 10/01/22 19:26 Temperature 98.1 F Pulse Rate 88 Respiratory Rate 18 Blood Pressure 157/96 H Pulse Oximetry 96 Oxygen Delivery Method Room Air BMI result Body Mass Index 40.7 GEN: Well developed, no acute distress, alert, oriented HEENT: Normocephalic, atraumatic, normal external ears, nose appears normal, no oropharyngeal edema or exudates Eyes: Normal to appearance Neck: Supple, no lymphadenopathy Respiratory: Talks in complete sentences, no respiratory distress, clear to auscultation bilaterally Cardiovascular: Regular rate and rhythm, no murmurs rubs or gallops Abdomen: Soft, nontender, nondistended, no guarding, no rebound Back: No CVA tenderness Extremities: No clubbing cyanosis 1+ edema left, 3+ chronic nonpitting edema on the right Neurologic: No focal neurologic deficits, cranial nerves 2-12 intact, strength is 5/5 bilaterally Skin: No rash Skin Other: Course Course Course Narrative: RME- 47-year-old male presents for evaluation of right ankle pain. He reports redness, increased pain, swelling and drainage from the area. Appears to be in acute on chronic issue. Plan for labs including blood cultures. Reevaluation(s) Reevaluation #1: Patient has evaluated this is complete. Has no DVT. Has no elevated white blood cell count. He does have some elevated inflammatory markers. He was evaluated by hospitalist to consider hospitalization but we both agree at this time that he does not clearly warrant inpatient care. Will start him on oral antibiotics, recommend wound care follow-up. He will return for any worsening concerning symptoms. Time: 20:12 Medications Administered Discontinued Medications Generic Name Dose Route Start Last Admin Trade Name Homero PRN Reason Stop Dose Admin Acetaminophen 975 mg 10/01/22 17:00 10/01/22 17:23 Acetaminophen 325 Mg Tablet PO 10/01/22 17:01 975 mg ONCE ONE Administration Amlodipine Besylate 5 mg 10/01/22 18:56 10/01/22 19:21 Amlodipine Besylate 5 Mg Tablet PO 10/01/22 18:57 5 mg ONCE ONE Administration Protocol Carvedilol 3.125 mg 10/01/22 18:56 10/01/22 19:21 Carvedilol 3.125 Mg Tablet PO 10/01/22 18:57 3.125 mg ONCE ONE Administration Protocol Gabapentin 300 mg 10/01/22 17:00 10/01/22 17:23 Gabapentin 300 Mg Capsule PO 10/01/22 17:01 300 mg ONCE ONE Administration Ibuprofen 600 mg 10/01/22 17:00 10/01/22 17:23 Ibuprofen 600 Mg Tablet PO 10/01/22 17:01 600 mg ONCE ONE Administration Silver Sulfadiazine 1 appl 10/01/22 17:00 10/01/22 18:19 Silver Sulfadiazine 1 % Cream 20 Gm Tube TOPICAL 10/01/22 17:01 1 appl ONCE ONE Administration Medical Decision Making Medical Decision Making MDM Narrative: 47-year-old male with history of cerebral palsy, hypertension, CHF presents with increasing right lower extremity pain, redness, swelling. Examination identified a chronic lymphedematous extremity, skin ulcerations, tenderness and redness. Differential diagnosis includes cellulitis versus stasis dermatitis. Will order CBC, sed rate, CRP to determine if there is any obvious evidence of systemic infection. Will obtain an ultrasound to rule out DVT. Will re-e valuate the patient. Patient may very well likely need admission for intravenous antibiotics and wound care consultation. Differential Diagnosis Differential Diagnoses: The differential diagnosis associated with the presentation includes (See above) Lab Data [facility] Lab Attestation statement: I reviewed the patient's lab results. 10/01/22 13:47 10/01/22 13:47 Labs: Lab Results 10/01/22 10/01/22 10/01/22 Range/Units 13:47 13:47 13:47 WBC 7.7 (4.8-10.8) X10*3/uL RBC 4.67 (4.60-5.80) X10*6/uL Hgb 13.6 L (14.0-18.0) g/dl Hct 41.6 L (42.0-52.0) % MCV 89.1 (80.0-98.0) fL MCH 29.1 (27.0-33.0) pg MCHC 32.7 (31.0-36.0) g/dl RDW 13.5 (11.0-16.0) % Plt Count 219 D (160-400) X10*3/uL MPV 9.8 (9.4-12.4) fL Immature Gran % (Auto) 0.3 (0.0-0.4) % Neut % (Auto) 67.9 (45-73) % Lymph % (Auto) 15.8 L (20-40) % [place] % (Auto) 10.4 (2-11) % Eos % (Auto) 4.7 H (0-4) % Baso % (Auto) 0.9 (0-2) % Lymph # (Auto) 1.2 (1.2-4.9) X10*3/uL [place] # (Auto) 0.8 (0.1-1.2) X10*3/uL Eos # (Auto) 0.4 (0.0-0.4) X10*3/uL Baso # (Auto) 0.1 (0.0-0.2) X10*3/uL Abs Immat Gran (auto) 0.02 (0.00-0.03) X10*3/uL Absolute Neuts (auto) 5.2 (2.0-8.3) x10*3/uL Absolute Nucleated RBC 0.000 (0.0-0.012) X10*3/uL Nucleated RBC % (auto) 0.0 (0.0-0.2) /100WBC ESR (0-15) MM/HR Sodium 142 (135-145) mmol/L Potassium 3.9 (3.3-5.1) mmol/L Chloride 105 (96-108) mmol/L Carbon Dioxide 31 H (22-29) mmol/L Anion Gap 10 L (12-20) BUN 10 (9-16) mg/dL Creatinine 0.79 (0.5-1.4) mg/dL Estim Creat Clear Calc 142.0 Estimated GFR > 60 Random Glucose 112 (60-115) mg/dL Lactic Acid 0.7 (0.5-2.0) mmol/L Calcium 9.1 (8.4-10.2) mg/dL Total Bilirubin 0.5 (0.0-1.0) mg/dL AST 16 (5-37) U/L ALT 14 (0-40) U/L Alkaline Phosphatase 71 (39-117) U/L C-Reactive Protein 5.47 H (< or = 0.50) mg/dL Total Protein 7.1 (6.5-8.0) g/dL Albumin 3.5 (3.5-5.0) g/dL 10/01/22 Range/Units 13:47 WBC (4.8-10.8) X10*3/uL RBC (4.60-5.80) X10*6/uL Hgb (14.0-18.0) g/dl Hct (42.0-52.0) % MCV (80.0-98.0) fL MCH (27.0-33.0) pg MCHC (31.0-36.0) g/dl RDW (11.0-16.0) % Plt Count (160-400) X10*3/uL MPV (9.4-12.4) fL Immature Gran % (Auto) (0.0-0.4) % Neut % (Auto) (45-73) % Lymph % (Auto) (20-40) % [place] % (Auto) (2-11) % Eos % (Auto) (0-4) % Baso % (Auto) (0-2) % Lymph # (Auto) (1.2-4.9) X10*3/uL [place] # (Auto) (0.1-1.2) X10*3/uL Eos # (Auto) (0.0-0.4) X10*3/uL Baso # (Auto) (0.0-0.2) X10*3/uL Abs Immat Gran (auto) (0.00-0.03) X10*3/uL Absolute Neuts (auto) (2.0-8.3) x10*3/uL Absolute Nucleated RBC (0.0-0.012) X10*3/uL Nucleated RBC % (auto) (0.0-0.2) /100WBC ESR 32 H (0-15) MM/HR Sodium (135-145) mmol/L Potassium (3.3-5.1) mmol/L Chloride (96-108) mmol/L Carbon Dioxide (22-29) mmol/L Anion Gap (12-20) BUN (9-16) mg/dL Creatinine (0.5-1.4) mg/dL Estim Creat Clear Calc Estimated GFR Random Glucose (60-115) mg/dL Lactic Acid (0.5-2.0) mmol/L Calcium (8.4-10.2) mg/dL Total Bilirubin (0.0-1.0) mg/dL AST (5-37) U/L ALT (0-40) U/L Alkaline Phosphatase (39-117) U/L C-Reactive Protein (< or = 0.50) mg/dL Total Protein (6.5-8.0) g/dL Albumin (3.5-5.0) g/dL Independent Interpretation I performed an independent interpretation of an: Ultrasound (No DVT) Radiology Impression Discussion of test interpretation with radiology: I have reviewed the radiologist's reading. Radiologist Impression: US/US venous duplex LE RT IMPRESSION: No DVT demonstrated in the right lower extremity. Dictated By: Juan Parker MD Signed By: <Electronically signed by Juan Parker MD in OV> 10/01/22 180 Prescription Management I considered prescription management with: Pain Medication and Antibiotic Chronic Conditions Patient?s care impacted by: Hypertension Discharge Plan Discharge Clinical Impression: Cellulitis, Acute stasis dermatitis, Lymphedema Patient Disposition: Still a Patient Instructions: Cellulitis (ED), Lymphedema (ED) Prescriptions: New doxycycline monohydrate 100 mg tablet 100 mg PO BID Qty: 20 0RF gabapentin 300 mg capsule 300 mg PO TID Qty: 30 0RF silver sulfadiazine [Silvadene] 1 % cream 1 appl topical BID Qty: 85 0RF Rx Instructions: apply a 1.5 mm thickness No Action amlodipine 5 mg tablet 1 tab PO BEDTIME budesonide-formoterol [Symbicort] 160-4.5 mcg/actuation HFA aerosol inhaler 2 puff inhalation BID prednisone 20 mg Tablet 20 mg PO DAILY Qty: 5 0RF carvedilol 3.125 mg Tablet 3.125 mg PO BID Qty: 60 0RF Protocol: Hold for SBP/HR < HOLD for SBP < : 90 HOLD for HR < : 60 tamsulosin 0.4 mg Capsule 0.4 mg PO DAILY Qty: 30 0RF furosemide 40 mg Tablet 40 mg PO DAILY Qty: 30 0RF Protocol: Hold for SBP< HOLD for SBP < : 90 albuterol sulfate 90 mcg/actuation HFA aerosol inhaler 2 inh inhalation Q4H PRN (Reason: Shortness Of Breath) Referrals: [facility] [Provider Group] - 5 days
[2022-10-01 14:07] LABS: MANUAL DIFF FLAG NO
[2022-10-01 14:25] LABS: Basophils Absolute Auto 0.1 X10*3/uL (0.0-0.2); Basophils Percent Auto 0.9 % (0-2); Eosinophils Absolute Auto 0.4 X10*3/uL (0.0-0.4); Eosinophils Percent Auto 4.7 % (0-4); Hematocrit 41.6 % (42.0-52.0); Hemoglobin 13.6 g/dl (14.0-18.0); Imm Gran Abs Auto 0.02 X10*3/uL (0.00-0.03); Imm Gran Pct Auto 0.3 % (0.0-0.4); Lymphocytes Absolute Auto 1.2 X10*3/uL (1.2-4.9); Lymphocytes Percent Auto 15.8 % (20-40); Mean Corpuscular HGB Conc 32.7 g/dl (31.0-36.0); Mean Corpuscular Hemoglobin 29.1 pg (27.0-33.0); Mean Corpuscular Volume 89.1 fL (80.0-98.0); Mean Platelet Volume 9.8 fL (9.4-12.4); Monocytes Absolute Auto 0.8 X10*3/uL (0.1-1.2); Monocytes Percent Auto 10.4 % (2-11); Neutrophils Absolute Auto 5.2 x10*3/uL (2.0-8.3); Neutrophils Percent Auto 67.9 % (45-73); Platelet Count 219 X10*3/uL (160-400); Red Blood Count 4.67 X10*6/uL (4.60-5.80); Red Cell Distribution Width 13.5 % (11.0-16.0); White Blood Count 7.7 X10*3/uL (4.8-10.8)
[2022-10-01 14:34] LABS: Alanine Aminotransferase 14 U/L (0-40); Albumin Level 3.5 g/dL (3.5-5.0); Alkaline Phosphatase 71 U/L (39-117); Anion Gap 10 (12-20); Aspartate Amino Transferase 16 U/L (5-37); Bilirubin Total 0.5 mg/dL (0.0-1.0); Blood Urea Nitrogen 10 mg/dL (9-16); C Reactive Protein 5.47 mg/dL (< or = 0.50); Calcium 9.1 mg/dL (8.4-10.2); Carbon Dioxide 31 mmol/L (22-29); Chloride 105 mmol/L (96-108); Estimated Glomerular Filt Rate > 60; Glucose Random 112 mg/dL (60-115); Potassium 3.9 mmol/L (3.3-5.1); Sodium 142 mmol/L (135-145); Total Protein 7.1 g/dL (6.5-8.0)
[2022-10-01 14:46] LABS: Lactic Acid 0.7 mmol/L (0.5-2.0)
[2022-10-01 15:12] LABS: Erythrocyte Sedimentation Rate 32 MM/HR (0-15)
[2022-10-01 16:28] VITALS: BP 181/117; PULSE 93; RESP 18; O2SAT 97
[2022-10-01] MEDS: Ibuprofen 600 MG TABLET PO (17:23)
[2022-10-01] MEDS: Gabapentin 300 MG CAPSULE PO (17:23)
[2022-10-01] MEDS: Acetaminophen 325 MG TABLET 975 MG PO (17:23)
--- NOTE | 2022-10-01 17:37 | PC.NURSE ---
ultrasound at bedside
[2022-10-01] MEDS: Silver Sulfadiazine 1 % Cream 20 GM TUBE 1 APPL TOPICAL (18:19)
--- NOTE | 2022-10-01 18:32 | PC.NURSE ---
this RN applied SSD cream to open areas on the right leg. pt tolerated well. non adherent dressings and juan ramon wrap applied. pt reports 1/10 pain. resting comfortably at this time
[2022-10-01 18:37] VITALS: BP 178/115; PULSE 83; RESP 20; O2SAT 97
[2022-10-01] MEDS: carvediloL 3.125 MG TABLET PO (19:21)
[2022-10-01] MEDS: amLODIPine Besylate 5 MG TABLET PO (19:21)
[2022-10-01 19:26] VITALS: BP 157/96; PULSE 88; RESP 18; TEMP 36.7; O2SAT 96
--- NOTE | 2022-10-01 19:30 | PC.NURSE ---
Pt A&Ox4, resting at bedside, no apparent distress noted. Meds given per MAR, Pt reports no pain at this time. Pt aware of plan of care.
[2022-10-01] MEDS: Doxycycline Monohydrate 100 MG CAPSULE PO (20:48)
[2022-10-01 20:54] VITALS: BP 160/97; PULSE 75
== END 2022-10-01 20:57 | disposition still patient (30) ==
PROVIDERS: Physician Assistant; Emergency Provider Emergency Medicine; PCP Internal Medicine
DX: L03.115 Cellulitis of right lower limb (principal); I83.218 Varicose veins of right lower extremity with both ulcer of other part of lower extremity and inflammation; L97.819 Non-pressure chronic ulcer of other part of right lower leg with unspecified severity; I89.0 Lymphedema, not elsewhere classified; M79.604 Pain in right leg; R60.0 Localized edema; I11.0 Hypertensive heart disease with heart failure; I50.9 Heart failure, unspecified; G80.9 Cerebral palsy, unspecified; E66.9 Obesity, unspecified; Z68.41 Body mass index [BMI] 40.0-44.9, adult; Z87.891 Personal history of nicotine dependence; Z79.899 Other long term (current) drug therapy
CPT/HCPCS: 36415; 73600; 80053; 83605; 85025; 85652; 86140; 87040; 93971; 99284

== ENCOUNTER 2022-10-13 12:45 | Outpatient (RCR) | payer OTHER, SELFPAY | END 2023-02-05 17:00 | disposition home or self-care (01) | LOC: HO.WCC 12:45 | PROVIDERS: PCP Internal Medicine; Visit Provider Physician Assistant | DX: L97.212 Non-pressure chronic ulcer of right calf with fat layer exposed (principal); G80.9 Cerebral palsy, unspecified; I89.0 Lymphedema, not elsewhere classified; I73.9 Peripheral vascular disease, unspecified; L60.2 Onychogryphosis; I10 Essential (primary) hypertension; J45.909 Unspecified asthma, uncomplicated; F10.90 Alcohol use, unspecified, uncomplicated; Z87.891 Personal history of nicotine dependence; R60.0 Localized edema | CPT/HCPCS: 11042; 11045; 97597; 99212 ==

== ENCOUNTER 2023-03-05 11:20 | Inpatient (IN) | payer OTHER, SELFPAY ==
[2023-03-05] VITALS (9 sets, daily range): BP systolic 169–179; BP diastolic 91–101; PULSE 72–101; RESP 16–25; TEMP 36.6–37.4; O2SAT 82–94; BMI 42.0; BMI 42.8
--- NOTE | ~2023-03-05 | XR_ITS ---
EXAMINATION: XR CHEST CLINICAL INFORMATION: Dyspnea. Cough. COMPARISON: Previous chest x-ray and chest CT March 2022 TECHNIQUE: Frontal view of the chest was obtained. FINDINGS: The cardiac silhouette is upper normal in size but stable. There are increased hilar markings and question small nodules. This probably represents airways disease. Differential would include pulmonary edema. The lungs are otherwise clear. No pleural effusion or pneumothorax. Done structures are unremarkable. XR/XR chest 1V IMPRESSION: Increased hilar markings and question small nodules. This probably represents airways disease. Differential would include mild pulmonary edema.
--- NOTE | 2023-03-05 11:23 | ED_ITS ---
HPI - SOB/Dyspnea General Chief Complaint: Asthma Stated Complaint: Low Oxygen Level Time Seen by Provider: 03/05/23 11:54 Source: patient, family and old records reviewed Mode of arrival: ambulatory Limitations: no limitations History of Present Illness HPI Narrative: 48 yo male with PMH of CP, CHF preserved EF, HTN, HTN, smoker, asthma, hx of respiratory failure requiring ED bipap for hypercapnia due to metapneumovirus 03/2022 comes in with 1 week of cough, congestion, difficulty breathing, fevers, chillls sputum production. O2 sat today was 78% came to ED for further management. No vaccines, no travel, no sick contacts MD elicited complaint: shortness of breath, cough and asthma attack Pertinent past history: asthma Onset (ago): day(s) (4) Context: recent illness Timing: progressively worsening Severity: moderate Exacerbating factors: exertion and coughing Relieving factors: oxygen, rest and bronchodilators Known history of: asthma Associated symptoms: fever, cough, wheezing and sputum production Treatment prior to arrival: bronchodilator Related Data Home Medications Medication Instructions Recorded Confirmed amlodipine 5 mg tablet 1 tab PO BEDTIME 01/12/21 03/23/22 budesonide-formoterol HFA 160 2 puff inhalation BID 01/12/21 03/23/22 mcg-4.5 mcg/actuation aerosol inhaler (Symbicort) albuterol sulfate 90 mcg/actuation 2 inh inhalation Q4H PRN Shortness 01/28/21 03/23/22 aerosol inhaler Of Breath Previous Rx's Medication Instructions Recorded furosemide 40 mg tablet 40 mg PO DAILY #30 tabs 03/16/22 carvedilol 3.125 mg tablet 3.125 mg PO BID #60 tabs 03/30/22 prednisone 20 mg tablet 20 mg PO DAILY #5 tabs 03/30/22 tamsulosin 0.4 mg capsule 0.4 mg PO DAILY #30 caps 03/30/22 doxycycline monohydrate 100 mg 100 mg PO BID #20 tabs 10/01/22 tablet gabapentin 300 mg capsule 300 mg PO TID #30 caps 10/01/22 silver sulfadiazine 1 % topical 1 appl topical BID #85 grams 10/01/22 cream (Silvadene) Allergies Allergy/AdvReac Type Severity Reaction Status Date / Time Penicillins [PENICILLINS] Allergy Unknown HIVES Verified 10/01/22 13:37 Review of Systems 2 Review of Systems: Constitutional : pos Fever, pos Chills ENT/Mouth : No Hoarseness, No sore throat, No Rhinorrhea Eyes: No Redness, No Discharge, No Vision Changes Cardiovascular : No Chest Pain, positive SOB, positive Dyspnea on Exertion, No Edema Respiratory : positive Cough, pos Sputum, positive Wheezing, Gastrointestinal : No Nausea, No Vomiting, No Diarrhea, No abdominal Pain Genitourinary : No Dysuria, No Hematuria Musculoskeletal : No joint pain, No Myalgias Skin : No rash Neuro : No Weakness, No Numbness, No Headache Psych : No anxiety, depression Heme/Lymph: No Bruising, No Bleeding Endocrine : No Polyuria, No Polydipsia All other systems reviewed and are negative PMFSH Past Medical History Attestation statement: The following information was validated with the patient. Source: old records reviewed Medical History Chronic venous hypertension with ulcer Cerebral palsy Asthma Hypertension Surgical History H/O umbilical hernia repair Social History Social History Household Members: Family Housing: House Do you presently have visiting nurse or other home services: No Alcohol intake: current Alcohol intake frequency: 0-2 drinks per day Alcohol type: hard liquor Comment: camera not available Patient Tobacco Use Status: Former Tobacco user Tobacco use type: Cigarette Smoked in Last 30 Days: No e-Cigarette/Vaping Use: Never Used Second Hand Smoke Exposure: No Substance Use Type: Marijuana Advance Directives: No Advance Directives Information Provided: No service: No Current occupational status: employed Physical Exam 2 Vital Signs: Vital Signs: Last Vital Signs Temp 99.0 F 03/05/23 13:52 Pulse 95 03/05/23 13:52 Resp 16 03/05/23 13:52 BP 169/92 H 03/05/23 13:52 Pulse Ox 91 L 03/05/23 13:52 O2 Del Method Nasal Cannula 03/05/23 13:52 O2 Flow Rate 2 03/05/23 13:52 BMI result Body Mass Index 42.0 Appearance: Alert. Oriented X3. Mild acute distress. Eyes: Pupils equal, round and reactive to light. ENT: Pharynx normal. Neck: Normal inspection. Neck supple. CVS: Normal heart rate and rhythm. Pulses normal. Respiratory: Mild respiratory distress short phrases tachypnea. Breath sounds diffuse wheezes throughout Abdomen: Soft and non-tender. Skin: Skin warm and dry. Normal skin color. Normal skin turgor. Extremities: 1+ pitting bilateral lower extremity edema. chronic venous stasis dermatitis changes Neuro: Oriented X 3. No motor deficit. No sensory deficit. Course Course Course Narrative: This is an RME: Additional HPI, ROS, PE not included below will be deferred to primary provider. Patient is a 48-year-old male who presents to the emergency department for evaluation reports past 5 days he has been experiencing shortness of breath, cough, denies fevers, chills. Home COVID test negative. Hx of hypoxia, has home O2 that he uses PRN, but has not provided much relief. He has also been using inhalers without much relief. He reports that his O2 has measured 60% at times. In triage O2 saturation down to 80% it does increase slightly with deep respirations. Plan: labs, EKG, CXR, spoke with hemodialysis charge nurse PT brought back to main ED Medications Administered Discontinued Medications Generic Name Dose Route Start Last Admin Trade Name Freq PRN Reason Stop Dose Admin Albuterol Sulfate 5 mg/ 0 mg 03/05/23 12:04 03/05/23 12:10 Albuterol/Ipratropium 3 ml INHALE 03/05/23 12:05 1 each ONCE ONE Administration Ceftriaxone Sodium 1 gm/ 50 mls @ 100 mls/hr 03/05/23 11:57 03/05/23 13:50 Sodium Chloride IV 03/05/23 12:26 Infused ONCE ONE Infusion Azithromycin 500 mg/ Sodium 250 mls @ 125 mls/hr 03/05/23 11:57 03/05/23 13:49 Chloride IV 03/05/23 13:56 125 mls/hr ONCE ONE Administration Methylprednisolone Sodium Succinate 60 mg 03/05/23 11:56 03/05/23 12:16 Methylprednisolone Sod Succ 125 Mg/2 Ml Vial IVPUSH 03/05/23 11:57 60 mg ONCE ONE Administration Medical Decision Making Medical Decision Making MDM Narrative: 48 yo male with PMH of CP, CHF preserved EF, HTN, HTN, smoker, asthma, hx of respiratory failure requiring ED bipap for hypercapnia due to metapneumovirus 03/2022 comes in with c/o cough, congestion, sputum production and chills/subjective fever since Wednesday. He is not vaccinated against covid or the flu. No travel or sick contacts. Low O2 down into the 70s - has O2 at home and has been using it. At this time labs, cultures, IV steroids, viral panel, CXR for pneumonia, bronch protocol 7.5mg albuterol ordered, empiric ceftriaxone and azithromycin ordered Differential Diagnosis Differential Diagnoses: The differential diagnosis associated with the presentation includes viral syndrome, pneumonia, bronchitis Admission/Observation Consideration of admission/observation: Escalation of care including admission/observation considered admit given work of breathing Consult Healthcare Provider Management of the patient was discussed with: Hospitalist (will admit) Lab Data MDM Lab Attestation statement: I reviewed the patient's lab results. 03/05/23 11:46 03/05/23 11:46 Labs: Lab Results 03/05/23 03/05/23 03/05/23 Range/Units 11:46 12:09 12:10 WBC 5.2 (4.8-10.8) X10*3/uL RBC 4.67 (4.60-5.80) X10*6/uL Hgb 14.2 (14.0-18.0) g/dl Hct 45.9 (42.0-52.0) % MCV 98.3 H (80.0-98.0) fL MCH 30.4 (27.0-33.0) pg MCHC 30.9 L (31.0-36.0) g/dl RDW 14.3 (11.0-16.0) % Plt Count 147 L D (160-400) X10*3/uL MPV 9.5 (9.4-12.4) fL Immature Gran % (Auto) 0.8 H (0.0-0.4) % Neut % (Auto) 62.5 (45-73) % Lymph % (Auto) 17.1 L (20-40) % [place] % (Auto) 16.1 H (2-11) % Eos % (Auto) 2.9 (0-4) % Baso % (Auto) 0.6 (0-2) % Lymph # (Auto) 0.9 L (1.2-4.9) X10*3/uL [place] # (Auto) 0.8 (0.1-1.2) X10*3/uL Eos # (Auto) 0.2 (0.0-0.4) X10*3/uL Baso # (Auto) 0.0 (0.0-0.2) X10*3/uL Abs Immat Gran (auto) 0.04 H (0.00-0.03) X10*3/uL Absolute Neuts (auto) 3.2 (2.0-8.3) x10*3/uL Absolute Nucleated RBC 0.020 H (0.0-0.012) X10*3/uL Nucleated RBC % (auto) 0.4 H (0.0-0.2) /100WBC VBG pH (7.32-7.43) VBG pCO2 mmHg VBG pO2 mmHg VBG HCO3 (22-26) mmol/L VBG O2 Saturation % VBG Base Excess mmol/L Sodium 145 (135-145) mmol/L Potassium 3.5 (3.3-5.1) mmol/L Chloride 99 (96-108) mmol/L Carbon Dioxide 39 H (22-29) mmol/L Anion Gap 11 L (12-20) BUN 13 (9-16) mg/dL Creatinine 0.83 (0.5-1.4) mg/dL Estim Creat Clear Calc 135.9 Estimated GFR > 60 Random Glucose 89 (60-115) mg/dL Lactic Acid 0.9 (0.5-2.0) mmol/L Calcium 8.6 (8.4-10.2) mg/dL Total Bilirubin 0.6 (0.0-1.0) mg/dL AST 22 (5-37) U/L ALT 31 (0-40) U/L Alkaline Phosphatase 63 (39-117) U/L Troponin I High Sens 32.7 (<3.5-35.0) ng/L B-Natriuretic Peptide 238 H (<100) pg/mL Total Protein 6.5 (6.5-8.0) g/dL Albumin 3.3 L (3.5-5.0) g/dL COVID-19 (JESS) Negative (Negative) COVID-19 Clin Com See Note Influenza Type A (SHIRA) Positive A (Negative) Influenza Type B (SHIRA) Negative (Negative) Influenza A & B Note See Note 03/05/23 03/05/23 Range/Units 12:14 14:40 WBC (4.8-10.8) X10*3/uL RBC (4.60-5.80) X10*6/uL Hgb (14.0-18.0) g/dl Hct (42.0-52.0) % MCV (80.0-98.0) fL MCH (27.0-33.0) pg MCHC (31.0-36.0) g/dl RDW (11.0-16.0) % Plt Count (160-400) X10*3/uL MPV (9.4-12.4) fL Immature Gran % (Auto) (0.0-0.4) % Neut % (Auto) (45-73) % Lymph % (Auto) (20-40) % [place] % (Auto) (2-11) % Eos % (Auto) (0-4) % Baso % (Auto) (0-2) % Lymph # (Auto) (1.2-4.9) X10*3/uL [place] # (Auto) (0.1-1.2) X10*3/uL Eos # (Auto) (0.0-0.4) X10*3/uL Baso # (Auto) (0.0-0.2) X10*3/uL Abs Immat Gran (auto) (0.00-0.03) X10*3/uL Absolute Neuts (auto) (2.0-8.3) x10*3/uL Absolute Nucleated RBC (0.0-0.012) X10*3/uL Nucleated RBC % (auto) (0.0-0.2) /100WBC VBG pH 7.73 H* 7.47 H (7.32-7.43) VBG pCO2 29 59 mmHg VBG pO2 133 231 mmHg VBG HCO3 39 H 43 H (22-26) mmol/L VBG O2 Saturation 99.0 100.0 % VBG Base Excess 19.5 16.8 mmol/L Sodium (135-145) mmol/L Potassium (3.3-5.1) mmol/L Chloride (96-108) mmol/L Carbon Dioxide (22-29) mmol/L Anion Gap (12-20) BUN (9-16) mg/dL Creatinine (0.5-1.4) mg/dL Estim Creat Clear Calc Estimated GFR Random Glucose (60-115) mg/dL Lactic Acid (0.5-2.0) mmol/L Calcium (8.4-10.2) mg/dL Total Bilirubin (0.0-1.0) mg/dL AST (5-37) U/L ALT (0-40) U/L Alkaline Phosphatase (39-117) U/L Troponin I High Sens (<3.5-35.0) ng/L B-Natriuretic Peptide (<100) pg/mL Total Protein (6.5-8.0) g/dL Albumin (3.5-5.0) g/dL COVID-19 (JESS) (Negative) COVID-19 Clin Com Influenza Type A (SHIRA) (Negative) Influenza Type B (SHIRA) (Negative) Influenza A & B Note Independent Interpretation I performed an independent interpretation of an: EKG and Plain X-Ray Interpretation: Rate: 87 Rhythm: NSR [place]: normal Normal P waves. Normal HANNAH. Normal QRS complex. ST T wave : inverted t waves V1 and V2 no RUBEN qTC: 478 prior studies: no acute ischemia The study has been interpreted contemporaneously by me. . Radiology Impression Discussion of test interpretation with radiology: I have reviewed the radiologist's reading. Critical Care Time Critical Care Time Critical Care Time: Yes Total Critical Care Time: 45 Attestation: hypoxia correction, hour long neb treatment, review of records I attest to this time spent taking care of the patient Discharge Plan Discharge Clinical Impression: Influenza A, Hypoxia Asthma with acute exacerbation Qualifiers: Asthma severity: moderate Asthma persistence: persistent Qualified Code(s): J 45.41 - Moderate persistent asthma with (acute) exacerbation Patient Disposition: Admitted As Inpatient
--- NOTE | 2023-03-05 11:29 | ECG_ITS ---
Test Reason : DIFF BREATHING Blood Pressure : / mmHG Vent. Rate : 087 BPM Atrial Rate : 087 BPM P-R Int : 166 ms QRS Dur : 096 ms QT Int : 398 ms P-R-T Axes : 059 031 081 degrees QTc Int : 478 ms Normal sinus rhythm Possible Left atrial enlargement Cannot rule out Inferior infarct (cited on or before 23-MAR-2022) Abnormal ECG When compared with ECG of 23-MAR-2022 15:16, No significant change was found Referred By: Justyna Farah Electronically Signed By:Kishan Aguilera
[2023-03-05 11:50] LABS: MANUAL DIFF FLAG NO
[2023-03-05 12:01] LABS: Basophils Percent Auto 0.6 % (0-2); Eosinophils Absolute Auto 0.2 X10*3/uL (0.0-0.4); Eosinophils Percent Auto 2.9 % (0-4); Hematocrit 45.9 % (42.0-52.0); Hemoglobin 14.2 g/dl (14.0-18.0); Imm Gran Abs Auto 0.04 X10*3/uL (0.00-0.03); Imm Gran Pct Auto 0.8 % (0.0-0.4); Lymphocytes Absolute Auto 0.9 X10*3/uL (1.2-4.9); Lymphocytes Percent Auto 17.1 % (20-40); Mean Corpuscular HGB Conc 30.9 g/dl (31.0-36.0); Mean Corpuscular Hemoglobin 30.4 pg (27.0-33.0); Mean Corpuscular Volume 98.3 fL (80.0-98.0); Mean Platelet Volume 9.5 fL (9.4-12.4); Monocytes Absolute Auto 0.8 X10*3/uL (0.1-1.2); Monocytes Percent Auto 16.1 % (2-11); NRBC Pct Auto 0.4 /100WBC (0.0-0.2); Neutrophils Absolute Auto 3.2 x10*3/uL (2.0-8.3); Neutrophils Percent Auto 62.5 % (45-73); Platelet Count 147 X10*3/uL (160-400); Red Blood Count 4.67 X10*6/uL (4.60-5.80); Red Cell Distribution Width 14.3 % (11.0-16.0); White Blood Count 5.2 X10*3/uL (4.8-10.8)
[2023-03-05 12:06] LABS: Alanine Aminotransferase 31 U/L (0-40); Albumin Level 3.3 g/dL (3.5-5.0); Alkaline Phosphatase 63 U/L (39-117); Anion Gap 11 (12-20); Aspartate Amino Transferase 22 U/L (5-37); Bilirubin Total 0.6 mg/dL (0.0-1.0); Blood Urea Nitrogen 13 mg/dL (9-16); Calcium 8.6 mg/dL (8.4-10.2); Carbon Dioxide 39 mmol/L (22-29); Chloride 99 mmol/L (96-108); Creatinine Clr Calc Pharmacy 135.9; Estimated Glomerular Filt Rate > 60; Glucose Random 89 mg/dL (60-115); Potassium 3.5 mmol/L (3.3-5.1); Sodium 145 mmol/L (135-145); Total Protein 6.5 g/dL (6.5-8.0)
[2023-03-05] MEDS: Albuterol Sulfate 5 MG, Albuterol/Iprat 2.5/0.5MG 3 ML 3 ML INHALE (12:10)
[2023-03-05 12:12] LABS: B Type Natriuretic Peptide 238 pg/mL (<100)
[2023-03-05] MEDS: methylPREDNISolone Sod Succ 125 MG/2 ML VIAL 60 MG IVPUSH (12:16)
[2023-03-05 12:22] LABS: VBG Base Excess 19.5 mmol/L; VBG HCO3 39 mmol/L (22-26); VBG pCO2 29 mmHg; VBG pH 7.73 (7.32-7.43); VBG pO2 133 mmHg
[2023-03-05 12:22] LABS: Venous Blood Gas Refer to POC result
[2023-03-05 12:27] LABS: Lactic Acid 0.9 mmol/L (0.5-2.0)
[2023-03-05 12:29] LABS: Troponin-I High Sensitivity 32.7 ng/L (<3.5-35.0)
[2023-03-05 12:36] LABS: COVID-19 Test Negative (Negative); IDNOW Serial# 08D9AD1C
[2023-03-05 12:37] LABS: IDNOW Serial# 152EDE1D; Influenza A Positive (Negative)
[2023-03-05 12:38] LABS: Influenza B2 Negative (Negative)
[2023-03-05] MEDS: cefTRIAXone sodium 1 GM in 0.9 % Sodium Chloride 50 ML IV (12:49)
--- NOTE | 2023-03-05 12:58 | PC.NURSE ---
patient reports improvement after breathing treatment. remains low 90's with 2L nasal cannula. IV established, awaiting results from labs/xray at this time. call sunshine within reach.
[2023-03-05] MEDS: Azithromycin 500 MG in 0.9 % Sodium Chloride 250 ML 125 MG IV (13:49)
[2023-03-05 14:46] LABS: VBG Base Excess 16.8 mmol/L; VBG HCO3 43 mmol/L (22-26); VBG pCO2 59 mmHg; VBG pH 7.47 (7.32-7.43); VBG pO2 231 mmHg
[2023-03-05 14:47] LABS: Venous Blood Gas Refer to POC result
[2023-03-05] MEDS: Albuterol Sulfate 2.5 MG, Albuterol/Iprat 2.5/0.5MG 3 ML 3 ML INHALE (15:01)
--- NOTE | 2023-03-05 15:09 | PC.NURSE ---
previously ambulated to bathroom w/out oxygen, patient's oxygen was 80% on room air. now 92% on 3L, aware of plan for admission
--- NOTE | 2023-03-05 15:23 | PHA.MEDREC ---
Pharmacy Consult ? Medication Reconciliation Pharmacy has completed the medication reconciliation.Confirmed medication through claim history and patient. Adenike Mcdonnell CPhT
[2023-03-05] MEDS: Oseltamivir Phosphate 75 MG CAPSULE PO ×2 (15:32→21:08)
[2023-03-05 15:52] LABS: MRSA Nasal PCR NEGATIVE (Negative); SA Nasal PCR POSITIVE (Negative)
--- NOTE | 2023-03-05 16:10 | P.HPHOSP_ITS ---
History of Present Illness Date of Service: 03/05/23 Attending physician on admission: Matthew Chino Chief Complaint: sob and cough for 4 days 48 yo male with PMH of Cerebral palsy, CHF preserved EF, HTN, HTN, smoker, asthma, hx of respiratory failure requiring ED bipap for hypercapnia due to metapneumovirus 03/2022 -came with cough, congestion, headaches, sob, fevers, chillls sputum production(greenish). Patient says that he has these symptoms from 3-4 days, he had some sick contact similar symptoms at work. Patient said that he called his PCP and was sent to the emergency room. Denies any travel or antibiotic use or vaccine(said he did not get a COVID or influenza vaccine because he get sick with that). Patient required BiPAP during the last admission in 2022 but never got intubated. In ED: CBC fine except mild thrombocytopenia, BMP also fine,cxr:Increased hilar markings and question small nodules. This probably represents airways disease. Differential would include mild pulmonary edema. EKG similar to before. Patient serology positive for influenza A.Patient received nebs, steroids, antibiotics ceftriaxone and azithromycin, Tamiflu and requested admission for COPD exacerbation/influenza a. Denies any new complaint of chest pain or abdominal pain or fever or chills or nausea or vomiting or any weakness or numbness. Review of Systems 2 Review of Systems: Yes all other systems are reviewed and are negative [facility] Medical History Chronic venous hypertension with ulcer Cerebral palsy Asthma Hypertension Surgical History H/O umbilical hernia repair Social History Household Members: Family Housing: House Do you presently have visiting nurse or other home services: No Alcohol intake: current Alcohol intake frequency: 0-2 drinks per day Alcohol type: hard liquor Comment: camera not available Patient Tobacco Use Status: Former Tobacco user Tobacco use type: Cigarette Smoked in Last 30 Days: No e-Cigarette/Vaping Use: Never Used Second Hand Smoke Exposure: No Substance Use Type: Marijuana Advance Directives: No Advance Directives Information Provided: No service: No Current occupational status: employed Meds Allergies Allergy/AdvReac Type Severity Reaction Status Date / Time Penicillins [PENICILLINS] Allergy Unknown HIVES Verified 10/01/22 13:37 Active Medications: Current Medications Albuterol/Ipratropium (Albuterol/Iprat 2.5/0.5mg 3 Ml Ampul.Neb) 3 ml INHALE RQ4H [facility] Albuterol/Ipratropium (Albuterol/Iprat 2.5/0.5mg 3 Ml Ampul.Neb) 3 ml INHALE Q3H PRN PRN Reason: Shortness of Breath Enoxaparin Sodium (Enoxaparin Sodium 40 Mg/0.4 Ml Syringe) 40 mg SUBCUT DAILY [facility] Ceftriaxone Sodium 1 gm/ (Sodium Chloride) 50 mls @ 100 mls/hr IV Q24H [facility] Azithromycin 500 mg/ Sodium (Chloride) 250 mls @ 125 mls/hr IV Q24H [facility] Oseltamivir Phosphate (Oseltamivir Phosphate 75 Mg Capsule) 75 mg PO BID [facility] Sodium Chloride (0.9 % Sodium Chloride Flush 3 Ml Syringe) 3 ml IVFLUSH QSHIFT [facility] Home Medications Medication Instructions Recorded Confirmed Last Taken Type amlodipine 5 mg tablet 1 tab PO BEDTIME 01/12/21 03/05/23 03/04/23 History budesonide-formoterol HFA 160 2 puff inhalation BID 01/12/21 03/05/23 03/04/23 History mcg-4.5 mcg/actuation aerosol inhaler (Symbicort) albuterol sulfate 90 mcg/actuation 2 inh inhalation Q4H PRN Shortness 01/28/21 03/05/23 03/04/23 History aerosol inhaler Of Breath Physical Exam 2 Vital Signs and Narrative: Vital Signs: Last Vital Signs Temp 99.0 F 03/05/23 13:52 Pulse 95 03/05/23 15:01 Resp 16 03/05/23 15:01 BP 169/92 H 03/05/23 13:52 Pulse Ox 91 L 03/05/23 13:52 O2 Del Method Nasal Cannula 03/05/23 13:52 O2 Flow Rate 2 03/05/23 13:52 BMI result Body Mass Index 42.0 Appearance: Alert.? Oriented X3.? not in distress.? Eyes: Pupils equal, round and reactive to light.? Sclera nonicteric.? ENT: Pharynx normal.? Moist mucous membranes. cvs: rrr, [id number] , no murmur res: clear to auscultation ,no rhonchii or wheezing abd: no rebound or guarding ,nt, bs present. ext pulses present , no cyanosis leg wound, b/l poor hygene neuro: axo3 , nonfocal. Results Labs 03/05/23 11:46 03/05/23 11:46 Labs: Laboratory Results - last 24 hr 03/05/23 03/05/23 03/05/23 11:46 12:09 12:10 MCV 98.3 H MCH 30.4 MCHC 30.9 L RDW 14.3 Plt Count 147 L D MPV 9.5 Immature Gran % (Auto) 0.8 H Neut % (Auto) 62.5 Lymph % (Auto) 17.1 L [place] % (Auto) 16.1 H Eos % (Auto) 2.9 Baso % (Auto) 0.6 Lymph # (Auto) 0.9 L [place] # (Auto) 0.8 Eos # (Auto) 0.2 Baso # (Auto) 0.0 Abs Immat Gran (auto) 0.04 H Absolute Neuts (auto) 3.2 Absolute Nucleated RBC 0.020 H Nucleated RBC % (auto) 0.4 H VBG pH VBG pCO2 VBG pO2 VBG HCO3 VBG O2 Saturation VBG Base Excess Anion Gap 11 L Estim Creat Clear Calc 135.9 Estimated GFR > 60 Random Glucose 89 Lactic Acid 0.9 Calcium 8.6 Total Bilirubin 0.6 AST 22 ALT 31 Alkaline Phosphatase 63 B-Natriuretic Peptide 238 H Total Protein 6.5 Albumin 3.3 L Nasal Screen MRSA (PCR) Nasal S. aureus Screen Nasal MRSA/S.aureus Interp COVID-19 (JESS) Negative COVID-19 Clin Com See Note Influenza Type A (SHIRA) Positive A Influenza Type B (SHIRA) Negative Influenza A & B Note See Note 03/05/23 03/05/23 03/05/23 12:14 14:30 14:40 MCV MCH MCHC RDW Plt Count MPV Immature Gran % (Auto) Neut % (Auto) Lymph % (Auto) [place] % (Auto) Eos % (Auto) Baso % (Auto) Lymph # (Auto) [place] # (Auto) Eos # (Auto) Baso # (Auto) Abs Immat Gran (auto) Absolute Neuts (auto) Absolute Nucleated RBC Nucleated RBC % (auto) VBG pH 7.73 H* 7.47 H VBG pCO2 29 59 VBG pO2 133 231 VBG HCO3 39 H 43 H VBG O2 Saturation 99.0 100.0 VBG Base Excess 19.5 16.8 Anion Gap Estim Creat Clear Calc Estimated GFR Random Glucose Lactic Acid Calcium Total Bilirubin AST ALT Alkaline Phosphatase B-Natriuretic Peptide Total Protein Albumin Nasal Screen MRSA (PCR) NEGATIVE Nasal S. aureus Screen POSITIVE A Nasal MRSA/S.aureus Interp SEE NOTE COVID-19 (JESS) COVID-19 Clin Com Influenza Type A (SHIRA) Influenza Type B (SHIRA) Influenza A & B Note Imaging Radiologist's Impressions: Impressions Chest X-Ray 03/05/23 12:35 IMPRESSION: Increased hilar markings and question small nodules. This probably represents airways disease. Differential would include mild pulmonary edema. Assessment and Plan (1) Acute on chronic respiratory failure with hypoxia and hypercapnia: Status: Acute Plan 47-year-old male with significant underlying COPD on 2.5 liter oxygen at baseline presented shortness of breath, flu-like symptoms, productive cough. Acute hypoxemic and hypercapneic respiratory failure secondary to influenza infection, mild recurrent CHFpEF. Patient is short of breath, talking in broken sentences Lung exam: Bilateral wheezing Mild elevated BNP, chest x-ray has? Airway disease versus congestion. Monitor I&O Started on nebs, steroids, IV antibiotics, Tamiflu, IV Lasix. HTN: Somewhat suboptimal Home medication reconciliation pending. BPH on Flomax morbid obesity with lymphedema weight loss, wound care DVT prophylaxis:? SubQ Lovenox Patient will benefit from 48-72 hour hospital stay considering severe acute hypoxemic/hypercarbic respiratory failure secondary to COPD exacerbation/influenza/mild CHF-patient need IV antibiotics nebs, steroids, IV diuretic and as well as need monitoring for I&O, daily weights and renal function and electrolytic monitoring. Above management discussed with the patient in detail length he understand and in agreement with the above plan, time spent 70 minute, patient full code. Quality Stroke Does the patient have a stroke diagnosis?: No VTE Prior VTE?: No VTE Risk Level:: Medical - moderate - high VTE Device Contraindication: N/A - Device Ordered VTE Drug Contraindication: N/A - Med Ordered
[2023-03-05] MEDS: Furosemide 40 MG/4 ML VIAL IVPUSH (17:19)
[2023-03-05] MEDS: methylPREDNISolone Sod Succ 40 MG/ML VIAL IVPUSH ×2 (17:19→21:09)
[2023-03-05] MEDS: 0.9 % Sodium Chloride Flush 3 ML SYRINGE IVFLUSH (17:19)
--- NOTE | 2023-03-05 18:20 | PC.NURSE ---
placed in hospital bed for comfort. remains on oxygen, maintaining in the 90's. preferring to sit up in chair at this time, stating he is more comfortable this way. offered recliner, patient refused. patient has wounds on leg, states he has follow up care with wound clinic.
[2023-03-05] MEDS: amLODIPine Besylate 5 MG TABLET PO (21:08)
[2023-03-05] MEDS: carvediloL 3.125 MG TABLET PO (21:08)
[2023-03-05] MEDS: Albuterol/Iprat 2.5/0.5MG 3 ML AMPUL.NEB INHALE (21:33)
[2023-03-05] MEDS: Melatonin 3 MG TABLET 6 MG PO (21:58)
[2023-03-06] VITALS (13 sets, daily range): BP systolic 154–178; BP diastolic 80–94; PULSE 71–98; RESP 17–20; TEMP 36.3–37.3; O2SAT 86–98
[2023-03-06] MEDS: Albuterol/Iprat 2.5/0.5MG 3 ML AMPUL.NEB INHALE ×6 (00:09→19:49)
[2023-03-06] MEDS: 0.9 % Sodium Chloride Flush 3 ML SYRINGE IVFLUSH ×4 (00:32→20:20)
[2023-03-06] MEDS: Furosemide 40 MG TABLET PO (10:29)
[2023-03-06] MEDS: Enoxaparin Sodium 40 MG/0.4 ML SYRINGE SUBCUT (10:29)
[2023-03-06] MEDS: carvediloL 3.125 MG TABLET PO ×2 (10:29→20:20)
[2023-03-06] MEDS: methylPREDNISolone Sod Succ 40 MG/ML VIAL IVPUSH ×2 (10:29→20:20)
[2023-03-06] MEDS: Oseltamivir Phosphate 75 MG CAPSULE PO ×2 (10:29→20:20)
--- NOTE | 2023-03-06 10:59 | P.PNIM_ITS ---
Subjective Subjective Date of Service: 03/06/23 Interval History: copd excerebation Review of Systems Shortness of breath seems similar but somewhat improving than yesterday. Has cough, no fever Physical Exam 2 Vital Signs: Vital Signs: Last Vital Signs Temp 99.1 F 03/06/23 06:54 Pulse 90 03/06/23 08:11 Resp 18 03/06/23 08:11 BP 173/85 H 03/06/23 06:54 Pulse Ox 93 03/06/23 06:54 O2 Del Method Nasal Cannula 03/06/23 06:54 O2 Flow Rate 2 03/06/23 06:54 BMI result Body Mass Index 42.8 Appearance: Alert.? Oriented X3.sob cvs: rrr, [id number] . res: air entry dimished ,has b/l exp wheezing abd: no rebound or guarding ,nt, bs present. ext pulses present , no cyanosis leg wound, b/l poor hygene neuro: axo3 , nonfocal. Objective Data Active Medications Albuterol/Ipratropium (Albuterol/Iprat 2.5/0.5mg 3 Ml Ampul.Neb) 3 ml INHALE RQ4H SHITAL Last Admin: 03/06/23 08:09 Dose: 3 ml Documented By: SETH Albuterol/Ipratropium (Albuterol/Iprat 2.5/0.5mg 3 Ml Ampul.Neb) 3 ml INHALE Q3H PRN PRN Reason: Shortness of Breath Amlodipine Besylate (Amlodipine Besylate 5 Mg Tablet) 5 mg PO BEDTIME SHITAL; Protocol Last Admin: 03/05/23 21:08 Dose: 5 mg Documented By: GANESH Carvedilol (Carvedilol 3.125 Mg Tablet) 3.125 mg PO BID SHITAL; Protocol Last Admin: 03/06/23 10:29 Dose: 3.125 mg Documented By: OJHNNA Enoxaparin Sodium (Enoxaparin Sodium 40 Mg/0.4 Ml Syringe) 40 mg SUBCUT DAILY SHITAL Last Admin: 03/06/23 10:29 Dose: 40 mg Documented By: JOHNNA Furosemide (Furosemide 40 Mg Tablet) 40 mg PO DAILY SHITAL; Protocol Last Admin: 03/06/23 10:29 Dose: 40 mg Documented By: JOHNNA Ceftriaxone Sodium 1 gm/ (Sodium Chloride) 50 mls @ 100 mls/hr IV Q24H [facility] Azithromycin 500 mg/ Sodium (Chloride) 250 mls @ 125 mls/hr IV Q24H [facility] Melatonin (Melatonin 3 Mg Tablet) 6 mg PO BEDTIME PRN PRN Reason: Insomnia Last Admin: 03/05/23 21:58 Dose: 6 mg Documented By: ERIKA Methylprednisolone Sodium Succinate (Methylprednisolone Sod Succ 40 Mg/Ml Vial) 40 mg IVPUSH BID [facility] Last Admin: 03/06/23 10:29 Dose: 40 mg Documented By: JOHNNA Oseltamivir Phosphate (Oseltamivir Phosphate 75 Mg Capsule) 75 mg PO BID [facility] Last Admin: 03/06/23 10:29 Dose: 75 mg Documented By: JOHNNA Sodium Chloride (0.9 % Sodium Chloride Flush 3 Ml Syringe) 3 ml IVFLUSH QSHIFT [facility] Last Admin: 03/06/23 10:30 Dose: 3 ml Documented By: JOHNNA Labs 03/05/23 11:46 03/05/23 11:46 Labs: Laboratory Results - last 24 hr 03/05/23 03/05/23 03/05/23 11:46 12:09 12:10 MCV 98.3 H MCH 30.4 MCHC 30.9 L RDW 14.3 Plt Count 147 L D MPV 9.5 Immature Gran % (Auto) 0.8 H Neut % (Auto) 62.5 Lymph % (Auto) 17.1 L [place] % (Auto) 16.1 H Eos % (Auto) 2.9 Baso % (Auto) 0.6 Lymph # (Auto) 0.9 L [place] # (Auto) 0.8 Eos # (Auto) 0.2 Baso # (Auto) 0.0 Abs Immat Gran (auto) 0.04 H Absolute Neuts (auto) 3.2 Absolute Nucleated RBC 0.020 H Nucleated RBC % (auto) 0.4 H VBG pH VBG pCO2 VBG pO2 VBG HCO3 VBG O2 Saturation VBG Base Excess Anion Gap 11 L Estim Creat Clear Calc 135.9 Estimated GFR > 60 Random Glucose 89 Lactic Acid 0.9 Calcium 8.6 Total Bilirubin 0.6 AST 22 ALT 31 Alkaline Phosphatase 63 B-Natriuretic Peptide 238 H Total Protein 6.5 Albumin 3.3 L Nasal Screen MRSA (PCR) Nasal S. aureus Screen Nasal MRSA/S.aureus Interp COVID-19 (JESS) Negative COVID-19 Clin Com See Note Influenza Type A (SHIRA) Positive A Influenza Type B (SHIRA) Negative Influenza A & B Note See Note 03/05/23 03/05/23 03/05/23 12:14 14:30 14:40 MCV MCH MCHC RDW Plt Count MPV Immature Gran % (Auto) Neut % (Auto) Lymph % (Auto) [place] % (Auto) Eos % (Auto) Baso % (Auto) Lymph # (Auto) [place] # (Auto) Eos # (Auto) Baso # (Auto) Abs Immat Gran (auto) Absolute Neuts (auto) Absolute Nucleated RBC Nucleated RBC % (auto) VBG pH 7.73 H* 7.47 H VBG pCO2 29 59 VBG pO2 133 231 VBG HCO3 39 H 43 H VBG O2 Saturation 99.0 100.0 VBG Base Excess 19.5 16.8 Anion Gap Estim Creat Clear Calc Estimated GFR Random Glucose Lactic Acid Calcium Total Bilirubin AST ALT Alkaline Phosphatase B-Natriuretic Peptide Total Protein Albumin Nasal Screen MRSA (PCR) NEGATIVE Nasal S. aureus Screen POSITIVE A Nasal MRSA/S.aureus Interp SEE NOTE COVID-19 (JESS) COVID-19 Clin Com Influenza Type A (SHIRA) Influenza Type B (SHIRA) Influenza A & B Note Microbiology Microbiology Results: Microbiology 03/05/23 12:09 Blood Culture - Preliminary Blood - Venous Assessment and Plan (1) Asthma with acute exacerbation: Status: Acute (2) Influenza A: Status: Acute Assessment and Plan: 47-year-old male with significant underlying COPD on 2.5 liter oxygen at baseline presented shortness of breath, flu-like symptoms, productive cough. Acute hypoxemic and hypercapneic respiratory failure secondary to influenza infection, mild recurrent CHFpEF. Patient is short of breath with minimum excersion Lung exam: Bilateral wheezing Mild elevated BNP, chest x-ray has? Airway disease versus congestion. Monitor I&O daily weights Started on nebs, steroids, IV antibiotics, Tamiflu, IV Lasix. HTN: Somewhat suboptimal Home medication reconciliation pending. BPH on Flomax morbid obesity with lymphedema weight loss, wound care DVT prophylaxis:? SubQ Lovenox Patient will benefit from 48-72 hour hospital stay considering severe acute hypoxemic/hypercarbic respiratory failure secondary to COPD exacerbation/influenza/mild CHF-patient need IV antibiotics nebs, steroids, IV diuretic and as well as need monitoring for I&O, daily weights and renal function and electrolytic monitoring. Quality Stroke Does the patient have a stroke diagnosis?: No VTE Prior VTE?: No VTE Risk Level:: Medical - moderate - high VTE Device Contraindication: N/A - Device Ordered VTE Drug Contraindication: N/A - Med Ordered
[2023-03-06] MEDS: acetaZOLAMIDE 250 MG TABLET PO (11:40)
[2023-03-06] MEDS: cefTRIAXone sodium 1 GM in 0.9 % Sodium Chloride 50 ML IV (13:16)
--- NOTE | 2023-03-06 13:34 | HO.SKINPHOTO ---
Location: Bilateral lower extremity Category: Stage: Length: Width: Depth: cm Location: Category: Stage: Length: Width: Depth: cm Location: Category: Stage: Length: Width: Depth: cm Location: Category: Stage: Length: Width: Depth: cm Location: Category: Stage: Length: Width: Depth: cm Location: Category: Stage: Length: Width: Depth: cm
[2023-03-06] MEDS: Azithromycin 500 MG in 0.9 % Sodium Chloride 250 ML 125 MG IV (15:34)
--- NOTE | 2023-03-06 16:19 | MHC.CM.PN ---
PT REPORTS HE LIVES WITH HIS MOTHER AND IS INDEPENDENT WITH CARE HE REPORTS HE WORKS RIGHT NOW BUT FEELS HE NEEDS TO APPLY FOR SSDI DUE TO HIS COPD, FEET AND CP CM REVIEWED INSTRUCTIONS ON HOW TO APPLY FOR BENEFITS PT REPORTS HE HAS HOME O2 HE USES PRN HE SAYS HE HAS COMPLETED A HCP IN THE PAST, COPY REQUESTED PCP: PASCUAL TAYLOR DCP: HOME NO SERVICES VIA PRIVATE TRANSPORT LINK TO APPLY FOR SSDI BENEFITS ADDED TO PTS DC PACKET
[2023-03-06] MEDS: amLODIPine Besylate 5 MG TABLET PO (20:20)
[2023-03-07] VITALS (7 sets, daily range): BP systolic 148–152; BP diastolic 78–94; PULSE 64–98; RESP 18–20; TEMP 35.9–36.6; O2SAT 63–98
[2023-03-07] MEDS: Albuterol/Iprat 2.5/0.5MG 3 ML AMPUL.NEB INHALE ×3 (04:05→11:45)
[2023-03-07] MEDS: Furosemide 40 MG TABLET PO (09:48)
[2023-03-07] MEDS: carvediloL 3.125 MG TABLET PO (09:48)
[2023-03-07] MEDS: Oseltamivir Phosphate 75 MG CAPSULE PO (09:48)
[2023-03-07] MEDS: methylPREDNISolone Sod Succ 40 MG/ML VIAL IVPUSH (09:48)
[2023-03-07] MEDS: Enoxaparin Sodium 40 MG/0.4 ML SYRINGE SUBCUT (09:48)
[2023-03-07] MEDS: 0.9 % Sodium Chloride Flush 3 ML SYRINGE IVFLUSH (09:49)
--- NOTE | 2023-03-07 12:17 | PM.DS ---
DS: Providers Provider Date of Service: 03/07/23 Date of admission: 03/05/23 15:46 Date of discharge: 03/07/23 Primary care physician: Justin Helm III, MD Consults: 03/05/23 15:51 Consult to Wound Care Routine Reason for consultation: Leg wounds Attending physician on discharge: Matthew Chino Discharging clinician: Matthew Chino DS: Diagnosis Discharge Diagnosis (1) Asthma with acute exacerbation: Status: Acute (2) Influenza A: Status: Acute DS: Summary Hospital Course Hospital Course: 48 yo male with PMH of Cerebral palsy, CHF preserved EF, HTN, HTN, smoker, asthma, hx of respiratory failure requiring ED bipap for hypercapnia due to metapneumovirus 03/2022 -came with cough, congestion, headaches, sob, fevers, chillls sputum production(greenish). Patient says that he has these symptoms from 3-4 days, he had some sick contact similar symptoms at work. Patient said that he called his PCP and was sent to the emergency room. Denies any travel or antibiotic use or vaccine(said he did not get a COVID or influenza vaccine because he get sick with that). Patient required BiPAP during the last admission in 2022 but never got intubated. In ED: CBC fine except mild thrombocytopenia, BMP also fine,cxr:Increased hilar markings and question small nodules. This probably represents airways disease. Differential would include mild pulmonary edema. EKG similar to before. Patient serology positive for influenza A.Patient received nebs, steroids, antibiotics ceftriaxone and azithromycin, Tamiflu and requested admission for COPD exacerbation/influenza a. Denies any new complaint of chest pain or abdominal pain or fever or chills or nausea or vomiting or any weakness or numbness. Hospital course: Acute hypoxemic and hypercapneic respiratory failure secondary to influenza infection,copd excerebation, mild recurrent CHFpEF: No leukocytosis, fever, chest [id number] airway disease (mild pneumonitis)versus pulmonary congestion, blood cultures sent: Patient was started on nebs, steroids, antibiotics, oxygen support: Patient seems to be improved significantly with supportive care-patient symptom improved significantly also. No fevers, blood culture negative at 24 hours. Patient switched to p.o. steroids-prednisone 40 mg daily for 4 days, antibiotics Ceftin 500 mg p.o. b.i.d. and azithromycin 250 mg daily for 5 days, complete Tamiflu for 75 mg p.o. b.i.d. 3 more days continue home Lasix. In addition patient was evaluated with home oxygen evaluation seems like-he he is at his baseline home oxygen requirement currently, he also confirmed that he has home oxygen already. plan: p.o. steroids-prednisone 40 mg daily for 4 days, antibiotics Ceftin 500 mg p.o. b.i.d. and azithromycin 250 mg daily for 5 days, complete Tamiflu for 75 mg p.o. b.i.d. 3 more days continue home Lasix. CHF education given, patient was told to get daily weights, monitor for leg swelling, if weight gain 2 lb or more in a week may need further Lasix adjustment out patiently. Please repeat chest imaging in 3-4 weeks to see resolution of airway disease(possible pneumonitis). Further management out patiently with pcp. Assessment and plan coordination time spent 50 minute, patient understand in agreement with the plan. Time Attestation Discharge coordination time: Greater than 30 minutes Quality: Safe Use of Opioids Does Pt have an Active Cancer Diagnosis on the Problem List?: No Quality: Stroke Does the patient have a stroke diagnosis?: No Physical Exam Vital Signs: Vital Signs: Last Vital Signs Temp 97.9 F 03/07/23 11:31 Pulse 89 03/07/23 11:48 Resp 18 03/07/23 11:48 BP 148/78 H 03/07/23 11:31 Pulse Ox 94 03/07/23 11:31 O2 Del Method Room Air 03/07/23 11:31 O2 Flow Rate 2 03/07/23 06:57 BMI result Body Mass Index 42.8 Appearance: Alert.? Oriented X3.? not in distress.? Eyes: Pupils equal, round and reactive to light.? Sclera nonicteric.? ENT: Pharynx normal.? Moist mucous membranes. cvs: rrr, [id number] , no murmur res: clear to auscultation ,no rhonchii or wheezing abd: no rebound or guarding ,nt, bs present. ext pulses present , no cyanosis leg area: ch vanostatsis changes neuro: axo3 , nonfocal. DS: Data Data Completed and Pending Completed studies during hospitalization [Text1]: Procedures Assistance with Respiratory Ventilation, Less than 24 Consecutive Hours, Continuous Positive Airway Pressure (03/23/22) Drainage of Bladder with Drainage Device, Via Natural or Artificial Opening (03/23/22) Labs on day of discharge: Preliminary micro results at discharge 03/05/23 12:09 Blood Culture - Preliminary Blood - Venous No growth after 24 hours. 03/05/23 12:23 Blood Culture - Preliminary Blood - Venous No growth after 24 hours. Imaging Chest x-ray: Radiologist's impression: ITS Impressions Chest X-Ray 03/05/23 12:35 IMPRESSION: Increased hilar markings and question small nodules. This probably represents airways disease. Differential would include mild pulmonary edema. Discharge Plan Discharge Anticipated Discharge Date/Time: 03/07/23 12:05 Patient Disposition: Home, Self-Care Discharge Diagnosis: Acute hypoxemic and hypercapneic respiratory failure secondary to influenza infectioncopd excerebation, mild recurrent CHFpEF. Referrals: APPLYING FOR SSDI [Other] - 1 Week (You can apply for SS disability online at [email or web address]/[email or web address]) Justin Helm III, MD [Primary Care Provider] - 1 Week Discharge Medications: New prednisone 20 mg tablet 40 mg PO DAILY Qty: 8 0RF oseltamivir [Tamiflu] 75 mg Capsule 75 mg PO BID Qty: 7 0RF azithromycin [Zithromax] 250 mg tablet 250 mg PO DAILY 5 Days Qty: 5 0RF cefuroxime axetil 500 mg tablet 500 mg PO BID Qty: 10 0RF Continued amlodipine 5 mg tablet 1 tab PO BEDTIME budesonide-formoterol [Symbicort] 160-4.5 mcg/actuation HFA aerosol inhaler 2 puff inhalation BID carvedilol 3.125 mg Tablet 3.125 mg PO BID Qty: 60 0RF Protocol: Hold for SBP/HR < HOLD for SBP < : 90 HOLD for HR < : 60 furosemide 40 mg Tablet 40 mg PO DAILY Qty: 30 0RF Protocol: Hold for SBP< HOLD for SBP < : 90 albuterol sulfate 90 mcg/actuation HFA aerosol inhaler 2 inh inhalation Q4H PRN (Reason: Shortness Of Breath) Discharge Orders: Discharge Order (Routine); Ordered 03/07/23 Ordered By: Matthew Chino Diet: Advance to usual diet Activity on Discharge: As tolerated Stand Alone Forms: Patient Portal Discharge page Care Plan Goals: Acute hypoxemic and hypercapneic respiratory failure secondary to influenza infection,copd excerebation, mild recurrent CHFpEF: No leukocytosis, fever, chest [id number] airway disease (mild pneumonitis)versus pulmonary congestion, blood cultures sent: Patient was started on nebs, steroids, antibiotics, oxygen support: Patient seems to be improved significantly with supportive care-patient symptom improved significantly also. Patient switched to p.o. steroids-prednisone 40 mg daily for 4 days, antibiotics Ceftin 500 mg p.o. b.i.d. and azithromycin 250 mg daily for 5 days, complete Tamiflu for 75 mg p.o. b.i.d. 3 more days continue home Lasix. Please repeat chest imaging in 3-4 weeks to see resolution of airway disease(possible pneumonitis). In addition patient was evaluated with home oxygen evaluation seems like-he he is at his baseline home oxygen requirement currently, he also confirmed that he has home oxygen already. ch vanostatsis changes /leg wound care -follow up wound care outapatient. Further management out patiently with pcp. Health Concerns: As above. Plan of Treatment: As above. Assessment: As above.
== END 2023-03-07 13:50 | disposition home or self-care (01) | DRG 113 ==
LOC: HO.ED 13:32 → HO.EDOVER 15:53 → HO.IMC 19:39
PROVIDERS: Nurse Practitioner Family; Admitting Provider Internal Medicine; Emergency Provider Emergency Medicine; PCP Internal Medicine; Visit Provider Internal Medicine
DX: J10.1 Influenza due to other identified influenza virus with other respiratory manifestations (principal); J96.21 Acute and chronic respiratory failure with hypoxia; I50.32 Chronic diastolic (congestive) heart failure; I11.0 Hypertensive heart disease with heart failure; I87.8 Other specified disorders of veins; J96.22 Acute and chronic respiratory failure with hypercapnia; G80.9 Cerebral palsy, unspecified; J45.41 Moderate persistent asthma with (acute) exacerbation; N40.0 Benign prostatic hyperplasia without lower urinary tract symptoms; E66.01 Morbid (severe) obesity due to excess calories; Z68.41 Body mass index [BMI] 40.0-44.9, adult; Z88.0 Allergy status to penicillin; Z79.899 Other long term (current) drug therapy
CPT/HCPCS: 36415; 71045; 80053; 82803; 83605; 83880; 84484; 85025; 87040; 87502; 87635; 87640; 87641; 93005; 94640; 94660; 99285; J0456; J0696; J1650; J1940; J2920; J2930

== ENCOUNTER → 2023-03-05 11:29 | Outpatient (BNV) | payer OTHER, SELFPAY | PROVIDERS: Admitting Provider Internal Medicine; Emergency Provider Emergency Medicine; PCP Internal Medicine; Visit Provider Internal Medicine Cardiovascular Disease | DX: R94.31 Abnormal electrocardiogram [ECG] [EKG] (principal) | CPT/HCPCS: 93010 ==

== ENCOUNTER → 2023-03-05 15:46 | Outpatient (BNV) | payer OTHER, SELFPAY | PROVIDERS: Admitting Provider Internal Medicine; Emergency Provider Emergency Medicine; PCP Internal Medicine; Visit Provider Internal Medicine | DX: J45.41 Moderate persistent asthma with (acute) exacerbation (principal); J10.1 Influenza due to other identified influenza virus with other respiratory manifestations | CPT/HCPCS: 99222; 99232; 99239 ==